=== PATIENT | male | born 1950 | race Caucasian/White ===

== ENCOUNTER 2020-01-20 09:58 | Outpatient (REF) | payer MEDICARE, OTHER, SELFPAY ==
[2020-01-20 10:50] LABS: Anion Gap 12 (12-20); Carbon Dioxide 29 mmol/L (22-29); Chloride 105 mmol/L (96-108); Potassium 4.3 mmol/l (3.3-5.1); Sodium 142 mmol/L (135-145)
== END 2020-01-20 09:59 | disposition home or self-care (01) ==
LOC: HO.LAB 09:58
PROVIDERS: PCP Internal Medicine; Visit Provider Internal Medicine
DX: I10 Essential (primary) hypertension (principal); I25.10 Atherosclerotic heart disease of native coronary artery without angina pectoris
CPT/HCPCS: 80051

== ENCOUNTER → 2020-01-28 08:00 | Outpatient (BNVA) | payer MEDICARE, OTHER, SELFPAY | PROVIDERS: PCP Internal Medicine; Visit Provider Internal Medicine | DX: I48.21 Permanent atrial fibrillation (principal); Z51.81 Encounter for therapeutic drug level monitoring; Z79.01 Long term (current) use of anticoagulants | CPT/HCPCS: 85610 ==

== ENCOUNTER 2020-02-01 11:23 | Outpatient (REF) | payer MEDICARE, OTHER, SELFPAY ==
[2020-02-01 13:20] LABS: Digoxin 0.3 ng/mL (0.8-2.0)
== END 2020-02-01 11:24 | disposition home or self-care (01) ==
LOC: HO.LAB 11:23
PROVIDERS: Visit Provider Internal Medicine
DX: I48.91 Unspecified atrial fibrillation (principal)
CPT/HCPCS: 80162

== ENCOUNTER → 2020-02-18 07:52 | Outpatient (BNVA) | payer MEDICARE, OTHER, SELFPAY | PROVIDERS: PCP Internal Medicine; Visit Provider Internal Medicine | DX: I48.21 Permanent atrial fibrillation (principal); Z51.81 Encounter for therapeutic drug level monitoring; Z79.01 Long term (current) use of anticoagulants | CPT/HCPCS: 85610; 99211 ==

== ENCOUNTER → 2020-03-03 08:07 | Outpatient (BNVA) | payer MEDICARE, SELFPAY | PROVIDERS: PCP Internal Medicine; Visit Provider Internal Medicine | DX: I48.21 Permanent atrial fibrillation (principal); Z51.81 Encounter for therapeutic drug level monitoring; Z79.01 Long term (current) use of anticoagulants | CPT/HCPCS: 85610; 99211 ==

== ENCOUNTER → 2020-03-17 08:04 | Outpatient (BNVA) | payer MEDICARE, MEDICAID, OTHER, SELFPAY | PROVIDERS: PCP Internal Medicine; Visit Provider Internal Medicine | DX: I48.21 Permanent atrial fibrillation (principal); Z51.81 Encounter for therapeutic drug level monitoring; Z79.01 Long term (current) use of anticoagulants | CPT/HCPCS: 85610; 99211 ==

== ENCOUNTER 2020-04-05 08:06 | Outpatient (REF) | payer MEDICARE, MEDICAID, OTHER, SELFPAY ==
--- NOTE | 2020-04-05 | US_ITS ---
EXAMINATION: US RETROPERITONEAL LIMITED (AORTA) CLINICAL INFORMATION: Smoking history. COMPARISON: None TECHNIQUE: Edmondson-scale, color Doppler and spectral Doppler evaluation of the abdominal aorta. FINDINGS: There is evidence of atherosclerotic disease with vessel wall calcification. There is a small aneurysm of the distal abdominal aorta. The measurements of the aorta in maximum AP and transverse dimensions respectively are as follows: Proximal: 2.9 x 2.5 cm. Mid: 2.8 x 2.7 cm. Distal: 3.7 x 3.2 cm. PSV: 54 cm/s. Aortic peak systolic velocity is normal measuring 54 cm/s.. There is mild ectasia of the common iliac arteries. The measurements of the common iliac arteries in maximum AP and TRV dimensions are as follows: Right Common Iliac Artery: 1.3 x 1.5 cm. Left Common Iliac Artery: 1.1 x 1.4 cm. 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 Mild ectasia of the bilateral common iliac arteries.
== END 2020-04-05 08:07 | disposition home or self-care (01) ==
LOC: HO.US 08:06
PROVIDERS: Visit Provider Internal Medicine
DX: Z87.891 Personal history of nicotine dependence (principal)
CPT/HCPCS: 76706; 76775

== ENCOUNTER → 2020-04-06 08:05 | Outpatient (BNVA) | payer MEDICARE, MEDICAID, OTHER, SELFPAY | PROVIDERS: PCP Internal Medicine; Visit Provider Internal Medicine | DX: I48.21 Permanent atrial fibrillation (principal); Z79.01 Long term (current) use of anticoagulants; Z51.81 Encounter for therapeutic drug level monitoring | CPT/HCPCS: 85610; 99211 ==

== ENCOUNTER → 2020-04-27 08:04 | Outpatient (BNVA) | payer MEDICARE, OTHER, SELFPAY | PROVIDERS: PCP Internal Medicine; Visit Provider Internal Medicine | DX: I48.21 Permanent atrial fibrillation (principal); Z79.01 Long term (current) use of anticoagulants; Z79.82 Long term (current) use of aspirin | CPT/HCPCS: 85610; 99211 ==

== ENCOUNTER → 2020-05-25 08:00 | Outpatient (BNVA) | payer MEDICARE, OTHER, SELFPAY | PROVIDERS: PCP Internal Medicine; Visit Provider Internal Medicine | DX: I48.21 Permanent atrial fibrillation (principal); Z51.81 Encounter for therapeutic drug level monitoring; Z79.01 Long term (current) use of anticoagulants | CPT/HCPCS: 85610; 99211 ==

== ENCOUNTER → 2020-06-22 08:00 | Outpatient (BNVA) | payer MEDICARE, SELFPAY | PROVIDERS: PCP Internal Medicine; Visit Provider Internal Medicine | DX: I48.21 Permanent atrial fibrillation (principal); Z51.81 Encounter for therapeutic drug level monitoring; Z79.01 Long term (current) use of anticoagulants | CPT/HCPCS: 85610; 99211 ==

== ENCOUNTER → 2020-07-19 07:58 | Outpatient (BNVA) | payer MEDICARE, SELFPAY | PROVIDERS: PCP Internal Medicine; Visit Provider Internal Medicine | DX: I48.21 Permanent atrial fibrillation (principal); Z51.81 Encounter for therapeutic drug level monitoring; Z79.01 Long term (current) use of anticoagulants | CPT/HCPCS: 85610; 99211 ==

== ENCOUNTER 2020-08-08 11:49 | Emergency (ER) | payer MEDICARE, SELFPAY ==
--- NOTE | 2020-08-08 | ECG_ITS ---
Test Reason : AFIB Blood Pressure : / mmHG Vent. Rate : 086 BPM Atrial Rate : 105 BPM P-R Int : 000 ms QRS Dur : 086 ms QT Int : 360 ms P-R-T Axes : 000 002 033 degrees QTc Int : 430 ms Atrial fibrillation Nonspecific ST abnormality Abnormal ECG No previous ECGs available Referred By: Generic ED Physician Electronically Signed By:FRAN CASSIDY MD
--- NOTE | ~2020-08-08 | CT_ITS ---
EXAMINATION: CHEST CTA CLINICAL INFORMATION: Therapeutic INR. Epigastric pain. Evaluate for pulmonary embolism. COMPARISON: Previous chest x-ray from earlier the same day TECHNIQUE: Axial images through the chest following 85 mL Omnipaque 350 intravenous contrast. Sagittal coronal and 3-D reconstructions on the technologist workstation were performed. Patient dose 4 3 3 mg/cm. This CT examination was performed using dose optimization techniques as appropriate, variously including the following: *Automated exposure control *Adjustment of mA and/or kV according to patient size (this includes techniques or standardized protocols for targeted exams where dose is matched to indication/reason for exam; i.e. extremities or head) *Use of iterative reconstruction technique FINDINGS: There is good opacification of the pulmonary arteries. There is no evidence of pulmonary embolism. There is evidence of atherosclerotic disease of the thoracic aorta. There is a mild ectasia of the aortic arch measuring 3.5 cm axial image 21 series 8. There is mild ectasia and thrombus seen in the descending thoracic aorta measuring 3.5 cm. The heart is upper normal in size. There are post-CABG changes. There is no pericardial effusion. There are no enlarged hilar or mediastinal lymph nodes. There is evidence of mild paraseptal emphysema. The lungs are clear. There is no pleural effusion or pleural thickening or pneumothorax. There are small bilateral axillary lymph nodes. No enlarged lymph nodes or chest wall mass is seen. There is an ununited median sternotomy. There are degenerative changes of the thoracic spine. CT/CT angio chest PE protocol IMPRESSION: No evidence of pulmonary embolism. Slightly ectatic aortic arch and descending thoracic aorta measuring 3.5 cm and some thrombus.. Mild emphysema. EXAMINATION: CT of the abdomen and pelvis with IV contrast CLINICAL INFORMATION: Epigastric pain COMPARISON: Aortic ultrasound March 2020 TECHNIQUE: Axial images through the chest, abdomen and pelvis following oral and 85 mL Omnipaque 350 intravenous contrast. Sagittal and coronal reconstructions on the technologist workstation were performed. Patient dose 6 6 3 mg/cm. This CT examination was performed using dose optimization techniques as appropriate, variously including the following: *Automated exposure control *Adjustment of mA and/or kV according to patient size (this includes techniques or standardized protocols for targeted exams where dose is matched to indication/reason for exam; i.e. extremities or head) *Use of iterative reconstruction technique FINDINGS: The liver is low in attenuation suggestive of mild fatty infiltration. The liver is slightly enlarged. No focal liver lesion or biliary duct dilatation is seen. The gallbladder has been removed. The spleen and pancreas are unremarkable. There is fullness of both adrenal glands questionable for hyperplasia or adenomatous change. The kidneys are normal. The bladder is not optimally distended but appears normal. The prostate gland does not appear enlarged. There is diverticulosis of the colon. There is a small duodenal diverticulum adjacent to the pancreas. Small and large bowel is otherwise unremarkable. The appendix is unremarkable. The dominant is unremarkable. There is evidence of atherosclerotic disease of the abdominal aorta there is mild dilatation of the infrarenal abdominal aorta measuring 3.4 x 3.2 cm in AP and transverse dimension. By ultrasound, the aorta measured 3.7 x 3.2 cm March 2020 and this is probably not appreciably changed. There is some intraluminal thrombus. There is mild nonspecific fat stranding and shotty adenopathy at the root of the small bowel mesentery. There are small retroperitoneal lymph nodes. No enlarged lymph nodes are seen. No ascites is seen. No hernia is seen. Review of bone windows demonstrates degenerative changes of the spine and hip joints. As a small 3 mm nonspecific sclerotic density in the right side of the L3 vertebral body.. IMPRESSION: Diverticulosis of the colon. Duodenal diverticuli adjacent to the pancreas. Mild nonspecific fatty infiltration and small lymph nodes at the root of the small bowel mesentery. Enlarged fatty liver. Atherosclerotic disease with mild dilatation of the infrarenal abdominal aorta probably unchanged from previous aortic ultrasound March 2020. Bilateral adrenal gland fullness suggestive of hyperplasia.
--- NOTE | ~2020-08-08 | XR_ITS ---
EXAMINATION: XR CHEST CLINICAL INFORMATION: Chest pain COMPARISON: None TECHNIQUE: Frontal view of the chest was obtained. FINDINGS: The cardiac silhouette does not appear enlarged. There are post-CABG changes, atrial appendage clip and median sternotomy wires. Hilar and mediastinal contours are unremarkable. The lungs are clear. There is no pleural effusion or pneumothorax. There are degenerative changes of the spine. XR/XR chest 1V IMPRESSION: No evidence for acute disease in the chest.
[2020-08-08 11:50] VITALS: BP 138/90; PULSE 88; RESP 16; TEMP 36.7; O2SAT 99; BMI 33.2
--- NOTE | 2020-08-08 12:16 | ED.GENADULT ---
HPI - General Adult General Chief complaint: Arrhythmia/Palpitations Stated complaint: chest pain Time Seen by Provider: 08/08/20 12:03 Source: patient Mode of arrival: ambulatory Limitations: no limitations History of Present Illness HPI narrative: Patient presents to the ED for epigastric pressure/upper abdominal pressure that he woke up with at 6 this morning. Patient denies any nausea, vomiting, shortness of breath, coughing up blood, fever, or chills. Patient denies any acid burning sensation abdomen. Patient states pain resolved on his own before he came to the ED. Patient presently denies abdominal pain, chest pain, shortness of breath, calf pain, or swelling of lower extremities. Patient denies any trauma to chest and abdomen area. Patient denies any nausea vomiting. Patient denies any rectal bleeding or dysuria. Related Data Home Medications Medication Instructions Recorded Confirmed amlodipine 5 mg tablet 5 mg PO DAILY 06/22/20 07/19/20 aspirin 81 mg tablet,delayed 81 mg PO DAILY 06/22/20 07/19/20 release atorvastatin 40 mg tablet 40 mg PO DAILY 06/22/20 07/19/20 diltiazem HCl 180 mg 180 mg PO DAILY 06/22/20 07/19/20 capsule,extended release 24 hr hydrochlorothiazide 12.5 mg tablet 12.5 mg PO DAILY 06/22/20 07/19/20 losartan 100 mg tablet 100 mg PO DAILY 06/22/20 07/19/20 Previous Rx's Medication Instructions Recorded warfarin 5 mg tablet 5 mg PO DAILY #90 tab 01/28/20 Allergies Allergy/AdvReac Type Severity Reaction Status Date / Time No Known Allergies Allergy Verified 05/25/20 08:07 Review of Systems Review of Systems: Yes all other systems are reviewed and are negative Constitutional: Constitutional: Reports as per HPI and Reports no additional constitutional complaints Eyes: Eyes: Reports as per HPI and Reports no additional eye complaints ENT: Reports system reviewed and no additional complaints, except as documented and Reports as per HPI Cardiovascular: Cardiovascular: Reports as per HPI, Reports no additional cardiovascular complaints, Denies chest pain, Denies dyspnea on exertion, Denies orthopnea and Denies paroxysmal nocturnal dyspnea Respiratory: Respiratory: Reports as per HPI, Reports no additional respiratory complaints, Denies cough, Denies pain on inspiration, Denies pain with cough and Denies dyspnea on exertion Gastrointestinal: Gastrointestinal: Reports as per HPI, Reports no additional gastrointestinal complaints and Reports abdominal pain (Epigastric pressure) Genitourinary: Genitourinary: Reports no additional male genitourinary complaints Musculoskeletal: Musculoskeletal: Reports no additional musculoskeletal complaints and Reports as per HPI Neurologic: Reports system reviewed and no additional complaints, except as documented and Reports as per HPI Psychiatric: Psychiatric: Reports no additional psychiatric complaints and Reports as per HPI [facility] Past Medical History Medical History (Updated 08/08/20 @ 17:43 by MARLON Hsu) HTN (hypertension) Surgical History (Updated 08/08/20 @ 11:54 by Kelly Hall) Status post double vessel coronary artery bypass Social History Social History Alcohol intake: never Smoking Status: Never smoker Use of substances other than those prescribed or required for medical reasons: No Advance Directives: No Advance Directives Information Provided: No Physical Exam Vital Signs: Vital Signs: Last Vital Signs Temp 97.9 F 08/08/20 15:56 Pulse 70 08/08/20 15:56 Resp 18 08/08/20 15:56 BP 109/82 08/08/20 15:56 Pulse Ox 98 08/08/20 15:56 Body Mass Index 33.2 Const: General: cooperative, healthy appearing, comfortable, no acute distress, well developed, alert, awake and Physically active Orientation/consciousness: patient oriented x3 HENMT: Head: Yes normal to inspection, Yes No palpable skull fracture present, Yes normocephalic and Yes atraumatic Eyes: General: appearance normal, both eyes and all related structures Neck: Neck: Yes normal visual inspection, Yes full ROM, Yes no lymphadenopathy, Yes no meningeal signs, Yes trachea midline, Yes supple and No tender Chest: Chest palpation & inspection: normal inspection of the chest and normal palpation of entire chest wall Resp: Effort & Inspection: normal respiratory effort and able to speak in complete sentences Auscultation: clear to auscultation bilaterally Cardio: Jugular venous distension: no JVD Heart sounds: S1 normal heart sound present and S2 normal heart sound present GI: Inspection: Yes normal to inspection and No abdominal wall ecchymosis Palpation (GI): Soft to palpation, not firm, nontender, no guarding and not rigid : General: No CVA tenderness and Yes no CVA tenderness Back/Spine/Pelvis: Back: no CVA tenderness, No CVA tenderness, No ecchymosis and No back tenderness Skin: General skin exam: no rashes or lesions noted and elasticity normal Neuro: General: patient oriented x3, no meningeal signs and CN's II-XI intact bilaterally Cranial nerves: Yes CN's II-XII intact bilaterally Extrem: General: Yes normal to inspection and Yes full ROM Psych: Appearance: grossly normal, well kempt and not disheveled Course Course Course Narrative: Due to past medical history patient will have a cardiac evaluation. Presently patient is asymptomatic. Will do EKG, labs including troponin, LFT, and lipase. Patient given fluid. Reevaluation(s) Reevaluation #1: Patient EKG showed rate controlled atrial fibrillation. Patient presently is asymptomatic. Patient's INR subtherapeutic. Patient states he did miss a couple doses last week. Patient's states where he had pressure this morning it was more in the epigastric abdominal area. I reviewed prior imaging which showed aortic aneurysm of 3.7 cm. The repeat imaging to see there is increased size of aneurysm although very unlikely due to patient being asymptomatic. Patient will have 2nd troponin ordered Time: 13:50 Reevaluation #2: Notes from [facility] Cardiology office came back and only had EKG strips were provided no notes from the cant hooker. No EKG changes from EKG that was done on 06/19/2019 at his cant hooker's office at [facility]. I reviewed [facility] by prior surgical note. Patient had by[ass was placed for distal left main stenosis artery. Reevaluation #3: Chest CT negative for any pulmonary embolus. But it does shows same dilated aorta, but now thrombus in the aorta. Patient presently is asymptomatic. Patient does not have any chest pain or abdominal pain. Will contact Dr. Sorenson of vascular surgery for consultation in regards to the thrombus. Patient ready on Coumadin. Abdominal CT scan does not show any intra abdominal medical/surgical etiology. Time: 17:27 Additional Reevaluation(s): Dr. Sorenson came and spoke to me and he was informed of patient's history, physical exam and he reviewed patient's CT of the abdomen and chest imaging. He states patient does not need any further management due to patient being already on Coumadin. Patient to be discharged home. Patient will be given copy of labs imaging ekg and told to follow-up with his cant hooker tomorrow. Once again patient never had any chest pain, chest pressure, abominal pain, epigastric pain, or any epigastric/abdominal pressure during ED visit. Patient passed p.o. challenge. Patient ate a whole plate of food consisted of rice and chicken. Medical Decision Making MDM Narrative Medical decision making narrative: Atypical chest pain/epigastric pain Lab Data Result diagrams: 08/08/20 12:28 08/08/20 12:28 Labs: Lab Results 08/08/20 08/08/20 08/08/20 Range/Units 12:28 12: 12:28 WBC 9.0 (4.8-10.8) X10*3/uL RBC 5.45 (4.60-5.80) X10*6/uL Hgb 16.4 (14.0-18.0) g/dl Hct 49.2 (42-52) % MCV 90.3 (80-98) fL MCH 30.1 (27.0-33.0) pg MCHC 33.3 (31.0-36.0) g/dl RDW 13.8 (11.0-16.0) % Plt Count 202 (160-400) X10*3/uL MPV 10.7 (9.4-12.4) fL Immature Gran % (Auto) 0.4 (0.0-0.4) % Neut % (Auto) 57.7 (45-73) % Lymph % (Auto) 27.5 (20-40) % [place] % (Auto) 11.9 H (2-11) % Eos % (Auto) 2.2 (0-4) % Baso % (Auto) 0.3 (0-2) % Lymph # (Auto) 2.5 (1.2-4.9) X10*3/uL [place] # (Auto) 1.1 (0.1-1.2) X10*3/uL Eos # (Auto) 0.2 (0.0-0.4) X10*3/uL Baso # (Auto) 0.0 (0.0-0.2) X10*3/uL Abs Immat Gran (auto) 0.04 H (0.00-0.03) X10*3/uL Absolute Neuts (auto) 5.2 (2.0-8.3) X10*3/uL Absolute Nucleated RBC 0.000 (0.0-0.012) X10*3/uL Nucleated RBC % (auto) 0.0 (0.0-0.2) /100WBC PT 20.1 H (10.8-13.0) SEC INR 1.7 H (0.9-1.1) APTT 41.9 H (24.1-38.0) SEC Sodium 141 (135-145) mmol/L Potassium 4.3 (3.3-5.1) mmol/L Chloride 103 (96-108) mmol/L Carbon Dioxide 28 (22-29) mmol/L Anion Gap 14 (12-20) BUN 13 (9-16) mg/dL Creatinine 0.99 (0.5-1.4) mg/dL Estim Creat Clear Calc 81.7 Estimated GFR > 60 Random Glucose 101 (60-115) mg/dL Calcium 9.4 (8.4-10.2) mg/dL Total Bilirubin 0.9 (0.0-1.0) mg/dL Direct Bilirubin (0.0-0.5) mg/dL AST 25 (5-37) U/L ALT 27 (0-40) U/L Alkaline Phosphatase 75 (39-117) U/L Troponin I High Sens (<3.5-35.0) ng/L B-Natriuretic Peptide (<100) pg/mL Total Protein 6.9 (6.5-8.0) g/dL Albumin 4.1 (3.5-5.0) g/dL Lipase (8-78) U/L COVID-19 (CHRISTINE) (Negative) COVID-19 Clin Com 08/08/20 08/08/20 08/08/20 Range/Units 12:28 12:28 12:28 WBC (4.8-10.8) X10*3/uL RBC (4.60-5.80) X10*6/uL Hgb (14.0-18.0) g/dl Hct (42-52) % MCV (80-98) fL MCH (27.0-33.0) pg MCHC (31.0-36.0) g/dl RDW (11.0-16.0) % Plt Count (160-400) X10*3/uL MPV (9.4-12.4) fL Immature Gran % (Auto) (0.0-0.4) % Neut % (Auto) (45-73) % Lymph % (Auto) (20-40) % [place] % (Auto) (2-11) % Eos % (Auto) (0-4) % Baso % (Auto) (0-2) % Lymph # (Auto) (1.2-4.9) X10*3/uL [place] # (Auto) (0.1-1.2) X10*3/uL Eos # (Auto) (0.0-0.4) X10*3/uL Baso # (Auto) (0.0-0.2) X10*3/uL Abs Immat Gran (auto) (0.00-0.03) X10*3/uL Absolute Neuts (auto) (2.0-8.3) X10*3/uL Absolute Nucleated RBC (0.0-0.012) X10*3/uL Nucleated RBC % (auto) (0.0-0.2) /100WBC PT (10.8-13.0) SEC INR (0.9-1.1) APTT (24.1-38.0) SEC Sodium (135-145) mmol/L Potassium (3.3-5.1) mmol/L Chloride (96-108) mmol/L Carbon Dioxide (22-29) mmol/L Anion Gap (12-20) BUN (9-16) mg/dL Creatinine (0.5-1.4) mg/dL Estim Creat Clear Calc Estimated GFR Random Glucose (60-115) mg/dL Calcium (8.4-10.2) mg/dL Total Bilirubin (0.0-1.0) mg/dL Direct Bilirubin (0.0-0.5) mg/dL AST (5-37) U/L ALT (0-40) U/L Alkaline Phosphatase (39-117) U/L Troponin I High Sens 8.2 (<3.5-35.0) ng/L B-Natriuretic Peptide 252 H (<100) pg/mL Total Protein (6.5-8.0) g/dL Albumin (3.5-5.0) g/dL Lipase (8-78) U/L COVID-19 (CHRISTINE) Negative (Negative) COVID-19 Clin Com See Note 08/08/20 08/08/20 Range/Units 12:28 15:42 WBC (4.8-10.8) X10*3/uL RBC (4.60-5.80) X10*6/uL Hgb (14.0-18.0) g/dl Hct (42-52) % MCV (80-98) fL MCH (27.0-33.0) pg MCHC (31.0-36.0) g/dl RDW (11.0-16.0) % Plt Count (160-400) X10*3/uL MPV (9.4-12.4) fL Immature Gran % (Auto) (0.0-0.4) % Neut % (Auto) (45-73) % Lymph % (Auto) (20-40) % [place] % (Auto) (2-11) % Eos % (Auto) (0-4) % Baso % (Auto) (0-2) % Lymph # (Auto) (1.2-4.9) X10*3/uL [place] # (Auto) (0.1-1.2) X10*3/uL Eos # (Auto) (0.0-0.4) X10*3/uL Baso # (Auto) (0.0-0.2) X10*3/uL Abs Immat Gran (auto) (0.00-0.03) X10*3/uL Absolute Neuts (auto) (2.0-8.3) X10*3/uL Absolute Nucleated RBC (0.0-0.012) X10*3/uL Nucleated RBC % (auto) (0.0-0.2) /100WBC PT (10.8-13.0) SEC INR (0.9-1.1) APTT (24.1-38.0) SEC Sodium (135-145) mmol/L Potassium (3.3-5.1) mmol/L Chloride (96-108) mmol/L Carbon Dioxide (22-29) mmol/L Anion Gap (12-20) BUN (9-16) mg/dL Creatinine (0.5-1.4) mg/dL Estim Creat Clear Calc Estimated GFR Random Glucose (60-115) mg/dL Calcium (8.4-10.2) mg/dL Total Bilirubin 0.9 (0.0-1.0) mg/dL Direct Bilirubin 0.3 (0.0-0.5) mg/dL AST 27 (5-37) U/L ALT 28 (0-40) U/L Alkaline Phosphatase 73 (39-117) U/L Troponin I High Sens 7.3 (<3.5-35.0) ng/L B-Natriuretic Peptide (<100) pg/mL Total Protein 7.0 (6.5-8.0) g/dL Albumin 4.1 (3.5-5.0) g/dL Lipase 11 (8-78) U/L COVID-19 (CHRISTINE) (Negative) COVID-19 Clin Com ECG Data Interpretation: Atrial fibrillation. Reticular 86. QRS 86. QTC 433. Negative STEMI Discharge Plan Discharge Clinical Impression: Chest pain, atypical, Acute epigastric pain Patient Disposition: Home, Self-Care Instructions: Chest Pain (ED), Epigastric Pain (ED) Additional Instructions: Return to the ED immediately for any worsening chest/abdominal pain, nausea, vomiting, fever, chills, swelling of lower extremities, calf pain, coughing up blood, diaphoresis, headache, dizziness, weakness, or any other concerning symptoms. Please follow-up with a cant hooker at [facility] tomorrow. Prescriptions: No Action warfarin 5 mg tablet 5 mg PO DAILY Qty: 90 RF: 0 diltiazem HCl 180 mg capsule,extended release 24hr 180 mg PO DAILY RF: 0 hydrochlorothiazide 12.5 mg tablet 12.5 mg PO DAILY RF: 0 amlodipine 5 mg tablet 5 mg PO DAILY RF: 0 losartan 100 mg tablet 100 mg PO DAILY RF: 0 atorvastatin 40 mg tablet 40 mg PO DAILY RF: 0 aspirin 81 mg tablet,delayed release (DR/EC) 81 mg PO DAILY RF: 0 Interventions: ED Discharge Assessment Last Done: 08/08/20 18:02 Discharge Date/Time: 08/08/20 18:03 Print Language: Bulgarian
[2020-08-08] MEDS: 0.9 % Sodium Chloride 1,000 ML 999 ML IV (12:30)
[2020-08-08 12:43] LABS: MANUAL DIFF FLAG NO
[2020-08-08 12:46] LABS: Basophils Percent Auto 0.3 % (0-2); Eosinophils Absolute Auto 0.2 X10*3/uL (0.0-0.4); Eosinophils Percent Auto 2.2 % (0-4); Hematocrit 49.2 % (42-52); Hemoglobin 16.4 g/dl (14.0-18.0); Imm Gran Abs Auto 0.04 X10*3/uL (0.00-0.03); Imm Gran Pct Auto 0.4 % (0.0-0.4); Lymphocytes Absolute Auto 2.5 X10*3/uL (1.2-4.9); Lymphocytes Percent Auto 27.5 % (20-40); Mean Corpuscular HGB Conc 33.3 g/dl (31.0-36.0); Mean Corpuscular Hemoglobin 30.1 pg (27.0-33.0); Mean Corpuscular Volume 90.3 fL (80-98); Mean Platelet Volume 10.7 fL (9.4-12.4); Monocytes Absolute Auto 1.1 X10*3/uL (0.1-1.2); Monocytes Percent Auto 11.9 % (2-11); Neutrophils Absolute Auto 5.2 X10*3/uL (2.0-8.3); Neutrophils Percent Auto 57.7 % (45-73); Platelet Count 202 X10*3/uL (160-400); Red Blood Count 5.45 X10*6/uL (4.60-5.80); Red Cell Distribution Width 13.8 % (11.0-16.0)
[2020-08-08 12:52] LABS: INTERNATIONAL NORM RATIO 1.7 (0.9-1.1); Prothrombin Time 20.1 SEC (10.8-13.0)
[2020-08-08 13:01] LABS: Partial Thromboplastin Time 41.9 SEC (24.1-38.0)
[2020-08-08 13:06] LABS: COVID-19 Test Negative (Negative)
[2020-08-08 13:14] LABS: Alanine Aminotransferase 27 U/L (0-40); Albumin Level 4.1 g/dL (3.5-5.0); Alkaline Phosphatase 75 U/L (39-117); Anion Gap 14 (12-20); Aspartate Amino Transferase 25 U/L (5-37); Bilirubin Total 0.9 mg/dL (0.0-1.0); Blood Urea Nitrogen 13 mg/dL (9-16); Calcium 9.4 mg/dL (8.4-10.2); Carbon Dioxide 28 mmol/L (22-29); Chloride 103 mmol/L (96-108); Creatinine Clr Calc Pharmacy 81.7; Estimated Glomerular Filt Rate > 60; Glucose Random 101 mg/dL (60-115); Potassium 4.3 mmol/L (3.3-5.1); Sodium 141 mmol/L (135-145); Total Protein 6.9 g/dL (6.5-8.0)
[2020-08-08 13:16] LABS: Alanine Aminotransferase 28 U/L (0-40); Albumin Level 4.1 g/dL (3.5-5.0); Alkaline Phosphatase 73 U/L (39-117); Aspartate Amino Transferase 27 U/L (5-37); Bilirubin Direct 0.3 mg/dL (0.0-0.5); Bilirubin Total 0.9 mg/dL (0.0-1.0); Lipase 11 U/L (8-78)
[2020-08-08 13:18] LABS: B Type Natriuretic Peptide 252 pg/mL (<100)
[2020-08-08 13:19] LABS: Troponin-I High Sensitivity 8.2 ng/L (<3.5-35.0)
[2020-08-08] MEDS: iohexoL 350 MG/ML 100 ML INFUS..BTL IV (15:17)
[2020-08-08 15:56] VITALS: BP 109/82; PULSE 70; RESP 18; TEMP 36.6; O2SAT 98
[2020-08-08 16:21] LABS: Troponin-I High Sensitivity 7.3 ng/L (<3.5-35.0)
[2020-08-08 16:56] VITALS: PULSE 75
== END 2020-08-08 18:03 | disposition home or self-care (01) ==
PROVIDERS: Physician Assistant; Emergency Provider Internal Medicine; PCP Internal Medicine
DX: R07.89 Other chest pain (principal); R10.13 Epigastric pain; Z20.822 Contact with and (suspected) exposure to COVID-19; I48.91 Unspecified atrial fibrillation; I10 Essential (primary) hypertension; Z79.01 Long term (current) use of anticoagulants
CPT/HCPCS: 36415; 71045; 71275; 74177; 80053; 80076; 82248; 83690; 83880; 84484; 85025; 85610; 85730; 87635; 93005; 96360; 99284; 99285; Q9967

== ENCOUNTER → 2020-08-11 08:03 | Outpatient (BNVA) | payer MEDICARE, SELFPAY | PROVIDERS: PCP Internal Medicine; Visit Provider Internal Medicine | DX: I48.21 Permanent atrial fibrillation (principal); Z51.81 Encounter for therapeutic drug level monitoring; Z79.01 Long term (current) use of anticoagulants | CPT/HCPCS: 85610; 99211 ==

== ENCOUNTER → 2020-08-21 08:00 | Outpatient (BNVA) | payer MEDICARE, SELFPAY | PROVIDERS: PCP Internal Medicine; Visit Provider Internal Medicine | DX: I48.21 Permanent atrial fibrillation (principal); Z51.81 Encounter for therapeutic drug level monitoring; Z79.01 Long term (current) use of anticoagulants | CPT/HCPCS: 85610; 99211 ==

== ENCOUNTER → 2020-08-24 08:03 | Outpatient (BNVA) | payer MEDICARE, SELFPAY | PROVIDERS: PCP Internal Medicine; Visit Provider Internal Medicine | DX: I48.21 Permanent atrial fibrillation (principal); Z51.81 Encounter for therapeutic drug level monitoring; Z79.01 Long term (current) use of anticoagulants | CPT/HCPCS: 85610; 99211 ==

== ENCOUNTER → 2020-08-31 08:08 | Outpatient (BNVA) | payer MEDICARE, SELFPAY | PROVIDERS: PCP Internal Medicine; Visit Provider Internal Medicine | DX: I48.19 Other persistent atrial fibrillation (principal); Z51.81 Encounter for therapeutic drug level monitoring; Z79.01 Long term (current) use of anticoagulants | CPT/HCPCS: 85610; 99211 ==

== ENCOUNTER → 2020-09-12 08:10 | Outpatient (BNVA) | payer MEDICARE, SELFPAY | PROVIDERS: PCP Internal Medicine; Visit Provider Internal Medicine | DX: I48.21 Permanent atrial fibrillation (principal); Z51.81 Encounter for therapeutic drug level monitoring; Z79.01 Long term (current) use of anticoagulants | CPT/HCPCS: 85610; 99211 ==

== ENCOUNTER → 2020-09-15 14:50 | Outpatient (BNVA) | payer MEDICARE, SELFPAY | PROVIDERS: PCP Internal Medicine; Visit Provider Internal Medicine | DX: I48.21 Permanent atrial fibrillation (principal); Z51.81 Encounter for therapeutic drug level monitoring; Z79.01 Long term (current) use of anticoagulants | CPT/HCPCS: 85610; 99211 ==

== ENCOUNTER → 2020-09-20 08:11 | Outpatient (BNVA) | payer MEDICARE, SELFPAY | PROVIDERS: PCP Internal Medicine; Visit Provider Internal Medicine | DX: I48.19 Other persistent atrial fibrillation (principal); Z51.81 Encounter for therapeutic drug level monitoring; Z79.01 Long term (current) use of anticoagulants | CPT/HCPCS: 85610; 99211 ==

== ENCOUNTER → 2020-09-28 08:04 | Outpatient (BNVA) | payer MEDICARE, SELFPAY | PROVIDERS: PCP Internal Medicine; Visit Provider Internal Medicine | DX: I48.21 Permanent atrial fibrillation (principal); Z51.81 Encounter for therapeutic drug level monitoring; Z79.01 Long term (current) use of anticoagulants | CPT/HCPCS: 85610; 99211 ==

== ENCOUNTER → 2020-10-26 07:59 | Outpatient (BNVA) | payer MEDICARE, SELFPAY | PROVIDERS: PCP Internal Medicine; Visit Provider Internal Medicine | DX: I48.19 Other persistent atrial fibrillation (principal); Z51.81 Encounter for therapeutic drug level monitoring; Z79.01 Long term (current) use of anticoagulants | CPT/HCPCS: 85610; 99211 ==

== ENCOUNTER 2020-11-21 09:35 | Outpatient (REF) | payer MEDICARE, SELFPAY ==
[2020-11-21 10:51] LABS: Hematocrit 46.2 % (42-52); Hemoglobin 15.2 g/dl (14.0-18.0); Mean Corpuscular HGB Conc 32.9 g/dl (31.0-36.0); Mean Corpuscular Hemoglobin 29.7 pg (27.0-33.0); Mean Corpuscular Volume 90.2 fL (80-98); Mean Platelet Volume 10.6 fL (9.4-12.4); Platelet Count 227 X10*3/uL (160-400); Red Blood Count 5.12 X10*6/uL (4.60-5.80); Red Cell Distribution Width 14.6 % (11.0-16.0); White Blood Count 11.4 X10*3/uL (4.8-10.8)
== END 2020-11-21 09:36 | disposition home or self-care (01) ==
LOC: HO.LAB 09:35
PROVIDERS: PCP Internal Medicine; Referring Provider Internal Medicine; Visit Provider Nurse Practitioner Family
DX: Z01.818 Encounter for other preprocedural examination (principal)
CPT/HCPCS: 36415; 85027; 99202

== ENCOUNTER → 2020-12-07 07:59 | Outpatient (BNVA) | payer MEDICARE, SELFPAY | PROVIDERS: PCP Internal Medicine; Visit Provider Internal Medicine | DX: I48.21 Permanent atrial fibrillation (principal); Z51.81 Encounter for therapeutic drug level monitoring; Z79.01 Long term (current) use of anticoagulants | CPT/HCPCS: 85610; 99211 ==

== ENCOUNTER → 2021-01-02 08:44 | Outpatient (BNVA) | payer MEDICARE, SELFPAY | PROVIDERS: PCP Internal Medicine; Referring Provider Internal Medicine; Visit Provider Internal Medicine | DX: Z01.810 Encounter for preprocedural cardiovascular examination (principal); I25.5 Ischemic cardiomyopathy; I25.10 Atherosclerotic heart disease of native coronary artery without angina pectoris; I48.0 Paroxysmal atrial fibrillation | CPT/HCPCS: 93005; 99202 ==

== ENCOUNTER → 2021-01-04 08:02 | Outpatient (BNVA) | payer MEDICARE, SELFPAY | PROVIDERS: PCP Internal Medicine; Visit Provider Internal Medicine | DX: I48.21 Permanent atrial fibrillation (principal); Z51.81 Encounter for therapeutic drug level monitoring; Z79.01 Long term (current) use of anticoagulants | CPT/HCPCS: 85610; 99211 ==

== ENCOUNTER → 2021-01-18 08:11 | Outpatient (BNVA) | payer MEDICARE, SELFPAY | PROVIDERS: PCP Internal Medicine; Visit Provider Internal Medicine | DX: I48.21 Permanent atrial fibrillation (principal); Z51.81 Encounter for therapeutic drug level monitoring; Z79.01 Long term (current) use of anticoagulants | CPT/HCPCS: 85610; 99211 ==

== ENCOUNTER → 2021-01-25 12:28 | Outpatient (REF) | payer MEDICARE, SELFPAY ==
--- NOTE | 2021-01-25 12:32 | CA_ITS ---
Transthoracic Echocardiogram Patient (Last, First, Middle): Carlos Moncada, Gender: Male Date of : 1950 Age: 70 Procedure Date: 01/25/2021 Procedure Type: Transthoracic Echocardiogram Location: OP Height: 175.26 cm Weight: 104.33 kg BSA: 2.19 m2 Heart Rate: bpm BP: 146 / 87 mmHg Auto Service Dispatcher: ROYER/ZAIDA Referring MD: Jono Kelly MD Grief Counselor: Ridge Griffin MD Symptoms: I25.10 - Atherosclerotic heart disease of [place] coronary... Study Quality: Fair ECG Rhythm: Sinus Conclusions: - 1. Normal LV systolic function with mild LVH with impaired relaxation filling pattern with underlying wall motion abnormality suggestive of CAD 2. Normal cardiac valvular Doppler 3. Normal RV systolic pressure 4. No pericardial effusion Findings Left Ventricle Normal left ventricular size and systolic function. There is mildly increased left ventricular wall thickness. The visually estimated ejection fraction is between 55-60%. Spectral Doppler is indicative of an impaired relaxation filling pattern. E/E prime ratio is between 8 and 15 consistent with indeterminate filling pressures. Wall Motion Rest Echo Findings The basal inferior and basal inferoseptal segments are akinetic. All other scored wall segments showed normal motion. Right Ventricle Normal right ventricular cavity size and systolic function. Atria The left atrium is mildly dilated. Interatrial shunt cannot be excluded. The right atrium is normal in size. Aortic Valve The aortic valve structure and function is likely normal. There is no aortic valve stenosis. There is no aortic valve regurgitation. Mitral Valve Likely normal mitral valve structure and function. There is trace mitral valve regurgitation. There is no mitral valve stenosis. Pulmonic Valve The pulmonic valve was not well visualized. Tricuspid Valve Likely normal tricuspid valve structure and function. There is trace tricuspid valve regurgitation. The right ventricular systolic pressure is normal. The right ventricular systolic pressure is 15 mmHg. Normal right atrial pressure. There is no evidence of pulmonary hypertension. Great Vessels All visible segments of the aorta are normal in size. The pulmonary artery was not well visualized. Venous The inferior vena cava is normal in size and collapses greater than 50% with inspiration. Pericardium/Pleural There is no evidence of pericardial effusion. Prior Study Comparison No prior study available for comparison. Measurements 2D Linear Measurements IVSd: 1.24 0.6-0.9/0.6-1.0 cm LVIDd: 5.26 3.9-5.3/4.2-5.9 cm LVIDd Index: 2.40 2.4-3.2/2.2-3.1 cm/m2 LVIDs: 3.10 2.0-3.6 cm LVPWd: 1.18 0.7-1.1 cm Ao Root: 3.70 2.1-3.5 cm LA Diam: 4.40 2.7-3.8/3.0-4.0 cm LAIDs Index: 2.01 1.5-2.3 cm/m2 LV Mass: 319.75 67-162/88-224 g LV Mass Index: 146.01 43-95/49-115 g/m2 LVOT Diam: 2.00 3.0+(-)1.3 cm 2D Systolic Function EF 4C: 60.40 >55% EF 2C: 58.30 >55% EF BiP: 59.60 >55% Mitral Valve MV Pk E: 0.59 MV PK A: 0.63 MV Decel Time: 338.00 E/A: 0.90 E'Lateral: 9.68 E'Medial: 7.29 E/E' Med: 8.10 E/E' Lat: 6.10 PHT: 99.00 MVA PHT: 2.22 Decel [place]: 1.75 Aortic Valve AoV Pk Samson: 1.27 AoV Mn Samson: 0.83 AoV VTI: 0.28 AoV Pk Grad: 6.00 Aov Mn Grad: 3.00 DENNISE Cont.VTI: 2.48 LVOT LVOT Pk Samson: 1.17 LVOT Mn Samson: 0.72 LVOT VTI: 0.22 LVOT Pk Grad: 5.00 LVOT Mn Grad: 2.00 LVOT Diam: 2.00 LVOT Area: 3.14 Diastolic Function MV Pk E: 0.59 MV Pk A: 0.63 E/A: 0.90 E'Medial: 7.29 E/E' Med: 8.10 E' Laterial: 9.68 E/E' Lat: 6.10 Right Ventricle TAPSE (mm): 1.66 TVS' Samson: 1.66 Tricuspid Valve TR Pk Samson: 1.76 TR Pk Grad: 12.00 RA Press: 3.00 RVSP: 15.00 Great Vessels Aorta Ao Root-2D: 3.70 2.0-3.7 cm Ao Asc: 3.40 2.1-3.4 cm Updated in Other Vendor System with Status of Final Ridge Griffin MD electronically signed on 01/27/2021 2:08:06 PM with status of Final
== END ==
LOC: HO.CARD 12:28
PROVIDERS: Visit Provider Internal Medicine
DX: I25.10 Atherosclerotic heart disease of native coronary artery without angina pectoris (principal); I25.5 Ischemic cardiomyopathy
CPT/HCPCS: 93306

== ENCOUNTER → 2021-02-01 08:08 | Outpatient (BNVA) | payer MEDICARE, SELFPAY | PROVIDERS: PCP Internal Medicine; Visit Provider Internal Medicine | DX: I48.21 Permanent atrial fibrillation (principal); Z51.81 Encounter for therapeutic drug level monitoring; Z79.01 Long term (current) use of anticoagulants | CPT/HCPCS: 85610; 99211 ==

== ENCOUNTER → 2021-02-14 11:58 | Outpatient (BNVA) | payer MEDICARE, SELFPAY | PROVIDERS: PCP Internal Medicine; Referring Provider Internal Medicine; Visit Provider Internal Medicine | DX: Z01.810 Encounter for preprocedural cardiovascular examination (principal); I25.10 Atherosclerotic heart disease of native coronary artery without angina pectoris; I48.0 Paroxysmal atrial fibrillation; I25.5 Ischemic cardiomyopathy | CPT/HCPCS: 85610; 99211; 99212 ==

== ENCOUNTER → 2021-02-28 08:44 | Outpatient (BNVA) | payer MEDICARE, SELFPAY | PROVIDERS: PCP Internal Medicine; Visit Provider Internal Medicine | DX: I48.21 Permanent atrial fibrillation (principal); Z51.81 Encounter for therapeutic drug level monitoring; Z79.01 Long term (current) use of anticoagulants | CPT/HCPCS: 85610; 99211 ==

== ENCOUNTER → 2021-03-21 08:08 | Outpatient (BNVA) | payer MEDICARE, SELFPAY | PROVIDERS: PCP Internal Medicine; Visit Provider Internal Medicine | DX: I48.21 Permanent atrial fibrillation (principal); Z51.81 Encounter for therapeutic drug level monitoring; Z79.01 Long term (current) use of anticoagulants | CPT/HCPCS: 85610; 99211 ==

== ENCOUNTER → 2021-04-03 08:14 | Outpatient (BNVA) | payer MEDICARE, SELFPAY | PROVIDERS: PCP Internal Medicine; Referring Provider Internal Medicine; Visit Provider Nurse Practitioner Family | DX: Z12.11 Encounter for screening for malignant neoplasm of colon (principal); R19.5 Other fecal abnormalities | CPT/HCPCS: 99212 ==

== ENCOUNTER → 2021-04-17 09:49 | Outpatient (BNVA) | payer MEDICARE, SELFPAY | PROVIDERS: PCP Internal Medicine; Visit Provider Internal Medicine | DX: I48.21 Permanent atrial fibrillation (principal); Z51.81 Encounter for therapeutic drug level monitoring; Z79.01 Long term (current) use of anticoagulants | CPT/HCPCS: 85610; 99211 ==

== ENCOUNTER → 2021-05-01 08:29 | Outpatient (BNVA) | payer MEDICARE, SELFPAY | PROVIDERS: PCP Internal Medicine; Visit Provider Internal Medicine | DX: I48.21 Permanent atrial fibrillation (principal); Z51.81 Encounter for therapeutic drug level monitoring; Z79.01 Long term (current) use of anticoagulants | CPT/HCPCS: 85610; 99211 ==

== ENCOUNTER → 2021-05-10 08:16 | Outpatient (BNVA) | payer MEDICARE, SELFPAY | PROVIDERS: PCP Internal Medicine; Visit Provider Internal Medicine | DX: I48.21 Permanent atrial fibrillation (principal); Z51.81 Encounter for therapeutic drug level monitoring; Z79.01 Long term (current) use of anticoagulants | CPT/HCPCS: 85610; 99211 ==

== ENCOUNTER → 2021-05-31 08:02 | Outpatient (BNVA) | payer MEDICARE, SELFPAY | PROVIDERS: PCP Internal Medicine; Visit Provider Internal Medicine | DX: I48.21 Permanent atrial fibrillation (principal); Z51.81 Encounter for therapeutic drug level monitoring; Z79.01 Long term (current) use of anticoagulants | CPT/HCPCS: 85610; 99211 ==

== ENCOUNTER → 2021-06-29 08:01 | Outpatient (BNVA) | payer MEDICARE, SELFPAY | PROVIDERS: PCP Internal Medicine; Visit Provider Internal Medicine | DX: I48.21 Permanent atrial fibrillation (principal); Z79.01 Long term (current) use of anticoagulants; Z51.81 Encounter for therapeutic drug level monitoring | CPT/HCPCS: 85610; 99211 ==

== ENCOUNTER → 2021-07-27 08:00 | Outpatient (BNVA) | payer MEDICARE, SELFPAY | PROVIDERS: PCP Internal Medicine; Visit Provider Internal Medicine | DX: I48.21 Permanent atrial fibrillation (principal); Z79.01 Long term (current) use of anticoagulants; Z51.81 Encounter for therapeutic drug level monitoring | CPT/HCPCS: 85610; 99211 ==

== ENCOUNTER → 2021-08-23 09:01 | Outpatient (BNVA) | payer MEDICARE, SELFPAY | PROVIDERS: PCP Internal Medicine; Referring Provider Internal Medicine; Visit Provider Internal Medicine | DX: Z01.810 Encounter for preprocedural cardiovascular examination (principal); I25.5 Ischemic cardiomyopathy; I25.10 Atherosclerotic heart disease of native coronary artery without angina pectoris; I48.0 Paroxysmal atrial fibrillation; I48.21 Permanent atrial fibrillation; Z79.01 Long term (current) use of anticoagulants; Z51.81 Encounter for therapeutic drug level monitoring | CPT/HCPCS: 85610; 99211; 99212 ==

== ENCOUNTER → 2021-09-20 08:30 | Outpatient (BNVA) | payer MEDICARE, SELFPAY | PROVIDERS: PCP Internal Medicine; Visit Provider Internal Medicine | DX: Z79.01 Long term (current) use of anticoagulants (principal); Z51.81 Encounter for therapeutic drug level monitoring; I48.19 Other persistent atrial fibrillation | CPT/HCPCS: 85610; 99211 ==

== ENCOUNTER → 2021-10-18 08:03 | Outpatient (BNVA) | payer MEDICARE, SELFPAY | PROVIDERS: PCP Internal Medicine; Visit Provider Internal Medicine | DX: I48.19 Other persistent atrial fibrillation (principal); Z79.01 Long term (current) use of anticoagulants; Z51.81 Encounter for therapeutic drug level monitoring | CPT/HCPCS: 85610; 99211 ==

== ENCOUNTER 2021-11-16 12:58 | Outpatient (REF) | payer MEDICARE, SELFPAY ==
--- NOTE | ~2021-11-16 | CT_ITS ---
EXAMINATION: CT CHEST SCREENING CLINICAL INFORMATION: Current smoker. 60 pack year history. COMPARISON: Previous chest CTA July 2020 TECHNIQUE: Multidetector volumetric CT imaging of the chest is performed without contrast using low dose technique. Additional 2D coronal and sagittal reformatted images and axial 3D maximum intensity projection (MIP) images are generated on the CT workstation. This CT examination was performed using dose optimization techniques as appropriate, variously including the following: *Automated exposure control *Adjustment of mA and/or kV according to patient size (this includes techniques or standardized protocols for targeted exams where dose is matched to indication/reason for exam; i.e. extremities or head) *Use of iterative reconstruction technique DLP: 339 mGy-cm FINDINGS: LUNGS: There is evidence of mild paraseptal emphysema. There is a small area of focal cystic or reticular change in the right middle lobe measuring 5 mm axial image 282 series 5. The lungs are otherwise clear. No pulmonary nodule is seen. No endobronchial or endotracheal lesion is seen. MEDIASTINUM: There is focal dilatation of the aortic arch measuring 3.6 cm axial image 22 series 3. This is stable from previous chest CTA July 2020. The descending thoracic aorta is slightly dilated measuring 3.5 cm. This is stable as well. The ascending thoracic aorta is normal in caliber. The heart does not appear enlarged. There are post-CABG changes. There is an atrial appendage clip. There is no pericardial effusion. No enlarged hilar or mediastinal lymph nodes are seen. PLEURA: There is no pleural effusion. No pleural mass or thickening. AXILLA: No lymphadenopathy. UPPER ABDOMEN: Unremarkable OSSEOUS STRUCTURES: There are degenerative changes of the spine. There is a median sternotomy. CT/CT lung screening IMPRESSION: Emphysema. No pulmonary nodule seen. Small area of cystic and reticular change in the right middle lobe measuring 5 mm. ASSESSMENT: Lung-RADS category 2: Benign RECOMMENDATION: Annual low-dose chest CT follow-up recommended.
== END 2021-11-16 12:59 | disposition home or self-care (01) ==
LOC: HO.CT 12:58
PROVIDERS: PCP Internal Medicine; Visit Provider Physician Assistant Medical
DX: J43.8 Other emphysema (principal); F17.210 Nicotine dependence, cigarettes, uncomplicated; Z95.1 Presence of aortocoronary bypass graft; Z98.890 Other specified postprocedural states; Z79.01 Long term (current) use of anticoagulants
CPT/HCPCS: 71271; 85610; 99211; G0296

== ENCOUNTER 2021-12-10 09:39 | Day surgery (SDC) | payer MEDICARE, OTHER, SELFPAY ==
[2021-12-05 14:46] VITALS: BMI 33.5
[2021-12-10 09:55] VITALS: BP 136/71; PULSE 72; RESP 17; TEMP 36.6; O2SAT 94
[2021-12-10] MEDS: Lactated Ringers 1,000 ML 50 ML IVCONT (10:09)
[2021-12-10 10:14] LABS: Prothrombin Time 11.4 SEC (10.0-13.1)
--- NOTE | 2021-12-10 10:31 | MHC.SHP ---
Pre-Procedural Eval Section A Date of Service: 12/10/21 Section B Chief Complaint: pos cologuard test Details of Present Illness: pos cologuard test Relevant Family History (Specify if Yes): No Relevant Social History: Other (specify) (smoker, drinks at weekends, occ THC use) Present Medications: see Short Stay Collaborative assessment (htn, ischemic cardiomyopathy, PAF) Medical History: Significant History (Status post double vessel coronary artery bypass) History of Previous Operations: Relevant previous surgery/procedure and date(s) (Status post double vessel coronary artery bypass) Allergies: Allergies Allergy/AdvReac Type Severity Reaction Status Date / Time No Known Allergies Allergy Verified 11/16/21 13:27 Review of Systems Sugical H&P ROS: Negative: Constitution, Cardiovascular, Respiratory, Neurological, Psychiatric, Hem-Onc, Allergic/Immunologic, Gastrointestinal, Genitourinary, Musculoskeletal, Integumentary, Endocrine and Eyes/Ears/Nose/Throat Exam Surgical H&P Exam: Normal: HEENT, Normal: Heart, Normal: Lungs, Normal: Extremities, Normal: Abdomen, Normal: Skin and Normal: Neurological Plan Diagnosis/Plan: Unchanged I have reviewed the history and physical and performed a pertinent physical examination on my patient. No changes have occurred unless specified.stopped coumadin for procedure
--- NOTE | 2021-12-10 11:14 | P.OP_ITS ---
Operative Note Operative Note Date of Service: 12/10/21 Narrative: Operative Information Procedure Description: Colonoscopy Indication: pos cologuard Anesthesia: MAC COLONOSCOPY Instrument: Olympus variable stiffness adult scope 190L Colonoscopy Monitoring: Vital signs and clinical assessment, continuous EKG monitoring, Pulse oximetry, Carbon Dioxide monitoring and blood pressure monitoring were done throughout the procedure. Colon withdrawal time was 13 minutes. Procedure: The patient was placed in the left lateral decubitis position and pre-procedure medications were administered. After a digital rectal examination of the ano-rectum, the video colonoscope was inserted into the rectum and advanced through the colon to the cecum/TI. The colonoscope was slowly withdrawn in a retrograde panoramic fashion and the colon mucosa was carefully examined including a retroflexed view of the rectum. Findings and interventions are described below. Procedure Difficulty: easy Findings: right sided retroflexion was normal Terminal Ileum-normal Cecum:normal Ascending Colon: normal, one diverticulum noted Transverse Colon -normal Descending Colon:normal Sigmoid Colon: severe diverticulosis with tics of varying sizes noted Rectum: Retroflexion with small internal hemorrhoids, grade I, patchy rectal erythema, cold forceps bx taken, x 2 sessile polyps 8-9 mm removed with cold snare Anorectum - normal Colon preparation: Chauncey Bowel Preparation Scale Right colon; 2 Transverse colon: 3 Left colon; 2 (0 = Unprepared colon segment with mucosa not seen due to solid stool that cannot be cleared. 1 = Portion of mucosa of the colon segment seen, but other areas of the colon segment not well seen due to staining, residual stool and/or opaque liquid. 2 = Minor amount of residual staining, small fragments of stool and/or opaque liquid, but mucosa of colon segment seen well. 3 = Entire mucosa of colon segment seen well with no residual staining, small fragments of stool or opaque liquid) Impression and Post Procedure Diagnosis: polyps internal hemorrhoids diverticular disease Plan: High fiber diet leaflet Avoid straining at stool, epsom salts and sitz bath, anusol supps or cream Repeat Colonoscopy in 5 years due to polyps or earlier if clinically indicated Above findings were reviewed with the patient and relevant handouts were provided if indicated.
--- NOTE | 2021-12-10 11:22 | HO.ANESPROP2 ---
[facility] Active Problems Active Problems: All Active Problems (Updated 11/16/21 @ 12:58 by Rae Pressley PA-C) Ischemic cardiomyopathy (Acute) Atherosclerotic cardiovascular disease (Acute) PAF (paroxysmal atrial fibrillation) (Acute) Personal history of nicotine dependence (Acute) Current use of anticoagulant therapy (Acute) Past Medical History Medical History (Updated 11/16/21 @ 12:58 by Rae Pressley PA-C) Atherosclerotic cardiovascular disease Diabetes mellitus type 2, controlled, without complications GERD (gastroesophageal reflux disease) History of non-ST elevation myocardial infarction (NSTEMI) (~06/2019) HTN (hypertension) Hyperlipidemia Ischemic cardiomyopathy PAF (paroxysmal atrial fibrillation) Personal history of nicotine dependence Family History Family History Father No problems noted. Mother Diabetes Family history of problems with anesthesia: No Surgical History Surgical History (Updated 11/15/21 @ 14:28 by Rae Pressley PA-C) History of cardiac catheterization (~06/2019) History of cholecystectomy History of coronary artery bypass graft x 2 (~07/2019) History of Problems with Anesthesia: No Social History Social History (Updated 11/16/21 @ 12:59 by Rae Pressley PA-C) Alcohol intake: never Patient Tobacco Use Status: Current everyday Tobacco user Tobacco use type: Cigarette Cigarettes Per Day: 5 Years Smoked: (onset 13yo, 1/2ppd x 58yrs, now 5-10 cig/day - 29pyh) Are you DNR?: No Advance Directives: No Advance Directives Information Provided: Yes Recently lost weight without trying: No Nutrition Risks: No Nutritional Risk Meds Allergies Allergy/AdvReac Type Severity Reaction Status Date / Time No Known Allergies Allergy Verified 11/16/21 13:27 Active Medications: Current Medications Lactated Ringer's (Lr) 1,000 mls @ 50 mls/hr IVCONT .Q20H BRIDGETTE Last Admin: 12/10/21 10:09 Dose: 50 mls/hr Home Medications Medication Instructions Recorded Confirmed Last Taken Type aspirin 81 mg tablet,delayed 81 mg PO DAILY 06/22/20 10/18/21 12/08/21 History release atorvastatin 40 mg tablet 40 mg PO DAILY 06/22/20 10/18/21 Unknown History diltiazem HCl 180 mg 180 mg PO DAILY 06/22/20 10/18/2122 History capsule,extended release 24 hr losartan 100 mg tablet 100 mg PO DAILY 06/22/20 10/18/21 12/10/21 History hydrochlorothiazide 25 mg tablet 25 mg PO QAM 08/24/20 10/18/21 Unknown History multivit with min-folic acid PO 12/07/20 10/18/21 Unknown History [Adult One Daily Multivitamin] omega-3 fatty acids 1,000 mg See Rx Instructions PO DAILY 01/18/21 10/18/21 Unknown History capsule (Fish Oil Concentrate) amlodipine 5 mg tablet 5 mg PO DAILY 06/29/21 10/18/21 12/09/21 History cholecalciferol (vitamin D3) PO 07/27/21 10/18/21 Unknown History vitamin E (dl, acetate) PO 07/27/21 10/18/21 Unknown History Exam Exam Date and Time: December 10, 2021 1122 Height,Weight and Vital Signs: Height 5 ft 9 in Weight 102.965 kg Last Vital Signs Temp 98 F 12/10/21 09:55 Pulse 72 12/10/21 09:55 Resp 17 12/10/21 09:55 BP 136/71 12/10/21 09:55 Pulse Ox 94 12/10/21 09:55 O2 Del Method 12/10/21 09:55 Pertinent Lab Results Pertinent Lab Results: Laboratory Tests 12/10/21 10:02 PT 11.4 INR 1.0 Airway Mallampati Class: III TM Dist: >3cm Neck ROM: Full Assessment and Plan Assessment Anesthesia Assessment: Anesthesia Plan Discussed and Chart Reviewed Final Anesthetic Review Family History of Problems with Anesthesia: No History of Problems with Anesthesia: No NPO: Yes ASA Class: III Final Preanesthetic Review: No Changes in Pt Med Stat, Meds/Allgs Chart Reviewed, Consent Obtained/Reviewed and Anes Risks/Benef Reviewed Patient Risk: Intermediate Procedure Risk: Low Anesthetic Plan Anesthetic Plan: MAC: Disposition: Standard PACU
[2021-12-10 12:03] VITALS: BP 112/58; PULSE 63; RESP 20; TEMP 36.7; O2SAT 96
[2021-12-10 12:18] VITALS: BP 119/69; PULSE 70; RESP 16; TEMP 37; O2SAT 97
== END 2021-12-10 12:54 | disposition home or self-care (01) ==
PROVIDERS: Anesthesiology; PCP Internal Medicine; Visit Provider Internal Medicine Gastroenterology
PROC: 0DJD8ZZ Inspection of Lower Intestinal Tract, Via Natural or Artificial Opening Endoscopic (ICD-10-PCS; CPT 45378; principal; 2021-12-10 11:40)
DX: R19.5 Other fecal abnormalities (principal); K62.1 Rectal polyp; K57.30 Diverticulosis of large intestine without perforation or abscess without bleeding; K64.0 First degree hemorrhoids; K21.9 Gastro-esophageal reflux disease without esophagitis; I10 Essential (primary) hypertension; E78.5 Hyperlipidemia, unspecified; I25.5 Ischemic cardiomyopathy; E11.9 Type 2 diabetes mellitus without complications; I48.0 Paroxysmal atrial fibrillation; I25.10 Atherosclerotic heart disease of native coronary artery without angina pectoris; Z95.1 Presence of aortocoronary bypass graft; Z79.01 Long term (current) use of anticoagulants; Z79.82 Long term (current) use of aspirin; Z79.899 Other long term (current) drug therapy; Z72.89 Other problems related to lifestyle; F12.90 Cannabis use, unspecified, uncomplicated; F17.210 Nicotine dependence, cigarettes, uncomplicated
CPT/HCPCS: 45385; 45380; 36415; 85610; 88305

== ENCOUNTER → 2021-12-14 08:06 | Outpatient (BNVA) | payer MEDICARE, OTHER, SELFPAY | PROVIDERS: PCP Internal Medicine; Visit Provider Internal Medicine | DX: I48.21 Permanent atrial fibrillation (principal); Z51.81 Encounter for therapeutic drug level monitoring; Z79.01 Long term (current) use of anticoagulants | CPT/HCPCS: 85610; 99211 ==

== ENCOUNTER → 2021-12-19 09:04 | Outpatient (BNVA) | payer MEDICARE, OTHER, SELFPAY | PROVIDERS: PCP Internal Medicine; Visit Provider Internal Medicine | DX: I48.21 Permanent atrial fibrillation (principal); Z79.01 Long term (current) use of anticoagulants; Z51.81 Encounter for therapeutic drug level monitoring | CPT/HCPCS: 85610; 99211 ==

== ENCOUNTER → 2021-12-24 09:28 | Outpatient (BNVA) | payer MEDICARE, OTHER, SELFPAY | PROVIDERS: PCP Internal Medicine; Visit Provider Nurse Practitioner Family | DX: K57.90 Diverticulosis of intestine, part unspecified, without perforation or abscess without bleeding (principal); Z98.890 Other specified postprocedural states | CPT/HCPCS: 99212 ==

== ENCOUNTER → 2022-01-01 09:36 | Outpatient (BNVA) | payer MEDICARE, MEDICAID, SELFPAY | PROVIDERS: PCP Internal Medicine; Visit Provider Internal Medicine | DX: I48.21 Permanent atrial fibrillation (principal); Z79.01 Long term (current) use of anticoagulants; Z51.81 Encounter for therapeutic drug level monitoring | CPT/HCPCS: 85610; 99211 ==

== ENCOUNTER → 2022-01-29 08:03 | Outpatient (BNVA) | payer MEDICARE, MEDICAID, SELFPAY | PROVIDERS: PCP Internal Medicine; Visit Provider Internal Medicine | DX: I48.21 Permanent atrial fibrillation (principal); Z79.01 Long term (current) use of anticoagulants; Z51.81 Encounter for therapeutic drug level monitoring | CPT/HCPCS: 85610; 99211 ==

== ENCOUNTER → 2022-02-12 08:14 | Outpatient (BNVA) | payer MEDICARE, MEDICAID, SELFPAY | PROVIDERS: PCP Internal Medicine; Visit Provider Internal Medicine | DX: I48.21 Permanent atrial fibrillation (principal); Z79.01 Long term (current) use of anticoagulants; Z51.81 Encounter for therapeutic drug level monitoring | CPT/HCPCS: 85610; 99211 ==

== ENCOUNTER → 2022-03-05 08:07 | Outpatient (BNVA) | payer MEDICARE, MEDICAID, SELFPAY | PROVIDERS: PCP Internal Medicine; Visit Provider Internal Medicine | DX: I48.21 Permanent atrial fibrillation (principal); Z79.01 Long term (current) use of anticoagulants; Z51.81 Encounter for therapeutic drug level monitoring | CPT/HCPCS: 85610; 99211 ==

== ENCOUNTER → 2022-03-19 08:12 | Outpatient (BNVA) | payer MEDICARE, MEDICAID, SELFPAY | PROVIDERS: PCP Internal Medicine; Visit Provider Internal Medicine | DX: I48.21 Permanent atrial fibrillation (principal); Z51.81 Encounter for therapeutic drug level monitoring; Z79.01 Long term (current) use of anticoagulants | CPT/HCPCS: 85610; 99211 ==

== ENCOUNTER → 2022-04-17 08:01 | Outpatient (BNVA) | payer MEDICARE, MEDICAID, SELFPAY | PROVIDERS: PCP Internal Medicine; Visit Provider Internal Medicine | DX: I48.21 Permanent atrial fibrillation (principal); Z51.81 Encounter for therapeutic drug level monitoring; Z79.01 Long term (current) use of anticoagulants | CPT/HCPCS: 85610; 99211 ==

== ENCOUNTER → 2022-05-01 08:01 | Outpatient (BNVA) | payer MEDICARE, MEDICAID, SELFPAY | PROVIDERS: PCP Internal Medicine; Visit Provider Internal Medicine | DX: I48.21 Permanent atrial fibrillation (principal); Z79.01 Long term (current) use of anticoagulants; Z51.81 Encounter for therapeutic drug level monitoring | CPT/HCPCS: 85610; 99211 ==

== ENCOUNTER → 2022-05-08 08:02 | Outpatient (BNVA) | payer MEDICARE, MEDICAID, SELFPAY | PROVIDERS: PCP Internal Medicine; Visit Provider Internal Medicine | DX: I48.21 Permanent atrial fibrillation (principal); Z79.01 Long term (current) use of anticoagulants; Z51.81 Encounter for therapeutic drug level monitoring | CPT/HCPCS: 85610; 99211 ==

== ENCOUNTER → 2022-05-29 08:17 | Outpatient (BNVA) | payer MEDICARE, MEDICAID, SELFPAY | PROVIDERS: PCP Internal Medicine; Visit Provider Internal Medicine | DX: I48.21 Permanent atrial fibrillation (principal); Z51.81 Encounter for therapeutic drug level monitoring; Z79.01 Long term (current) use of anticoagulants | CPT/HCPCS: 85610; 99211 ==

== ENCOUNTER → 2022-06-19 08:29 | Outpatient (BNVA) | payer MEDICARE, MEDICAID, SELFPAY | PROVIDERS: PCP Internal Medicine; Visit Provider Internal Medicine | DX: I48.21 Permanent atrial fibrillation (principal); Z79.01 Long term (current) use of anticoagulants; Z51.81 Encounter for therapeutic drug level monitoring | CPT/HCPCS: 85610; 99211 ==

== ENCOUNTER → 2022-07-17 08:33 | Outpatient (BNVA) | payer MEDICARE, MEDICAID, SELFPAY | PROVIDERS: PCP Internal Medicine; Visit Provider Internal Medicine | DX: I48.21 Permanent atrial fibrillation (principal); Z79.01 Long term (current) use of anticoagulants; Z51.81 Encounter for therapeutic drug level monitoring | CPT/HCPCS: 85610; 99211 ==

== ENCOUNTER → 2022-08-14 08:16 | Outpatient (BNVA) | payer MEDICARE, MEDICAID, SELFPAY | PROVIDERS: PCP Internal Medicine; Visit Provider Internal Medicine | DX: I48.21 Permanent atrial fibrillation (principal); Z79.01 Long term (current) use of anticoagulants; Z51.81 Encounter for therapeutic drug level monitoring | CPT/HCPCS: 85610; 99211 ==

== ENCOUNTER → 2022-08-21 08:43 | Outpatient (BNVA) | payer MEDICARE, MEDICAID, SELFPAY | PROVIDERS: PCP Internal Medicine; Visit Provider Internal Medicine | DX: I48.21 Permanent atrial fibrillation (principal); Z79.01 Long term (current) use of anticoagulants; Z51.81 Encounter for therapeutic drug level monitoring | CPT/HCPCS: 85610; 99211 ==

== ENCOUNTER → 2022-09-04 08:16 | Outpatient (BNVA) | payer MEDICARE, MEDICAID, SELFPAY | PROVIDERS: PCP Internal Medicine; Visit Provider Internal Medicine | DX: I48.21 Permanent atrial fibrillation (principal); Z79.01 Long term (current) use of anticoagulants; Z51.81 Encounter for therapeutic drug level monitoring | CPT/HCPCS: 85610; 99211 ==

== ENCOUNTER → 2022-10-04 08:01 | Outpatient (BNVA) | payer MEDICARE, MEDICAID, SELFPAY | PROVIDERS: PCP Internal Medicine; Visit Provider Internal Medicine | DX: I48.21 Permanent atrial fibrillation (principal); Z79.01 Long term (current) use of anticoagulants; Z51.81 Encounter for therapeutic drug level monitoring | CPT/HCPCS: 85610; 99211 ==

== ENCOUNTER 2022-12-04 08:12 | Outpatient (AMB) | payer MEDICARE, MEDICAID, SELFPAY ==
[2022-12-04 08:40] LABS: Prothrombin Time Whole Bld POC 35.8 sec (11.1-13.5)
--- NOTE | 2022-12-04 08:42 | MHC.OFFVISCO ---
Intake Intake Visit Reasons: Anticoagulation Allergies No Known Allergies Allergy (Verified 12/04/22 08:36) Medication List - Last Reconciled 12/04/22 by Nohelia Coley RN amlodipine 5 mg PO DAILY aspirin 81 mg PO DAILY atorvastatin 40 mg PO DAILY cholecalciferol (vitamin D3) PO diltiazem HCl 180 mg PO DAILY losartan 100 mg PO DAILY methylcellulose (laxative) (Citrucel) 500 mg PO DAILY multivit with min-folic acid (Adult One Daily Multivitamin) PO omega-3 fatty acids (Fish Oil Concentrate) 1200 PO daily; vitamin E (dl, acetate) PO warfarin 5 mg See Protocol PO DAILY Nursing Note NO CP,SOB,DIET/MED CHANGES,FALLS OR SX OF BLEEDING. CONTINUE PRESENT DOSE AND FOLLOW-UP IN 4 WEEKS. GOOD UNDERSTANDING OF DOSING INSTR. 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
== END 2022-12-04 08:45 | disposition home or self-care (01) ==
LOC: HO.ACS 08:12
PROVIDERS: PCP Internal Medicine; Visit Provider Internal Medicine
DX: Z79.01 Long term (current) use of anticoagulants (principal)

== ENCOUNTER → 2022-12-04 08:12 | Outpatient (BNVA) | payer MEDICARE, MEDICAID, SELFPAY | PROVIDERS: PCP Internal Medicine; Visit Provider Internal Medicine | DX: I48.21 Permanent atrial fibrillation (principal); Z79.01 Long term (current) use of anticoagulants; Z51.81 Encounter for therapeutic drug level monitoring | CPT/HCPCS: 85610; 99211 ==

== ENCOUNTER 2023-01-01 08:00 | Outpatient (AMB) | payer MEDICARE, MEDICAID, SELFPAY ==
[2023-01-01 08:05] LABS: Prothrombin Time Whole Bld POC 36.4 sec (11.1-13.5)
--- NOTE | 2023-01-01 08:09 | MHC.OFFVISCO ---
Intake Intake Visit Reasons: Anticoagulation Allergies No Known Allergies Allergy (Verified 01/01/23 08:01) Medication List - Last Reconciled 01/01/23 by Nohelia Coley RN amlodipine 5 mg PO DAILY aspirin 81 mg PO DAILY atorvastatin 40 mg PO DAILY cholecalciferol (vitamin D3) PO diltiazem HCl 180 mg PO DAILY losartan 100 mg PO DAILY methylcellulose (laxative) (Citrucel) 500 mg PO DAILY multivit with min-folic acid (Adult One Daily Multivitamin) PO omega-3 fatty acids (Fish Oil Concentrate) 1200 PO daily; vitamin E (dl, acetate) PO warfarin 5 mg See Protocol PO DAILY Nursing Note NO CP,DIET/MED CHANGES,FALLS OR SX OF BLEEDING. CONTINUE 7.5MGM DAILY AND FOLLOW-UP IN 4 WEEKS. GOOD UNDERSTANDING OF DOSING INSTR. 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
== END 2023-01-01 08:11 | disposition home or self-care (01) ==
LOC: HO.ACS 08:01
PROVIDERS: PCP Internal Medicine; Visit Provider Internal Medicine
DX: Z79.01 Long term (current) use of anticoagulants (principal)

== ENCOUNTER → 2023-01-01 08:00 | Outpatient (BNVA) | payer MEDICARE, MEDICAID, SELFPAY | PROVIDERS: PCP Internal Medicine; Visit Provider Internal Medicine | DX: I48.21 Permanent atrial fibrillation (principal); Z79.01 Long term (current) use of anticoagulants; Z51.81 Encounter for therapeutic drug level monitoring | CPT/HCPCS: 85610; 99211 ==

== ENCOUNTER 2023-01-29 07:58 | Outpatient (AMB) | payer MEDICAID, SELFPAY ==
--- NOTE | 2023-01-29 08:11 | MHC.OFFVISCO ---
Intake Intake Visit Reasons: Anticoagulation Allergies No Known Allergies Allergy (Verified 01/29/23 08:04) Medication List - Last Reconciled 01/29/23 by Nury Ward RN amlodipine 5 mg PO DAILY aspirin 81 mg PO DAILY atorvastatin 40 mg PO DAILY cholecalciferol (vitamin D3) PO diltiazem HCl 180 mg PO DAILY losartan 100 mg PO DAILY methylcellulose (laxative) (Citrucel) 500 mg PO DAILY multivit with min-folic acid (Adult One Daily Multivitamin) PO omega-3 fatty acids (Fish Oil Concentrate) 1200 PO daily; vitamin E (dl, acetate) PO warfarin 5 mg See Protocol PO DAILY Nursing Note INR: 2.8 in therapeutic range Medications and supplements reviewed No changes in health, diet, medications, or supplements, Denies any signs and symptoms of bleeding or bruising or clotting. Bleeding, bruising, clotting discussed Nutritional guidance given - KEEP EATING YOUR GREENS WEEKLY Dose: 7.5MG DAILY F/U INR: 4 WEEKS Patient verbalizes understanding of instructions given Anti-Coag Initial Assessment Social Hx Patient Tobacco Use Status: Current everyday Tobacco user Tobacco use type: Cigarette alcohol intake: never Coding Level of Care Code Est Patient Level 1 Diagnoses Current use of anticoagulant therapy Z79.01 Results AMB INR Fingerstick AMB INR Fingerstick 2.8 Last Edit by Nury Ward RN on 01/29/23 08:10 manual entry interface failure Assessment & Plan Assessment & Plan (1) Current use of anticoagulant therapy: Code(s): Z79.01 - jail (current) use of anticoagulants Category: Medical
[2023-01-29 09:16] LABS: Prothrombin Time Whole Bld POC 33.4 sec (11.1-13.5); ~PT, ~INR - Anti Coag Clinic 2.8 (0.9-1.1)
== END 2023-01-29 08:14 | disposition home or self-care (01) ==
PROVIDERS: PCP Internal Medicine; Visit Provider Internal Medicine
DX: Z79.01 Long term (current) use of anticoagulants (principal)

== ENCOUNTER → 2023-01-29 07:58 | Outpatient (BNVA) | payer MEDICARE, MEDICAID, SELFPAY | PROVIDERS: PCP Internal Medicine; Visit Provider Internal Medicine | DX: I48.21 Permanent atrial fibrillation (principal); Z79.01 Long term (current) use of anticoagulants; Z51.81 Encounter for therapeutic drug level monitoring | CPT/HCPCS: 85610; 99211 ==

== ENCOUNTER 2023-02-26 08:10 | Outpatient (AMB) | payer MEDICARE, MEDICAID, SELFPAY ==
[2023-02-26 08:16] LABS: Prothrombin Time Whole Bld POC 28.2 sec (11.1-13.5); ~PT, ~INR - Anti Coag Clinic 2.4 (0.9-1.1)
--- NOTE | 2023-02-26 08:22 | MHC.OFFVISCO ---
Intake Intake Visit Reasons: Anticoagulation Allergies No Known Allergies Allergy (Verified 02/26/23 08:10) Nursing Note NO CP,SOB,DIET/MED CHANGES,FALLS OR SX OF BLEEDING. CONTYINUE PRESENT DOSE AND FOLLOW-UP IN 4 WEEKS. GOOD UNDERSTANDFING OF DOSING INSTR. 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
== END 2023-02-26 08:23 | disposition home or self-care (01) ==
LOC: HO.ACS 08:10
PROVIDERS: PCP Internal Medicine; Visit Provider Internal Medicine
DX: Z79.01 Long term (current) use of anticoagulants (principal)

== ENCOUNTER → 2023-02-26 08:10 | Outpatient (BNVA) | payer MEDICARE, MEDICAID, SELFPAY | PROVIDERS: PCP Internal Medicine; Visit Provider Internal Medicine | DX: I48.21 Permanent atrial fibrillation (principal); Z51.81 Encounter for therapeutic drug level monitoring; Z79.01 Long term (current) use of anticoagulants | CPT/HCPCS: 85610; 99211 ==

== ENCOUNTER 2023-03-26 08:01 | Outpatient (AMB) | payer MEDICARE, MEDICAID, SELFPAY ==
[2023-03-26 08:18] LABS: Prothrombin Time Whole Bld POC 38.4 sec (11.1-13.5); ~PT, ~INR - Anti Coag Clinic 3.2 (0.9-1.1)
--- NOTE | 2023-03-26 08:22 | MHC.OFFVISCO ---
Intake Intake Visit Reasons: Anticoagulation Allergies No Known Allergies Allergy (Verified 03/26/23 08:08) Medication List - Last Reconciled 03/26/23 by Nohelia Coley RN amlodipine 5 mg PO DAILY aspirin 81 mg PO DAILY atorvastatin 40 mg PO DAILY cholecalciferol (vitamin D3) PO diltiazem HCl 180 mg PO DAILY losartan 100 mg PO DAILY methylcellulose (laxative) (Citrucel) 500 mg PO DAILY multivit with min-folic acid (Adult One Daily Multivitamin) PO omega-3 fatty acids (Fish Oil Concentrate) 1200 PO daily; vitamin E (dl, acetate) PO warfarin 5 mg See Protocol PO DAILY Nursing Note NO CP,SOB,DIET/MED CHANGESM,FALLS OR SX OF BLEEDING. CONTINUE PRESENT DOSE AND FOLLOW-UP IN 4 WEEKS. WILL BE SURE TO HAVE GREESN TODAY AND 2-3X WEEKLY. GOOD UNDERSTANDING OF DOSING INSTR.L Anti-Coag Initial Assessment Social Hx Patient Tobacco Use Status: Current everyday Tobacco user Tobacco use type: Cigarette alcohol intake: never Coding Level of Care Code Est Patient Level 1 Diagnoses Current use of anticoagulant therapy Z79.01 Assessment & Plan Assessment & Plan (1) Current use of anticoagulant therapy: Code(s): Z79.01 - residential (current) use of anticoagulants Category: Medical
== END 2023-03-26 08:24 | disposition home or self-care (01) ==
LOC: HO.ACS 08:01
PROVIDERS: PCP Internal Medicine; Visit Provider Internal Medicine
DX: Z79.01 Long term (current) use of anticoagulants (principal)

== ENCOUNTER → 2023-03-26 08:01 | Outpatient (BNVA) | payer MEDICARE, MEDICAID, SELFPAY | PROVIDERS: PCP Internal Medicine; Visit Provider Internal Medicine | DX: I48.21 Permanent atrial fibrillation (principal); Z79.01 Long term (current) use of anticoagulants; Z51.81 Encounter for therapeutic drug level monitoring | CPT/HCPCS: 85610; 99211 ==

== ENCOUNTER 2023-04-23 08:07 | Outpatient (AMB) | payer MEDICARE, MEDICAID, SELFPAY ==
[2023-04-23 08:11] LABS: Prothrombin Time Whole Bld POC 37.4 sec (11.1-13.5); ~PT, ~INR - Anti Coag Clinic 3.1 (0.9-1.1)
--- NOTE | 2023-04-23 08:15 | MHC.OFFVISCO ---
Intake Intake Visit Reasons: Anticoagulation Allergies No Known Allergies Allergy (Verified 04/23/23 08:07) Medication List - Last Reconciled 04/23/23 by Nohelia Coley RN amlodipine 5 mg PO DAILY aspirin 81 mg PO DAILY atorvastatin 40 mg PO DAILY cholecalciferol (vitamin D3) PO diltiazem HCl 180 mg PO DAILY losartan 100 mg PO DAILY methylcellulose (laxative) (Citrucel) 500 mg PO DAILY multivit with min-folic acid (Adult One Daily Multivitamin) PO omega-3 fatty acids (Fish Oil Concentrate) 1200 PO daily; vitamin E (dl, acetate) PO warfarin 5 mg See Protocol PO DAILY Nursing Note NO CP,SOB,DIET/MED CHANGES,FALLS OR SX OF BLEEDING. CONTINUE 7.5MGM DAILY AND FOLLOW-UP IN 4 WEEKS. GOOD UNDERSTANDING OF DOSING INSTR. 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
== END 2023-04-23 08:16 | disposition home or self-care (01) ==
LOC: HO.ACS 08:07
PROVIDERS: PCP Internal Medicine; Visit Provider Internal Medicine
DX: Z79.01 Long term (current) use of anticoagulants (principal)

== ENCOUNTER → 2023-04-23 08:07 | Outpatient (BNVA) | payer MEDICARE, MEDICAID, SELFPAY | PROVIDERS: PCP Internal Medicine; Visit Provider Internal Medicine | DX: I48.21 Permanent atrial fibrillation (principal); Z79.01 Long term (current) use of anticoagulants; Z51.81 Encounter for therapeutic drug level monitoring | CPT/HCPCS: 85610; 99211 ==

== ENCOUNTER 2023-05-21 08:02 | Outpatient (AMB) | payer MEDICARE, MEDICAID, SELFPAY ==
--- NOTE | 2023-05-21 08:13 | MHC.OFFVISCO ---
Intake Intake Visit Reasons: Anticoagulation Allergies No Known Allergies Allergy (Verified 05/21/23 08:08) Medication List - Last Reconciled 05/21/23 by Klaudia Pickens RN amlodipine 5 mg PO DAILY aspirin 81 mg PO DAILY atorvastatin 40 mg PO DAILY cholecalciferol (vitamin D3) PO diltiazem HCl 180 mg PO DAILY losartan 100 mg PO DAILY methylcellulose (laxative) (Citrucel) 500 mg PO DAILY multivit with min-folic acid (Adult One Daily Multivitamin) PO omega-3 fatty acids (Fish Oil Concentrate) 1200 PO daily; vitamin E (dl, acetate) PO warfarin 5 mg See Protocol PO DAILY Nursing Note INR 1.9-?? out of therapeutic range Medications and supplements reviewed Patient status: no c.o- states missed a dose last week Medications or supplements: no changes Diet: same Denies any signs and symptoms of bleeding or clotting or unusual bruising Bleeding, bruising, clotting discussed Nutritional guidance given: no greens for 2 days Dose: 10mg today only then 7.5mg x 7 F/U INR Date : 3 weeks?? Patient verbalizing understanding of instructions given. 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
[2023-05-21 08:14] LABS: Prothrombin Time Whole Bld POC 23.1 sec (11.1-13.5); ~PT, ~INR - Anti Coag Clinic 1.9 (0.9-1.1)
== END 2023-05-21 08:59 | disposition home or self-care (01) ==
LOC: HO.ACS 08:02
PROVIDERS: PCP Internal Medicine; Visit Provider Internal Medicine
DX: Z79.01 Long term (current) use of anticoagulants (principal)

== ENCOUNTER → 2023-05-21 08:02 | Outpatient (BNVA) | payer MEDICARE, MEDICAID, SELFPAY | PROVIDERS: PCP Internal Medicine; Visit Provider Internal Medicine | DX: I48.21 Permanent atrial fibrillation (principal); Z79.01 Long term (current) use of anticoagulants; Z51.81 Encounter for therapeutic drug level monitoring | CPT/HCPCS: 85610; 99211 ==

== ENCOUNTER 2023-06-11 08:01 | Outpatient (AMB) | payer MEDICARE, MEDICAID, SELFPAY ==
--- NOTE | 2023-06-11 08:09 | MHC.OFFVISCO ---
Intake Intake Visit Reasons: Anticoagulation Allergies No Known Allergies Allergy (Verified 06/11/23 08:04) Medication List - Last Reconciled 06/11/23 by Klaudia Pickens RN amlodipine 5 mg PO DAILY aspirin 81 mg PO DAILY atorvastatin 40 mg PO DAILY cholecalciferol (vitamin D3) PO diltiazem HCl 180 mg PO DAILY losartan 100 mg PO DAILY methylcellulose (laxative) (Citrucel) 500 mg PO DAILY multivit with min-folic acid (Adult One Daily Multivitamin) PO omega-3 fatty acids (Fish Oil Concentrate) 1200 PO daily; vitamin E (dl, acetate) PO warfarin 5 mg See Protocol PO DAILY Nursing Note INR: 2.0- in therapeutic range of 2-3 denies missed dose Medications and supplements reviewed No changes in health, diet, medications, or supplements, Denies any signs and symptoms of bleeding or bruising or clotting. 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
[2023-06-11 08:10] LABS: Prothrombin Time Whole Bld POC 24.2 sec (11.1-13.5)
== END 2023-06-11 08:13 | disposition home or self-care (01) ==
LOC: HO.ACS 08:01
PROVIDERS: PCP Internal Medicine; Visit Provider Internal Medicine
DX: Z79.01 Long term (current) use of anticoagulants (principal)

== ENCOUNTER → 2023-06-11 08:01 | Outpatient (BNVA) | payer MEDICARE, MEDICAID, SELFPAY | PROVIDERS: PCP Internal Medicine; Visit Provider Internal Medicine | DX: I48.21 Permanent atrial fibrillation (principal); Z79.01 Long term (current) use of anticoagulants; Z51.81 Encounter for therapeutic drug level monitoring | CPT/HCPCS: 85610; 99211 ==

== ENCOUNTER 2023-07-09 08:01 | Outpatient (AMB) | payer MEDICARE, MEDICAID, SELFPAY ==
[2023-07-09 08:10] LABS: Prothrombin Time Whole Bld POC 42.3 sec (11.1-13.5); ~PT, ~INR - Anti Coag Clinic 3.5 (0.9-1.1)
--- NOTE | 2023-07-09 08:11 | MHC.OFFVISCO ---
Intake Intake Visit Reasons: Anticoagulation Allergies No Known Allergies Allergy (Verified 07/09/23 08:04) Medication List - Last Reconciled 07/09/23 by Nury Ward RN amlodipine 5 mg PO DAILY aspirin 81 mg PO DAILY atorvastatin 40 mg PO DAILY cholecalciferol (vitamin D3) PO diltiazem HCl 180 mg PO DAILY losartan 100 mg PO DAILY methylcellulose (laxative) (Citrucel) 500 mg PO DAILY multivit with min-folic acid (Adult One Daily Multivitamin) PO omega-3 fatty acids (Fish Oil Concentrate) 1200 PO daily; vitamin E (dl, acetate) PO warfarin 5 mg See Protocol PO DAILY Nursing Note INR: 3.5 OUT OF therapeutic range- HAS NOT HAD USUAL GREENS ; Medications and supplements reviewed No changes in health, medications, or supplements, Denies any signs and symptoms of bleeding or bruising or clotting. Bleeding, bruising, clotting discussed Nutritional guidance given - REVIEW FOOD LIST WEEKLY - EAT GREENS TODAY AND TOMORROW- IF NO GREENS THEN 5MG TODAY Dose: KEEP SAME F/U INR: 4 WEEKS Patient verbalizes understanding of instructions given Anti-Coag Initial Assessment Social Hx Patient Tobacco Use Status: Current everyday Tobacco user Tobacco use type: Cigarette alcohol intake: never Coding Level of Care Code Est Patient Level 1 Diagnoses Current use of anticoagulant therapy Z79.01 Assessment & Plan Assessment & Plan (1) Current use of anticoagulant therapy: Code(s): Z79.01 - long-term (current) use of anticoagulants Category: Medical
== END 2023-07-09 08:15 | disposition home or self-care (01) ==
LOC: HO.ACS 08:01
PROVIDERS: PCP Internal Medicine; Visit Provider Internal Medicine
DX: Z79.01 Long term (current) use of anticoagulants (principal)

== ENCOUNTER → 2023-07-09 08:01 | Outpatient (BNVA) | payer MEDICARE, MEDICAID, SELFPAY | PROVIDERS: PCP Internal Medicine; Visit Provider Internal Medicine | DX: I48.21 Permanent atrial fibrillation (principal); Z79.01 Long term (current) use of anticoagulants; Z51.81 Encounter for therapeutic drug level monitoring | CPT/HCPCS: 85610; 99211 ==

== ENCOUNTER 2023-08-06 08:01 | Outpatient (AMB) | payer MEDICARE, MEDICAID, SELFPAY ==
--- NOTE | 2023-08-06 08:10 | MHC.OFFVISCO ---
Intake Intake Visit Reasons: Anticoagulation Allergies No Known Allergies Allergy (Verified 08/06/23 08:05) Medication List - Last Reconciled 08/06/23 by Klaudia Pickens RN amlodipine 5 mg PO DAILY aspirin 81 mg PO DAILY atorvastatin 40 mg PO DAILY cholecalciferol (vitamin D3) PO diltiazem HCl CD 180 mg PO DAILY losartan 100 mg PO DAILY methylcellulose (laxative) (Citrucel) 500 mg PO DAILY multivit with min-folic acid (Adult One Daily Multivitamin) PO omega-3 fatty acids (Fish Oil Concentrate) 1200 PO daily; vitamin E (dl, acetate) PO warfarin 5 mg See Protocol PO DAILY Nursing Note INR 3.5-? out of therapeutic range of 2-3 Medications and supplements reviewed Patient status: no c.o, pt unsure why inr is elev Medications or supplements: no c.o Diet: same, had dark chocolate Denies any signs and symptoms of bleeding or clotting or unusual bruising Bleeding, bruising, clotting discussed - small bruise on left arm from 2 weeks ago- unsure if trauma Nutritional guidance given: eat greens to lower, increase greens in weekly diet Dose: 5mg today then 7.5mg x 7 F/U INR Date : 2 weeks? Patient verbalizing understanding of instructions given. 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
[2023-08-06 08:11] LABS: Prothrombin Time Whole Bld POC 41.9 sec (11.1-13.5); ~PT, ~INR - Anti Coag Clinic 3.5 (0.9-1.1)
== END 2023-08-06 08:22 | disposition home or self-care (01) ==
LOC: HO.ACS 08:01
PROVIDERS: PCP Internal Medicine; Visit Provider Internal Medicine
DX: Z79.01 Long term (current) use of anticoagulants (principal)

== ENCOUNTER → 2023-08-06 08:01 | Outpatient (BNVA) | payer MEDICARE, MEDICAID, SELFPAY | PROVIDERS: PCP Internal Medicine; Visit Provider Internal Medicine | DX: I48.21 Permanent atrial fibrillation (principal); Z51.81 Encounter for therapeutic drug level monitoring; Z79.01 Long term (current) use of anticoagulants | CPT/HCPCS: 85610; 99211 ==

== ENCOUNTER 2023-08-20 08:02 | Outpatient (AMB) | payer MEDICARE, MEDICAID, SELFPAY ==
--- NOTE | 2023-08-20 08:24 | MHC.OFFVISCO ---
Intake Intake Visit Reasons: Anticoagulation Allergies No Known Allergies Allergy (Verified 08/20/23 08:20) Medication List - Last Reconciled 08/20/23 by Klaudia Pickens RN amlodipine 5 mg PO DAILY aspirin 81 mg PO DAILY atorvastatin 40 mg PO DAILY cholecalciferol (vitamin D3) PO diltiazem HCl CD 180 mg PO DAILY losartan 100 mg PO DAILY methylcellulose (laxative) (Citrucel) 500 mg PO DAILY multivit with min-folic acid (Adult One Daily Multivitamin) PO omega-3 fatty acids (Fish Oil Concentrate) 1200 PO daily; vitamin E (dl, acetate) PO warfarin 5 mg See Protocol PO DAILY Nursing Note INR: 3.0- in therapeutic range of 2-3 Medications and supplements reviewed No changes in health, diet, medications, or supplements, Denies any signs and symptoms of bleeding or bruising or clotting. Bleeding, bruising, clotting discussed Nutritional guidance given - eat a green today, increase greens in diet Dose: 7.5mg x 7 F/U INR: 3 weeks Patient verbalizes understanding of instructions given Anti-Coag Initial Assessment Social Hx Patient Tobacco Use Status: Current everyday Tobacco user Tobacco use type: Cigarette alcohol intake: never Coding Level of Care Code Est Patient Level 1 Diagnoses Current use of anticoagulant therapy Z79.01 Assessment & Plan Assessment & Plan (1) Current use of anticoagulant therapy: Code(s): Z79.01 - retirement (current) use of anticoagulants Category: Medical
[2023-08-20 08:25] LABS: Prothrombin Time Whole Bld POC 35.9 sec (11.1-13.5)
== END 2023-08-20 08:47 | disposition home or self-care (01) ==
LOC: HO.ACS 08:02
PROVIDERS: PCP Internal Medicine; Visit Provider Internal Medicine
DX: Z79.01 Long term (current) use of anticoagulants (principal)

== ENCOUNTER → 2023-08-20 08:02 | Outpatient (BNVA) | payer MEDICARE, MEDICAID, SELFPAY | PROVIDERS: PCP Internal Medicine; Visit Provider Internal Medicine | DX: I48.21 Permanent atrial fibrillation (principal); Z51.81 Encounter for therapeutic drug level monitoring; Z79.01 Long term (current) use of anticoagulants | CPT/HCPCS: 85610; 99211 ==

== ENCOUNTER 2023-09-10 07:57 | Outpatient (AMB) | payer MEDICARE, MEDICAID, SELFPAY ==
[2023-09-10 08:06] LABS: Prothrombin Time Whole Bld POC 45.1 sec (11.1-13.5); ~PT, ~INR - Anti Coag Clinic 3.8 (0.9-1.1)
--- NOTE | 2023-09-10 08:08 | MHC.OFFVISCO ---
Intake Intake Visit Reasons: Anticoagulation Allergies No Known Allergies Allergy (Verified 09/10/23 07:59) Medication List - Last Reconciled 09/10/23 by Nury Ward RN amlodipine 5 mg PO DAILY aspirin 81 mg PO DAILY atorvastatin 40 mg PO DAILY cholecalciferol (vitamin D3) PO diltiazem HCl CD 180 mg PO DAILY losartan 100 mg PO DAILY methylcellulose (laxative) (Citrucel) 500 mg PO DAILY multivit with min-folic acid (Adult One Daily Multivitamin) PO omega-3 fatty acids (Fish Oil Concentrate) 1200 PO daily; vitamin E (dl, acetate) PO warfarin 5 mg See Protocol PO DAILY Nursing Note INR:3.8 NOT IN therapeutic range, Cont to be above his range- does not eat a lot of fruits and vegetables Medications and supplements reviewed No changes in health, diet, medications, or supplements, Denies any signs and symptoms of bleeding or bruising or clotting. Bleeding, bruising, clotting discussed Nutritional guidance given - greens at least once / week for good health and INR stability Dose: decrease to 5mg x 1 day/ 7.5mg x 6 days F/U INR: 2 weeks' Patient verbalizes understanding of instructions given Anti-Coag Initial Assessment Social Hx Patient Tobacco Use Status: Current everyday Tobacco user Tobacco use type: Cigarette alcohol intake: never Coding Level of Care Code Est Patient Level 1 Diagnoses Current use of anticoagulant therapy Z79.01 Results AMB INR Fingerstick AMB INR Fingerstick 3.8 Last Edit by Nury Ward RN on 09/10/23 08:09 INTERFACING CONCERNS Assessment & Plan Assessment & Plan (1) Current use of anticoagulant therapy: Code(s): Z79.01 - alf (current) use of anticoagulants Category: Medical
== END 2023-09-10 08:16 | disposition home or self-care (01) ==
LOC: HO.ACS 07:57
PROVIDERS: PCP Internal Medicine; Visit Provider Internal Medicine
DX: Z79.01 Long term (current) use of anticoagulants (principal)

== ENCOUNTER → 2023-09-10 07:57 | Outpatient (BNVA) | payer MEDICARE, MEDICAID, SELFPAY | PROVIDERS: PCP Internal Medicine; Visit Provider Internal Medicine | DX: I48.21 Permanent atrial fibrillation (principal); Z79.01 Long term (current) use of anticoagulants; Z51.81 Encounter for therapeutic drug level monitoring | CPT/HCPCS: 85610; 99211 ==

== ENCOUNTER 2023-09-25 08:25 | Outpatient (AMB) | payer MEDICARE, MEDICAID, SELFPAY ==
[2023-09-25 08:31] LABS: Prothrombin Time Whole Bld POC 33.3 sec (11.1-13.5); ~PT, ~INR - Anti Coag Clinic 2.8 (0.9-1.1)
--- NOTE | 2023-09-25 08:34 | MHC.OFFVISCO ---
Intake Intake Visit Reasons: Anticoagulation Allergies No Known Allergies Allergy (Verified 09/25/23 08:26) Medication List - Last Reconciled 09/25/23 by No Tian RN amlodipine 5 mg PO DAILY aspirin 81 mg PO DAILY atorvastatin 40 mg PO DAILY cholecalciferol (vitamin D3) PO diltiazem HCl CD 180 mg PO DAILY losartan 100 mg PO DAILY methylcellulose (laxative) (Citrucel) 500 mg PO DAILY multivit with min-folic acid (Adult One Daily Multivitamin) PO omega-3 fatty acids (Fish Oil Concentrate) 1200 PO daily; vitamin E (dl, acetate) PO warfarin 5 mg See Protocol PO DAILY Nursing Note Amb to [facility] feeling well Medications and supplements reviewed, warfarin dosing decrease last visit No changes in health, diet, medications, or supplements, Denies any signs and symptoms of bleeding, bruising, or clotting. INR 2.8 now in therapeutic range DOSE: continue 5mg on Sundays and 7.5mg all other days Nutritional guidance given balance greens and reds in diet and beware of the summer reds thats raise, watermelon, strawberries and cherries F/U INR: 3 weeks Patient verbalizes understanding of instructions given Anti-Coag Initial Assessment Social Hx Patient Tobacco Use Status: Current everyday Tobacco user Tobacco use type: Cigarette alcohol intake: never Coding Level of Care Code Est Patient Level 1 Diagnoses Current use of anticoagulant therapy Z79.01 Time Spent (min) 15 Assessment & Plan Assessment & Plan (1) Current use of anticoagulant therapy: Code(s): Z79.01 - [facility] (current) use of anticoagulants Category: Medical
== END 2023-09-25 08:39 | disposition home or self-care (01) ==
LOC: HO.ACS 08:25
PROVIDERS: PCP Internal Medicine; Visit Provider Internal Medicine
DX: Z79.01 Long term (current) use of anticoagulants (principal)

== ENCOUNTER → 2023-09-25 08:25 | Outpatient (BNVA) | payer MEDICARE, MEDICAID, SELFPAY | PROVIDERS: PCP Internal Medicine; Visit Provider Internal Medicine | DX: I48.21 Permanent atrial fibrillation (principal); Z79.01 Long term (current) use of anticoagulants; Z51.81 Encounter for therapeutic drug level monitoring | CPT/HCPCS: 85610; 99211 ==

== ENCOUNTER 2023-10-15 08:12 | Outpatient (AMB) | payer MEDICARE, MEDICAID, SELFPAY ==
[2023-10-15 08:31] LABS: Prothrombin Time Whole Bld POC 30.3 sec (11.1-13.5); ~PT, ~INR - Anti Coag Clinic 2.5 (0.9-1.1)
--- NOTE | 2023-10-15 08:35 | MHC.OFFVISCO ---
Intake Intake Visit Reasons: Anticoagulation Allergies No Known Allergies Allergy (Verified 10/15/23 08:25) Medication List - Last Reconciled 10/15/23 by Nohelia Coley RN amlodipine 5 mg PO DAILY aspirin 81 mg PO DAILY atorvastatin 40 mg PO DAILY cholecalciferol (vitamin D3) PO diltiazem HCl CD 180 mg PO DAILY losartan 100 mg PO DAILY methylcellulose (laxative) (Citrucel) 500 mg PO DAILY multivit with min-folic acid (Adult One Daily Multivitamin) PO omega-3 fatty acids (Fish Oil Concentrate) 1200 PO daily; vitamin E (dl, acetate) PO warfarin 5 mg See Protocol PO DAILY Nursing Note NO CP,SOB,DIET/MED CHANGES,FALLS OR SX OF BLEEDING. CONTINUE PRESENT DOSE AND FOLLOW-UP IN 4 WEEKS. GOOD UNDERSTANDING OF DOSING INSTR. 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
== END 2023-10-15 08:36 | disposition home or self-care (01) ==
LOC: HO.ACS 08:12
PROVIDERS: PCP Internal Medicine; Visit Provider Internal Medicine
DX: Z79.01 Long term (current) use of anticoagulants (principal)

== ENCOUNTER → 2023-10-15 08:12 | Outpatient (BNVA) | payer MEDICARE, MEDICAID, SELFPAY | PROVIDERS: PCP Internal Medicine; Visit Provider Internal Medicine | DX: I48.21 Permanent atrial fibrillation (principal); Z51.81 Encounter for therapeutic drug level monitoring; Z79.01 Long term (current) use of anticoagulants | CPT/HCPCS: 85610; 99211 ==

== ENCOUNTER 2023-11-12 08:01 | Outpatient (AMB) | payer MEDICARE, MEDICAID, SELFPAY ==
--- NOTE | 2023-11-12 08:06 | MHC.OFFVISCO ---
Intake Intake Visit Reasons: Anticoagulation Allergies No Known Allergies Allergy (Verified 11/12/23 08:01) Medication List - Last Reconciled 11/12/23 by Klaudia Pickens RN amlodipine 5 mg PO DAILY aspirin 81 mg PO DAILY atorvastatin 40 mg PO DAILY cholecalciferol (vitamin D3) PO diltiazem HCl CD 180 mg PO DAILY losartan 100 mg PO DAILY methylcellulose (laxative) (Citrucel) 500 mg PO DAILY multivit with min-folic acid (Adult One Daily Multivitamin) PO omega-3 fatty acids (Fish Oil Concentrate) 1200 PO daily; vitamin E (dl, acetate) PO warfarin 5 mg See Protocol PO DAILY Nursing Note INR: 2.4- in therapeutic range of 2-3 Medications and supplements reviewed No changes in health, diet, medications, or supplements, Denies any signs and symptoms of bleeding or bruising or clotting. Bleeding, bruising, clotting discussed Nutritional guidance given Dose: 7.5mg x 6, 5mg x 1 F/U INR: 4 weeks Patient verbalizes understanding of instructions given Anti-Coag Initial Assessment Social Hx Patient Tobacco Use Status: Current everyday Tobacco user Tobacco use type: Cigarette alcohol intake: never Coding Level of Care Code Est Patient Level 1 Diagnoses Current use of anticoagulant therapy Z79.01 Results AMB INR Fingerstick AMB INR Fingerstick 2.4 Last Edit by Klaudia Pickens RN on 11/12/23 08:07 interface delay Assessment & Plan Assessment & Plan (1) Current use of anticoagulant therapy: Code(s): Z79.01 - alf (current) use of anticoagulants Category: Medical
[2023-11-12 08:07] LABS: Prothrombin Time Whole Bld POC 28.8 sec (11.1-13.5); ~PT, ~INR - Anti Coag Clinic 2.4 (0.9-1.1)
== END 2023-11-12 08:29 | disposition home or self-care (01) ==
LOC: HO.ACS 08:01
PROVIDERS: PCP Internal Medicine; Visit Provider Internal Medicine
DX: Z79.01 Long term (current) use of anticoagulants (principal)

== ENCOUNTER → 2023-11-12 08:01 | Outpatient (BNVA) | payer MEDICARE, MEDICAID, SELFPAY | PROVIDERS: PCP Internal Medicine; Visit Provider Internal Medicine | DX: I48.21 Permanent atrial fibrillation (principal); Z79.01 Long term (current) use of anticoagulants; Z51.81 Encounter for therapeutic drug level monitoring | CPT/HCPCS: 85610; 99211 ==

== ENCOUNTER 2023-12-03 08:04 | Outpatient (AMB) | payer MEDICARE, MEDICAID, SELFPAY ==
[2023-12-03 08:22] VITALS: BP 110/60; PULSE 64; BMI 33.1
--- NOTE | 2023-12-03 08:22 | A.OFFVIS_ITS ---
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 Accompanied by: Self / Same As Patient Allergies No Known Allergies Allergy (Verified 11/18/23 14:46) Medication List - Last Reconciled 12/03/23 by Jono Kelly MD amlodipine 5 mg PO DAILY aspirin 81 mg PO DAILY atorvastatin 40 mg PO DAILY cholecalciferol (vitamin D3) PO diltiazem HCl CD 180 mg PO DAILY losartan 100 mg PO DAILY methylcellulose (laxative) (Citrucel) 500 mg PO DAILY multivit with min-folic acid (Adult One Daily Multivitamin) PO omega-3 fatty acids (Fish Oil Concentrate) 1200 PO daily; vitamin E (dl, acetate) PO warfarin 5 mg See Protocol PO DAILY HPI Comments Details: Carlos returns for follow-up. He was last seen in 2021. History of coronary artery disease and underwent coronary artery bypass surgery at [facility] 2019. He states that over the last couple of years he has been fine. No cardiac complaints whatsoever. There is a history of hypertension, smoking as well as cocaine use. However, he states he has not done cocaine recently. [facility] Medical History History of non-ST elevation myocardial infarction (NSTEMI) (~06/2019) Personal history of nicotine dependence GERD (gastroesophageal reflux disease) Hyperlipidemia Diabetes mellitus type 2, controlled, without complications PAF (paroxysmal atrial fibrillation) Atherosclerotic cardiovascular disease Ischemic cardiomyopathy HTN (hypertension) Surgical History History of cholecystectomy History of coronary artery bypass graft x 2 (~07/2019) History of cardiac catheterization (~06/2019) Family History Father No problems noted. Mother Diabetes Social History Alcohol intake: never Patient Tobacco Use Status: Current everyday Tobacco user Tobacco use type: Cigarette Cigarettes Per Day: 5 Years Smoked: (onset 13yo, 1/2ppd x 58yrs, now 5-10 cig/day - 29pyh) Review of Systems Const Denies chills, Denies fatigue, Denies fever(s), Denies weight gain and Denies weight loss ENT Denies dizziness Card Denies chest pain, Denies leg edema, Denies lightheadedness, Denies palpitations, Denies dyspnea on exertion, Denies orthopnea and Denies other Resp Denies cough and Denies dyspnea on exertion GI Denies hematochezia and Denies change in stool character Musc Denies abnormal gait, Denies muscle weakness, Denies numbness, Denies radiating pain into limb and Denies tingling Neuro Denies abnormal gait, Denies dizziness, Denies numbness and Denies tingling Endo Denies fatigue and Denies palpitations Physical Exam Vital Signs: Last Vital Signs Pulse 64 12/03/23 08:22 BP 110/60 12/03/23 08:22 BMI result Body Mass Index 33.1 Const General: comfortable and no acute distress Orientation/consciousness: patient oriented x3 HEENT Other: Unremarkable Head: Yes normal to inspection Neck Neck: Yes normal visual inspection Chest Chest palpation & inspection: normal inspection of the chest Resp Auscultation: clear to auscultation bilaterally Cardio Palpation: normal PMI Heart sounds: S1 normal heart sound present, S2 normal heart sound present, no gallops, no murmurs and no rubs GI Palpation (GI): Soft to palpation Back/Spine/Pelvis Other: unremarkable Skin General skin exam: no rashes or lesions noted Neuro General: patient oriented x3 Extrem General: Yes normal to inspection Psych Mental Status: mental status grossly normal Office Procedures EKG Details: EKG with underlying sinus rhythm at 64/Min; no significant ST-T changes and otherwise unremark[place] [id number], Complete Assessment & Plan Assessment & Plan (1) Ischemic cardiomyopathy: Code(s): I25.5 - Ischemic cardiomyopathy Category: Medical Plan: Previously, echocardiogram had reported LVEF 20-25%. Repeat study with normal LVEF. However has wall motion abnormalities from underlying coronary disease. He does not have any heart failure symptoms or signs. (2) Atherosclerotic cardiovascular disease: Code(s): I25.10 - Atherosclerotic heart disease of [place] coronary artery without angina pectoris Category: Medical Plan: Status post coronary artery bypass surgery. On aspirin and statins. Lipids may be followed up through PCP as the visits here are very infrequent. Target LDL should be less than 60-70 mg/dL. (3) PAF (paroxysmal atrial fibrillation): Code(s): I48.0 - Paroxysmal atrial fibrillation Category: Medical Plan: On diltiazem. On warfarin. Remains in sinus rhythm. Orders: Orders CA echo transthoracic complete Today I25.5 - Ischemic cardiomyopathy Coding Level of Care Code Est Pt Level 4 (14335) Diagnoses Ischemic cardiomyopathy I25.5 Atherosclerotic cardiovascular disease I25.10 PAF (paroxysmal atrial fibrillation) I48.0 CPT Codes EKG - CPT: [id number], Complete ([id number])
== END 2023-12-03 08:38 | disposition home or self-care (01) ==
PROVIDERS: PCP Internal Medicine; Visit Provider Internal Medicine
DX: I25.5 Ischemic cardiomyopathy (principal); I25.10 Atherosclerotic heart disease of native coronary artery without angina pectoris; I48.0 Paroxysmal atrial fibrillation
CPT/HCPCS: 93010; 99214

== ENCOUNTER → 2023-12-03 08:04 | Outpatient (BNVA) | payer MEDICARE, MEDICAID, SELFPAY | PROVIDERS: PCP Internal Medicine; Visit Provider Internal Medicine | DX: I25.10 Atherosclerotic heart disease of native coronary artery without angina pectoris (principal); I10 Essential (primary) hypertension; I25.5 Ischemic cardiomyopathy; I48.0 Paroxysmal atrial fibrillation; F17.210 Nicotine dependence, cigarettes, uncomplicated | CPT/HCPCS: 93005; 99212 ==

== ENCOUNTER 2023-12-04 08:07 | Outpatient (REF) | payer MEDICARE, MEDICAID, SELFPAY ==
[2023-12-04 14:21] LABS: MANUAL DIFF FLAG NO
[2023-12-04 14:38] LABS: Basophils Percent Auto 0.3 % (0-2); Eosinophils Absolute Auto 0.3 X10*3/uL (0.0-0.4); Hematocrit 49.4 % (42.0-52.0); Hemoglobin 16.3 g/dl (14.0-18.0); Imm Gran Abs Auto 0.02 X10*3/uL (0.00-0.03); Imm Gran Pct Auto 0.2 % (0.0-0.4); Lymphocytes Absolute Auto 2.5 X10*3/uL (1.2-4.9); Lymphocytes Percent Auto 26.5 % (20-40); Mean Platelet Volume 11.1 fL (9.4-12.4); Monocytes Absolute Auto 0.7 X10*3/uL (0.1-1.2); Monocytes Percent Auto 7.7 % (2-11); Neutrophils Absolute Auto 5.9 x10*3/uL (2.0-8.3); Neutrophils Percent Auto 62.3 % (45-73); Platelet Count 240 X10*3/uL (160-400); Red Blood Count 5.43 X10*6/uL (4.60-5.80); White Blood Count 9.4 X10*3/uL (4.8-10.8)
[2023-12-04 14:52] LABS: Alanine Aminotransferase 24 U/L (0-40); Albumin Level 4.4 g/dL (3.5-5.0); Alkaline Phosphatase 90 U/L (39-117); Anion Gap 17 (12-20); Aspartate Amino Transferase 32 U/L (5-37); Bilirubin Total 0.8 mg/dL (0.0-1.0); Blood Urea Nitrogen 20 mg/dL (9-16); Calcium 9.8 mg/dL (8.4-10.2); Carbon Dioxide 24 mmol/L (22-29); Chloride 106 mmol/L (96-108); Cholesterol 130 mg/dL (<200); Estimated Glomerular Filt Rate > 60; Glucose Random 115 mg/dL (60-115); HDL Cholesterol 44 mg/dL (>40); LDL Cholesterol Calculated 56 mg/dL (<100); Sodium 142 mmol/L (135-145); Total Protein 7.5 g/dL (6.5-8.0); Triglycerides 154 mg/dL (<150)
[2023-12-04 14:59] LABS: PSA,Total (Free>4and<10) 0.45 ng/mL (0.00-4.00)
[2023-12-04 15:10] LABS: TSH reflex Free T4 1.84 uIU/mL (0.32-4.0)
== END 2023-12-04 08:08 | disposition home or self-care (01) ==
LOC: HO.CHCLDS 08:07
PROVIDERS: Visit Provider Internal Medicine
DX: I10 Essential (primary) hypertension (principal); Z12.5 Encounter for screening for malignant neoplasm of prostate
CPT/HCPCS: 36415; 80053; 80061; 84153; 84443; 85025

== ENCOUNTER → 2023-12-10 07:56 | Outpatient (BNVA) | payer MEDICARE, MEDICAID, SELFPAY | PROVIDERS: PCP Internal Medicine; Visit Provider Internal Medicine | DX: I48.21 Permanent atrial fibrillation (principal); Z79.01 Long term (current) use of anticoagulants; Z51.81 Encounter for therapeutic drug level monitoring | CPT/HCPCS: 85610; 99211 ==

== ENCOUNTER 2023-12-25 07:33 | Outpatient (REF) | payer MEDICARE, MEDICAID, SELFPAY ==
--- NOTE | ~2023-12-25 | CT_ITS ---
EXAMINATION: CT LOW-DOSE SCREENING CHEST WITHOUT CONTRAST CLINICAL INFORMATION: Nicotine dependence, cigarettes, uncomplicated. The patient is a current smoker with a 60 pack-year history of smoking. COMPARISON: CT chest 11/16/2021 and 08/08/2020. TECHNIQUE: Multidetector volumetric CT imaging of the chest is performed on a Siemens SOMATOM Definition scanner without contrast using low dose technique. Additional 2D coronal and sagittal reformatted images and axial 3D maximum intensity projection (MIP) images are generated on the CT workstation. This CT examination was performed using dose optimization techniques as appropriate, variously including the following: *Automated exposure control. *Adjustment of mA and/or kV according to patient size (this includes techniques or standardized protocols for targeted exams where dose is matched to indication/reason for exam; i.e. extremities or head). *Use of iterative reconstruction technique. TOTAL EXAM DLP: 80 mGy-cm. CTDIvol: 1.94 mGy. FINDINGS: PULMONARY NODULES: No suspicious pulmonary nodules. LUNGS: Lungs bilaterally symmetrically expanded. There is mild emphysema along with bronchial thickening. A saber-sheath trachea is present. Mass. No effusion or pneumothorax. Central airways patent. MEDIASTINUM: Status post median sternotomy and CABG. No mediastinal, hilar or axillary adenopathy or free fluid collection. CORONARY ARTERY CALCIFICATION: Moderate. THYROID GLAND: Unremarkable to the extent seen. CARDIOVASCULAR STRUCTURES: Aortic and heart size normal. No pericardial effusion. CHEST WALL/AXILLA: Unremarkable. UPPER ABDOMEN: There is hepatic steatosis. Status post cholecystectomy. Mild dilatation of the infrarenal aorta at 3.2 cm. OSSEOUS STRUCTURES: No suspicious focal findings. CT/CT lung screening IMPRESSION: No suspicious pulmonary nodules. ASSESSMENT: 1. Lung-RADS Category 1: Negative. There are no nodules or there are definitely benign nodules. N/A. 2. Lung-RADS Category S: Negative. There are no clinically significant or potentially clinically significant findings not related to the lungs requiring urgent additional evaluation. RECOMMENDATION: Continued routine annual low-dose CT lung screening in 1 year is recommended. An order for CT CHEST LOW DOSE CANCER SCREENING ([id number]) can be placed. Electronically signed by: Sarkis Falk MD 02/24/2024 10:29 PM [facility]
== END 2023-12-25 07:34 | disposition home or self-care (01) ==
LOC: HO.CT 07:33
PROVIDERS: PCP Internal Medicine; Visit Provider Physician Assistant Medical
DX: Z12.2 Encounter for screening for malignant neoplasm of respiratory organs (principal); F17.210 Nicotine dependence, cigarettes, uncomplicated; I48.19 Other persistent atrial fibrillation; Z51.81 Encounter for therapeutic drug level monitoring; Z79.01 Long term (current) use of anticoagulants
CPT/HCPCS: 71271; 85610; 99211

== ENCOUNTER 2023-12-25 08:17 | Outpatient (AMB) | payer MEDICARE, MEDICAID, SELFPAY ==
[2023-12-25 08:26] LABS: Prothrombin Time Whole Bld POC 36.3 sec (11.1-13.5)
--- NOTE | 2023-12-25 08:35 | MHC.OFFVISCO ---
Intake Intake Visit Reasons: Anticoagulation Allergies No Known Allergies Allergy (Verified 12/25/23 08:22) Medication List - Last Reconciled 12/25/23 by No Mena, RN amlodipine 10 mg PO DAILY aspirin 81 mg PO DAILY atorvastatin 40 mg PO DAILY cholecalciferol (vitamin D3) PO diltiazem HCl CD 180 mg PO DAILY losartan 100 mg PO DAILY methylcellulose (laxative) (Citrucel) 500 mg PO DAILY multivit with min-folic acid (Adult One Daily Multivitamin) PO omega-3 fatty acids (Fish Oil Concentrate) 1200 PO daily; vitamin E (dl, acetate) PO warfarin 5 mg See Protocol PO DAILY Nursing Note INR: 3.0 in therapeutic range of 2-3 Medications and supplements reviewed AMlodipine recently increased and can raise the INR. Will check again in 2 weeks and if greter than 3.0 will decrease dose No changes in health, diet, medications, or supplements, Denies any signs and symptoms of bleeding or bruising or clotting. Bleeding, bruising, clotting discussed Nutritional guidance given Dose: continue same dose of 7.5mg X 6 days and 5mg X 1 day F/U INR: 2 weeks Patient verbalizes understanding of instructions given Anti-Coag Initial Assessment Social Hx Patient Tobacco Use Status: Current everyday Tobacco user Tobacco use type: Cigarette alcohol intake: never Coding Level of Care Code Est Patient Level 1 Diagnoses Current use of anticoagulant therapy Z79.01 Assessment & Plan Assessment & Plan (1) Current use of anticoagulant therapy: Code(s): Z79.01 - intermediate (current) use of anticoagulants Category: Medical
== END 2023-12-25 08:37 | disposition home or self-care (01) ==
LOC: HO.ACS 08:17
PROVIDERS: PCP Internal Medicine; Visit Provider Internal Medicine
DX: Z79.01 Long term (current) use of anticoagulants (principal)

== ENCOUNTER 2024-01-06 09:29 | Outpatient (AMB) | payer MEDICARE, MEDICAID, SELFPAY ==
--- NOTE | 2024-01-06 09:38 | MHC.OFFVISCO ---
Intake Intake Visit Reasons: Anticoagulation Allergies No Known Allergies Allergy (Verified 01/06/24 09:34) Medication List - Last Reconciled 01/06/24 by Klaudia Pickens RN amlodipine 10 mg PO DAILY aspirin 81 mg PO DAILY atorvastatin 40 mg PO DAILY cholecalciferol (vitamin D3) PO diltiazem HCl CD 180 mg PO DAILY losartan 100 mg PO DAILY methylcellulose (laxative) (Citrucel) 500 mg PO DAILY multivit with min-folic acid (Adult One Daily Multivitamin) PO omega-3 fatty acids (Fish Oil Concentrate) 1200 PO daily; vitamin E (dl, acetate) PO warfarin 5 mg See Protocol PO DAILY Nursing Note INR: 2.1- in therapeutic range of 2-3 Medications and supplements reviewed- no changes, amlodipine increased on 12/10/23 No changes in health, diet, medications, or supplements, Denies any signs and symptoms of bleeding or bruising or clotting. Bleeding, bruising, clotting discussed Nutritional guidance given Dose: 7.5mg x 6, 5mg x 1 F/U INR: pt req 4 weeks Patient verbalizes understanding of instructions given pt having echo today Anti-Coag Initial Assessment Social Hx Patient Tobacco Use Status: Current everyday Tobacco user Tobacco use type: Cigarette alcohol intake: never Coding Level of Care Code Est Patient Level 1 Diagnoses Current use of anticoagulant therapy Z79.01 Results AMB INR Fingerstick AMB INR Fingerstick 2.1 Last Edit by Klaudia Pickens RN on 01/06/24 09:39 interface delay Assessment & Plan Assessment & Plan (1) Current use of anticoagulant therapy: 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
[2024-01-06 09:39] LABS: Prothrombin Time Whole Bld POC 25.4 sec (11.1-13.5); ~PT, ~INR - Anti Coag Clinic 2.1 (0.9-1.1)
== END 2024-01-06 09:49 | disposition home or self-care (01) ==
LOC: HO.ACS 09:29
PROVIDERS: PCP Internal Medicine; Visit Provider Internal Medicine
DX: Z79.01 Long term (current) use of anticoagulants (principal)

== ENCOUNTER → 2024-01-06 09:44 | Outpatient (REF) | payer MEDICARE, OTHER, SELFPAY ==
--- NOTE | 2024-01-06 09:48 | CA_ITS ---
Transthoracic Echocardiogram Amended Patient (Last, First, Middle): Carlos Gorman, Gender: Male Date of : 1950 Age: 73 Procedure Date: 01/06/2024 Procedure Type: Transthoracic Echocardiogram Location: OP Height: 175.26 cm Weight: 101.61 kg BSA: 2.17 m2 Heart Rate: 59 bpm BP: 112 / 70 mmHg Orthopaedic Nurse: SB Referring MD: Jono Kelly MD Symptoms: I25.5 - Ischemic cardiomyopathy Study Quality: Adequate w contrast ECG Rhythm: Bradycardia Conclusions: - The left ventricular systolic function is normal. The visually estimated ejection fraction is between 65-70%. - There is moderate septal asymmetric hypertrophy. - No obvious valvular pathology seen on this study. Findings Procedure Information Contrast agent, definity, is being given per protocol without apparent complications. Left Ventricle Normal left ventricular cavity size. The left ventricular systolic function is normal. The visually estimated ejection fraction is between 65-70%. Regional wall motion abnormalities can not be excluded due to suboptimal endocardial definition. Diastolic function is normal for age. There is moderate septal asymmetric hypertrophy. Right Ventricle Mildly increased right ventricular cavity size. There is normal right ventricular systolic function. Atria The left atrium is mildly dilated. The right atrium is normal in size. Aortic Valve There is a normal trileaflet aortic valve. There is no aortic valve stenosis. There is no aortic valve regurgitation. Mitral Valve The mitral valve appears normal. There is no mitral valve regurgitation. There is no mitral valve stenosis. Pulmonic Valve There is trace pulmonic valve regurgitation. Tricuspid Valve There is trace tricuspid valve regurgitation. There is no evidence of pulmonary hypertension. Great Vessels The asc aorta is normal in size. Venous The inferior vena cava is mildly dilated and collapses greater than 50% with inspiration. Pericardium/Pleural There is no evidence of pericardial effusion. Prior Study Comparison No significant change compared to prior study dated: 01/25/2021. Wall motion assessment difficult in spite of contrast use. Cannot assess basal inferior wall adequately. Recommendations, Care & Conclusions No obvious valvular pathology seen on this study. Measurements 2D Linear Measurements IVSd: 1.35 0.6-0.9/0.6-1.0 cm LVIDd: 5.34 3.9-5.3/4.2-5.9 cm LVIDd Index: 2.46 2.4-3.2/2.2-3.1 cm/m2 LVIDs: 3.43 2.0-3.6 cm LVPWd: 0.77 0.7-1.1 cm LA Diam: 4.40 2.7-3.8/3.0-4.0 cm LAIDs Index: 2.03 1.5-2.3 cm/m2 LV Mass: 272.88 67-162/88-224 g LV Mass Index: 125.75 43-95/49-115 g/m2 LVOT Diam: 2.10 3.0+(-)1.3 cm 2D Volumes LA Vol: 35.80 2D Systolic Function EF 4C: 64.30 >55% EF 2C: 75.30 >55% EF BiP: 71.10 >55% Mitral Valve MV Pk E: 0.60 MV PK A: 0.52 MV Decel Time: 238.00 E/A: 1.10 E'Lateral: 7.34 E'Medial: 4.46 E/E' Med: 13.40 E/E' Lat: 8.10 PHT: 70.00 MVA PHT: 3.14 Decel [place]: 2.51 Aortic Valve AoV Pk Samson: 1.31 AoV Pk Grad: 7.00 DENNISE: 2.63 LVOT LVOT Pk Samson: 1.03 LVOT Mn Samson: 0.68 LVOT VTI: 0.22 LVOT Pk Grad: 4.00 LVOT Mn Grad: 2.00 LVOT Diam: 2.10 LVOT Area: 3.46 Diastolic Function MV Pk E: 0.60 MV Pk A: 0.52 E/A: 1.10 E'Medial: 4.46 E/E' Med: 13.40 E' Laterial: 7.34 E/E' Lat: 8.10 Right Ventricle TVS' Samson: 11.60 Tricuspid Valve TR Pk Samson: 2.17 TR Pk Grad: 19.00 RA Press: 15.00 RVSP: 34.00 Great Vessels Aorta Sinus of Valsalva: 3.70 2.0-3.5 cm Ao Asc: 3.40 2.1-3.4 cm Pulmonary Veins Pulm Vein S/D 1.10 Pulmonary Valve PV Pk Samson: 1.05 Peak PV Grad: 4.00 Updated in Other Vendor System with Status of Final Jono Kelly MD electronically signed on 01/07/2024 12:36:30 PM with status of Final
== END ==
LOC: HO.CARD 09:44
PROVIDERS: PCP Internal Medicine; Visit Provider Internal Medicine
DX: I25.5 Ischemic cardiomyopathy (principal); I48.19 Other persistent atrial fibrillation; Z51.81 Encounter for therapeutic drug level monitoring; Z79.01 Long term (current) use of anticoagulants
CPT/HCPCS: 85610; 93306; 99211; Q9957

== ENCOUNTER → 2024-01-06 09:48 | Outpatient (BNV) | payer MEDICARE, MEDICAID, SELFPAY | PROVIDERS: PCP Internal Medicine; Visit Provider Internal Medicine | DX: I42.2 Other hypertrophic cardiomyopathy (principal) | CPT/HCPCS: 93306 ==

== ENCOUNTER 2024-02-03 07:59 | Outpatient (AMB) | payer MEDICARE, MEDICAID, SELFPAY ==
[2024-02-03 08:09] LABS: Prothrombin Time Whole Bld POC 20.3 sec (11.1-13.5); ~PT, ~INR - Anti Coag Clinic 1.7 (0.9-1.1)
--- NOTE | 2024-02-03 08:13 | MHC.OFFVISCO ---
Intake Intake Visit Reasons: Anticoagulation Allergies No Known Allergies Allergy (Verified 02/03/24 08:03) Medication List - Last Reconciled 02/03/24 by No Mena RN amlodipine 10 mg PO DAILY aspirin 81 mg PO DAILY atorvastatin 40 mg PO DAILY cholecalciferol (vitamin D3) PO diltiazem HCl CD 180 mg PO DAILY losartan 100 mg PO DAILY methylcellulose (laxative) (Citrucel) 500 mg PO DAILY multivit with min-folic acid (Adult One Daily Multivitamin) PO omega-3 fatty acids (Fish Oil Concentrate) 1200 PO daily; vitamin E (dl, acetate) PO warfarin 5 mg See Protocol PO DAILY Nursing Note INR 1.7?out of therapeutic range of 2-3 Pt states he missed a dose Medications and supplements reviewed Patient status: well Medications or supplements: no changes Diet: usual diet for pt Denies any signs and symptoms of bleeding or clotting or unusual bruising Bleeding, bruising, clotting discussed Nutritional guidance given: avoid greens today and have a serving of food that raises the INR. Food list discussed. Pt states he will have grapes and cranberry juice. Dose: increase today's dose to 10mg (7.5mg) then resume usual dose of 7.5mg X 6 days and 5mg X 1 day. F/U INR Date : 4 weeks?? Patient verbalizing understanding of instructions given. 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
== END 2024-02-03 08:16 | disposition home or self-care (01) ==
LOC: HO.ACS 07:59
PROVIDERS: PCP Internal Medicine; Visit Provider Internal Medicine
DX: Z79.01 Long term (current) use of anticoagulants (principal)

== ENCOUNTER → 2024-02-03 07:59 | Outpatient (BNVA) | payer MEDICARE, MEDICAID, SELFPAY | PROVIDERS: PCP Internal Medicine; Visit Provider Internal Medicine | DX: I48.21 Permanent atrial fibrillation (principal); Z79.01 Long term (current) use of anticoagulants; Z51.81 Encounter for therapeutic drug level monitoring | CPT/HCPCS: 85610; 99211 ==

== ENCOUNTER 2024-02-23 08:47 | Outpatient (AMB) | payer MEDICARE, MEDICAID, SELFPAY ==
[2024-02-23 08:56] LABS: Prothrombin Time Whole Bld POC 20.1 sec (11.1-13.5); ~PT, ~INR - Anti Coag Clinic 1.7 (0.9-1.1)
--- NOTE | 2024-02-23 09:01 | MHC.OFFVISCO ---
Intake Intake Visit Reasons: Anticoagulation Allergies No Known Allergies Allergy (Verified 02/23/24 08:50) Medication List - Last Reconciled 02/23/24 by No Tian, RN amlodipine 10 mg PO DAILY aspirin 81 mg PO DAILY atorvastatin 40 mg PO DAILY cholecalciferol (vitamin D3) PO diltiazem HCl CD 180 mg PO DAILY losartan 100 mg PO DAILY methylcellulose (laxative) (Citrucel) 500 mg PO DAILY multivit with min-folic acid (Adult One Daily Multivitamin) PO omega-3 fatty acids (Fish Oil Concentrate) 1200 PO daily; vitamin E (dl, acetate) PO warfarin 5 mg See Protocol PO DAILY Nursing Note Amb to ACS feeling well S/P dental extraction x 7 teeth on 02/16, 4 day hold and resumed warfarin 02/17 no lovenox. preparing for dentures Medications and supplements reviewed No other changes in health, diet, medications, or supplements, sts he is healing well and eating ok Denies any signs and symptoms of bleeding or bruising or clotting. Bleeding, bruising, clotting discussed INR: 1.7 below therapeutic range Dose: increase dose today to 10mg then resume usual dosing 7.5mg x 6 days and 5mg x 1 day no greens today and tomorrow then balance greens and reds in diet F/U INR: 1 week Patient verbalizes understanding of instructions given Anti-Coag Initial Assessment Social Hx Patient Tobacco Use Status: Current everyday Tobacco user Tobacco use type: Cigarette alcohol intake: never Coding Level of Care Code Est Patient Level 1 Diagnoses Current use of anticoagulant therapy Z79.01 Time Spent (min) 15 Assessment & Plan Assessment & Plan (1) Current use of anticoagulant therapy: Code(s): Z79.01 - [facility] (current) use of anticoagulants Category: Medical
== END 2024-02-23 10:04 | disposition home or self-care (01) ==
LOC: HO.ACS 08:47
PROVIDERS: PCP Internal Medicine; Visit Provider Internal Medicine
DX: Z79.01 Long term (current) use of anticoagulants (principal)

== ENCOUNTER → 2024-02-23 08:47 | Outpatient (BNVA) | payer MEDICARE, MEDICAID, SELFPAY | PROVIDERS: PCP Internal Medicine; Visit Provider Internal Medicine | DX: I48.21 Permanent atrial fibrillation (principal); Z79.01 Long term (current) use of anticoagulants; Z51.81 Encounter for therapeutic drug level monitoring | CPT/HCPCS: 85610; 99211 ==

== ENCOUNTER 2024-03-01 08:27 | Outpatient (AMB) | payer MEDICARE, MEDICAID, SELFPAY ==
--- NOTE | 2024-03-01 08:46 | MHC.OFFVISCO ---
Intake Intake Visit Reasons: Anticoagulation Allergies No Known Allergies Allergy (Verified 03/01/24 08:41) Medication List - Last Reconciled 03/01/24 by Klaudia Pikcens RN amlodipine 10 mg PO DAILY aspirin 81 mg PO DAILY atorvastatin 40 mg PO DAILY cholecalciferol (vitamin D3) PO diltiazem HCl CD 180 mg PO DAILY losartan 100 mg PO DAILY methylcellulose (laxative) (Citrucel) 500 mg PO DAILY multivit with min-folic acid (Adult One Daily Multivitamin) PO omega-3 fatty acids (Fish Oil Concentrate) 1200 PO daily; vitamin E (dl, acetate) PO warfarin 5 mg See Protocol PO DAILY Nursing Note INR 1.7-?? out of therapeutic range of 2-3 Medications and supplements reviewed Patient status: pt s/p dental extractions x 7 on 02/17/24, held warfarin 3 days prior and day of surg Medications or supplements: completed amoxicillin 500mg tid x 7 days one week ago Diet: appetite good Denies any signs and symptoms of bleeding or clotting or unusual bruising Bleeding, bruising, clotting discussed Nutritional guidance given: no greens for 3 days, eat reds to raise Dose: pt states took 7.5mg yesterday, take 10mg today then cont 7.5mg x 6, 5mg x 1 F/U INR Date : 1 week?? Patient verbalizing understanding of instructions given. Anti-Coag Initial Assessment Social Hx Patient Tobacco Use Status: Current everyday Tobacco user Tobacco use type: Cigarette alcohol intake: never Coding Level of Care Code Est Patient Level 1 Diagnoses Current use of anticoagulant therapy Z79.01 Assessment & Plan Assessment & Plan (1) Current use of anticoagulant therapy: Code(s): Z79.01 - [facility] (current) use of anticoagulants Category: Medical
[2024-03-01 08:47] LABS: ~PT, ~INR - Anti Coag Clinic 1.7 (0.9-1.1)
== END 2024-03-01 08:53 | disposition home or self-care (01) ==
LOC: HO.ACS 08:27
PROVIDERS: PCP Internal Medicine; Visit Provider Internal Medicine
DX: Z79.01 Long term (current) use of anticoagulants (principal)

== ENCOUNTER → 2024-03-01 08:27 | Outpatient (BNVA) | payer MEDICARE, MEDICAID, SELFPAY | PROVIDERS: PCP Internal Medicine; Visit Provider Internal Medicine | DX: I48.21 Permanent atrial fibrillation (principal); Z79.01 Long term (current) use of anticoagulants; Z51.81 Encounter for therapeutic drug level monitoring | CPT/HCPCS: 85610; 99211 ==

== ENCOUNTER 2024-03-08 08:01 | Outpatient (AMB) | payer MEDICARE, MEDICAID, SELFPAY ==
[2024-03-08 08:10] LABS: ~PT, ~INR - Anti Coag Clinic 2.3 (0.9-1.1)
--- NOTE | 2024-03-08 08:12 | MHC.OFFVISCO ---
Intake Intake Visit Reasons: Anticoagulation Allergies No Known Allergies Allergy (Verified 03/08/24 08:03) Medication List - Last Reconciled 03/08/24 by Nury Ward RN acetaminophen-codeine 300-30 mg tabs PO amlodipine 10 mg PO DAILY amoxicillin 500 mg PO TID aspirin 81 mg PO DAILY atorvastatin 40 mg PO DAILY cholecalciferol (vitamin D3) PO diltiazem HCl CD 180 mg PO DAILY losartan 100 mg PO DAILY methylcellulose (laxative) (Citrucel) 500 mg PO DAILY multivit with min-folic acid (Adult One Daily Multivitamin) PO omega-3 fatty acids (Fish Oil Concentrate) 1200 PO daily; vitamin E (dl, acetate) PO warfarin 5 mg See Protocol PO DAILY Nursing Note INR: 2.3 in therapeutic range Medications and supplements reviewed GUMS HEALED S/P 7 ETRACTIONS -BEGINNING OF THE MONTH NO COMPLICATIONS, COMPLETED ANTBX Denies any signs and symptoms of bleeding or bruising or clotting. Bleeding, bruising, clotting discussed Nutritional guidance given Dose: 5MG X 1 DAY/ 7.5MG X 6 DAYS F/U INR: 1 MONTH Patient verbalizes understanding of instructions given Anti-Coag Initial Assessment Social Hx Patient Tobacco Use Status: Current everyday Tobacco user Tobacco use type: Cigarette alcohol intake: never Questionnaires HAS-BLED Does the patient had uncontrolled Hypertension?: No Does the patient have renal disease?: No Does the patient have liver disease?: No Does the patient have a history of stroke?: No Has the patient had major bleeding or predisposition to bleeding?: No Does the patient have labile INRs?: No Is the patient over 65 years of age?: Yes Is the patient on medications that gives them a predisposition to bleeding?: Yes Does the patient use alcohol?: No HAS-BLED Score: 2 CHADSVASC Age: 66-74 Gender: Male Does the patient have a history of CHF?: No Does the patient have a history of Hypertension?: Yes Does the patient have a history of Stroke/TIA/Thromboembolism?: No Does the patient have a history of Vascular Disease (prior WA, PAD or aortic plaque)?: Yes (CAD,CABG) Does the patient have a history of Diabetes?: No CHADS VACS Score: 3 Reji Prediction Score Rsk VTE Active Cancer: No Previous VTE, excluding superficial vein thrombosis: No Reduced mobility: No Already known Thrombophilic Condition: No (AFIB, CHOLESTEROL) With-in last month Trauma and/or Surgery: Yes (7 DENTAL EXTRACTIONS ) Elderly 70 year or older: Yes Heart and/or Respiratory Failure: No Acute Myocardial infarction and/or Ischemic Stroke: No Acute Infection and/or Rheumatologic Disorder: No Obesity (BMI 30 or greater): Yes Ongoing Hormonal Treatment: No Score: 4 Reji Score less than 4; Low Risk of VTE Reji Score 4 or greater; High Risk of VTE Coding Level of Care Code Est Patient Level 1 Diagnoses Current use of anticoagulant therapy Z79.01 Assessment & Plan Assessment & Plan (1) Current use of anticoagulant therapy: Code(s): 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
== END 2024-03-08 08:18 | disposition home or self-care (01) ==
LOC: HO.ACS 08:01
PROVIDERS: PCP Internal Medicine; Visit Provider Internal Medicine
DX: Z79.01 Long term (current) use of anticoagulants (principal)

== ENCOUNTER → 2024-03-08 08:01 | Outpatient (BNVA) | payer MEDICARE, MEDICAID, SELFPAY | PROVIDERS: PCP Internal Medicine; Visit Provider Internal Medicine | DX: I48.21 Permanent atrial fibrillation (principal); Z79.01 Long term (current) use of anticoagulants; Z51.81 Encounter for therapeutic drug level monitoring | CPT/HCPCS: 85610; 99211 ==

== ENCOUNTER 2024-04-05 08:01 | Outpatient (AMB) | payer MEDICARE, MEDICAID, SELFPAY ==
--- NOTE | 2024-04-05 08:07 | MHC.OFFVISCO ---
Intake Intake Visit Reasons: Anticoagulation Allergies No Known Allergies Allergy (Verified 04/05/24 08:03) Medication List - Last Reconciled 04/05/24 by Klaudia Pickens RN amlodipine 10 mg PO DAILY aspirin 81 mg PO DAILY atorvastatin 40 mg PO DAILY cholecalciferol (vitamin D3) PO diltiazem HCl CD 180 mg PO DAILY losartan 100 mg PO DAILY methylcellulose (laxative) (Citrucel) 500 mg PO DAILY multivit with min-folic acid (Adult One Daily Multivitamin) PO omega-3 fatty acids (Fish Oil Concentrate) 1200 PO daily; vitamin E (dl, acetate) PO warfarin 5 mg See Protocol PO DAILY Nursing Note INR: 2.7- in therapeutic range of 2-3 Medications and supplements reviewed- no changes No changes in health, diet, medications, or supplements, Denies any signs and symptoms of bleeding or bruising or clotting. Bleeding, bruising, clotting discussed Nutritional guidance given Dose: 5mg x 1, 7.5mg x 6 F/U INR: 4 weeks Patient verbalizes understanding of instructions given Anti-Coag Initial Assessment Social Hx Patient Tobacco Use Status: Current everyday Tobacco user Tobacco use type: Cigarette alcohol intake: never Coding Level of Care Code Est Patient Level 1 Diagnoses Current use of anticoagulant therapy Z79.01 Results AMB INR Fingerstick AMB INR Fingerstick 2.7 Last Edit by Klaudia Pickens RN on 04/05/24 08:09 interface delay Assessment & Plan Assessment & Plan (1) Current use of anticoagulant therapy: Code(s): Z79.01 - [facility] (current) use of anticoagulants Category: Medical
[2024-04-05 08:23] LABS: Prothrombin Time Whole Bld POC 32.2 sec (11.1-13.5); ~PT, ~INR - Anti Coag Clinic 2.7 (0.9-1.1)
== END 2024-04-05 08:14 | disposition home or self-care (01) ==
LOC: HO.ACS 08:01
PROVIDERS: PCP Internal Medicine; Visit Provider Internal Medicine
DX: Z79.01 Long term (current) use of anticoagulants (principal)

== ENCOUNTER → 2024-04-05 08:01 | Outpatient (BNVA) | payer MEDICARE, MEDICAID, SELFPAY | PROVIDERS: PCP Internal Medicine; Visit Provider Internal Medicine | DX: I48.21 Permanent atrial fibrillation (principal); Z79.01 Long term (current) use of anticoagulants; Z51.81 Encounter for therapeutic drug level monitoring | CPT/HCPCS: 85610; 99211 ==

== ENCOUNTER 2024-05-03 08:15 | Outpatient (AMB) | payer MEDICARE, MEDICAID, SELFPAY ==
[2024-05-03 08:23] LABS: Prothrombin Time Whole Bld POC 30.2 sec (11.1-13.5); ~PT, ~INR - Anti Coag Clinic 2.5 (0.9-1.1)
--- NOTE | 2024-05-03 08:26 | MHC.OFFVISCO ---
Intake Intake Visit Reasons: Anticoagulation Allergies No Known Allergies Allergy (Verified 05/03/24 08:18) Medication List - Last Reconciled 05/03/24 by Nury Ward RN amlodipine 10 mg PO DAILY aspirin 81 mg PO DAILY atorvastatin 40 mg PO DAILY cholecalciferol (vitamin D3) PO diltiazem HCl CD 180 mg PO DAILY losartan 100 mg PO DAILY methylcellulose (laxative) (Citrucel) 500 mg PO DAILY multivit with min-folic acid (Adult One Daily Multivitamin) PO omega-3 fatty acids (Fish Oil Concentrate) 1200 PO daily; vitamin E (dl, acetate) PO warfarin 5 mg See Protocol PO DAILY Nursing Note INR: 2.5 in therapeutic range Medications and supplements reviewed No changes in health, diet, medications, or supplements, Denies any signs and symptoms of bleeding or bruising or clotting. Bleeding, bruising, clotting discussed Nutritional guidance given Dose: 5MG X 1 DAY/ 7.5MG X 6 DAYS F/U INR: 1 MONTH Patient verbalizes understanding of instructions given Anti-Coag Initial Assessment Social Hx Patient Tobacco Use Status: Current everyday Tobacco user Tobacco use type: Cigarette alcohol intake: never Coding Level of Care Code Est Patient Level 1 Diagnoses Current use of anticoagulant therapy Z79.01 Assessment & Plan Assessment & Plan (1) Current use of anticoagulant therapy: Code(s): Z79.01 - [facility] (current) use of anticoagulants Category: Medical
== END 2024-05-03 08:28 | disposition home or self-care (01) ==
LOC: HO.ACS 08:15
PROVIDERS: PCP Internal Medicine; Visit Provider Internal Medicine
DX: Z79.01 Long term (current) use of anticoagulants (principal)

== ENCOUNTER → 2024-05-03 08:15 | Outpatient (BNVA) | payer MEDICARE, MEDICAID, SELFPAY | PROVIDERS: PCP Internal Medicine; Visit Provider Internal Medicine | DX: I48.21 Permanent atrial fibrillation (principal); Z79.01 Long term (current) use of anticoagulants; Z51.81 Encounter for therapeutic drug level monitoring | CPT/HCPCS: 85610; 99211 ==

== ENCOUNTER 2024-06-01 10:31 | Outpatient (AMB) | payer MEDICARE, MEDICAID, SELFPAY ==
--- NOTE | 2024-06-01 11:01 | MHC.OFFVISCO ---
Intake Intake Visit Reasons: Anticoagulation Allergies No Known Allergies Allergy (Verified 06/01/24 10:46) Medication List - Last Reconciled 06/01/24 by No Mena RN amlodipine 10 mg PO DAILY amoxicillin-pot clavulanate 875-125 mg 1 tab PO Q12H aspirin 81 mg PO DAILY atorvastatin 40 mg PO DAILY cholecalciferol (vitamin D3) PO diltiazem HCl CD 180 mg PO DAILY ibuprofen 800 mg PO Q8H PRN losartan 100 mg PO DAILY methylcellulose (laxative) (Citrucel) 500 mg PO DAILY methylprednisolone 4 mg PO .taper multivit with min-folic acid (Adult One Daily Multivitamin) PO omega-3 fatty acids (Fish Oil Concentrate) 1200 PO daily; vitamin E (dl, acetate) PO warfarin 5 mg See Protocol PO DAILY Nursing Note INR 1.2?out of therapeutic range of 2-3 Pt had a 3 day hold for 3 dental implants last Friday05/19/24 Is on prednisone taper and amoxicillan-clav which can both raise the INR but can have a delayed effect to do so. Medications and supplements reviewed Patient status: well Medications or supplements: as above noted Diet: usual diet Denies any signs and symptoms of bleeding or clotting or unusual bruising Bleeding, bruising, clotting discussed Nutritional guidance given: to avoid greens until INR rechecked then will decide if he can have. Dose: increase today's dose to 10mg (7.5mg) then 7.5mg X 2 days until next INR check on F/U INR Date : 06/04/24?? Patient verbalizing understanding of instructions given. Critical result called to Dr Ramón Catalan' office and critical value reported to Prachi with reason, dosing plan and next retest date. Anti-Coag Initial Assessment Social Hx Patient Tobacco Use Status: Current everyday Tobacco user Tobacco use type: Cigarette alcohol intake: never Coding Level of Care Code Est Patient Level 1 Diagnoses Current use of anticoagulant therapy Z79.01 Results AMB INR Fingerstick AMB INR Fingerstick 1.2 Last Edit by No Mena RN on 06/01/24 10:53 interface delay Assessment & Plan Assessment & Plan (1) Current use of anticoagulant therapy: Code(s): Z79.01 - [facility] long term care (current) use of anticoagulants Category: Medical
--- OUTSIDE RECORDS SUMMARY | 2024-06-01 11:29 | XMS_ITS | Clinical Summary ---
Author Organization [facility] Address [address] [place] [address] Care Team Providers Care Semiconductor Bonder Name Role Phone Unavailable Primary Care Provider Unavailabl e Surgical History Surgery Date Site/Laterality Comments OTHER SURGICAL HISTORY 1984 PROCEDURE: TRACHEOSTOMY OR LARNGECTOMY; COMMENT: infected tooth neck inf and ludwigs angina icu 9 days CHOLECYSTECTOMY 2015 PROCEDURE: LAPAROSCOPIC CHOLECYSTECT Medical History Medical History Date Comments HTN (hypertension) DX:HTN (hyper tension) Sleep apnea DX:Sleep apnea Atrial fibrillation (CMS/HCC) DX :Atrial fibrillation (HCC) Hyperlipemia DX:Hyperlipemia Family History Medical History Relation Name Comments No Known Problems Brother Stroke Father 84 COPD Mother 84 Diabetes Mother 84 Tuberculosis Mother 84 No Known Problems Sister 1 No Known Problems Sister 2 No Known Problems Sister 3 No Known Problems Sister 4 No Known Problems Sister 5 Relation Name Status Comments Brother Alive Father 84 Mother 84 Sister 1 Alive Sister 2 Alive Sister 3 Alive Sister 4 Alive Sister 5 Alive Social History Tobacco Use Types Packs/Day Years Used Date Smoking Tobacco: Every Day Cigarettes 1 60.1 Started: [birth year]/14/1964 Smokeless Tobacco: Never Alcohol Use Standard Drinks/Week Comments Yes 0 (1 standard drink = 0.6 oz pur e alcohol) Sex and Gender Information Value Date Recorded Sex Assigned at Not on file Legal Sex Male 10:21 AM EST Gender Identity Not on file Sexual Orientation Not on file Obstetrics History Plan of Treatment Health Maintenance Due Date Last Done Comments DTaP,Tdap,and Td Vaccines (1 - Tdap) 1968 Pneumococcal Vaccine: 50+ Years (1 of 2 - PCV) 1968 Zoster Vaccines (1 of 2) 10/15/1999 RSV Immunization Patients 60+ Years Old (1 - Risk 60-74 years 1-dose series) 2009 Abdominal Aortic Aneurysm (AAA) Screen 03/12/2022 Cholesterol Screening (Lipid Panel) 03/12/2022 Colorectal Cancer Screening: Colonoscopy 03/12/2022 Depression Screening 03/12/2022 Falls Risk Assessment 03/12/2022 Hepatitis C Screening 03/12/2022 Social Influencers of Health Screening 03/12/2022 Hypertension/CHF/CAD Annual BMP Blood Test 03/28/2022 08/19/2019, 08/18/2019, 08/17/2019, Additional history exists COVID-19 Vaccine ( season) 2023 Influenza Vaccine (#1) 2023 HIB Vaccines Aged Out No longer eligi ble based on patient's age to complete this topic HPV Vaccines Aged Out No longer eligi ble based on patient's age to complete this topic Hepatitis A Vaccines Aged Out No long er eligible based on patient's age to complete this topic Hepatitis B Vaccines Aged Out No long er eligible based on patient's age to complete this topic IPV Vaccines Aged Out No longer eligi ble based on patient's age to complete this topic MMR Vaccines Aged Out No longer eligi ble based on patient's age to complete this topic Meningococcal ACWY Vaccine Aged Out N o longer eligible based on patient's age to complete this topic Meningococcal B Vacine Aged Out No lo nger eligible based on patient's age to complete this topic RSV Immunization Patients Under 20 months Aged Out No longer eligible based on patient's age to complete this topic Varicella Vaccines Aged Out No longer eligible based on patient's age to complete this topic Medical Devices Implanted Type Area Senior Python Developer Device Identifier Shelf Expiration Date Model / Serial / Lot Hemasorb 4 Gm - [id number] - [id number] Implanted:Qty: 1 on 08/11/2019 by Amarjit Alvarado MD Chest [employer] 02/10/2022 OS-401 / [id number] / [id number] Atricure Atriclip Flex-V Implanted:Qty: 1 on 08/11/2019 by Amarjit Alvarado MD Heart [employer] 09/12/2021 [id number] / / [id number] Description:Item # [id number] Advance Directives Documents on File Type Date Recorded Patient Student Life Advisor Expl anation Health Care Decision (hx) 06/25/2019 AD BAER DIRECTIVE Health Care Decision (hx) 06/25/2019 AD BAER DIRECTIVE Health Care Decision (hx) 06/25/2019 AD BAER DIRECTIVE Health Care Decision (hx) 06/25/2019 AD BAER DIRECTIVE
--- OUTSIDE RECORDS SUMMARY | 2024-06-01 11:29 | XMS_ITS | Clinical Summary ---
Author Organization [facility] Address [address] [place] [address] Care Team Providers Care Heavy Mobile Equipment Operator Name Role Phone Unavailable Primary Care Provider Unavailabl e Source Comments PLEASE NOTE, if this patient is a minor, it may be UNLAWFUL to discuss sensitive information that is contained in these records (such as FAMILY PLANNING, MENTAL HEALTH or SUBSTANCE ABUSE) with the minor patient's parent or other person without the patient's specific authorization.[facility] Social History Tobacco Use Types Packs/Day Years Used Date Smoking Tobacco: Never Assessed Social Connections Answer Date Recorded Connectedness 0 01/03/2024 Financial Resource Strain Answer Date R ecorded Financial Resource Strain 0 2022 Stress Answer Date Recorded Stress 0 03/14/2023 Physical Activity Answer Date Recorded Physical Activity 0 03/14/2023 Food Insecurity Answer Date Recorded Food 0 01/08/2024 Transportation Needs Answer Date Record ed Transportation 0 03/14/2023 Housing Stability Answer Date Recorded Housing 0 03/14/2023 Safety and Environment Answer Date Frank rded Safety 0 03/14/2023 Utilities Answer Date Recorded Utilities 0 03/14/2023 Employment Answer Date Recorded Stress 0 01/03/2024 Sex and Gender Information Value Date Recorded Sex Assigned at Not on file Legal Sex Male 7:02 AM PDT Gender Identity Not on file Sexual Orientation Not on file Plan of Treatment Health Maintenance Due Date Last Done Comments Hepatitis C Screening 1949 Lipid Screening 1949 Tobacco Screening 1949 Hypertension Screening (#1) 10/15/1967 Imm-DTaP/Tdap/Td (1 - Tdap) 1968 CT Colonography 1994 Colonoscopy 1994 Colorectal Cancer Screening 1994 FIT/gFOBT 1994 Fecal DNA 1994 Flexible Sigmoidoscopy 1994 Imm-Pneumococcal 65+ (1 of 1 - PCV) 10/15/1999 Imm-Zoster, Recombinant (1 of 2) 10/15/1999 Abdominal Aortic Aneurysm Screening 2014 Falls Prevention 2014 [id number]-01 (1 - 2023- season) 2023 Imm-Influenza (#1) 2023 Alcohol and Drug Screen 04/14/2024 Depression Annual Screen 04/14/2024 Insurance [employer] SAFETY NET
--- OUTSIDE RECORDS SUMMARY | 2024-06-01 11:29 | XMS_ITS | Encounter Summary ---
Demographics Address [address] [place] [address] Work Phone Mobile Phone Home Phone Preferred Language en Marital Status Unknown Worship Affiliation Unknown Race Other Race Ethnic Group or Author Organization [employer] Address [address] [place] [address] Care Team Providers Care Supervisor Sawmill Name Role Phone Loi Pandya MD Primary Care Prov ider Reason for Visit * Reason Comments Med Refill Encounter Details Date Type Department Care Team ([facility] Contact Info) Description 11/12/2023 Refill [facility] [address] [place] [address] Loi Pandya MD [address] [place] [address] Longstanding persistent atrial fibrillation (CMS/HCC) Social History Tobacco Use Types Packs/Day Years Used Date Smoking Tobacco: Every Day Cigarettes Passive Smoke Exposure: Current Smokeless Tobacco: Never Alcohol Use Standard Drinks/Week Comments Yes 0 (1 standard drink = 0.6 oz pur e alcohol) Depression Answer Date Recorded Patient Health Questionnaire-9 Score 0 11/13/2023 Patient Health Questionnaire-9 Score 0 11/13/2023 Last PHQ-9: Questionnaire Data Not on file 0 11/13/2023 Housing Stability Answer Date Recorded What is your housing situation today? I have jorje blakely 11/13/[address] you li ve. Do you have problems with any of the following? None of the above 11/13/2023 Food Insecurity Answer Date Recorded Within the past 12 months, y ou worried that your food would run out before you got money to buy more: Never True 11/13/2023 Within the past 12 months,th e food you bought just didn't last and you didn't have enough money to get more: Never True 04/2023 Transportation Answer Date Recorded In the past 12 months, has l ack of transportation kept you from medical appts, meetings, work or from getting things needed for daily living? No 11/13/2023 Utilities Answer Date Recorded In the past 12 months, has t he electric, gas, oil or water company threatened to shut off services in your home? No 11/13/2023 Depression Answer Date Recorded Patient Health Questionnaire-2 Score 0 11/13/2023 Sex and Gender Information Value Date Recorded Sex Assigned at Male 02/11/2022 10:37 AM EDT Legal Sex Male 10:37 AM EDT Gender Identity Male 02/11/2022 10:37 AM EDT Sexual Orientation Straight 02/11/2022 10 :37 AM EDT documented as of this encounter Plan of Treatment Upcoming Encounters Date Type Department Care Team (Late st Contact Info) Description 06/28/2024 10:30 AM EDT Office Visit [facility] P[facility]S [address] [place] [address] Loi Pandya MD [address] [place] [address] documented as of this encounter Visit Diagnoses Diagnosis Longstanding persistent atrial fibrillation (CMS/HCC) documented in this encounter Additional Health Concerns Assessment Noted Time PHQ-9 Depression Total Score: 0 07/20/19 23 10:39 AM EDT documented as of this encounter Care Teams Supervisor Sawmill Relationship Specialty Start Date End Date Loi Pandya MD [address] [place] [address] PCP - General Internal Medicine 09/13/19 documented as of this encounter
--- OUTSIDE RECORDS SUMMARY | 2024-06-01 11:29 | XMS_ITS | Encounter Summary ---
Demographics Address [address] [place] [address] Work Phone Mobile Phone Home Phone Preferred Language en Marital Status Unknown Taoist Affiliation Unknown Race Other Race Ethnic Group or Author Organization [employer] Address [address] [place] [address] Care Team Providers Care Child Care Coordinator Name Role Phone Loi Pandya MD Primary Care Prov ider Encounter Details Date Type Department Care Team (Late st Contact Info) Description 08/14/2022 Telephone [facility] [address], [place] [id number] Loi Pandya MD [address] [place] [address] Social History Tobacco Use Types Packs/Day Years Used Date Smoking Tobacco: Every Day Cigarettes Passive Smoke Exposure: Current Smokeless Tobacco: Never Alcohol Use Standard Drinks/Week Comments Yes 0 (1 standard drink = 0.6 oz pur e alcohol) Depression Answer Date Recorded Patient Health Questionnaire-9 Score 0 07/19/2022 Depression Answer Date Recorded Patient Health Questionnaire-2 Score 0 07/19/2022 Sex and Gender Information Value Date Recorded Sex Assigned at Male 02/11/2022 10:37 AM EDT Legal Sex Male 10:37 AM EDT Gender Identity Male 02/11/2022 10:37 AM EDT Sexual Orientation Straight 02/11/2022 10 :37 AM EDT documented as of this encounter Miscellaneous Notes * Telephone Encounter - Hari Mendez RN - 08/14/2022 8:42 AM EDT Please see message below. * Telephone Encounter - Reny Miller LPN - 08/14/2022 8:37 AM EDT Critical Result Line Call received now. INR 1.5 Believes he missed one dose. Warfarin normal dose 7.5mg daily. Warfarin today and tomorrow increased to 10mg and then resume 7.5mg daily. Due to recheck in one week. Please update PCP as indicated. documented in this encounter Plan of Treatment Upcoming Encounters Date Type Department Care Team (Late st Contact Info) Description 06/28/2024 10:30 AM EDT Office Visit [facility] & [facility]EDS [address] [place] [address] Loi Pandya MD [address] [place] [address] documented as of this encounter Visit Diagnoses Not on filedocumented in this encounter Additional Health Concerns Assessment Noted Time PHQ-9 Depression Total Score: 0 07/20/19 23 10:39 AM EDT documented as of this encounter Care Teams Child Care Coordinator Relationship Specialty Start Date End Date Loi Pandya MD [address] [place] [address] PCP - General Internal Medicine 09/13/19 documented as of this encounter
--- OUTSIDE RECORDS SUMMARY | 2024-06-01 11:29 | XMS_ITS | Encounter Summary ---
Demographics Address [address] [place] [address] Work Phone Mobile Phone Home Phone Preferred Language en Marital Status Unknown Adventist Affiliation Unknown Race Other Race Ethnic Group or Author Organization [employer] Address [address] 7t [place] [address] Care Team Providers Care Parts Driver Name Role Phone Loi Pandya MD Primary Care Prov ider Reason for Visit * Reason Onset Date Comments CRTICAL RESULT CALL 06/01/2024 Encounter Details Date Type Department Care Team ([facility] st Contact Info) Description 06/01/2024 Telephone [facility] MED & PEDS [address] [place] [address] Loi Panday MD [address] [place] [address] CRTICAL RESULT CALL Social History Tobacco Use Types Packs/Day Years [...] your housing situation today? I have jorje zora 11/13/[address] you li [...] Recorded Patient Health Questionnaire-2 Score 0 11/13/2023 Internet Access Answer Date Recorded Internet Access Q1 Yes 12/15/2023 Internet Access Q2 Not on file 12/15/2023 Sex and Gender Information Value Date Recorded Sex Assigned at Male 02/11/2022 10:37 AM EDT Legal Sex Male 10:37 AM EDT Gender Identity Male 02/11/2022 10:37 AM EDT Sexual Orientation Straight 02/11/2022 10 :37 AM EDT documented as of this encounter Miscellaneous Notes * Telephone Encounter - Prachi Stallworth RN - 06/01/2024 11:01 AM EST Incoming call to the Critical Result line 06/01/24 at 11:01 AM Name of Caller/Facility:[facility] anticoagulation Callback number: [phone] Reason for Call: Reporting INR of 1.2 drawn today 06/01/24. Orders given to take 10mg today (usually 7.5mg) pt will take 7.5mg Friday and , recheck on Friday06/04/24. Patient had to hold coumadin for 3 days for 3 dental implants. Pt did not inform [facility] coumadin clinic. Pt is currently onabx and steroids which can raise INR. Above information sent via [employer] chat Message, confirmation of receipt by Heydi Yanez RN, In basket message to be sent as HIGH PRIORITY to Ordering Provider and Team nurses for follow up documented in this encounter Plan of Treatment Upcoming Encounters Date Type Department Care Team (Late st Contact Info) Description 06/28/2024 10:30 AM EDT Office Visit [facility] MED & PEDS [address] [place] [address] Loi Pandya MD [address] [place] [address] documented as of this encounter Visit Diagnoses Not on filedocumented in this encounter Additional Health Concerns Assessment Noted Time PHQ-9 Depression Total Score: 0 11/13/19 24 10:51 AM EDT documented as of this encounter Care Teams Parts Driver Relationship Specialty Start Date End Date Loi Pandya MD [address] [place] [address] PCP - General Internal Medicine 09/13/19 documented as of this encounter
--- OUTSIDE RECORDS SUMMARY | 2024-06-01 11:29 | XMS_ITS | Encounter Summary ---
Demographics Address [address] [place] [address] Work Phone Mobile Phone Home Phone Preferred Language en Marital Status Unknown Episcopal Affiliation Unknown Race Other Race Ethnic Group or Author Organization [employer] Address [address] 7[address] [place] [address] Care Team Providers Care Retort Press Operator Name Role Phone Loi Pandya MD Primary Care Prov ider Encounter Details Date Type Department Care Team (Late st Contact Info) Description 07/31/2023 Orders Only [facility] MEDICINE [address] [place] [address] ProviderCalderon MD Social History Tobacco Use Types Packs/Day Years Used Date Smoking Tobacco: Every Day Cigarettes Passive Smoke Exposure: Current Smokeless Tobacco: Never Alcohol Use Standard Drinks/Week Comments Yes 0 (1 standard drink = 0.6 oz pur e alcohol) Depression Answer Date Recorded Patient Health Questionnaire-9 Score 0 07/19/2022 Housing Stability Answer Date Recorded What is your housing situation today? I have jorje blakely 01/29/[address] you li ve. Do you have problems with any of the following? None of the above 01/29/2023 Food Insecurity Answer Date Recorded Within the past 12 months, y ou worried that your food would run out before you got money to buy more: Never True 01/29/2023 Within the past 12 months,th e food you bought just didn't last and you didn't have enough money to get more: Never True Transportation Answer Date Recorded In the past 12 months, has l ack of transportation kept you from medical appts, meetings, work or from getting things needed for daily living? No 01/29/2023 Utilities Answer Date Recorded In the past 12 months, has t he electric, gas, oil or water company threatened to shut off services in your home? No 01/29/2023 Depression Answer Date Recorded Patient Health Questionnaire-2 [...] Description 06/28/2024 10:30 AM EDT Office Visit [facility] MED & PEDS [address] [place] [address] Loi Pandya MD [address] [place] [address] documented as of this encounter Procedures Procedure Name Priority Date/Time Associated Diagnosis Comments HM COLONOSCOPY Routine 12/10/2021 9:05 AM EDT documented in this encounter Results * Hm Colonoscopy (12/10/2021 9:05 AM EDT) Historical Provider HEALTH MAINTENANCE Final Result documented in this encounter Visit Diagnoses Not on filedocumented in this encounter Additional Health Concerns Assessment Noted Time PHQ-9 Depression Total Score: 0 07/20/19 23 10:39 AM EDT documented as of this encounter Care Teams Retort Press Operator Relationship Specialty Start Date End Date Loi Pandya MD [address] [place] [address] PCP - General Internal Medicine 09/13/19 documented as of this encounter
--- OUTSIDE RECORDS SUMMARY | 2024-06-01 11:29 | XMS_ITS | Encounter Summary ---
Author Organization [employer] Address [address] [facility] 7t [place] [address] Care Team Providers Care [employer] Compliance Internship Name Role Phone Loi Pandya MD Primary Care Prov ider Reason for Visit * Reason Comments Med Refill Encounter Details Date Type Department Care Team ([facility] Contact Info) Description 07/27/2022 Refill [facility] CH[facility] MED & PEDS [address] [place] [address] Loi Pandya MD [address] [place] [address] Longstanding persistent atrial fibrillation (CMS/HCC) Social History [...] Upcoming Encounters Date Type Department Care Team ([facility] Contact Info) Description 06/28/2024 10:30 AM EDT Office Visit [facility] CH[facility] MED & PEDS [address] [place], [place] [phone] Loi Pandya MD [address] [place] [address] documented as of this encounter Visit Diagnoses Diagnosis Longstanding persistent atrial fibrillation (CMS/HCC) documented in this encounter Additional Health Concerns Assessment Noted Time PHQ-9 Depression Total Score: 0 07/20/19 23 10:39 AM EDT documented as of this encounter Care Teams [employer] Compliance Internship Relationship Specialty Start Date End Date Loi Pandya MD [address] [place] [address] PCP - General Internal Medicine 09/13/19 documented as of this encounter
--- OUTSIDE RECORDS SUMMARY | 2024-06-01 11:29 | XMS_ITS | Clinical Summary ---
Author Organization [employer] Address [address] 7[address] [place] [address] Care Team Providers Care Hair Baler Name Role Phone Loi Pandya MD Primary Care Prov ider Allergies No known active allergies Medications aspirin 81 MG EC tablet take 1 tablet by oral route every day 0 Active Citrucel 500 MG tablet TAKE 1 TABLET BY MOUTH DAILY WITH FULL GLASS OF WATER 2 Active losartan (Cozaar) 100 MG tabletIndications:L ongstanding persistent atrial fibrillation (CMS/HCC) Take 1 tablet (100 mg) by mouth in the morning. 90 tablet 3 4 11/13/19 25 Active dilTIAZem CD (Cardizem CD) 180 MG 24 hr capsuleIndications: Longstanding persistent atrial fibrillation (CMS/HCC) Take 1 capsule (180 mg) by mouth in the morning. 90 capsule 3 4 11/13/19 25 Active amLODIPine (Norvasc) 10 MG tabletIndications:P rimary hypertension Take 1 tablet (10 mg) by mouth Once per day. 90 tablet 3 4 11/13/19 25 Active atorvastatin (Lipitor) 40 MG tabletIndications:M ixed hyperlipidemia TAKE 1 TABLET BY MOUTH EVERY DAY IN THE MORNING 90 tablet 3 4 Active warfarin (Coumadin) 5 MG tabletIndications:P ermanent atrial fibrillation (CMS/HCC) TAKE 1.5 TABLETS (7.5 MG) BY MOUTH IN THE EVENING. 135 tablet 3 5 Active Active Problems Problem Noted Date Diagnosed Date Screening for prostate cancer 11/13/2023 Screening for lung cancer 11/13/2023 Assessment & Plan (11/13/2023 1:57 PM EDT): > 40 pack year hx, will refer to pneumology for lung cancer screening Primary hypertension 07/19/2022 Assessment & Plan (12/16/2023 12:32 PM EDT): Controlled, will leave current therapy, continue low sodium diet, keep bp log, bp target <140/90, follow up in 4 months Assessment & Plan (11/13/2023 1:59 PM EDT): Not at target, will increase amlodipine from 5mg to 10mg, continue losartan 100mg, and cardizem 180mg, keep low sodium diet, follow up in 1 month New labs ordered Assessment & Plan (07/19/2022 11:14 AM EDT): Controlled, number have been below 140/90, reinforced low sodium diet and exercise as tolerated, will place new lab orders, continue same treatment Longstanding persistent atrial fibrillation 03/15 Assessment & Plan (11/13/2023 1:59 PM EDT): On warfarin, inr 2.4, no bleeding reported, told to follow up with cardiology Assessment & Plan (07/19/2022 11:15 AM EDT): On coumadin, followed at coumadin clinic, no episode of bleeding, no changes will be made Assessment & Plan (04/09/2022 10:48 AM EST): 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 by steam turbine assembler, on diltiazem and warfarin, no recent er visit due to exacerbation Anticoagulated on Coumadin 04/09/2022 Assessment & Plan (04/09/2022 10:51 AM EST): Patient on coumadin 7.5mg daily, no episode of bleeding, followed at coumadin clinic, no changes will be made Secondary hypercoagulable state 08/12/2019 CAD in [place] artery 08/11/2019 Encounters Date Type Department Care Team Description 06/01/2024 Telephone [facility] CHC MED & PEDS [address] [place] [address] Loi Pandya MD CRTICAL RESULT CALL 05/03/2024 Orders Only GENERIC EXTERNAL DATA DEPARTMENT Provider, Generic External Data 04/29/2024 Refill [facility] MEDICINE [address] [place] [address] Loi Pandya MD Permanent atrial fibrillation (CMS/HCC) 04/05/2024 Orders Only GENERIC EXTERNAL DATA DEPARTMENT Provider, Generic External Data 03/08/2024 Orders Only GENERIC EXTERNAL DATA DEPARTMENT Provider, Generic External Data 03/01/2024 Orders Only GENERIC EXTERNAL DATA DEPARTMENT Provider, Generic External Data from Last 3 Months Immunizations Name Administration Dates Next Due Moderna Covid-19 Vaccine 12+ 08/04/2020,07/08/19 21 Pneumococcal Conjugate PCV 13 07/31/2021 Tdap 07/31/2021 Zoster, Recombinant 07/31/2021 Social History Tobacco Use Types Packs/Day Years Used Date Smoking Tobacco: Every Day Cigarettes Passive Smoke Exposure: Current Smokeless Tobacco: Never Tobacco Cessation:Ready to Q uit: Not Asked; Counseling Given: Not Answered Alcohol Use Standard Drinks/Week Comments Yes 0 [...] Orientation Straight 02/11/2022 10 :37 AM EDT Last Filed Vital Signs Vital Sign Reading Time Taken Comments Blood Pressure 109/75 12/16/2023 10:22 AM EDT Pulse 75 12/16/2023 10:22 AM EDT Temperature - - Respiratory Rate - - Oxygen Saturation - - Inhaled Oxygen Concentration - - Weight 98.9 kg (218 lb) 10/08/2021 12:06 AM EDT Height 165.1 cm (5' 5 ) 10/08/2021 12:06 AM EDT Body Mass Index 36.28 10/08/2021 12:06 AM EDT Plan of Treatment Upcoming Encounters Date Type Department Care Team (Late st Contact Info) Description 06/28/2024 10:30 AM EDT Office Visit [facility] MED & PEDS [address] [place] [address] Loi Pandya MD [address] [place] [address] Health Maintenance Due Date Last Done Comments CT Colonography 1950 FIT DNA/Cologuard 1950 FIT 1950 FOBT 1950 Sigmoidoscopy 1950 Alcohol/Substance Use Screening 1961 RSV Patients and Patients Aged 60 years or older (1 - Risk 60-74 years 1-dose series) 2009 Pneumococcal Vaccine: 50+ Years (2 of 2 - PPSV23) 09/25/2021 07/31/2021 Zoster Vaccines (2 of 2) 09/25/2021 07/31/2021 COVID-19 Vaccine (4 - 2024-25 season) 2023 04/23/2023, 08/04/2020, 07/07/2020 Influenza Vaccine (#1) 2023 04/23/2023 Depression Screening 11/12/2024 11/13/2023, 11/13/19 24 SDOH Screening 11/12/2024 11/13/2023 Tobacco Screening 12/15/2024 12/16/2023 Colonoscopy 12/10/2026 12/10/2021 Colorectal Cancer Screening 12/10/2026 Lipid Panel 12/03/2028 12/04/2023, 07/14, 06/29/2021, Additional history exists DTaP/Tdap/Td Vaccines (2 - Td or Tdap) 08/01/2031 07/31/2021 Hepatitis C Screening Completed 06/29/2021 HIB Vaccines Aged Out No longer eligi [...] patient's age to complete this topic Meningococcal Vaccine Aged Out No rachael mariana eligible based on patient's age to complete this topic RSV under 20 months Aged Out No longe r eligible based on patient's age to complete this topic Rotavirus Vaccines Aged Out No longer eligible based on patient's age to complete this topic Procedures Procedure Name Priority Date/Time Associated Diagnosis Comments PROTHROMBIN TIME WHOLE BLD POC Routine 05/03/2024 8:21 AM EST ~PT, ~INR - ANTI COAG CLINIC Routine 05/03/2024 8:21 AM EST PROTHROMBIN TIME WHOLE BLD POC Routine 04/05/2024 8:06 AM EST ~PT, ~INR - ANTI COAG CLINIC Routine 04/05/2024 8:06 AM EST PROTHROMBIN TIME WHOLE BLD POC Routine 03/08/2024 8:08 AM EST ~PT, ~INR - ANTI COAG CLINIC Routine 03/08/2024 8:08 AM EST PROTHROMBIN TIME WHOLE BLD POC Routine 03/01/2024 8:45 AM EST ~PT, ~INR - ANTI COAG CLINIC Routine 03/01/2024 8:45 AM EST LIPID PANEL, STANDARD Routine 12/04/2023 8:10 AM EDT Primary hypertension HM COLONOSCOPY Routine 12/10/2021 9:05 AM EDT ZZZ HISTORICAL HEPATITIS C AB W/REFL TO HCV RNA, QN, PCR Routine 06/29/2021 8:58 AM EDT from Last 3 Months or Most Recently Relevant to Health Maintenance Results * (ABNORMAL) PROTHROMBIN TIME WHOLE BLD POC (05/03/2024 8:21 AM EST) Only the most recent of4 resultswithin the time period is included. Protime 30.2(H) 11.1 - 13.5 sec [facility] 05/03/2024 8:21 AM EST 05/03/2024 8:22 AM EST us Generic External Data Provider LAB BLOOD ORDERAB LES Final Result [facility] [address] [place] [phone] * (ABNORMAL) ~PT, ~INR - ANTI COAG CLINIC (05/03/2024 8:21 AM EST) Only the most recent of4 resultswithin the time period is included. Prothrombin Time INR 2.5(H) 0.9 - 1.1 [facility] Comment:METER #: [id number] TERNATIONAL NORMALIZED RATIO (INR) REFERENCE RANGES Reference RangeFor patients not on anticoagulant therapy: 0.9 - 1.1INR ranges for oral anticoagulanttherapy:For prevention and treatment of venous thrombosis and pulmonary embolism: 2.0 - 3.0For acute myocardial infarction with aspirin therapy: 2.0 - 3.0For acute myocardial infarction without aspirin therapy: 3.0 - 4.0For patients with mechanical prosthetic heart valves: 2.5 - 3.5 05/03/2024 8:21 AM EST 05/03/2024 8:22 AM EST us Generic External Data Provider LAB BLOOD ORDERAB LES Final Result Performing Organization Address City/[facility] Co de Phone Number [facility] [address] [place] [address] [phone] * (ABNORMAL) Lipid Panel, Standard (12/04/2023 8:10 AM EDT) Triglycerides 154(H) <150 mg/dL [facility] Comment:Desirable Triglyceri de: less than 150 mg/dLBorderline High Triglyceride 150-199 mg/dLHigh Triglyceride: 200-499 mg/dLVery High Triglyceride: greater than or equal to 5OO mg/dL Cholesterol 130 <200 mg/dL [facility] Comment:Desirable Cholestero l: less than 200 mg/dLBorderline High Cholesterol: 200-239 mg/dLHigh Cholesterol: greater than 239 mg/dL LDL Cholesterol Calculated 56 <100 mg/dL [facility] Comment:Desirable LDL: less than 100 mg/dLNear Optimal/Above Optimal LDL: 110- 129 mg/dLBorderline High LDL: 130-159 mg/dLHigh LDL: 160-189 mg/dLVery High LDL: greater than or equal to 190 mg/dL HDL Cholesterol 44 >40 mg/dL [facility] Comment:Desirable HDL: great er than 40 mg/dL Note: This HDL assay may give artificially low results in patients with liver disease. Blood Venous blood specimen / Unknown 12/04/2023 8:10 AM EDT 12/04/2023 2:14 PM EDT us Loi Catalan MD LAB BLOOD ORDERABL ES Final Result [facility] [address] [place] [phone] * Hm Colonoscopy (12/10/2021 9:05 AM EDT) Historical Provider HEALTH MAINTENANCE Final Result * HEPATITIS C AB W/REFL TO HCV RNA, QN, PCR (06/29/2021 8:58 AM EDT) HEPATITIS C ANTIBODY NON-REACT EZ NON-REACT EZ [facility] INDEX 0.12 <1.00 [facility] Comment: ?? HCV antibody was non-reactive. There is no laboratory ?? evidence of HCV infection. ?? In most cases, no further action is required. However, if recent HCV exposure is suspected, a test for HCV RNA (test code 50042) is suggested. ?? For additional information please refer to http://education.[employer]/faq/EWL64x3 (This link is being provided for informational/ educational purposes only.) ?? 06/29/2021 8:58 AM EDT Loi Catalan MD HISTORICAL/NON ORD ERABLE LABS Final Result [facility] [address] [place] [address], from Last 3 Months or Most Recently Relevant to Health Maintenance Insurance * Guarantor: Carlos Santiago Account Type Relation to Patient Date of Phone Billing Address Personal/Family Self [address] [place] [address] [facility] MEDICARE ADVANTAGE HMO [facility] STANDARD * Guarantor: Carlos Santiago Account Type Relation to Patient Date of Phone Billing Address Personal/Family Self [address] [place] [address] * Guarantor: Carlos Santiago Account Type Relation to Patient Date of Phone Billing Address Personal/Family Self [address] [place] [id number] * Guarantor: Carlos Santiago Account Type Relation to Patient Date of Phone Billing Address Personal/Family Self [address] [place] [address] Care Teams Hair Baler Relationship Specialty Start Date End Date Loi Pandya MD [address] [place] [phone] PCP - General Internal Medicine 09/13/19
--- OUTSIDE RECORDS SUMMARY | 2024-06-01 11:29 | XMS_ITS | Encounter Summary ---
Demographics Address [address] [place] [address] Work Phone Mobile Phone Home Phone Preferred Language en Marital Status Unknown Episcopalian Affiliation Unknown Race Other Race Ethnic Group or Author Organization [employer] Address [address] [place] [address] Care Team Providers Care Deportation Officer Name Role Phone Loi Pandya MD Primary Care Prov ider Encounter Details Date Type Department Care Team (Late st Contact Info) Description 05/03/2024 Orders Only GENERIC EXTERNAL DATA DEPARTMENT Provider, Generic External Data Social History Tobacco Use Types Packs/Day Years [...] is your housing situation today? I have jorjesirena blakely 11/13/[address] you [...] Upcoming Encounters Date Type Department Care Team ([facility] st Contact Info) Description 06/28/2024 10:30 AM EDT Office Visit [facility] MED & PEDS [address] [place], [place] [phone] Loi Pandya MD [address] [place] [address] documented as of this encounter Procedures Procedure Name Priority Date/Time Associated Diagnosis Comments PROTHROMBIN TIME WHOLE BLD POC Routine 05/03/2024 8:21 AM EST ~PT, ~INR - ANTI COAG CLINIC Routine 05/03/2024 8:21 AM EST documented in this encounter Results * (ABNORMAL) PROTHROMBIN TIME WHOLE BLD POC (05/03/2024 8:21 AM EST) Pathologist [facility] Protime 30.2(H) 11.1 - 13.5 sec [facility] 05/03/2024 8:21 AM EST 05/03/2024 8:22 AM EST us Generic External Data Provider LAB BLOOD ORDERAB LES Final Result [facility] [address] [place] [address] [phone] * (ABNORMAL) ~PT, ~INR - ANTI COAG CLINIC (05/03/2024 8:21 AM EST) [facility] Prothrombin Time INR 2.5(H) 0.9 - 1.1 [facility] Comment:METER #: [id number] TERNATIONAL NORMALIZED RATIO (INR) REFERENCE RANGES Reference [...] Provider LAB BLOOD ORDERAB LES Final Result [facility] [address] [place] [address] [phone] documented in this encounter Visit Diagnoses Not on filedocumented in this encounter Additional Health Concerns Assessment Noted Time PHQ-9 Depression Total Score: 0 11/13/19 24 10:51 AM EDT documented as of this encounter Care Teams Deportation Officer Relationship Specialty Start Date End Date Loi Pandya MD [address] [place] [phone] PCP - General Internal Medicine 09/13/19 documented as of this encounter
--- OUTSIDE RECORDS SUMMARY | 2024-06-01 11:29 | XMS_ITS | Encounter Summary ---
Author Organization [employer] Address [address] [facility] 7t [place] [address] Care Team Providers Care Sql Data Architect Name Role Phone Loi Pandya MD Primary Care Prov ider Encounter Details Date Type Department Care Team (Late Contact Info) Description 05/17/[address] [facility] MEDICINE [address] [place] [address] Loi Pandya MD [address] [place], [place] [phone] Permanent atrial fibrillation (CMS/HCC) Social History Tobacco Use Types Packs/Day Years Used Date Smoking Tobacco: Never Assessed Sex and Gender Information Value Date Recorded Sex Assigned at Male 02/11/2022 10:37 AM EDT Legal Sex Male 10:37 AM EDT Gender Identity Male 02/11/2022 10:37 AM EDT Sexual Orientation Straight 02/11/2022 10 :37 AM EDT documented as of this encounter Plan of Treatment Upcoming Encounters Date Type Department Care Team (Late Contact Info) Description 06/28/2024 10:30 AM EDT Office Visit [facility] CHC MED & PEDS [address] [place], [place] [phone] Loi Pandya MD [address] [place], [place] [phone] documented as of this encounter Visit Diagnoses Diagnosis Permanent atrial fibrillation (CMS/HCC) Atrial fibrillation documented in this encounter Care Teams Sql Data Architect Relationship Specialty Start Date End Date Loi Pandya MD [address] [place] [phone] PCP - General Internal Medicine 09/13/19 documented as of this encounter
--- OUTSIDE RECORDS SUMMARY | 2024-06-01 11:29 | XMS_ITS | Encounter Summary ---
Demographics Address [address] [place] [address] Work Phone Mobile Phone Home Phone Preferred Language en Marital Status Unknown Jewish Affiliation Unknown Race Other Race Ethnic Group or Author Organization [employer] Address [address] [place] [address] Care Team Providers Care It Training Specialist Name Role Phone Loi Pandya MD Primary Care Prov ider Reason for Visit * Reason Comments Med Refill Encounter Details Date Type Department Care Team ([facility] st Contact Info) Description 07/30/2023 Refill [facility] CH[facility] MED & PEDS [address] [place] [address] Loi Pandya MD [address] [place] [address] Longstanding persistent atrial fibrillation (CMS/HCC) Social History [...] Description 06/28/2024 10:30 AM EDT Office Visit [facility] MED & PEDS [address] [place] [address] Loi Pandya MD [address] [place] [address] documented as of this encounter Visit Diagnoses Diagnosis Longstanding persistent atrial fibrillation (CMS/HCC) documented in this encounter Additional Health Concerns Assessment Noted Time PHQ-9 Depression Total Score: 0 07/20/19 23 10:39 AM EDT documented as of this encounter Care Teams It Training Specialist Relationship Specialty Start Date End Date Loi Pandya MD [address] [place] [address] PCP - General Internal Medicine 09/13/19 documented as of this encounter
[2024-06-01 11:42] LABS: Prothrombin Time Whole Bld POC 14.3 sec (11.1-13.5); ~PT, ~INR - Anti Coag Clinic 1.2 (0.9-1.1)
== END 2024-06-01 11:14 | disposition home or self-care (01) ==
LOC: HO.ACS 10:31
PROVIDERS: PCP Internal Medicine; Visit Provider Internal Medicine
DX: Z79.01 Long term (current) use of anticoagulants (principal)

== ENCOUNTER → 2024-06-01 10:31 | Outpatient (BNVA) | payer MEDICARE, MEDICAID, SELFPAY | PROVIDERS: PCP Internal Medicine; Visit Provider Internal Medicine | DX: I48.21 Permanent atrial fibrillation (principal); Z79.01 Long term (current) use of anticoagulants; Z51.81 Encounter for therapeutic drug level monitoring | CPT/HCPCS: 85610; 99211 ==

== ENCOUNTER 2024-06-04 09:10 | Outpatient (AMB) | payer MEDICARE, MEDICAID, SELFPAY ==
[2024-06-04 09:16] LABS: Prothrombin Time Whole Bld POC 19.5 sec (11.1-13.5); ~PT, ~INR - Anti Coag Clinic 1.6 (0.9-1.1)
--- NOTE | 2024-06-04 09:24 | MHC.OFFVISCO ---
Intake Intake Visit Reasons: Anticoagulation Allergies No Known Allergies Allergy (Verified 06/04/24 09:10) Medication List - Last Reconciled 06/04/24 by Nury Ward RN amlodipine 10 mg PO DAILY amoxicillin-pot clavulanate 875-125 mg 1 tab PO Q12H aspirin 81 mg PO DAILY atorvastatin 40 mg PO DAILY cholecalciferol (vitamin D3) PO diltiazem HCl CD 180 mg PO DAILY ibuprofen 800 mg PO Q8H PRN losartan 100 mg PO DAILY methylcellulose (laxative) (Citrucel) 500 mg PO DAILY methylprednisolone 4 mg PO .taper multivit with min-folic acid (Adult One Daily Multivitamin) PO omega-3 fatty acids (Fish Oil Concentrate) 1200 PO daily; vitamin E (dl, acetate) PO warfarin 5 mg See Protocol PO DAILY Nursing Note INR 1.6? out of therapeutic range Medications and supplements reviewed Patient status: S/P dental impant was on methylprednisalone and still on amoxicillin 3 more days Medications or supplements: ]was takingtylnol Diet: soft foods mouth/ gums still sroe Denies any signs and symptoms of bleeding or clotting or unusual bruising Bleeding, bruising, clotting discussed Nutritional guidance given: soft foods or smoothies mangos and carrots to help rasie the INr and avoid greens x 3 more days the antbx may also raise the INR - possible th type of steroid lowers the INR Dose: had booster dose earlier this week resume usual dose 5mg sun/ 7.5mg x 6 days F/U INR Date : 1 week Patient verbalizing understanding of instructions given with read back Anti-Coag Initial Assessment Social Hx Patient Tobacco Use Status: Current everyday Tobacco user Tobacco use type: Cigarette alcohol intake: never Coding Level of Care Code Est Patient Level 1 Diagnoses Current use of anticoagulant therapy Z79.01 Assessment & Plan Assessment & Plan (1) Current use of anticoagulant therapy: Code(s): Z79.01 - skilled nursing (current) use of anticoagulants Category: Medical
--- OUTSIDE RECORDS SUMMARY | 2024-06-04 09:34 | XMS_ITS | Encounter Summary ---
Demographics Address [address] [place] [address] Work Phone Mobile Phone Home Phone Preferred Language en Marital Status Unknown Temple Affiliation Unknown Race Other Race Ethnic Group or Author Organization [employer] Address [address] [place] [address] Care Team Providers Care Wad Printing Machine Operator Name Role Phone Loi Pandya MD Primary Care Prov ider Encounter Details Date Type Department Care Team (Late st Contact Info) Description 06/04/2024 Orders Only GENERIC EXTERNAL DATA DEPARTMENT Provider, [...] Upcoming Encounters Date Type Department Care Team ([facility] st Contact Info) Description 06/28/2024 10:30 AM EDT Office Visit [facility] CHC MED & PEDS [address] [place], [place] [phone] Loi Pandya MD [address] [place] [address] documented as of this encounter Procedures Procedure Name Priority Date/Time Associated Diagnosis Comments PROTHROMBIN TIME WHOLE BLD POC Routine 06/04/2024 9:15 AM EST ~PT, ~INR - ANTI COAG CLINIC Routine 06/04/2024 9:15 AM EST documented in this encounter Results * (ABNORMAL) PROTHROMBIN TIME WHOLE BLD POC (06/04/2024 9:15 AM EST) Pathologist [facility] Protime 19.5(H) 11.1 - 13.5 sec [facility] 06/04/2024 9:15 AM EST 06/04/2024 9:16 AM EST us Generic External Data Provider LAB BLOOD ORDERAB LES Final Result [facility] [address] [place] [address] [phone] * (ABNORMAL) ~PT, ~INR - ANTI COAG CLINIC (06/04/2024 9:15 AM EST) [facility] Prothrombin Time INR 1.6(H) 0.9 - 1.1 [facility] Comment:METER #: [id number] TERNATIONAL NORMALIZED RATIO (INR) REFERENCE RANGES Reference RangeFor patients not on anticoagulant therapy: 0.9 - 1.1INR ranges for oral anticoagulanttherapy:For prevention and treatment of venous thrombosis and pulmonary embolism: 2.0 - 3.0For acute myocardial infarction with aspirin therapy: 2.0 - 3.0For acute myocardial infarction without aspirin therapy: 3.0 - 4.0For patients with mechanical prosthetic heart valves: 2.5 - 3.5 06/04/2024 9:15 AM EST 06/04/2024 9:16 AM EST us Generic External Data Provider LAB BLOOD ORDERAB LES Final Result [facility] [address] [place] [address] [phone] documented in this encounter Visit Diagnoses Not on filedocumented in this encounter Additional Health Concerns Assessment Noted Time PHQ-9 Depression Total Score: 0 11/13/19 24 10:51 AM EDT documented as of this encounter Care Teams Wad Printing Machine Operator Relationship Specialty Start Date End Date Loi Pandya MD [address] [place] [id number] PCP - General Internal Medicine 09/13/19 documented as of this encounter
--- OUTSIDE RECORDS SUMMARY | 2024-06-04 09:34 | XMS_ITS | Encounter Summary ---
Demographics Address [address] [place] [address] Work Phone Mobile Phone Home Phone Preferred Language en Marital Status Unknown Scientologist Affiliation Unknown Race Other Race Ethnic Group or Author Organization [employer] Address [address] [place] [address] Care Team Providers Care Fruit Worker Name Role Phone Loi Pandya MD Primary Care Prov ider Reason for Visit * Reason Onset Date Comments CRTICAL RESULT CALL 06/01/2024 Encounter Details Date Type Department Care Team ([facility] st Contact Info) Description 06/01/2024 Telephone [facility] CHC MED & PEDS [address] [place] [address] Loi Pandya MD [address] [place] [address] CRTICAL RESULT CALL Social History Tobacco Use [...] line 06/01/24 at 11:01 AM Name of Caller/Facility:[facility] anticoagulation Callback number: [phone] Reason for Call: Reporting INR of 1.2 drawn today 06/01/24. Orders given to take 10mg today (usually 7.5mg) pt will take 7.5mg Friday and , recheck on Friday06/04/24. Patient had to hold coumadin for 3 days for 3 dental implants. Pt did not inform [facility] coumadin clinic. Pt is currently onabx and steroids which can raise INR. Above information sent via High Priority Secure [employer] chat Message, confirmation of receipt by Heydi Yanez RN, In basket message to be sent as HIGH PRIORITY to Ordering Provider and Team nurses for follow up documented in this encounter Plan of Treatment Upcoming Encounters Date Type Department Care Team (Late st Contact Info) Description 06/28/2024 10:30 AM EDT Office Visit [facility] MED & PEDS [address] [place] [address] Loi Pandya MD [address] [place] [address] documented as of this encounter Visit Diagnoses Not on filedocumented in this encounter Additional Health Concerns Assessment Noted Time PHQ-9 Depression Total Score: 0 11/13/19 24 10:51 AM EDT documented as of this encounter Care Teams Fruit Worker Relationship Specialty Start Date End Date Loi Pandya MD [address] [place] [address] PCP - General Internal Medicine 09/13/19 documented as of this encounter
--- OUTSIDE RECORDS SUMMARY | 2024-06-04 09:34 | XMS_ITS | Encounter Summary ---
Demographics Address [address] [place] [address] Work Phone Mobile Phone Home Phone Preferred Language en Marital Status Unknown Rastafari Affiliation Unknown Race Other Race Ethnic Group or Author Organization [employer] Address [address] 7t [place] [address] Care Team Providers Care Parcel Post Clerk Name Role Phone Loi Pandya MD Primary Care Prov ider Encounter Details Date Type Department Care Team (Late st Contact Info) Description 07/31/2023 Orders Only [facility] MEDICINE [address] [place] [address] ProviderCalderon MD Social History Tobacco Use Types [...] Description 06/28/2024 10:30 AM EDT Office Visit [facility] MED & PEDS [address] [place] [address] Loi Pandya MD [address] [place] [address] documented as of this encounter Procedures Procedure [...] documented as of this encounter Care Teams Parcel Post Clerk Relationship Specialty Start Date End Date Loi Pandya MD [address] [place] [address] PCP - General Internal Medicine 09/13/19 documented as of this encounter
--- OUTSIDE RECORDS SUMMARY | 2024-06-04 09:34 | XMS_ITS | Encounter Summary ---
Demographics Address [address] [place] [address] Work Phone Mobile Phone Home Phone Preferred Language en Marital Status Unknown Hoahaoism Affiliation Unknown Race Other Race Ethnic Group or Author Organization [employer] Address [address] [place] [address] Care Team Providers Care Channel Lip Stiffener Insoles Name Role Phone Loi Pandya MD Primary Care Prov ider Encounter Details Date Type Department Care Team (Late st Contact Info) Description 08/14/2022 Telephone [facility] CHC MED & PEDS [address] [place], [place] [phone] Loi Pandya MD [address] [place] [address] Social History Tobacco Use Types Packs/Day Years [...] Description 06/28/2024 10:30 AM EDT Office Visit [facility] MED & PEDS [address] [place] [address] Loi Pandya MD [address] [place] [address] documented as of this encounter Visit Diagnoses Not on filedocumented in this encounter Additional Health Concerns Assessment Noted Time PHQ-9 Depression Total Score: 0 07/20/19 23 10:39 AM EDT documented as of this encounter Care Teams Channel Lip Stiffener Insoles Relationship Specialty Start Date End Date Loi Pandya MD [address] [place] [address] PCP - General Internal Medicine 09/13/19 documented as of this encounter
--- OUTSIDE RECORDS SUMMARY | 2024-06-04 09:34 | XMS_ITS | Encounter Summary ---
Demographics Address [address] [place] [address] Work Phone Mobile Phone Home Phone Preferred Language en Marital Status Unknown Mormonism Affiliation Unknown Race Other Race Ethnic Group or Author Organization [employer] Address [address] 7t [place] [address] Care Team Providers Care Software Quality Assurance Analyst Name Role Phone Loi Pandya MD Primary Care Prov ider Reason for Visit * Reason Comments Med Refill Encounter Details Date Type Department Care Team ([facility] Contact Info) Description 11/12/2023 Refill [facility] CHC MED & PEDS [address] [place] [address] Loi Pandya MD [address] [place] [address] Longstanding persistent atrial fibrillation (CMS/HCC) Social History [...] 06/28/2024 10:30 AM EDT [facility] MED [facility]EDS [address] [place] [address] Loi Pandya MD [address] [place] [address] documented as of this encounter Visit Diagnoses Diagnosis Longstanding persistent atrial fibrillation (CMS/HCC) documented in this encounter Additional Health Concerns Assessment Noted Time PHQ-9 Depression Total Score: 0 07/20/19 23 10:39 AM EDT documented as of this encounter Care Teams Software Quality Assurance Analyst Relationship Specialty Start Date End Date Loi Pandya MD [address] [place] [address] PCP - General Internal Medicine 09/13/19 documented as of this encounter
--- OUTSIDE RECORDS SUMMARY | 2024-06-04 09:34 | XMS_ITS | Clinical Summary ---
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 Encounters Date Type Department Care Team Description 06/04/2024 Orders Only GENERIC EXTERNAL DATA DEPARTMENT Provider, Generic External Data 06/01/2024 Orders Only GENERIC EXTERNAL DATA DEPARTMENT Provider, Generic External Data 06/01/2024 Telephone [facility] CHC MED & PEDS [address] [place] [address] Loi Pandya MD CRTICAL RESULT CALL 05/03/2024 Orders Only GENERIC EXTERNAL DATA DEPARTMENT Provider, Generic External Data 04/29/2024 Refill [facility] MEDICINE [address] [place] [address] Loi Pandya MD Permanent atrial fibrillation (CMS/HCC) [...] Description 06/28/2024 10:30 AM EDT Office Visit [facility] MED & PEDS [address] [place] [address] Loi Pandya MD [address] [place] [address] Health Maintenance Due Date Last Done Comments CT Colonography 1950 FIT DNA/Cologuard 1950 FIT 1950 FOBT 1950 Sigmoidoscopy 1950 Alcohol/Substance Use Screening 1961 RSV Patients and Patients Aged 60 years or older (1 - Risk 60-74 years 1-dose series) 2009 Pneumococcal Vaccine: 50+ Years (2 of 2 - PPSV23) 09/25/2021 07/31/2021 Zoster Vaccines (2 of 2) 09/25/2021 07/31/2021 COVID-19 Vaccine ( season) 2023 04/23/2023, 08/04/2020, 07/07/2020 Influenza Vaccine (#1) 2023 04/23/2023 Depression Screening 11/12/2024 11/13/2023, 11/13/19 SDOH Screening 11/12/2024 11/13/2023 Tobacco Screening 12/15/2024 [...] COAG CLINIC Routine 06/04/2024 9:15 AM EST PROTHROMBIN TIME WHOLE BLD POC Routine 06/01/2024 10:50 AM EST ~PT, ~INR - ANTI COAG CLINIC Routine 06/01/2024 10:50 AM EST PROTHROMBIN TIME WHOLE BLD POC Routine 05/03/2024 8:21 AM EST ~PT, ~INR - ANTI COAG CLINIC Routine 05/03/2024 8:21 AM EST PROTHROMBIN TIME WHOLE BLD POC Routine 04/05/2024 8:06 AM EST ~PT, ~INR - ANTI COAG CLINIC Routine 04/05/2024 8:06 AM EST PROTHROMBIN TIME WHOLE BLD POC Routine 03/08/2024 8:08 AM EST ~PT, ~INR - ANTI COAG CLINIC Routine 03/08/2024 8:08 AM EST LIPID PANEL, STANDARD Routine 12/04/2023 8:10 AM EDT Primary hypertension HM COLONOSCOPY Routine 12/10/2021 9:05 AM EDT ZZZ HISTORICAL HEPATITIS C AB W/REFL TO HCV RNA, QN, PCR Routine 06/29/2021 8:58 AM EDT from Last 3 Months or Most Recently Relevant to Health Maintenance Results * (ABNORMAL) PROTHROMBIN TIME WHOLE BLD POC (06/04/2024 9:15 AM EST) Only the most recent of5 resultswithin the time period is included. Protime 19.5(H) 11.1 - 13.5 sec [facility] 06/04/2024 9:15 AM EST 06/04/2024 9:16 AM EST us Generic External Data Provider LAB BLOOD ORDERAB LES Final Result [facility] [address] [place] [phone] * (ABNORMAL) ~PT, ~INR - ANTI COAG CLINIC (06/04/2024 9:15 AM EST) Only the most recent of5 resultswithin the time period is included. Prothrombin Time INR 1.6(H) 0.9 - 1.1 [facility] Comment:METER #: [id number] TERNATIONAL NORMALIZED RATIO (INR) REFERENCE RANGES Reference [...] Provider LAB BLOOD ORDERAB LES Final Result [facility] [address] [place] [phone] * (ABNORMAL) Lipid Panel, Standard (12/04/2023 8:10 AM EDT) Triglycerides 154(H) <150 mg/dL [facility] Comment:Desirable Triglyceri de: less than 150 mg/dLBorderline High Triglyceride 150-199 mg/dLHigh Triglyceride: 200-499 mg/dLVery High Triglyceride: greater than or equal to 5OO mg/dL Cholesterol 130 <200 mg/dL [facility] Comment:Desirable Cholestero l: less than 200 mg/dLBorderline High Cholesterol: 200-239 mg/dLHigh Cholesterol: greater than 239 mg/dL LDL Cholesterol Calculated 56 <100 mg/dL [facility] Comment:Desirable LDL: less than 100 mg/dLNear Optimal/Above Optimal LDL: 110- 129 mg/dLBorderline High LDL: 130-159 mg/dLHigh LDL: 160-189 mg/dLVery High LDL: greater than or equal to 190 mg/dL HDL Cholesterol 44 >40 mg/dL [facility] Comment:Desirable HDL: great er than 40 mg/dL Note: This HDL assay may give artificially low results in patients with liver disease. Blood Venous blood specimen / Unknown 12/04/2023 8:10 AM EDT 12/04/2023 2:14 PM EDT Loi Catalan MD LAB BLOOD ORDERABL ES Final Result [facility] [address] [place] [address] [phone] * Hm Colonoscopy (12/10/2021 9:05 AM EDT) Historical Provider HEALTH MAINTENANCE Final Result * HEPATITIS C AB W/REFL TO HCV RNA, QN, PCR (06/29/2021 8:58 AM EDT) HEPATITIS C ANTIBODY NON-REACT EZ NON-REACT EZ [facility] INDEX 0.12 <1.00 [facility] Comment: ?? HCV antibody was non-reactive. There is no laboratory ?? evidence of HCV infection. ?? In most cases, no further action is required. However, if recent HCV exposure is suspected, a test for HCV RNA (test code 78802) is suggested. ?? For additional information please refer to http://education.eOriginal/faq/OCZ05v7 (This link is being provided for informational/ educational purposes only.) ?? 06/29/2021 8:58 AM EDT Loi Catalan MD HISTORICAL/NON ORD ERABLE LABS Final Result [facility] [address] from Last 3 Months or Most Recently Relevant to Health Maintenance Insurance * Guarantor: Carlos Santiago Account Type Relation to Patient Date of Phone Billing Address Personal/Family Self [address] [place] [address] [facility] MEDICARE ADVANTAGE HMO [facility] Care Teams Drive Away Driver Relationship Specialty Start Date End Date Loi Pandya MD [address] [place] [address] PCP - General Internal Medicine 09/13/19
--- OUTSIDE RECORDS SUMMARY | 2024-06-04 09:34 | XMS_ITS | Clinical Summary ---
Author Organization [facility] Address [address] [place] [address] Care Team Providers Care Assembly Line Brazer Name Role Phone Unavailable Primary Care Provider [...] Aortic Aneurysm Screening 2014 Falls Prevention 2014 Ayz-IELFN-11 (1 - 2023- season) 2023 Imm-Influenza (#1) 2023 Alcohol and Drug Screen 04/14/2024 Depression Annual Screen 04/14/2024 Insurance [employer] SAFETY NET
--- OUTSIDE RECORDS SUMMARY | 2024-06-04 09:34 | XMS_ITS | Encounter Summary ---
Author Organization [employer] Address [address] 7t [place] [address] Care Team Providers Care Rabies Inspector Name Role Phone Loi Pandya MD Primary Care Prov ider Encounter Details Date Type Department Care Team (Late Contact Info) Description 05/17/2022 Orders Only [facility] MEDICINE [address] [place] [address] Loi Pandya MD [address] [place], [place] [phone] Permanent atrial fibrillation (CMS/HCC) Social History Tobacco [...] Description 06/28/2024 10:30 AM EDT Office Visit [facility] CHC MED & PEDS [address] [place], [place] [phone] Loi Pandya MD [address] [place], [place] [phone] documented as of this encounter Visit Diagnoses Diagnosis Permanent atrial fibrillation (CMS/HCC) Atrial fibrillation documented in this encounter Care Teams Rabies Inspector Relationship Specialty Start Date End Date Loi Pandya MD [address] [place] [phone] PCP - General Internal Medicine 09/13/19 documented as of this encounter
--- OUTSIDE RECORDS SUMMARY | 2024-06-04 09:34 | XMS_ITS | Encounter Summary ---
Demographics Address [address] [place] [address] Work Phone Mobile Phone Home Phone Preferred Language en Marital Status Unknown Faith Affiliation Unknown Race Other Race Ethnic Group or Author Organization [employer] Address [address]t [place] [address] Care Team Providers Care Labor Relations Officer Name Role Phone Loi Pandya MD Primary Care Prov ider Encounter Details Date Type Department Care Team (Late st Contact Info) Description 06/01/2024 Orders Only GENERIC EXTERNAL DATA DEPARTMENT [...] Upcoming Encounters Date Type Department Care Team ([facility] st Contact Info) Description 06/28/2024 10:30 AM EDT Office Visit [facility] CHC MED & PEDS [address] [place], [place] [phone] Loi Pandya MD [address] [place] [address] documented as of this encounter Procedures Procedure Name Priority Date/Time Associated Diagnosis Comments PROTHROMBIN TIME WHOLE BLD POC Routine 06/01/2024 10:50 AM EST ~PT, ~INR - ANTI COAG CLINIC Routine 06/01/2024 10:50 AM EST documented in this encounter Results * (ABNORMAL) PROTHROMBIN TIME WHOLE BLD POC (06/01/2024 10:50 AM EST) Pathologist [facility] Protime 14.3(H) 11.1 - 13.5 sec [facility] 06/01/2024 10:5 0 AM EST 06/01/2024 11:42 AM EST us Generic External Data Provider LAB BLOOD ORDERAB LES Final Result [facility] [address] [place] [address] [phone] * (ABNORMAL) ~PT, ~INR - ANTI COAG CLINIC (06/01/2024 10:50 AM EST) Prothrombin Time INR 1.2(H) 0.9 - 1.1 [facility] Comment:METER #: [id number] TERNATIONAL NORMALIZED RATIO (INR) REFERENCE RANGES Reference RangeFor patients not on anticoagulant therapy: 0.9 - 1.1INR ranges for oral anticoagulanttherapy:For prevention and treatment of venous thrombosis and pulmonary embolism: 2.0 - 3.0For acute myocardial infarction with aspirin therapy: 2.0 - 3.0For acute myocardial infarction without aspirin therapy: 3.0 - 4.0For patients with mechanical prosthetic heart valves: 2.5 - 3.5 06/01/2024 10:5 0 AM EST 06/01/2024 11:42 AM EST us Generic External Data Provider LAB BLOOD ORDERAB LES Final Result [facility] [address] [place] [address] [phone] documented in this encounter Visit Diagnoses Not on filedocumented in this encounter Additional Health Concerns Assessment Noted Time PHQ-9 Depression Total Score: 0 11/13/19 24 10:51 AM EDT documented as of this encounter Care Teams Labor Relations Officer Relationship Specialty Start Date End Date Loi Pandya MD [address] [place] [address] PCP - General Internal Medicine 09/13/19 documented as of this encounter
--- OUTSIDE RECORDS SUMMARY | 2024-06-04 09:34 | XMS_ITS | Encounter Summary ---
Demographics Address [address] [place] [address] Work Phone Mobile Phone Home Phone Preferred Language en Marital Status Unknown Scientology Affiliation Unknown Race Other Race Ethnic Group or Author Organization [employer] Address [address] [place] [address] Care Team Providers Care Social Worker Palliative Care Name Role Phone Loi Pandya MD Primary Care Prov ider Reason for Visit * Reason Comments Med Refill Encounter Details Date Type Department Care Team ([facility] st Contact Info) Description 07/30/2023 Refill [facility] CHC MED & PEDS [address] [place] [address] Loi Pandya MD [address] [place] [address] Longstanding persistent atrial fibrillation (CMS/HCC) Social History [...] Description 06/28/2024 10:30 AM EDT Office Visit [facility] CHC MED & PEDS [address] [place] [address] Loi Pandya MD [address] [place] [address] documented as of this encounter Visit Diagnoses Diagnosis Longstanding persistent atrial fibrillation (CMS/HCC) documented in this encounter Additional Health Concerns Assessment Noted Time PHQ-9 Depression Total Score: 0 07/20/19 23 10:39 AM EDT documented as of this encounter Care Teams Social Worker Palliative Care Relationship Specialty Start Date End Date Loi Pandya MD [address] [place] [address] PCP - General Internal Medicine 09/13/19 documented as of this encounter
--- OUTSIDE RECORDS SUMMARY | 2024-06-04 09:34 | XMS_ITS | Clinical Summary ---
Author Organization [facility] Address [address] [place] [address] Care Team Providers Care Medical Microbiologist Name Role Phone Unavailable Primary Care Provider [...] this topic Medical Devices Implanted Type Area Upholstery Bundler Device Identifier Shelf Expiration Date Model / Serial / Lot Hemasorb 4 Gm - [id number] - [id number] Implanted:Qty: 1 on 08/11/2019 by Amarjit Alvarado MD Chest [employer] 02/10/2022 OS-401 / [id number] / [id number] Atricure Atriclip Flex-V Implanted:Qty: 1 on 08/11/2019 by Amarjit Alvarado MD Heart [employer] 09/12/2021 [id number] / / [id number] Description:Item # [id number] Advance Directives Documents on File Type Date Recorded Patient Assembly Machine Offbearer Expl anation Health Care Decision (hx) 06/25/2019 AD BAER DIRECTIVE Health Care Decision (hx) 06/25/2019 AD BAER DIRECTIVE Health Care Decision (hx) 06/25/2019 AD BAER DIRECTIVE Health Care Decision (hx) 06/25/2019 AD BAER DIRECTIVE
--- OUTSIDE RECORDS SUMMARY | 2024-06-04 09:34 | XMS_ITS | Encounter Summary ---
Author Organization [employer] Address [address] [facility] 7t [place] [address] Care Team Providers Care Patrol Sergeant Name Role Phone Loi Pnadya MD Primary Care Prov ider Reason for Visit * Reason Comments Med Refill Encounter Details Date Type Department Care Team ([facility] Contact Info) Description 07/27/[address] [facility] MED & PEDS [address] [place] [address] Loi Pandya MD [address] [place] [address] Longstanding persistent atrial fibrillation (CMS/HCC) Social History [...] Upcoming Encounters Date Type Department Care Team ([facility] Contact Info) Description 06/28/2024 10:30 AM EDT Office Visit [facility] MED [facility] PEDS [address] [place], [place] [phone] Loi Pandya MD [address] [place] [address] documented as of this encounter Visit Diagnoses Diagnosis Longstanding persistent atrial fibrillation (CMS/HCC) documented in this encounter Additional Health Concerns Assessment Noted Time PHQ-9 Depression Total Score: 0 07/20/19 23 10:39 AM EDT documented as of this encounter Care Teams Patrol Sergeant Relationship Specialty Start Date End Date Loi Pandya MD [address] [place] [address] PCP - General Internal Medicine 09/13/19 documented as of this encounter
--- OUTSIDE RECORDS SUMMARY | 2024-06-04 09:34 | XMS_ITS | Clinical Summary ---
Demographics Address [address] [place] [address] Mobile Phone Home Phone Preferred Language Italian; Castilian Marital Status Legally Evangelical Affiliation Unknown Race Unknown Ethnic Group or Author Organization [facility] Address [address] [place] [address] Support Name Relationship Address Phone Luis Antonio Padgettles Emergency Contact [address] [place] [address] Care Team Providers Care Getterer Name Role Phone Unavailable Primary Care Provider Unavailabl e Allergies No known active allergies Medications Medication Sig Dispensed Refills Start Date End Date Status dilTIAZem (CARDIZEM CD) 120 MG 24 hr capsule Take 120 mg by mouth daily. 0 Active aspirin 81 MG chewable tablet Chew 81 mg by mouth daily. 0 Active losartan (COZAAR) tablet 25 mg Take 25 mg by mouth daily. 0 Active acetaminophen (TYLENOL) 325 MG tablet Take 2 tablets (650 mg total) by mouth every 6 (six) hours as needed. 120 tablet 0 08/16/2019 Active amiodarone (PACERONE) 200 MG tablet Take 1 tablet (200 mg total) by mouth 2 (two) times a day. 60 tablet 0 08/16/2019 Active pantoprazole (PROTONIX) 40 MG tablet Take 1 tablet (40 mg total) by mouth every morning on an empty stomach. 30 tablet 0 08/17/2019 Active atorvastatin (LIPITOR) tablet 40 mg Take 2 tablets (80 mg total) by mouth daily. 60 tablet 0 08/16/2019 Active metoprolol tartrate (LOPRESSOR) 25 MG tablet Take 1 tablet (25 mg total) by mouth 2 (two) times a day. 60 tablet 1 08/19/2019 Active traMADol (ULTRAM) 50 MG tablet Take 50 mg by mouth every 4 (four) hours as needed for severe pain (7-10). 30 tablet 0 08/19/2019 Active Active Problems Problem Noted Date Diagnosed Date Secondary hypercoagulable state 08/12/2019 CAD in [place] artery 08/11/2019 Social History Tobacco Use Types Packs/Day Years Used Date Smoking Tobacco: Every Day Cigarettes 0.3 50 Smokeless Tobacco: Never Tobacco Cessation:Ready to Q uit: Yes Alcohol Use Standard Drinks/Week Comments No 0 (1 standard drink = 0.6 oz pur e alcohol) Sex and Gender Information Value Date Recorded Sex Assigned at Not on file Gender Identity Not on file Sexual Orientation Not on file Last Filed Vital Signs Vital Sign Reading Time Taken Comments Blood Pressure 134/104 08/19/2019 8:36 AM EDT Pulse 103 08/19/2019 8:36 AM EDT Temperature 36.4 ??C (97.6 ??F) 08/19/2019 8:36 AM ED T Respiratory Rate 15 08/19/2019 8:36 AM EDT Oxygen Saturation 97% 08/19/2019 8:36 AM EDT Inhaled Oxygen Concentration - - Weight 96.2 kg (212 lb) 08/19/2019 4:42 AM EDT Height 175.3 cm (5' 9 ) 08/11/2019 5:45 AM EDT Body Mass Index 31.31 08/11/2019 5:45 AM EDT Plan of Treatment Health Maintenance Due Date Last Done Comments Hepatitis C Screening 1950 COVID-19 Vaccine (#1) 04/16/1951 Pneumococcal Vaccine (1 of 2 - PCV) 10/15/1955 Depression Screening 1961 BMI Counseling 10/15/1967 Preventative Health Evaluation 10/15/1967 Tobacco Cessation Counseling 10/15/1967 DTap / Tdap / Td (1 - Tdap) 1968 Colon Cancer Screening (Colonoscopy) 1994 Shingrix-Zoster Vaccine (1 of 2) 10/15/1999 Abdominal Aortic Aneurysm (A AA) Screening 2014 Fall Risk Assessment 2014 Influenza Vaccine (#1) 2023 RSV Adult > 60+ Yrs or Pregn ant (1 - 1-dose 75+ series) 2024 Hepatitis B Vaccines Aged Out No long er eligible based on patient's age to complete this topic RSV Ped < 20 months Aged Out No longe r eligible based on patient's age to complete this topic Medical Devices Implanted Type Area Sr Risk Management Consultant Device Identifier Shelf Expiration Date Model / Serial / Lot Hemasorb 4 Gm - [id number] - [id number] Implanted:Qty: 1 on 08/11/2019 by Amarjit Alvarado MD at [facility] and Med Chest [employer] 02/10/2022 OS-401 / [id number] / [id number] Atricure Atriclip Flex-V Implanted:Qty: 1 on 08/11/2019 by Amarjit Alvarado MD at [facility] and Med Heart [employer] 09/12/2021 [id number] / [id number] Description:Item # [id number] Carlos Moncada Personal/Family Self 1950 [address] [place] [address] Carlos Moncada Personal/Family Self 1950 [address] [place] [address] Advance Directives For more information, please contact: [phone] Latest Code Status on File Code Status Date Activated Date Inactivated Comments Full Code 08/11/2019 5:30 AM 08/19/2019 8:55 PM This c ode status was ascertained in the following way: per unit protocol.
== END 2024-06-04 09:29 | disposition home or self-care (01) ==
LOC: HO.ACS 09:10
PROVIDERS: PCP Internal Medicine; Visit Provider Internal Medicine
DX: Z79.01 Long term (current) use of anticoagulants (principal)

== ENCOUNTER → 2024-06-04 09:10 | Outpatient (BNVA) | payer MEDICARE, MEDICAID, SELFPAY | PROVIDERS: PCP Internal Medicine; Visit Provider Internal Medicine | DX: I48.21 Permanent atrial fibrillation (principal); Z79.01 Long term (current) use of anticoagulants; Z51.81 Encounter for therapeutic drug level monitoring | CPT/HCPCS: 85610; 99211 ==

== ENCOUNTER 2024-06-11 08:20 | Outpatient (AMB) | payer MEDICARE, MEDICAID, SELFPAY ==
--- OUTSIDE RECORDS SUMMARY | 2024-06-11 08:29 | XMS_ITS | Encounter Summary ---
Author Organization [employer] Address [address] [facility] 7t [place] [address] Care Team Providers Care Basket Bottom Machine Operator Name Role Phone Loi Pandya MD Primary Care Prov ider Encounter Details Date Type Department Care Team (Late Contact Info) Description 05/17/2022 Orders Only [facility] [address] [place] [address] Loi Pandya MD [address] [place], [place] [phone] Permanent atrial fibrillation (CMS/HCC) Social History Tobacco [...] Description 06/28/2024 10:30 AM EDT Office Visit [facility] MED & PEDS [address] [place], [place] [phone] Loi Pandya MD [address] [place], [place] [phone] documented as of this encounter Visit Diagnoses Diagnosis Permanent atrial fibrillation (CMS/HCC) Atrial fibrillation documented in this encounter Care Teams Basket Bottom Machine Operator Relationship Specialty Start Date End Date Loi Pandya MD [address] [place] [address] PCP - General Internal Medicine 09/13/19 documented as of this encounter
--- OUTSIDE RECORDS SUMMARY | 2024-06-11 08:29 | XMS_ITS | Encounter Summary ---
Demographics Address [address] [place] [address] Work Phone Mobile Phone Home Phone Preferred Language en Marital Status Unknown Cheondoism Affiliation Unknown Race Other Race Ethnic Group or Author Organization [employer] Address [address] 7[address] [place] [address] Care Team Providers Care Make Up Man Name Role Phone Loi Pandya MD Primary Care Prov ider Reason for Visit * Reason Comments Med Refill Encounter Details Date Type Department Care Team ([facility] st Contact Info) Description 07/30/2023 Refill [facility] CH[facility] MED & PEDS [address] [place] [address] Loi Pandya MD [address] [place] [address] Longstanding persistent atrial fibrillation (CMS/HCC) Social History [...] Description 06/28/2024 10:30 AM EDT Office Visit [facility] MED & PEDS [address] [place] [address] Loi Pandya MD [address] [place] [address] documented as of this encounter Visit Diagnoses Diagnosis Longstanding persistent atrial fibrillation (CMS/HCC) documented in this encounter Additional Health Concerns Assessment Noted Time PHQ-9 Depression Total Score: 0 07/20/19 23 10:39 AM EDT documented as of this encounter Care Teams Make Up Man Relationship Specialty Start Date End Date Loi Pandya MD [address] [place] [address] PCP - General Internal Medicine 09/13/19 documented as of this encounter
--- OUTSIDE RECORDS SUMMARY | 2024-06-11 08:29 | XMS_ITS | Clinical Summary ---
Author Organization [facility] Address [address] [place] [address] Care Team Providers Care Mainframe Systems Engineer Name Role Phone Unavailable Primary Care Provider [...] Aortic Aneurysm Screening 2014 Falls Prevention 2014 Ipm-DHJRR-12 (1 - 2023- season) 2023 Imm-Influenza (#1) 2023 Alcohol and Drug Screen 04/14/2024 Depression Annual Screen 04/14/2024 Insurance [employer] S[employer]
--- OUTSIDE RECORDS SUMMARY | 2024-06-11 08:29 | XMS_ITS | Encounter Summary ---
Author Organization [employer] Address [address] [facility] 7t [place] [address] Care Team Providers Care Media Production Operator Name Role Phone Loi Pandya MD Primary Care Prov ider Reason for Visit * Reason Comments Med Refill Encounter Details Date Type Department Care Team ([facility] Contact Info) Description 07/27/2022 Refill [facility] CH[facility] MED & PEDS [address] [place] [address] Loi Pandya MD [address] [place] [address] Longstanding persistent atrial fibrillation (CMS/HCC) Social History [...] Upcoming Encounters Date Type Department Care Team ([facility] Contact Info) Description 06/28/2024 10:30 AM EDT Office Visit [facility] MED & PEDS [address] [place], [place] [phone] Loi Pandya MD [address] [place] [address] documented as of this encounter Visit Diagnoses Diagnosis Longstanding persistent atrial fibrillation (CMS/HCC) documented in this encounter Additional Health Concerns Assessment Noted Time PHQ-9 Depression Total Score: 0 07/20/19 23 10:39 AM EDT documented as of this encounter Care Teams Media Production Operator Relationship Specialty Start Date End Date Loi Pandya MD [address] [place] [address] PCP - General Internal Medicine 09/13/19 documented as of this encounter
--- OUTSIDE RECORDS SUMMARY | 2024-06-11 08:29 | XMS_ITS | Encounter Summary ---
Demographics Address [address] [place] [address] Work Phone Mobile Phone Home Phone Preferred Language en Marital Status Unknown Zoroastrian Affiliation Unknown Race Other Race Ethnic Group or Author Organization [employer] Address [address] 7t [place] [address] Care Team Providers Care Animal Science Professor Name Role Phone Loi Pandya MD Primary [...] Upcoming Encounters Date Type Department Care Team ([facility] st Contact Info) Description 06/28/2024 10:30 AM EDT Office Visit [facility] CH[facility] MED & PEDS [address] [place], [place] [phone] Loi Pandya MD [address] [place] [address] documented as of this encounter Procedures Procedure Name Priority Date/Time Associated Diagnosis Comments PROTHROMBIN TIME WHOLE BLD POC Routine 06/01/2024 10:50 AM EST ~PT, ~INR - ANTI COAG CLINIC Routine 06/01/2024 10:50 AM EST documented in this encounter Results * (ABNORMAL) PROTHROMBIN TIME WHOLE BLD POC (06/01/2024 10:50 AM EST) Pathologist [facility] Protime 14.3(H) 11.1 - 13.5 sec [facility] 06/01/2024 10:5 0 AM EST 06/01/2024 11:42 AM EST us Generic External Data Provider LAB BLOOD ORDERAB LES Final Result [facility] [address] [place] [address] [phone] * (ABNORMAL) ~PT, ~INR - ANTI COAG CLINIC (06/01/2024 10:50 AM EST) Prothrombin Time INR 1.2(H) 0.9 - 1.1 [facility] Comment:METER #: [id number] TERNATIONAL NORMALIZED RATIO (INR) REFERENCE RANGES Reference [...] Provider LAB BLOOD ORDERAB LES Final Result [facility] [address] [place] [address] [phone] documented in this encounter Visit Diagnoses Not on filedocumented in this encounter Additional Health Concerns Assessment Noted Time PHQ-9 Depression Total Score: 0 11/13/19 24 10:51 AM EDT documented as of this encounter Care Teams Animal Science Professor Relationship Specialty Start Date End Date Loi Pandya MD [address] [place] [address] PCP - General Internal Medicine 09/13/19 documented as of this encounter
--- OUTSIDE RECORDS SUMMARY | 2024-06-11 08:29 | XMS_ITS | Encounter Summary ---
Demographics Address [address] [place] [address] Work Phone Mobile Phone Home Phone Preferred Language en Marital Status Unknown Worship Affiliation Unknown Race Other Race Ethnic Group or Author Organization [employer] Address [address] [facility] 7t [place] [address] Care Team Providers Care Sheriffs Name Role Phone Loi Pandya MD Primary Care Prov ider Reason for Visit * Reason Onset Date Comments CRTICAL RESULT CALL 06/01/2024 Encounter Details Date Type Department Care Team ([facility] st Contact Info) Description 06/01/2024 Telephone [facility] CHC MED & PEDS [address] [place] [address] Loi Pandya MD [address] [place] [address] CRTICAL RESULT CALL Social History Tobacco Use [...] line 06/01/24 at 11:01 AM Name of Caller/Facility:On license of [facility] anticoagulation Callback number: [phone] Reason for Call: Reporting INR of 1.2 drawn today 06/01/24. Orders given to take 10mg today (usually 7.5mg) pt will take 7.5mg Friday and , recheck on Friday06/04/24. Patient had to hold coumadin for 3 days for 3 dental implants. Pt did not inform [facility] coumadin clinic. Pt is currently onabx and steroids which can raise INR. Above information sent via High Priority Secure [employer] chat Message, confirmation of receipt by Heydi Yanez RN, In basket message to be sent as HIGH PRIORITY to Ordering Provider and Team nurses for follow up documented in this encounter Plan of Treatment Upcoming Encounters Date Type Department Care Team (Late st Contact Info) Description 06/28/2024 10:30 AM EDT Office Visit [facility] MED & PEDS [address] [place] [address] Loi Pandya MD [address] [place] [address] documented as of this encounter Visit Diagnoses Not on filedocumented in this encounter Additional Health Concerns Assessment Noted Time PHQ-9 Depression Total Score: 0 11/13/19 24 10:51 AM EDT documented as of this encounter Care Teams Sheriffs Relationship Specialty Start Date End Date Loi Pandya MD [address] [place] [address] PCP - General Internal Medicine 09/13/19 documented as of this encounter
--- OUTSIDE RECORDS SUMMARY | 2024-06-11 08:29 | XMS_ITS | Encounter Summary ---
Demographics Address [address] [place] [address] Work Phone Mobile Phone Home Phone Preferred Language en Marital Status Unknown Cheondoism Affiliation Unknown Race Other Race Ethnic Group or Author Organization [employer] Address [address] 7[address] [place] [address] Care Team Providers Care Steersman Name Role Phone Loi Pandya MD Primary [...] Description 06/28/2024 10:30 AM EDT Office Visit [facility] CH[facility] MED & PEDS [address] [place], [place] [phone] Loi Pandya MD [address] [place] [address] documented as of this encounter Procedures Procedure Name Priority Date/Time Associated Diagnosis Comments PROTHROMBIN TIME WHOLE BLD POC Routine 06/04/2024 9:15 AM EST ~PT, ~INR - ANTI COAG CLINIC Routine 06/04/2024 9:15 AM EST documented in this encounter Results * (ABNORMAL) PROTHROMBIN TIME WHOLE BLD POC (06/04/2024 9:15 AM EST) Pathologist [facility] Protime 19.5(H) 11.1 - 13.5 sec [facility] 06/04/2024 9:15 AM EST 06/04/2024 9:16 AM EST us Generic External Data Provider LAB BLOOD ORDERAB LES Final Result [facility] [address] [place] [address] [phone] * (ABNORMAL) ~PT, ~INR - ANTI COAG CLINIC (06/04/2024 9:15 AM EST) [facility] Prothrombin Time INR 1.6(H) 0.9 - 1.1 [facility] Comment:METER #: [id number] TERNATIONAL NORMALIZED RATIO (INR) REFERENCE RANGES Reference [...] Provider LAB BLOOD ORDERAB LES Final Result [facility] [address] [place] [address] [phone] documented in this encounter Visit Diagnoses Not on filedocumented in this encounter Additional Health Concerns Assessment Noted Time PHQ-9 Depression Total Score: 0 11/13/19 24 10:51 AM EDT documented as of this encounter Care Teams Steersman Relationship Specialty Start Date End Date Loi Pandya MD [address] [place] [phone] PCP - General Internal Medicine 09/13/19 documented as of this encounter
--- OUTSIDE RECORDS SUMMARY | 2024-06-11 08:29 | XMS_ITS | Encounter Summary ---
Demographics Address [address] [place] [address] Work Phone Mobile Phone Home Phone Preferred Language en Marital Status Unknown Orthodox Affiliation Unknown Race Other Race Ethnic Group or Author Organization [employer] Address [address] [place] [address] Care Team Providers Care Frame Opener Name Role Phone Loi Pandya MD Primary Care Prov ider Encounter Details Date Type Department Care Team (Late st Contact Info) Description 08/14/2022 Telephone [facility] MED & PEDS [address] [place], [place] [phone] Loi Pandya MD [address] [place] [address] Social History Tobacco Use Types Packs/Day Years [...] Description 06/28/2024 10:30 AM EDT Office Visit [facility] MED & PEDS [address] [place] [address] Loi Pandya MD [address] [place] [address] documented as of this encounter Visit Diagnoses Not on filedocumented in this encounter Additional Health Concerns Assessment Noted Time PHQ-9 Depression Total Score: 0 07/20/19 23 10:39 AM EDT documented as of this encounter Care Teams Frame Opener Relationship Specialty Start Date End Date Loi Pandya MD [address] [place] [address] PCP - General Internal Medicine 09/13/19 documented as of this encounter
--- OUTSIDE RECORDS SUMMARY | 2024-06-11 08:29 | XMS_ITS | Clinical Summary ---
Author Organization [email or web address] Address [address] [facility] [address] 7t [place] [address] Care Team Providers Care Tank Processor Name Role Phone Loi Pandya MD Primary [...] (04/09/2022 10:48 AM EST): 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 by elementary school librarian, on diltiazem and warfarin, no recent er visit due to exacerbation Anticoagulated on Coumadin 04/09/2022 Assessment & Plan (04/09/2022 10:51 AM EST): Patient on coumadin 7.5mg daily, no episode of bleeding, followed at coumadin clinic, no changes will be made Secondary hypercoagulable state 08/12/2019 CAD in [place] artery 08/11/2019 Encounters Date Type Department Care Team Description 06/04/2024 Orders Only GENERIC EXTERNAL DATA DEPARTMENT Provider, Generic External Data 06/01/2024 Orders Only GENERIC EXTERNAL DATA DEPARTMENT Provider, Generic External Data 06/01/2024 Telephone [facility] MED & PEDS [address] [place] [address] Loi Pandya MD CRTICAL RESULT CALL 05/03/2024 Orders Only GENERIC EXTERNAL DATA DEPARTMENT Provider, Generic External Data 04/29/2024 Refill [facility] [address] [place] [address] Loi Pandya MD Permanent atrial fibrillation (CMS/HCC) [...] Description 06/28/2024 10:30 AM EDT Office Visit [facility] MED [facility] PEDS [address] [place] [address] Loi Pandya MD [address] [place] [address] Health Maintenance Due Date Last Done Comments [...] COAG CLINIC Routine 04/05/2024 8:06 AM EST LIPID PANEL, STANDARD Routine 12/04/2023 8:10 AM EDT Primary hypertension HM COLONOSCOPY Routine 12/10/2021 9:05 AM EDT ZZZ HISTORICAL HEPATITIS C AB W/REFL TO HCV RNA, QN, PCR Routine 06/29/2021 8:58 AM EDT from Last 3 Months or Most Recently Relevant to Health Maintenance Results * (ABNORMAL) PROTHROMBIN TIME WHOLE BLD POC (06/04/2024 9:15 AM EST) Only the most recent of4 resultswithin the time period is included. Protime 19.5(H) 11.1 - 13.5 sec [facility] 06/04/2024 9:15 AM EST 06/04/2024 9:16 AM EST us Generic External Data Provider LAB BLOOD ORDERAB LES Final Result [facility] [address] [place] [phone] * (ABNORMAL) ~PT, ~INR - ANTI COAG CLINIC (06/04/2024 9:15 AM EST) Only the most recent of4 resultswithin the time period is included. Prothrombin Time INR 1.6(H) 0.9 - 1.1 [facility] Comment:METER #: [id number] TERNATIONAL NORMALIZED RATIO (INR) REFERENCE RANGES Reference [...] ORDERAB LES Final Result Performing Organization Address City/[facility] Co de Phone Number [facility] [address] [place] [address] [phone] * (ABNORMAL) Lipid Panel, Standard (12/04/2023 8:10 AM EDT) Triglycerides 154(H) <150 mg/dL [facility] Comment:Desirable Triglyceri de: less than 150 mg/dLBorderline High Triglyceride 150-199 mg/dLHigh Triglyceride: 200-499 mg/dLVery High Triglyceride: greater than or equal to 5OO mg/dL Cholesterol 130 <200 mg/dL [facility] Comment:Desirable Cholestero l: less than 200 mg/dLBorderline High Cholesterol: 200-239 mg/dLHigh Cholesterol: greater than 239 mg/dL LDL Cholesterol Calculated 56 <100 mg/dL [facility] Comment:Desirable LDL: less than 100 mg/dLNear Optimal/Above Optimal LDL: 110- 129 mg/dLBorderline High LDL: 130-159 mg/dLHigh LDL: 160-189 mg/dLVery High LDL: greater than or equal to 190 mg/dL HDL Cholesterol 44 >40 mg/dL [facility] Comment:Desirable HDL: great er than 40 mg/dL Note: This HDL assay may give artificially low results in patients with liver disease. Blood Venous blood specimen / Unknown 12/04/2023 8:10 AM EDT 12/04/2023 2:14 PM EDT us Loi Catalan MD LAB BLOOD ORDERABL ES Final Result [facility] [address] [place] [address] [phone] * Hm Colonoscopy (12/10/2021 9:05 AM [...] a test for HCV RNA (test code 63178) is suggested. ?? For additional information please refer to http://education.[employer]/faq/WUZ22v1 (This link is being provided for informational/ educational purposes only.) ?? 06/29/2021 8:58 AM EDT Loi Catalan MD HISTORICAL/NON ORD ERABLE LABS Final Result [facility] [address] [place] [address], from Last 3 Months or Most Recently Relevant to Health Maintenance Insurance * Guarantor: Carlos Santiago Account Type Relation to Patient Date of Phone Billing Address Personal/Family Self [address] [place] [address] [facility] MEDICARE ADVANTAGE HMO [facility] STANDARD * Guarantor: Carlos Santiago Account Type Relation to Patient Date of Phone Billing Address Personal/Family Self [address] [place] [address] * Guarantor: Carlos Santiago Account Type Relation to Patient Date of Phone Billing Address Personal/Family Self [address] [place] [address] * Guarantor: Carlos Santiago Account Type Relation to Patient Date of Phone Billing Address Personal/Family Self [address] [place] [address] Care Teams Tank Processor Relationship Specialty Start Date End Date Loi Pandya MD [address] [place] [phone] PCP - General Internal Medicine 09/13/19
--- OUTSIDE RECORDS SUMMARY | 2024-06-11 08:29 | XMS_ITS | Encounter Summary ---
Demographics Address [address] [place] [address] Work Phone Mobile Phone Home Phone Preferred Language en Marital Status Unknown Judaism Affiliation Unknown Race Other Race Ethnic Group or Author Organization [employer] Address [address] [address] [place] [address] Care Team Providers Care Computer Clerk Name Role Phone Loi Pandya MD Primary Care Prov ider Encounter Details Date Type Department Care Team (Late st Contact Info) Description 07/31/2023 Orders Only [facility] [address] [place] [address] ProviderCalderon MD Social History Tobacco Use Types [...] 06/28/2024 10:30 AM EDT Office Visit [facility] [address] [place] [address] Loi Pandya MD [address] [place] [address] documented as of this encounter Procedures Procedure [...] documented as of this encounter Care Teams Computer Clerk Relationship Specialty Start Date End Date Loi Pandya MD [address] [place] [address] PCP - General Internal Medicine 09/13/19 documented as of this encounter
--- OUTSIDE RECORDS SUMMARY | 2024-06-11 08:29 | XMS_ITS | Clinical Summary ---
Demographics Address [address] [place] [address] Mobile Phone Home Phone Preferred Language Citizen Of [place]; Castilian Marital Status Legally Church Affiliation Unknown Race Unknown Ethnic Group or Author Organization [facility] Address [address] [place] [address] Support Name Relationship Address Phone Luis Antonio Padgettles Emergency Contact [address] [place] [address] Care Team Providers Care Collector Of Port Name Role Phone Unavailable Primary Care Provider [...] Date Secondary hypercoagulable state 08/12/2019 CAD in [place] artery 08/11/2019 Social History Tobacco Use Types [...] this topic Medical Devices Implanted Type Area Director Strategic Planning Device Identifier Shelf Expiration Date Model / Serial / Lot Hemasorb 4 Gm - [id number] - [id number] Implanted:Qty: 1 on 08/11/2019 by Amarjit Alvarado MD at [facility] and Med Chest [employer] 02/10/2022 OS-401 / [id number] / [id number] Atricure Atriclip Flex-V Implanted:Qty: 1 on 08/11/2019 by Amarjit Alvarado MD at [facility] and Med Heart [employer] 09/12/2021 [facility] / [id number] Description:Item # [id number] Carlos Moncada Personal/Family Self 1950 [address] [place] [address] Carlos Moncada Personal/Family Self 1950 [address] [place] [address] Advance Directives For more information, please contact: [phone] Latest Code Status on File Code Status Date Activated Date Inactivated Comments Full Code 08/11/2019 5:30 AM 08/19/2019 8:55 PM This c ode status was ascertained in the following way: per unit protocol.
--- OUTSIDE RECORDS SUMMARY | 2024-06-11 08:29 | XMS_ITS | Encounter Summary ---
Demographics Address [address] [place] [address] Work Phone Mobile Phone Home Phone Preferred Language en Marital Status Unknown Sikh Affiliation Unknown Race Other Race Ethnic Group or Author Organization [employer] Address [address] [facility] 7t [place] [address] Care Team Providers Care Sofa Cover Inspector Name Role Phone Loi Pandya MD Primary Care Prov ider Reason for Visit * Reason Comments Med Refill Encounter Details Date Type Department Care Team ([facility] Contact Info) Description 11/12/2023 Refill [facility] & PEDS [address] [place] [address] Loi Pandya MD [address] [place] [address] Longstanding persistent atrial fibrillation (CMS/HCC) Social History [...] Description 06/28/2024 10:30 AM EDT Office Visit [facility] [address] [place] [address] Loi Pandya MD [address] [place] [address] documented as of this encounter Visit Diagnoses Diagnosis Longstanding persistent atrial fibrillation (CMS/HCC) documented in this encounter Additional Health Concerns Assessment Noted Time PHQ-9 Depression Total Score: 0 07/20/19 23 10:39 AM EDT documented as of this encounter Care Teams Sofa Cover Inspector Relationship Specialty Start Date End Date Loi Pandya MD [address] [place] [address] PCP - General Internal Medicine 09/13/19 documented as of this encounter
--- OUTSIDE RECORDS SUMMARY | 2024-06-11 08:29 | XMS_ITS | Clinical Summary ---
Author Organization [facility] Address [address] [place] [address] Care Team Providers Care Dehydrogenation Operator Name Role Phone Unavailable Primary Care [...] Date Smoking Tobacco: Every Day Cigarettes 1 60.2 Started: 04/14/1965 Smokeless Tobacco: Never Alcohol Use [...] this topic Medical Devices Implanted Type Area Facility Manager Histology Device Identifier Shelf Expiration Date Model / Serial / Lot Hemasorb 4 Gm - [id number] - [id number] Implanted:Qty: 1 on 08/11/2019 by Amarjit Alvarado MD Chest [employer] 02/10/2022 OS-401 / [id number] / [id number] Atricure Atriclip Flex-V Implanted:Qty: 1 on 08/11/2019 by Amarjit Alvarado MD Heart [employer] 09/12/2021 [id number] / / [id number] Description:Item # [id number] Advance Directives Documents on File Type Date Recorded Patient Powder Monkey Expl anation Health Care Decision (hx) 06/25/2019 AD BAER DIRECTIVE Health Care Decision (hx) 06/25/2019 AD BAER DIRECTIVE Health Care Decision (hx) 06/25/2019 AD BAER DIRECTIVE Health Care Decision (hx) 06/25/2019 AD BAER DIRECTIVE
[2024-06-11 08:52] LABS: Prothrombin Time Whole Bld POC 30.2 sec (11.1-13.5); ~PT, ~INR - Anti Coag Clinic 2.5 (0.9-1.1)
--- NOTE | 2024-06-11 08:56 | MHC.OFFVISCO ---
Intake Intake Visit Reasons: Anticoagulation Allergies No Known Allergies Allergy (Verified 06/11/24 08:47) Medication List - Last Reconciled 06/11/24 by Nury Ward RN amlodipine 10 mg PO DAILY aspirin 81 mg PO DAILY atorvastatin 40 mg PO DAILY cholecalciferol (vitamin D3) PO diltiazem HCl CD 180 mg PO DAILY losartan 100 mg PO DAILY methylcellulose (laxative) (Citrucel) 500 mg PO DAILY multivit with min-folic acid (Adult One Daily Multivitamin) PO omega-3 fatty acids (Fish Oil Concentrate) 1200 PO daily; vitamin E (dl, acetate) PO warfarin 5 mg See Protocol PO DAILY Nursing Note INR: 2.5 in therapeutic range pt recovered from dental implant - still eating soft foods but getting better Medications and supplements reviewed No changes in health, diet, medications, or supplements, Denies any signs and symptoms of bleeding or bruising or clotting. Bleeding, bruising, clotting discussed Nutritional guidance given Dose: 5mg x 1 day/ 7.5mg x 6 days F/U INR: []Patient verbalizes understanding of instructions given Anti-Coag Initial Assessment Social Hx Patient Tobacco Use Status: Current everyday Tobacco user Tobacco use type: Cigarette alcohol intake: never Coding Level of Care Code Est Patient Level 1 Diagnoses Current use of anticoagulant therapy Z79.01 Assessment & Plan Assessment & Plan (1) Current use of anticoagulant therapy: Code(s): Z79.01 - shelter (current) use of anticoagulants Category: Medical
== END 2024-06-11 08:58 | disposition home or self-care (01) ==
LOC: HO.ACS 08:20
PROVIDERS: PCP Internal Medicine; Visit Provider Internal Medicine
DX: Z79.01 Long term (current) use of anticoagulants (principal)

== ENCOUNTER → 2024-06-11 08:20 | Outpatient (BNVA) | payer OTHER, SELFPAY | PROVIDERS: PCP Internal Medicine; Visit Provider Internal Medicine | DX: I48.21 Permanent atrial fibrillation (principal); Z79.01 Long term (current) use of anticoagulants; Z51.81 Encounter for therapeutic drug level monitoring | CPT/HCPCS: 85610; 99211 ==

== ENCOUNTER 2024-06-21 12:36 | Outpatient (AMB) | payer MEDICARE, MEDICAID, SELFPAY ==
--- NOTE | 2024-06-21 13:00 | A.OFFVIS_ITS ---
Vital Signs 06/21/24 13:01 Height 5 ft 9 in Weight 220 lb 7.396 oz BMI 32.6 BP 120/62 Blood Pressure Location Lt brachial Position Sitting Pulse 78 Pulse Source Pulse Oximeter Intake Visit Reasons: 6 mth f/up Allergies No Known Allergies Allergy (Verified 06/11/24 08:47) Medication List - Last Reconciled 06/21/24 by Jono Kelly MD amlodipine 10 mg PO DAILY aspirin 81 mg PO DAILY atorvastatin 40 mg PO DAILY cholecalciferol (vitamin D3) PO diltiazem HCl CD 180 mg PO DAILY losartan 100 mg PO DAILY methylcellulose (laxative) (Citrucel) 500 mg PO DAILY multivit with min-folic acid (Adult One Daily Multivitamin) PO omega-3 fatty acids (Fish Oil Concentrate) 1200 PO daily; vitamin E (dl, acetate) PO warfarin 5 mg See Protocol PO DAILY HPI Comments Details: Carlos returns for follow-up. History of coronary artery disease and underwent coronary artery bypass surgery at [facility] 2019. Multiple risk factors including hypertension, smoking as well as cocaine use in the past. He states he generally feels well. With severe exertion, he can feel some shortness of breath but no anginal episodes. Otherwise, getting along fine. He states he takes all his medications regularly. [facility] Medical History (Updated 02/26/24 @ 09:24 by Rae Pressley PA-C) Aortic dilatation Ischemic cardiomyopathy Atherosclerotic cardiovascular disease History of non-ST elevation myocardial infarction (NSTEMI) (~06/2019) PAF (paroxysmal atrial fibrillation) HTN (hypertension) Hyperlipidemia Diabetes mellitus type 2, controlled, without complications GERD (gastroesophageal reflux disease) Nicotine dependence, cigarettes, uncomplicated Surgical History History of cholecystectomy History of coronary artery bypass graft x 2 (~07/2019) History of cardiac catheterization (~06/2019) Family History Father No problems noted. Mother Diabetes Social History Alcohol intake: never Patient Tobacco Use Status: Current everyday Tobacco user Tobacco use type: Cigarette Cigarettes Per Day: 5 Years Smoked: (onset 13yo, 1/2ppd x 58yrs, now 5-10 cig/day - 29pyh) Review of Systems Const Denies weakness ENT Denies dizziness Card Denies chest pain, Denies chest pain with activity, Denies syncope, Denies rapid heart rate, Denies pedal edema, Denies edema, Denies leg edema, Denies lightheadedness, Denies palpitations, Denies dyspnea, Denies dyspnea on exertion and Denies orthopnea Resp Denies cough, Denies dyspnea and Denies dyspnea on exertion GI Denies hematochezia and Denies change in stool character Musc Denies abnormal gait, Denies muscle cramps, Denies muscle weakness, Denies numbness, Denies radiating pain into limb and Denies tingling Neuro Denies abnormal gait, Denies dizziness, Denies syncope, Denies numbness, Denies tingling and Denies weakness Endo Denies palpitations Physical Exam Vital Signs: Last Vital Signs Pulse 78 06/21/24 13:01 BP 120/62 06/21/24 13:01 BMI result Body Mass Index 32.6 Const General: comfortable and no acute distress Orientation/consciousness: patient oriented x3 HEENT Other: Unremarkable Head: Yes normal to inspection Neck Neck: Yes normal visual inspection Chest Chest palpation & inspection: normal inspection of the chest Resp Auscultation: clear to auscultation bilaterally Cardio Palpation: normal PMI Heart sounds: S1 normal heart sound present, S2 normal heart sound present, no gallops, no murmurs and no rubs GI Palpation (GI): Soft to palpation Back/Spine/Pelvis Other: unremarkable Skin General skin exam: no rashes or lesions noted Neuro General: patient oriented x3 Extrem General: Yes normal to inspection Psych Mental Status: mental status grossly normal Assessment & Plan Assessment & Plan (1) Ischemic cardiomyopathy: Code(s): I25.5 - Ischemic cardiomyopathy Category: Medical Plan: Previously, echocardiogram had reported LVEF 20-25%. Repeat study with normal LVEF. However has wall motion abnormalities from underlying coronary disease. He does not have any heart failure symptoms or signs. (2) Atherosclerotic cardiovascular disease: Code(s): I25.10 - Atherosclerotic heart disease of [place] coronary artery without angina pectoris Category: Medical Plan: Status post coronary artery bypass surgery. On aspirin and statins. LDL 56 mg/dL and triglycerides 154 mg/dL. (3) PAF (paroxysmal atrial fibrillation): Code(s): I48.0 - Paroxysmal atrial fibrillation Category: Medical Plan: He is on diltiazem. As he also takes amlodipine, we will switch the diltiazem to metoprolol. On anticoagulation with warfarin. (4) Nicotine dependence, cigarettes, uncomplicated: Comment: (current smoker - onset 13yo, 1/2ppd x 60yrs, 30pyh) Code(s): F17.210 - Nicotine dependence, cigarettes, uncomplicated Category: Medical Plan: Strongly advised to stop. Discussed today. Medications: New metoprolol succinate ER (Toprol XL) 50 mg PO DAILY 90 tabs 1RF Coding Level of Care Code Est Pt Level 4 (54494) Complex EM visit Add On G2211 Diagnoses Ischemic cardiomyopathy I25.5 Atherosclerotic cardiovascular disease I25.10 PAF (paroxysmal atrial fibrillation) I48.0 Nicotine dependence, cigarettes, uncomplicated F17.210
[2024-06-21 13:01] VITALS: BP 120/62; PULSE 78; BMI 32.6
--- OUTSIDE RECORDS SUMMARY | 2024-06-21 14:06 | XMS_ITS | Encounter Summary ---
Demographics Address [address] [place] [address] Work Phone Mobile Phone Home Phone Preferred Language en Marital Status Unknown Catholic Affiliation Unknown Race Other Race Ethnic Group or Author Organization [employer] Address [address] [place] [address] Care Team Providers Care Ecommerce Marketing Manager Name Role Phone Loi Pandya MD Primary [...] Upcoming Encounters Date Type Department Care Team ([facility] st Contact Info) Description 06/28/2024 10:30 AM EDT Office Visit [facility]EDS [address] [place], [place] [phone] Loi Pandya MD [address] [place] [address] documented as of this encounter Procedures Procedure Name Priority Date/Time Associated Diagnosis Comments PROTHROMBIN TIME WHOLE BLD POC Routine 06/04/2024 9:15 AM EST ~PT, ~INR - ANTI COAG CLINIC Routine 06/04/2024 9:15 AM EST documented in this encounter Results * (ABNORMAL) PROTHROMBIN TIME WHOLE BLD POC (06/04/2024 9:15 AM EST) Pathologist [facility] Protime 19.5(H) 11.1 - 13.5 sec [facility] 06/04/2024 9:15 AM EST 06/04/2024 9:16 AM EST us Generic External Data Provider LAB BLOOD ORDERAB LES Final Result [facility] [address] [place] [phone] [phone] * (ABNORMAL) ~PT, ~INR - ANTI COAG CLINIC (06/04/2024 9:15 AM EST) [facility] Prothrombin Time INR 1.6(H) 0.9 - 1.1 [facility] Comment:METER #: [id number] TERNATIONAL NORMALIZED RATIO (INR) REFERENCE RANGES Reference [...] Provider LAB BLOOD ORDERAB LES Final Result [facility] [address] [place] [address] [phone] documented in this encounter Visit Diagnoses Not on filedocumented in this encounter Additional Health Concerns Assessment Noted Time PHQ-9 Depression Total Score: 0 11/13/19 24 10:51 AM EDT documented as of this encounter Care Teams Ecommerce Marketing Manager Relationship Specialty Start Date End Date Loi Pandya MD [address] [place] [phone] PCP - General Internal Medicine 09/13/19 documented as of this encounter
--- OUTSIDE RECORDS SUMMARY | 2024-06-21 14:06 | XMS_ITS | Encounter Summary ---
Demographics Address [address] [place] [address] Work Phone Mobile Phone Home Phone Preferred Language en Marital Status Unknown Mandaeism Affiliation Unknown Race Other Race Ethnic Group or Author Organization [employer] Address [address] [place] [address] Care Team Providers Care Lead Application Architect Name Role Phone Loi Pandya MD Primary Care Prov ider Reason for Visit * Reason Comments Med Refill Encounter Details Date Type Department Care Team ([facility] st Contact Info) Description 07/30/2023 Refill [facility] [address] [place] [address] Loi Pandya MD [address] [place] [address] Longstanding persistent atrial fibrillation (CMS/HCC) Social History [...] [facility] [address] [place] [address] Loi Pandya MD [address] [place] [address] documented as of this encounter Visit Diagnoses Diagnosis Longstanding persistent atrial fibrillation (CMS/HCC) documented in this encounter Additional Health Concerns Assessment Noted Time PHQ-9 Depression Total Score: 0 07/20/19 23 10:39 AM EDT documented as of this encounter Care Teams Lead Application Architect Relationship Specialty Start Date End Date Loi Pandya MD [address] [place] [address] PCP - General Internal Medicine 09/13/19 documented as of this encounter
--- OUTSIDE RECORDS SUMMARY | 2024-06-21 14:06 | XMS_ITS | Encounter Summary ---
Demographics Address [address] [place] [address] Work Phone Mobile Phone Home Phone Preferred Language en Marital Status Unknown Latter Day Affiliation Unknown Race Other Race Ethnic Group or Author Organization [employer] Address [address] [place] [address] Care Team Providers Care Probate Paralegal Name Role Phone Loi Pandya MD Primary [...] Upcoming Encounters Date Type Department Care Team ([facility] st Contact Info) Description 06/28/2024 10:30 AM EDT Office Visit [facility] [address] [place], [place] [phone] Loi Pandya MD [address] [place] [address] documented as of this encounter Procedures Procedure Name Priority Date/Time Associated Diagnosis Comments PROTHROMBIN TIME WHOLE BLD POC Routine 06/01/2024 10:50 AM EST ~PT, ~INR - ANTI COAG CLINIC Routine 06/01/2024 10:50 AM EST documented in this encounter Results * (ABNORMAL) PROTHROMBIN TIME WHOLE BLD POC (06/01/2024 10:50 AM EST) Pathologist [facility] Protime 14.3(H) 11.1 - 13.5 sec [facility] 06/01/2024 10:5 0 AM EST 06/01/2024 11:42 AM EST us Generic External Data Provider LAB BLOOD ORDERAB LES Final Result [facility] [address] [place] [address] [phone] * (ABNORMAL) ~PT, ~INR - ANTI COAG CLINIC (06/01/2024 10:50 AM EST) Prothrombin Time INR 1.2(H) 0.9 - 1.1 [facility] Comment:METER #: [id number] TERNATIONAL NORMALIZED RATIO (INR) REFERENCE RANGES Reference [...] Provider LAB BLOOD ORDERAB LES Final Result [facility] [address] [place] [phone] [phone] documented in this encounter Visit Diagnoses Not on filedocumented in this encounter Additional Health Concerns Assessment Noted Time PHQ-9 Depression Total Score: 0 11/13/19 24 10:51 AM EDT documented as of this encounter Care Teams Probate Paralegal Relationship Specialty Start Date End Date Loi Pandya MD [address] [place] [phone] PCP - General Internal Medicine 09/13/19 documented as of this encounter
--- OUTSIDE RECORDS SUMMARY | 2024-06-21 14:06 | XMS_ITS | Clinical Summary ---
Author Organization [employer] Address [address] [place] [address] Care Team Providers Care Floor Finisher Name Role Phone Loi Pandya MD Primary [...] (04/09/2022 10:48 AM EST): 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 by bridge operator slip, on diltiazem and warfarin, no recent er visit due to exacerbation Anticoagulated on Coumadin 04/09/2022 Assessment & Plan (04/09/2022 10:51 AM EST): Patient on coumadin 7.5mg daily, no episode of bleeding, followed at coumadin clinic, no changes will be made Secondary hypercoagulable state 08/12/2019 CAD in [place] artery 08/11/2019 Encounters Date Type Department Care Team Description 06/11/2024 Orders Only GENERIC EXTERNAL DATA DEPARTMENT Provider, Generic External Data 06/04/2024 Orders Only GENERIC EXTERNAL DATA DEPARTMENT Provider, Generic External Data 06/01/2024 Orders Only GENERIC EXTERNAL DATA DEPARTMENT Provider, Generic External Data 06/01/2024 Telephone [facility]S [address] [place] [address] Loi Pandya MD CRTICAL RESULT CALL 05/03/2024 Orders Only GENERIC EXTERNAL DATA DEPARTMENT Provider, Generic External Data 04/29/2024 Refill [facility] [address] [place] [address] Loi Pandya MD Permanent atrial fibrillation (CMS/HCC) 04/05/2024 Orders Only GENERIC EXTERNAL DATA DEPARTMENT Provider, Generic External Data from Last 3 Months Immunizations Name Administration Dates Next Due Influenza Quadrivalent Adjuvanted 04/23/2023 Moderna Covid-19 Vaccine 12+ 08/04/2020,07/08/19 21 Pneumococcal [...] Description 06/28/2024 10:30 AM EDT Office Visit [facility] [address] [place] [address] Loi Pandya MD [address] [place] [address] Health Maintenance Due Date Last Done Comments [...] Comments PROTHROMBIN TIME WHOLE BLD POC Routine 06/11/2024 8:51 AM EST ~PT, ~INR - ANTI COAG CLINIC Routine 06/11/2024 8:51 AM EST PROTHROMBIN TIME WHOLE BLD POC Routine 06/04/2024 [...] * (ABNORMAL) PROTHROMBIN TIME WHOLE BLD POC (06/11/2024 8:51 AM EST) Only the most recent of5 resultswithin the time period is included. Protime 30.2(H) 11.1 - 13.5 sec [facility] 06/11/2024 8:51 AM EST 06/11/2024 8:52 AM EST us Generic External Data Provider LAB BLOOD ORDERAB LES Final Result [facility] [address] [place] [phone] * (ABNORMAL) ~PT, ~INR - ANTI COAG CLINIC (06/11/2024 8:51 AM EST) Only the most recent of5 resultswithin the time period is included. Prothrombin Time INR 2.5(H) 0.9 - 1.1 [facility] Comment:METER #: [id number] TERNATIONAL NORMALIZED RATIO (INR) REFERENCE RANGES Reference RangeFor patients not on anticoagulant therapy: 0.9 - 1.1INR ranges for oral anticoagulanttherapy:For prevention and treatment of venous thrombosis and pulmonary embolism: 2.0 - 3.0For acute myocardial infarction with aspirin therapy: 2.0 - 3.0For acute myocardial infarction without aspirin therapy: 3.0 - 4.0For patients with mechanical prosthetic heart valves: 2.5 - 3.5 06/11/2024 8:51 AM EST 06/11/2024 8:52 AM EST us Generic External Data Provider LAB BLOOD ORDERAB LES Final Result Performing Organization Address City/State/[facility] Co de Phone Number [facility] [address] [place] [phone] * (ABNORMAL) Lipid Panel, Standard (12/04/2023 8:10 AM EDT) Triglycerides 154(H) <150 mg/dL [facility] Comment:Desirable Triglyceri de: less than 150 mg/dLBorderline High Triglyceride 150-199 mg/dLHigh Triglyceride: 200-499 mg/dLVery High Triglyceride: greater than or equal to 5OO mg/dL Cholesterol 130 <200 mg/dL [facility] Comment:Desirable Cholestero l: less than 200 mg/dLBorderline High Cholesterol: 200-239 mg/dLHigh Cholesterol: greater than 239 mg/dL LDL Cholesterol Calculated 56 <100 mg/dL [facility] Comment:Desirable LDL: less than 100 mg/dLNear Optimal/Above Optimal LDL: 110- 129 mg/dLBorderline High LDL: 130-159 mg/dLHigh LDL: 160-189 mg/dLVery High LDL: greater than or equal to 190 mg/dL HDL Cholesterol 44 >40 mg/dL [facility] Comment:Desirable HDL: great er than 40 mg/dL Note: This HDL assay may give artificially low results in patients with liver disease. Blood Venous blood specimen / Unknown 12/04/2023 8:10 AM EDT 12/04/2023 2:14 PM EDT Loi Catalan MD LAB BLOOD ORDERABL ES Final Result [facility] [address] [place] [phone] [phone] * Hm Colonoscopy (12/10/2021 9:05 AM EDT) Historical Provider HEALTH MAINTENANCE Final Result * HEPATITIS C AB W/REFL TO HCV RNA, QN, PCR (06/29/2021 8:58 AM EDT) HEPATITIS C ANTIBODY NON-REACT EZ NON-REACT EZ [facility] INDEX 0.12 <1.00 [facility] Comment: ?? HCV antibody was non-reactive. There is no laboratory ?? evidence of HCV infection. ?? In most cases, no further action is required. However, if recent HCV exposure is suspected, a test for HCV RNA (test code 36549) is suggested. ?? For additional information please refer to http://education.Xola/faq/NTG54s6 (This link is being provided for informational/ educational purposes only.) ?? 06/29/2021 8:58 AM EDT Loi Catalan MD HISTORICAL/NON ORD ERABLE LABS Final Result [facility] [address] from Last 3 Months or Most Recently Relevant to Health Maintenance Insurance * Guarantor: Carlos Santiago Account Type Relation to Patient Date of Phone Billing Address Personal/Family Self [address] [place] [address] [facility] MEDICARE ADVANTAGE HMO [facility] Care Teams Floor Finisher Relationship Specialty Start Date End Date Loi Pandya MD [address] [place] [phone] PCP - General Internal Medicine 09/13/19
--- OUTSIDE RECORDS SUMMARY | 2024-06-21 14:06 | XMS_ITS | Encounter Summary ---
Author Organization [employer] Address [address] [facility] 7t [place] [address] Care Team Providers Care Pesticide Chemist Name Role Phone Loi Pandya MD Primary Care Prov ider Reason for Visit * Reason Comments Med Refill Encounter Details Date Type Department Care Team ([facility] Contact Info) Description 07/27/2022 Refill [facility] CHC MED & PEDS [address] [place] [address] Loi Pandya MD [address] [place] [address] Longstanding persistent atrial fibrillation (CMS/HCC) Social History [...] Upcoming Encounters Date Type Department Care Team ([facility] Contact Info) Description 06/28/2024 10:30 AM EDT Office Visit [facility] CHC MED & PEDS [address] [place], [place] [phone] Loi Pandya MD [address] [place] [address] documented as of this encounter Visit Diagnoses Diagnosis Longstanding persistent atrial fibrillation (CMS/HCC) documented in this encounter Additional Health Concerns Assessment Noted Time PHQ-9 Depression Total Score: 0 07/20/19 23 10:39 AM EDT documented as of this encounter Care Teams Pesticide Chemist Relationship Specialty Start Date End Date Loi Pandya MD [address] [place] [address] PCP - General Internal Medicine 09/13/19 documented as of this encounter
--- OUTSIDE RECORDS SUMMARY | 2024-06-21 14:06 | XMS_ITS | Encounter Summary ---
Author Organization [employer] Address [address] [facility] 7t [place] [address] Care Team Providers Care Sandwich Machine Operator Name Role Phone Lio Pandya MD Primary Care Prov ider Encounter Details Date Type Department Care Team (Late Contact Info) Description 05/17/2022 Orders Only [facility] MEDICINE [address] [place] [address] Loi Pandya MD [address] [place], [place] [phone] Permanent atrial fibrillation (CMS/HCC) Social History Tobacco [...] Description 06/28/2024 10:30 AM EDT Office Visit [facility] CHC MED & PEDS [address] [place], [place] [phone] Loi Pandya MD [address] [place], [place] [phone] documented as of this encounter Visit Diagnoses Diagnosis Permanent atrial fibrillation (CMS/HCC) Atrial fibrillation documented in this encounter Care Teams Sandwich Machine Operator Relationship Specialty Start Date End Date Loi Pandya MD [address] [place] [address] PCP - General Internal Medicine 09/13/19 documented as of this encounter
--- OUTSIDE RECORDS SUMMARY | 2024-06-21 14:06 | XMS_ITS | Encounter Summary ---
Demographics Address [address] [facility] [facility] [address] [place] [address] Work Phone Mobile Phone Home Phone Preferred Language en Marital Status Unknown Tenriism Affiliation Unknown Race Other Race Ethnic Group or Author Organization [employer] Address [address] [facility] 7t [place] [address] Care Team Providers Care City Designer Name Role Phone Loi Pandya MD Primary Care Prov ider Reason for Visit * Reason Onset Date Comments CRTICAL RESULT CALL 06/01/2024 Encounter Details Date Type Department Care Team ([facility] st Contact Info) Description 06/01/2024 Telephone [facility] MED & PEDS [address] [place] [address] Loi Pandya MD [address] [place] [address] CRTICAL RESULT CALL Social History Tobacco Use [...] line 06/01/24 at 11:01 AM Name of Caller/Facility:[facility] anticoagulation Callback number: [phone] Reason for Call: Reporting INR of 1.2 drawn today 06/01/24. Orders given to take 10mg today (usually 7.5mg) pt will take 7.5mg Friday and , recheck on Friday06/04/24. Patient had to hold coumadin for 3 days for 3 dental implants. Pt did not inform [facility] coumadin clinic. Pt is currently onabx and steroids which can raise INR. Above information sent via [facility] chat Message, confirmation of receipt by Heydi Yanez RN, In basket message to be sent as HIGH PRIORITY to Ordering Provider and Team nurses for follow up documented in this encounter Plan of Treatment Upcoming Encounters Date Type Department Care Team (Late st Contact Info) Description 06/28/2024 10:30 AM EDT Office Visit [facility] MED & PEDS [address] [place] [address] Loi Pandya MD [address] [place] [address] documented as of this encounter Visit Diagnoses Not on filedocumented in this encounter Additional Health Concerns Assessment Noted Time PHQ-9 Depression Total Score: 0 11/13/19 24 10:51 AM EDT documented as of this encounter Care Teams City Designer Relationship Specialty Start Date End Date Loi Pandya MD [address] [place] [address] PCP - General Internal Medicine 09/13/19 documented as of this encounter
--- OUTSIDE RECORDS SUMMARY | 2024-06-21 14:06 | XMS_ITS | Clinical Summary ---
Author Organization [facility] Address [address] [place] [address] Care Team Providers Care Slot Ambassador Name Role Phone Unavailable Primary Care Provider [...] Aortic Aneurysm Screening 2014 Falls Prevention 2014 [id number] (1 - 2023- season) 2023 Imm-Influenza (#1) 2023 Alcohol and Drug Screen 04/14/2024 Depression Annual Screen 04/14/2024 Insurance [employer] SAFETY NET
--- OUTSIDE RECORDS SUMMARY | 2024-06-21 14:06 | XMS_ITS | Clinical Summary ---
Demographics Address [address] [place] [address] Mobile Phone Home Phone Preferred Language Swazi; Castilian Marital Status Legally Jainism Affiliation Unknown Race Unknown Ethnic Group or Author Organization [facility] Address [address] [place] [address] Support Name Relationship Address Phone Luis Antonio Padgettles Emergency Contact 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 [facility] / / [id number] Description:Item # [id number] Carlos Moncada Personal/Family Self 1950 [address] [place] [address] Carlos Moncada Personal/Family Self 1950 [address] [place] [address] Advance Directives For more information, please contact: [phone] Latest Code Status on File Code Status Date Activated Date Inactivated Comments Full Code 08/11/2019 5:30 AM 08/19/2019 8:55 PM This c ode status was ascertained in the following way: per unit protocol.
--- OUTSIDE RECORDS SUMMARY | 2024-06-21 14:06 | XMS_ITS | Encounter Summary ---
Demographics Address [address] [facility] [address] [place] [address] Work Phone Mobile Phone Home Phone Preferred Language en Marital Status Unknown Evangelical Affiliation Unknown Race Other Race Ethnic Group or Author Organization [employer] Address [address] 7t [place] [address] Care Team Providers Care Livestock Yard Supervisor Name Role Phone Loi Pandya MD Primary Care Prov ider Encounter Details Date Type Department Care Team (Late st Contact Info) Description 07/31/2023 Orders Only [facility] MEDICINE [address] [place] [address] ProviderCalderon MD Social History Tobacco Use Types [...] [facility] [address] [place] [address] Loi Pandya MD [address] [place] [address] documented as of this encounter Procedures Procedure [...] documented as of this encounter Care Teams Livestock Yard Supervisor Relationship Specialty Start Date End Date Loi Pandya MD [address] [place] [address] PCP - General Internal Medicine 09/13/19 documented as of this encounter
--- OUTSIDE RECORDS SUMMARY | 2024-06-21 14:06 | XMS_ITS | Encounter Summary ---
Demographics Address [address] [facility] [address] [place] [address] Work Phone Mobile Phone Home Phone Preferred Language en Marital Status Unknown Orthodox Affiliation Unknown Race Other Race Ethnic Group or Author Organization [employer] Address [address] [facility] [address] [address] [place] [address] Care Team Providers Care Applications Support Analyst Name Role Phone Loi Pandya MD Primary Care Prov ider Encounter Details Date Type Department Care Team (Late st Contact Info) Description 06/11/2024 Orders Only GENERIC EXTERNAL DATA [...] Upcoming Encounters Date Type Department Care Team ([facility] st Contact Info) Description 06/28/2024 10:30 AM EDT Office Visit [facility] CHC MED & PEDS [address] [place], [place] [phone] Loi Pandya MD [address] [place] [address] documented as of this encounter Procedures Procedure Name Priority Date/Time Associated Diagnosis Comments PROTHROMBIN TIME WHOLE BLD POC Routine 06/11/2024 8:51 AM EST ~PT, ~INR - ANTI COAG CLINIC Routine 06/11/2024 8:51 AM EST documented in this encounter Results * (ABNORMAL) PROTHROMBIN TIME WHOLE BLD POC (06/11/2024 8:51 AM EST) Pathologist [facility] Protime 30.2(H) 11.1 - 13.5 sec [facility] 06/11/2024 8:51 AM EST 06/11/2024 8:52 AM EST us Generic External Data Provider LAB BLOOD ORDERAB LES Final Result [facility] [address] [place] [address] [phone] * (ABNORMAL) ~PT, ~INR - ANTI COAG CLINIC (06/11/2024 8:51 AM EST) [facility] Prothrombin Time INR 2.5(H) 0.9 - 1.1 [facility] Comment:METER #: [id number] TERNATIONAL NORMALIZED RATIO (INR) REFERENCE RANGES Reference [...] Provider LAB BLOOD ORDERAB LES Final Result [facility] [address] [place] [address] [phone] documented in this encounter Visit Diagnoses Not on filedocumented in this encounter Additional Health Concerns Assessment Noted Time PHQ-9 Depression Total Score: 0 11/13/19 24 10:51 AM EDT documented as of this encounter Care Teams Applications Support Analyst Relationship Specialty Start Date End Date Loi Pandya MD [address] [place] [address] PCP - General Internal Medicine 09/13/19 documented as of this encounter
--- OUTSIDE RECORDS SUMMARY | 2024-06-21 14:06 | XMS_ITS | Clinical Summary ---
Author Organization [facility] Address [address] [place] [address] Care Team Providers Care Territory Manager Name Role Phone Unavailable Primary Care Provider [...] this topic Medical Devices Implanted Type Area Raw Material Handler Device Identifier Shelf Expiration Date Model / Serial / Lot Hemasorb 4 Gm - [id number] - [id number] Implanted:Qty: 1 on 08/11/2019 by Amarjit Alvarado MD Chest [employer] 02/10/2022 OS-401 / [id number] / [id number] Atricure Atriclip Flex-V Implanted:Qty: 1 on 08/11/2019 by Amarjit Alvarado MD Heart [employer] 09/12/2021 [id number] / / [id number] Description:Item # [id number] Advance Directives Documents on File Type Date Recorded Patient Mechanical Engineering Officer Expl anation Health Care Decision (hx) 06/25/2019 AD BAER DIRECTIVE Health Care Decision (hx) 06/25/2019 AD BAER DIRECTIVE Health Care Decision (hx) 06/25/2019 AD BAER DIRECTIVE Health Care Decision (hx) 06/25/2019 AD BAER DIRECTIVE
--- OUTSIDE RECORDS SUMMARY | 2024-06-21 14:06 | XMS_ITS | Encounter Summary ---
Demographics Address [address] [facility] [address] [place] [address] Work Phone Mobile Phone Home Phone Preferred Language en Marital Status Unknown Yazidism Affiliation Unknown Race Other Race Ethnic Group or Author Organization [employer] Address [address] [facility] 7t [place] [address] Care Team Providers Care Fashion Styling Intern Name Role Phone Loi Pandya MD Primary Care Prov ider Reason for Visit * Reason Comments Med Refill Encounter Details Date Type Department Care Team ([facility] Contact Info) Description 11/12/2023 Refill [facility] CHC MED & PEDS [address] [place] [address] Loi Pandya MD [address] [place] [address] Longstanding persistent atrial fibrillation (CMS/HCC) Social History [...] Description 06/28/2024 10:30 AM EDT Office Visit [facility] MED & PEDS [address] [place] [address] Loi Pandya MD [address] [place] [address] documented as of this encounter Visit Diagnoses Diagnosis Longstanding persistent atrial fibrillation (CMS/HCC) documented in this encounter Additional Health Concerns Assessment Noted Time PHQ-9 Depression Total Score: 0 07/20/19 23 10:39 AM EDT documented as of this encounter Care Teams Fashion Styling Intern Relationship Specialty Start Date End Date Loi Pandya MD [address] [place] [address] PCP - General Internal Medicine 09/13/19 documented as of this encounter
--- OUTSIDE RECORDS SUMMARY | 2024-06-21 14:06 | XMS_ITS | Encounter Summary ---
Demographics Address [address] [facility] [address] [place] [address] Work Phone Mobile Phone Home Phone Preferred Language en Marital Status Unknown Pentecostal Affiliation Unknown Race Other Race Ethnic Group or Author Organization [employer] Address [address] [facility] [address] 7[address] [place] [address] Care Team Providers Care Deckhand Crab Boat Name Role Phone Loi Pandya MD Primary Care Prov ider Encounter Details Date Type Department Care Team (Late st Contact Info) Description 08/14/2022 Telephone [facility] CHC MED & PEDS [address] [place], [place] [phone] Loi Pandya MD [address] [place] [address] Social History Tobacco Use Types Packs/Day Years [...] [facility] [address] [place] [address] Loi Pandya MD [address] [place] [address] documented as of this encounter Visit Diagnoses Not on filedocumented in this encounter Additional Health Concerns Assessment Noted Time PHQ-9 Depression Total Score: 0 07/20/19 23 10:39 AM EDT documented as of this encounter Care Teams Deckhand Crab Boat Relationship Specialty Start Date End Date Loi Pandya MD [address] [place] [address] PCP - General Internal Medicine 09/13/19 documented as of this encounter
== END 2024-06-21 13:16 | disposition home or self-care (01) ==
PROVIDERS: PCP Internal Medicine; Visit Provider Internal Medicine
DX: I25.5 Ischemic cardiomyopathy (principal); I25.10 Atherosclerotic heart disease of native coronary artery without angina pectoris; I48.0 Paroxysmal atrial fibrillation; F17.210 Nicotine dependence, cigarettes, uncomplicated
CPT/HCPCS: 99214; G2211

== ENCOUNTER → 2024-06-21 12:36 | Outpatient (BNVA) | payer OTHER, SELFPAY | PROVIDERS: PCP Internal Medicine; Visit Provider Internal Medicine | DX: I10 Essential (primary) hypertension (principal); I25.5 Ischemic cardiomyopathy; I48.0 Paroxysmal atrial fibrillation; F17.210 Nicotine dependence, cigarettes, uncomplicated | CPT/HCPCS: 99212 ==

== ENCOUNTER 2024-07-09 07:58 | Outpatient (AMB) | payer OTHER, SELFPAY ==
[2024-07-09 08:14] LABS: ~PT, ~INR - Anti Coag Clinic 4.1 (0.9-1.1)
--- NOTE | 2024-07-09 08:20 | MHC.OFFVISCO ---
Intake Intake Visit Reasons: Anticoagulation Allergies No Known Allergies Allergy (Verified 07/09/24 08:01) Medication List - Last Reconciled 07/09/24 by Nury Ward RN amlodipine 10 mg PO DAILY aspirin 81 mg PO DAILY atorvastatin 40 mg PO DAILY cholecalciferol (vitamin D3) PO losartan 100 mg PO DAILY methylcellulose (laxative) (Citrucel) 500 mg PO DAILY metoprolol succinate ER (Toprol XL) 50 mg PO DAILY multivit with min-folic acid (Adult One Daily Multivitamin) PO omega-3 fatty acids (Fish Oil Concentrate) 1200 PO daily; vitamin E (dl, acetate) PO warfarin 5 mg See Protocol PO DAILY Nursing Note INR 4.1 out of therapeutic range Medications and supplements reviewed - med changed d/c diltizem (should lower INR) and started metoprolol Patient status: had a ankle strain and took 800mg of iburpofen x 1 *risk of bleeding discussed and enc to take with food and increase greens when taking it Medications or supplements: d/x diltiazem and started metoprolol Diet: goodmay not have had enugh greens Denies any signs and symptoms of bleeding or clotting or unusual bruising Bleeding, bruising, clotting discussed Nutritional guidance given: weekly greens green diet givfn with review Dose: hold today then resume 5mg x 1 day/ 7.5 mg x 5 days F/U INR Date : 2 weeks ?? Patient verbalizing understanding of instructions given with read back Anti-Coag Initial Assessment Social Hx Patient Tobacco Use Status: Current everyday Tobacco user Tobacco use type: Cigarette alcohol intake: never Coding Level of Care Code Est Patient Level 1 Diagnoses Current use of anticoagulant therapy Z79.01 Results AMB INR Fingerstick AMB INR Fingerstick 4.1 Last Edit by Nury Ward RN on 07/09/24 08:13 manual entry Assessment & Plan Assessment & Plan (1) Current use of anticoagulant therapy: Code(s): Z79.01 - salvage determiner (current) use of anticoagulants Category: Medical
== END 2024-07-09 08:26 | disposition home or self-care (01) ==
LOC: HO.ACS 07:58
PROVIDERS: PCP Internal Medicine; Visit Provider Internal Medicine Medical Oncology
DX: Z79.01 Long term (current) use of anticoagulants (principal)

== ENCOUNTER → 2024-07-09 07:58 | Outpatient (BNVA) | payer OTHER, SELFPAY | PROVIDERS: PCP Internal Medicine; Visit Provider Internal Medicine Medical Oncology | DX: I48.21 Permanent atrial fibrillation (principal); Z79.01 Long term (current) use of anticoagulants; Z51.81 Encounter for therapeutic drug level monitoring | CPT/HCPCS: 85610; 99211 ==

== ENCOUNTER 2024-07-26 07:59 | Outpatient (AMB) | payer OTHER, SELFPAY ==
--- OUTSIDE RECORDS SUMMARY | 2024-07-26 08:04 | XMS_ITS | Encounter Summary ---
Demographics Address [address] [facility] [address] [place] [address] Mobile Phone Home Phone Preferred Language en Marital Status Unknown Anglican Affiliation Unknown Race Other Race Ethnic Group or Author Organization [employer] Address [address] [facility] 7t [place] [address] Care Team Providers Care Search Engineer Name Role Phone Loi Pandya MD Primary Care Prov ider Reason for Visit * Reason Comments Med Refill Encounter Details Date Type Department Care Team (Late st Contact Info) Description 07/27/2022 Refill [facility] CHC MED & PEDS [address] [place], [place] [phone] Loi Pandya MD [address] [place] [address] Longstanding persistent atrial fibrillation (CMS/HCC) Social History [...] as of this encounter Plan of Treatment Not on file documented as of this encounter Visit Diagnoses Diagnosis Longstanding persistent atrial fibrillation (CMS/HCC) documented in this encounter Additional Health Concerns Assessment Noted Time PHQ-9 Depression Total Score: 0 07/20/19 23 10:39 AM EDT documented as of this encounter Care Teams Search Engineer Relationship Specialty Start Date End Date MelgarLoi Sears MD [address] [place] [address] PCP - General Internal Medicine 09/13/19 documented as of this encounter
--- OUTSIDE RECORDS SUMMARY | 2024-07-26 08:04 | XMS_ITS | Encounter Summary ---
Demographics Address [address] [facility] [address] [place] [address] Mobile Phone Home Phone Preferred Language en Marital Status Unknown Hindu Affiliation Unknown Race Other Race Ethnic Group or Author Organization [employer] Address [address] [facility] [address] [address] 7[address] [place] [address] Care Team Providers Care Field Engineer Name Role Phone Loi Pandya MD Primary Care Prov ider Encounter Details Date Type Department Care Team (Late st Contact Info) Description 07/31/2023 Orders Only [facility] MEDICINE [address] [place], [place] [phone] ProviderCalderon MD Social History Tobacco Use Types [...] on file documented as of this encounter Procedures Procedure Name Priority Date/Time Associated Diagnosis Comments HM COLONOSCOPY Routine 12/10/2021 9:05 AM EDT documented in this encounter Results * Hm Colonoscopy (12/10/2021 9:05 AM EDT) us Historical Provider HEALTH MAINTENANCE Final Result documented in this encounter Visit Diagnoses Not on filedocumented in this encounter Additional Health Concerns Assessment Noted Time PHQ-9 Depression Total Score: 0 07/20/19 23 10:39 AM EDT documented as of this encounter Care Teams Field Engineer Relationship Specialty Start Date End Date MelgarLoi Sears MD [address] [place] [address] PCP - General Internal Medicine 09/13/19 documented as of this encounter
--- OUTSIDE RECORDS SUMMARY | 2024-07-26 08:04 | XMS_ITS | Clinical Summary ---
Author Organization [employer] Address [address] [facility] 7t [place] [address] Care Team Providers Care Microarray Operations Vice President Name Role Phone Loi Pandya MD Primary [...] THE EVENING. 135 tablet 3 5 Active metoprolol succinate XL (Toprol-XL) 50 MG 24 hr tablet Take 1 tablet by mouth Once per day. 5 Active Active Problems Problem Noted Date [...] (04/09/2022 10:48 AM EST): 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 by spacer type bar and segment, on diltiazem and warfarin, no recent er visit due to exacerbation Anticoagulated on Coumadin 04/09/2022 Assessment & Plan (04/09/2022 10:51 AM EST): Patient on coumadin 7.5mg daily, no episode of bleeding, followed at coumadin clinic, no changes will be made Secondary hypercoagulable state 08/12/2019 CAD in [place] artery 08/11/2019 Encounters Date Type Department Care Team Description 07/09/2024 Orders Only GENERIC EXTERNAL DATA DEPARTMENT Provider, Generic External Data 06/28/2024 10:30 AM EDT Office Visit [facility] [address] [place] [address] Loi Pandya MD Primary hypertension (Primary Dx) 06/28/2024 Telephone [facility] [address] [place] [address] Loi Pandya MD Insurance 06/28/2024 Travel 06/11/2024 Orders Only GENERIC EXTERNAL DATA DEPARTMENT Provider, Generic External Data 06/04/2024 Orders Only GENERIC EXTERNAL DATA DEPARTMENT Provider, Generic External Data 06/01/2024 Orders Only GENERIC EXTERNAL DATA DEPARTMENT Provider, Generic External Data 06/01/2024 Telephone [facility] [address] [place] [address] Loi Pandya MD CRTICAL RESULT CALL 05/03/2024 Orders Only GENERIC EXTERNAL DATA DEPARTMENT Provider, Generic External Data 04/29/2024 Refill [facility] [address] [place] [address] Loi Pandya MD Permanent atrial fibrillation (CMS/HCC) from Last 3 Months Immunizations Name Administration [...] Sign Reading Time Taken Comments Blood Pressure 138/72 06/28/2024 10:32 AM EDT Pulse 68 06/28/2024 10:32 AM EDT Temperature 36.6 ??C (97.8 ??F) 06/28/2024 10:32 AM E DT Respiratory Rate 16 06/28/2024 10:32 AM EDT Oxygen Saturation - - Inhaled Oxygen Concentration - - Weight 99.8 kg (220 lb) 06/28/2024 10:32 AM EDT Height 165.1 cm (5' 5 ) 06/28/2024 10:32 AM EDT Body Mass Index 36.61 06/28/2024 10:32 AM EDT Plan of Treatment Health Maintenance Due Date Last Done Comments CT Colonography 1950 FIT DNA/Cologuard 1950 FIT 1950 FOBT 1950 Sigmoidoscopy 1950 RSV Patients and Patients Aged 60 years or older (1 - Risk 60-74 years 1-dose series) 2009 Pneumococcal Vaccine: 50+ Years (2 of 2 - PPSV23) 09/25/2021 07/31/2021 Zoster Vaccines (2 of 2) 09/25/2021 07/31/2021 COVID-19 Vaccine ( season) 2023 04/23/2023, 08/04/2020, 07/07/2020 Influenza Vaccine (#1) 2023 04/23/2023 Depression Screening 11/12/2024 11/13/2023, 11/13/19 SDOH Screening 11/12/2024 11/13/2023 Alcohol/Substance Use Screening 06/28/2025 06/28/2024 Tobacco Screening 06/28/2025 06/28/2024 Colonoscopy 12/10/2026 12/10/2021 Colorectal Cancer Screening 12/10/2026 [...] Comments PROTHROMBIN TIME WHOLE BLD POC Routine 07/09/2024 8:07 AM EDT ~PT, ~INR - ANTI COAG CLINIC Routine 07/09/2024 8:07 AM EDT PROTHROMBIN TIME WHOLE BLD POC Routine 06/11/2024 [...] COAG CLINIC Routine 05/03/2024 8:21 AM EST LIPID PANEL, STANDARD Routine 12/04/2023 8:10 AM EDT Primary hypertension HM COLONOSCOPY Routine 12/10/2021 9:05 AM EDT ZZZ HISTORICAL HEPATITIS C AB W/REFL TO HCV RNA, QN, PCR Routine 06/29/2021 8:58 AM EDT from Last 3 Months or Most Recently Relevant to Health Maintenance Results * (ABNORMAL) PROTHROMBIN TIME WHOLE BLD POC (07/09/2024 8:07 AM EDT) Only the most recent of5 resultswithin the time period is included. Protime 49.0(H) 11.1 - 13.5 sec [facility] 07/09/2024 8:07 AM EDT 07/09/2024 8:14 AM EDT us Generic External Data Provider LAB BLOOD ORDERAB LES Final Result Performing Organization Address [facility]/ZIP Co de Phone Number [facility] [address] [place] [phone] * (ABNORMAL) ~PT, ~INR - ANTI COAG CLINIC (07/09/2024 8:07 AM EDT) Only the most recent of5 resultswithin the time period is included. Prothrombin Time INR 4.1(H) 0.9 - 1.1 [facility] Comment:METER #: [id number] TERNATIONAL NORMALIZED RATIO (INR) REFERENCE RANGES Reference RangeFor patients not on anticoagulant therapy: 0.9 - 1.1INR ranges for oral anticoagulanttherapy:For prevention and treatment of venous thrombosis and pulmonary embolism: 2.0 - 3.0For acute myocardial infarction with aspirin therapy: 2.0 - 3.0For acute myocardial infarction without aspirin therapy: 3.0 - 4.0For patients with mechanical prosthetic heart valves: 2.5 - 3.5 07/09/2024 8:07 AM EDT 07/09/2024 8:14 AM EDT Generic External Data Provider LAB BLOOD ORDERAB LES Final Result Performing Organization Address [facility] Co de Phone Number [facility] [address] [place] [phone] * (ABNORMAL) Lipid Panel, Standard (12/04/2023 8:10 AM EDT) Triglycerides 154(H) <150 mg/dL [facility] Comment:Desirable Triglyceri de: less than 150 mg/dLBorderline High Triglyceride 150-199 mg/dLHigh Triglyceride: 200-499 mg/dLVery High Triglyceride: greater than or equal to 5OO mg/dL Cholesterol 130 <200 mg/dL [facility] Comment:Desirable Cholestero l: less than 200 mg/dLBorderline High Cholesterol: 200-239 mg/dLHigh Cholesterol: greater than 239 mg/dL LDL Cholesterol Calculated 56 <100 mg/dL [facility] Comment:Desirable LDL: less than 100 mg/dLNear Optimal/Above Optimal LDL: 110- 129 mg/dLBorderline High LDL: 130-159 mg/dLHigh LDL: 160-189 mg/dLVery High LDL: greater than or equal to 190 mg/dL HDL Cholesterol 44 >40 mg/dL [facility] Comment:Desirable HDL: great er than 40 mg/dL Note: This HDL assay may give artificially low results in patients with liver disease. Blood Venous blood specimen / Unknown 12/04/2023 8:10 AM EDT 12/04/2023 2:14 PM EDT Loi Catalan MD LAB BLOOD ORDERABL ES Final Result Performing Organization Address [facility] Co de Phone Number [facility] [address] [place] [phone] * Hm Colonoscopy (12/10/2021 9:05 AM EDT) Calderon Provider HEALTH MAINTENANCE Final Result * HEPATITIS C AB W/REFL TO HCV RNA, QN, PCR (06/29/2021 8:58 AM EDT) HEPATITIS C ANTIBODY NON-REACT EZ NON-REACT EZ [facility] INDEX 0.12 <1.00 [facility] Comment: ?? HCV antibody was non-reactive. There is no laboratory ?? evidence of HCV infection. ?? In most cases, no further action is required. However, if recent HCV exposure is suspected, a test for HCV RNA (test code 39510) is suggested. ?? For additional information please refer to [email or web address]/faq/[email or web address] (This link is being provided for informational/ educational purposes only.) ?? 06/29/2021 8:58 AM EDT Loi Catalan MD HISTORICAL/NON ORD ERABLE LABS Final Result Performing Organization Address City/[facility]/ZIP Co de Phone Number [facility] [address] [place] [address], from Last 3 Months or Most Recently Relevant to Health Maintenance Insurance [facility] STANDARD [facility] DUAL COMPLETE Care Teams Microarray Operations Vice President Relationship Specialty Start Date End Date Loi Pandya MD [address] [place] [phone] PCP - General Internal Medicine 09/13/19
--- OUTSIDE RECORDS SUMMARY | 2024-07-26 08:04 | XMS_ITS | Clinical Summary ---
Author Organization [facility] Address [address] [place] [address] Care Team Providers Care Technical Producer Name Role Phone Unavailable Primary Care Provider [...] Aortic Aneurysm Screening 2014 Falls Prevention 2014 [id number] (1 - 2023- season) 2023 Imm-Influenza (#1) 2023 Alcohol and Drug Screen 04/14/2024 Depression Annual Screen 04/14/2024 Insurance [employer]
--- OUTSIDE RECORDS SUMMARY | 2024-07-26 08:04 | XMS_ITS | Encounter Summary ---
Demographics Address [address] [facility] [address] [place] [address] Mobile Phone Home Phone Preferred Language en Marital Status Unknown Latter Day Affiliation Unknown Race Other Race Ethnic Group or Author Organization [employer] Address [address] [facility] 7[address] [place] [address] Care Team Providers Care Marine Pipefitter Name Role Phone Loi Pandya MD Primary Care Prov ider Encounter Details Date Type Department Care Team (Late st Contact Info) Description 05/17/2022 Orders Only [facility] [address] [place], [place] [phone] Loi Pandya MD [address] [place] [address] Permanent atrial fibrillation (CMS/HCC) Social History Tobacco [...] fibrillation documented in this encounter Care Teams Marine Pipefitter Relationship Specialty Start Date End Date Loi Pandya MD [address] [place] [address] PCP - General Internal Medicine 09/13/19 documented as of this encounter
--- OUTSIDE RECORDS SUMMARY | 2024-07-26 08:04 | XMS_ITS | Encounter Summary ---
Demographics Address [address] [place] [address] Mobile Phone Home Phone Preferred Language en Marital Status Unknown Pentecostal Affiliation Unknown Race Other Race Ethnic Group or Author Organization [employer] Address [address] [facility] 7t [place] [address] Care Team Providers Care Administrative Law Judge Name Role Phone Loi Pandya MD Primary Care Prov ider Reason for Visit * Reason Comments Med Refill Encounter Details Date Type Department Care Team (Late st Contact Info) Description 11/12/2023 Refill [facility] [address] [place], [place] [phone] Loi Pandya MD [address] [place] [address] Longstanding persistent atrial fibrillation (CMS/HCC) Social History [...] documented as of this encounter Care Teams Administrative Law Judge Relationship Specialty Start Date End Date Loi Pandya MD [address] [place] [phone] PCP - General Internal Medicine 09/13/19 documented as of this encounter
--- OUTSIDE RECORDS SUMMARY | 2024-07-26 08:04 | XMS_ITS | Encounter Summary ---
Demographics Address [address] [place] [address] Mobile Phone Home Phone Preferred Language en Marital Status Unknown Mosque Affiliation Unknown Race Other Race Ethnic Group or Author Organization [employer] Address [address] [facility] 7t [place] [address] Care Team Providers Care Intranet Specialist Name Role Phone Loi Pandya MD Primary Care Prov ider Encounter Details Date Type Department Care Team (Late st Contact Info) Description 08/14/2022 Telephone [facility] [address] [place], [place] [phone] Loi Pandya MD [address] [place] [address] Social History Tobacco Use Types Packs/Day Years [...] documented in this encounter Plan of Treatment Not on file documented as of this encounter Visit Diagnoses Not on filedocumented in this encounter Additional Health Concerns Assessment Noted Time PHQ-9 Depression Total Score: 0 07/20/19 23 10:39 AM EDT documented as of this encounter Care Teams Intranet Specialist Relationship Specialty Start Date End Date Loi Pandya MD [address] [place] [phone] PCP - General Internal Medicine 09/13/19 documented as of this encounter
--- OUTSIDE RECORDS SUMMARY | 2024-07-26 08:04 | XMS_ITS | Encounter Summary ---
Demographics Address [address] [place] [address] Mobile Phone Home Phone Preferred Language en Marital Status Unknown Pentecostalism Affiliation Unknown Race Other Race Ethnic Group or Author Organization [email or web address] Address [address] [facility] 7t [place] [address] Care Team Providers Care Lithograph Press Operator Tinware Name Role Phone Loi Pandya MD Primary Care Prov ider Reason for Visit * Reason Comments Med Refill Encounter Details Date Type Department Care Team (Late st Contact Info) Description 07/30/[address] [facility] & PEDS [address] [place], [place] [phone] Loi Pandya MD [address] [place] [address] Longstanding persistent atrial fibrillation (CMS/HCC) Social History [...] documented as of this encounter Care Teams Lithograph Press Operator Tinware Relationship Specialty Start Date End Date Loi Pandya MD [address] [place] [phone] PCP - General Internal Medicine 09/13/19 documented as of this encounter
--- OUTSIDE RECORDS SUMMARY | 2024-07-26 08:04 | XMS_ITS | Clinical Summary ---
Author Organization [facility] Address [address] [place] [address] Care Team Providers Care Canvas Cutter Name Role Phone Unavailable Primary Care Provider Unavailabl e Surgical History Surgery Date Site/Laterality Comments OTHER SURGICAL HISTORY 1984 PROCEDURE: TRACHEOSTOMY OR LARNGECTOMY; COMMENT: infected tooth neck inf and ludwigs angina icu 9 days CHOLECYSTECTOMY 2015 PROCEDURE: LAPAROSCOPIC CHOLECYSTECT Medical History Medical History Date Comments HTN (hypertension) DX:HTN (hyper tension) Sleep apnea DX:Sleep apnea Atrial fibrillation (CMS/HCC V24, CMS/HCC V28) DX:Atrial fibrillation (HCC) Hyperlipemia DX:Hyperlipemia Family History Medical [...] Date Smoking Tobacco: Every Day Cigarettes 1 60.3 Started: 04/14/1964 Smokeless Tobacco: Never Alcohol Use [...] Vaccines (1 of 2) 10/15/1999 RSV Immunization Adult Patients (1 - Risk 60-74 years 1-dose series) 2009 Abdominal Aortic Aneurysm (AAA) Screen 03/12/2022 Cholesterol Screening (Lipid Panel) 03/12/2022 Colorectal Cancer Screening: Colonoscopy 03/12/2022 Depression Screening 03/12/2022 Falls Risk Assessment 03/12/2022 Hepatitis C Screening 03/12/2022 Social Influencers of Health Screening 03/12/2022 Hypertension/CHF/CAD Annual BMP Blood Test 03/28/2022 08/19/2019, 08/18/2019, 08/17/2019, Additional history exists COVID-19 Vaccine ( season) 2023 Influenza Vaccine (Season Ended) 2024 HIB Vaccines Aged Out No longer eligi [...] age to complete this topic Meningococcal B Vaccine Aged Out No l onger eligible based on patient's age to complete this topic RSV Immunization Patients Under 20 months Aged Out No longer eligible based on patient's age to complete this topic Varicella Vaccines Aged Out No longer eligible based on patient's age to complete this topic Medical Devices Implanted Type Area Health Program Specialist Device Identifier Shelf Expiration Date Model / Serial / Lot Hemasorb 4 Gm - [id number] - [id number] Implanted:Qty: 1 on 08/11/2019 by Amarjit Alvarado MD Chest [employer] 02/10/2022 OS-401 / [id number] / [id number] Atricure Atriclip Flex-V Implanted:Qty: 1 on 08/11/2019 by Amarjit Alvarado MD Heart [employer] 09/12/2021 [id number] / / [id number] Description:Item # [id number] Advance Directives Documents on File Type Date Recorded Patient Morphologist Expl anation Health Care Decision (hx) 06/25/2019 AD BAER DIRECTIVE Health Care Decision (hx) 06/25/2019 AD BAER DIRECTIVE Health Care Decision (hx) 06/25/2019 AD BAER DIRECTIVE Health Care Decision (hx) 06/25/2019 AD BAER DIRECTIVE
--- OUTSIDE RECORDS SUMMARY | 2024-07-26 08:04 | XMS_ITS | Clinical Summary ---
Demographics Address [address] [place] [address] Mobile Phone Home Phone Preferred Language Norwegian; Castilian Marital Status Legally Bahai Affiliation Unknown Race Unknown Ethnic Group or Author Organization [facility] Address [address] [place] [address] Support Name Relationship Address Phone Luis Antonio Padgettles Emergency Contact [address] [place] [address] Care Team Providers Care Barrel Stave Inspector Name Role Phone Unavailable Primary Care Provider [...] Date Secondary hypercoagulable state 08/12/2019 CAD in [place] artery 08/11/2019 Social History Tobacco Use Types [...] this topic Medical Devices Implanted Type Area Shoe Stainer Device Identifier Shelf Expiration Date Model / Serial / Lot Hemasorb 4 Gm - [id number] - [id number] Implanted:Qty: 1 on 08/11/2019 by Amarjit Alvarado MD at [facility] and Med Chest [employer] 02/10/2022 OS-401 / [id number] / [id number] Atricure Atriclip Flex-V Implanted:Qty: 1 on 08/11/2019 by Amarjit Alvarado MD at [facility] and Med [employer] 09/12/2021 [facility] / / [id number] Description:Item # [id number] Carlos Moncada Personal/Family Self 1950 [address] [place] [phone] Carlos Moncada Personal/Family Self 1950 [address] [place] [address] Advance Directives For more information, please contact: [phone] Latest Code Status on File Code Status Date Activated Date Inactivated Comments Full Code 08/11/2019 5:30 AM 08/19/2019 8:55 PM This c ode status was ascertained in the following way: per unit protocol.
[2024-07-26 08:09] LABS: Prothrombin Time Whole Bld POC 48.3 sec (11.1-13.5)
--- NOTE | 2024-07-26 08:17 | MHC.OFFVISCO ---
Intake Intake Visit Reasons: Anticoagulation Allergies No Known Allergies Allergy (Verified 07/26/24 08:04) Medication List - Last Reconciled 07/26/24 by No Mena RN amlodipine 10 mg PO DAILY aspirin 81 mg PO DAILY atorvastatin 40 mg PO DAILY cholecalciferol (vitamin D3) PO losartan 100 mg PO DAILY methylcellulose (laxative) (Citrucel) 500 mg PO DAILY metoprolol succinate ER (Toprol XL) 50 mg PO DAILY multivit with min-folic acid (Adult One Daily Multivitamin) PO omega-3 fatty acids (Fish Oil Concentrate) 1200 PO daily; vitamin E (dl, acetate) PO warfarin 5 mg See Protocol PO DAILY Nursing Note INR: 4.0?out of therapeutic range of 2-3 Unable to determine cause of high INR. It was also high on last visit on 07/09/24 of 4.1. Denies change in medication. Did have 2 alcoholic beverages over the weekend, 2 days ago. Possible that could be it. States he has a glass of cranberry juice daily which could be responsible for the high INR. Medications and supplements reviewed Patient status: well Medications or supplements: no changes Diet: appetite good per pt Denies any signs and symptoms of bleeding or clotting or unusual bruising Bleeding, bruising, clotting discussed Nutritional guidance given: to have a serving of greens today Dose: hold today's dose and then 7.5mg daily until recheck in 4 days F/U INR Date: 07/30/24?? Patient verbalizing understanding of instructions given. Anti-Coag Initial Assessment Social Hx Patient Tobacco Use Status: Current everyday Tobacco user Tobacco use type: Cigarette alcohol intake: never Coding Level of Care Code Est Patient Level 1 Diagnoses Current use of anticoagulant therapy Z79.01 Results AMB INR Fingerstick AMB INR Fingerstick 4.0 Last Edit by No Mena RN on 07/26/24 08:12 interface delay Assessment & Plan Assessment & Plan (1) Current use of anticoagulant therapy: Code(s): Z79.01 - nursing home (current) use of anticoagulants Category: Medical
== END 2024-07-26 08:22 | disposition home or self-care (01) ==
PROVIDERS: PCP Internal Medicine; Visit Provider Internal Medicine Medical Oncology
DX: Z79.01 Long term (current) use of anticoagulants (principal)

== ENCOUNTER → 2024-07-26 07:59 | Outpatient (BNVA) | payer OTHER, SELFPAY | PROVIDERS: PCP Internal Medicine; Visit Provider Internal Medicine Medical Oncology | DX: I48.21 Permanent atrial fibrillation (principal); Z79.01 Long term (current) use of anticoagulants; Z51.81 Encounter for therapeutic drug level monitoring | CPT/HCPCS: 85610; 99211 ==

== ENCOUNTER 2024-07-30 08:24 | Outpatient (AMB) | payer OTHER, SELFPAY ==
[2024-07-30 08:36] LABS: Prothrombin Time Whole Bld POC 30.4 sec (11.1-13.5); ~PT, ~INR - Anti Coag Clinic 2.5 (0.9-1.1)
--- NOTE | 2024-07-30 08:43 | MHC.OFFVISCO ---
Intake Intake Visit Reasons: Anticoagulation Allergies No Known Allergies Allergy (Verified 07/30/24 08:28) Medication List - Last Reconciled 07/30/24 by Nury Ward RN amlodipine 10 mg PO DAILY aspirin 81 mg PO DAILY atorvastatin 40 mg PO DAILY cholecalciferol (vitamin D3) PO losartan 100 mg PO DAILY methylcellulose (laxative) (Citrucel) 500 mg PO DAILY metoprolol succinate ER (Toprol XL) 50 mg PO DAILY multivit with min-folic acid (Adult One Daily Multivitamin) PO omega-3 fatty acids (Fish Oil Concentrate) 1200 PO daily; vitamin E (dl, acetate) PO warfarin 5 mg See Protocol PO DAILY Nursing Note INR: 2.5 in therapeutic range Medications and supplements reviewed- end of June diltiazem was d/c which can lower the INR and now that he is off it could be why INRs have been elevated No new changes in health, diet, medications, or supplements, Denies any signs and symptoms of bleeding or bruising or clotting. 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
--- OUTSIDE RECORDS SUMMARY | 2024-07-30 08:44 | XMS_ITS | Clinical Summary ---
Author Organization [facility] Address [address] [place] [address] Care Team Providers Care Field Service Technician Name Role Phone Unavailable Primary Care Provider [...] this topic Medical Devices Implanted Type Area School Year Nanny Device Identifier Shelf Expiration Date Model / Serial / Lot Hemasorb 4 Gm - [id number] - [id number] Implanted:Qty: 1 on 08/11/2019 by Amarjit Alvarado MD Chest [employer] 02/10/2022 OS-401 / [id number] / [id number] At[employer]ure Atriclip Flex-V Implanted:Qty: 1 on 08/11/2019 by Amarjit Alvarado MD Heart [employer] 09/12/2021 [id number] / / [id number] Description:Item # [id number] Advance Directives Documents on File Type Date Recorded Patient Principal Automation Engineer Expl anation Health Care Decision (hx) 06/25/2019 AD BAER DIRECTIVE Health Care Decision (hx) 06/25/2019 AD BAER DIRECTIVE Health Care Decision (hx) 06/25/2019 AD BAER DIRECTIVE Health Care Decision (hx) 06/25/2019 AD BAER DIRECTIVE
--- OUTSIDE RECORDS SUMMARY | 2024-07-30 08:44 | XMS_ITS | Clinical Summary ---
Author Organization [facility] Address [address] [place] [address] Care Team Providers Care Auto Wrecker Name Role Phone Unavailable Primary Care Provider [...] Aortic Aneurysm Screening 2014 Falls Prevention 2014 Pye-HBACK-14 (1 - 2023- season) 2023 Imm-Influenza (#1) 2023 Alcohol and Drug Screen 04/14/2024 Depression Annual Screen 04/14/2024 Insurance [employer] SAF[employer] NET
--- OUTSIDE RECORDS SUMMARY | 2024-07-30 08:44 | XMS_ITS | Clinical Summary ---
Demographics Address [address] [place] [address] Mobile Phone Home Phone Preferred Language Jamaican; Castilian Marital Status Legally Restorationist Affiliation Unknown Race Unknown Ethnic Group or Author Organization [facility] Address [address] [place] [address] Support Name Relationship Address Phone Luis Antonio Padgettles Emergency Contact 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/11/2019 Social History Tobacco Use Types [...] this topic Medical Devices Implanted Type [place] Treasurer Device Identifier Shelf Expiration Date Model / Serial / Lot Hemasorb 4 Gm - [id number] - [id number] Implanted:Qty: 1 on 08/11/2019 by Amarjit Alvarado MD at [facility] and Med Chest [employer] 02/10/2022 OS-401 / [id number] / [id number] At[employer]ure Atriclip Flex-V Implanted:Qty: 1 on 08/11/2019 by Amarjit Alvarado MD at [facility] Med Heart [employer] 09/12/2021 [facility] / / [id number] Description:Item # [id number] Carlos Moncada Personal/Family Self 1950 [address] [place] [address] Carlos Moncada Personal/Family Self 1950 [address] [place] [address] Advance Directives For more information, please contact: [phone] Latest Code Status on File Code Status Date Activated Date Inactivated Comments Full Code 08/11/2019 5:30 AM 08/19/2019 8:55 PM This c ode status was ascertained in the following way: per unit protocol.
== END 2024-07-30 08:47 | disposition home or self-care (01) ==
LOC: HO.ACS 08:24
PROVIDERS: PCP Internal Medicine; Visit Provider Internal Medicine Medical Oncology
DX: Z79.01 Long term (current) use of anticoagulants (principal)

== ENCOUNTER → 2024-07-30 08:24 | Outpatient (BNVA) | payer OTHER, SELFPAY | PROVIDERS: PCP Internal Medicine; Visit Provider Internal Medicine Medical Oncology | DX: I48.21 Permanent atrial fibrillation (principal); Z79.01 Long term (current) use of anticoagulants; Z51.81 Encounter for therapeutic drug level monitoring | CPT/HCPCS: 85610; 99211 ==

== ENCOUNTER 2024-08-13 08:36 | Outpatient (AMB) | payer OTHER, MEDICAID, SELFPAY ==
--- NOTE | 2024-08-13 08:50 | MHC.OFFVISCO ---
Intake Intake Visit Reasons: Anticoagulation Allergies No Known Allergies Allergy (Verified 08/13/24 08:37) Medication List - Last Reconciled 08/13/24 by Nury Ward RN amlodipine 10 mg PO DAILY aspirin 81 mg PO DAILY atorvastatin 40 mg PO DAILY cholecalciferol (vitamin D3) PO losartan 100 mg PO DAILY methylcellulose (laxative) (Citrucel) 500 mg PO DAILY metoprolol succinate ER (Toprol XL) 50 mg PO DAILY multivit with min-folic acid (Adult One Daily Multivitamin) PO omega-3 fatty acids (Fish Oil Concentrate) 1200 PO daily; vitamin E (dl, acetate) PO warfarin 5 mg See Protocol PO DAILY Nursing Note Pt- forgot to take lower dose because he lost his paper- he was enc to call [facility] or stop by for dosing instructions any time. INR: 3.7 in therapeutic range Medications and supplements reviewedcardizem was d/cd end of June and INRs have been elevated since then No changes in health, diet, medications, or supplements, Denies any signs and symptoms of bleeding or bruising or clotting. Bleeding, bruising, clotting discussed Nutritional guidance given - try to have some greens weekly for INR and overall health Dose: 5MG X 2 DAYS / 7.5MG X 5 DAYS F/U INR: 2 WEEKS Patient verbalizes understanding of instructions given Anti-Coag Initial Assessment Social Hx Patient Tobacco Use Status: Current everyday Tobacco user Tobacco use type: Cigarette alcohol intake: never Coding Level of Care Code Est Patient Level 1 Diagnoses Current use of anticoagulant therapy Z79.01 Results AMB INR Fingerstick AMB INR Fingerstick 3.7 Last Edit by Nury Ward RN on 08/13/24 08:44 MANUAL ENTRY Assessment & Plan Assessment & Plan (1) Current use of anticoagulant therapy: Code(s): 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
[2024-08-13 08:53] LABS: Prothrombin Time Whole Bld POC 44.5 sec (11.1-13.5); ~PT, ~INR - Anti Coag Clinic 3.7 (0.9-1.1)
--- OUTSIDE RECORDS SUMMARY | 2024-08-13 08:59 | XMS_ITS | Clinical Summary ---
Author Organization [facility] Address [address] [place] [address] Care Team Providers Care Cell Room Supervisor Name Role Phone Unavailable Primary Care Provider [...] Aortic Aneurysm Screening 2014 Falls Prevention 2014 [id number] (1 - 2023- season) 2023 Imm-Influenza (#1) 2023 Alcohol and Drug Screen 04/14/2024 Depression Annual Screen 04/14/2024 Insurance dotSyntax SAFETY NET
--- OUTSIDE RECORDS SUMMARY | 2024-08-13 08:59 | XMS_ITS | Encounter Summary ---
Demographics Address [address] [place] [address] Mobile Phone Home Phone Preferred Language en Marital Status Unknown Temple Affiliation Unknown Race Other Race Ethnic Group or Author Organization [employer] Address [address] [facility] 7t [place] [address] Care Team Providers Care Presiding Judge Name Role Phone Loi Pandya MD Primary Care Prov ider Reason for Visit * Reason Comments Med Refill Encounter Details Date Type Department Care Team (Late st Contact Info) Description 07/27/2022 Refill [facility] CHC MED & PEDS [address] [place], [place] [phone] Loi Pandya MD [address] [place] [address] Longstanding persistent atrial fibrillation (CMS/HCC) Social History [...] documented as of this encounter Care Teams Presiding Judge Relationship Specialty Start Date End Date MelgarLoi Sears MD [address] [place] [phone] PCP - General Internal Medicine 09/13/19 documented as of this encounter
--- OUTSIDE RECORDS SUMMARY | 2024-08-13 08:59 | XMS_ITS | Encounter Summary ---
Demographics Address [address] [place] [address] Mobile Phone Home Phone Preferred Language en Marital Status Unknown Gnosticism Affiliation Unknown Race Other Race Ethnic Group or Author Organization [employer] Address [address] 7[address] [place] [address] Care Team Providers Care Java Application Engineer Name Role Phone Loi Pandya MD Primary Care Prov ider Encounter Details Date Type Department Care Team (Late st Contact Info) Description 07/31/2023 Orders Only [facility] MEDICINE [address] [place], [place] [phone] ProviderCalderon MD Social History Tobacco Use Types [...] documented as of this encounter Care Teams Java Application Engineer Relationship Specialty Start Date End Date MelgarLoi Sears MD [address] [place] [phone] PCP - General Internal Medicine 09/13/19 documented as of this encounter
--- OUTSIDE RECORDS SUMMARY | 2024-08-13 08:59 | XMS_ITS | Encounter Summary ---
Demographics Address [address] [facility] [address] [facility] [address] [place] [address] Mobile Phone Home Phone Preferred Language en Marital Status Unknown Muslim Affiliation Unknown Race Other Race Ethnic Group or Author Organization [employer] Address [address] [facility] 7t [place] [address] Care Team Providers Care Orthotic/Prosthetic Clinician Name Role Phone Loi Pandya MD Primary Care Prov ider Encounter Details Date Type Department Care Team (Late st Contact Info) Description 05/17/2022 Orders Only [facility] MEDICINE [address] [place], [place] [phone] Loi Pandya MD [address] [place] [address] Permanent atrial fibrillation (CMS/HCC) Social History Tobacco [...] fibrillation documented in this encounter Care Teams Orthotic/Prosthetic Clinician Relationship Specialty Start Date End Date Loi Pandya MD 505 [place] [address] PCP - General Internal Medicine 09/13/19 documented as of this encounter
--- OUTSIDE RECORDS SUMMARY | 2024-08-13 08:59 | XMS_ITS | Encounter Summary ---
Demographics Address [address] [place] [address] Mobile Phone Home Phone Preferred Language en Marital Status Unknown Catholic Affiliation Unknown Race Other Race Ethnic Group or Author Organization [employer] Address [address] [facility] 7t [place] [address] Care Team Providers Care Ux Visual Designer Name Role Phone Loi Pandya MD Primary Care Prov ider Reason for Visit * Reason Comments Med Refill Encounter Details Date Type Department Care Team (Late st Contact Info) Description 11/12/2023 Refill [facility] CHC MED & PEDS [address] [place], [place] [phone] Loi Pandya MD [address] [place] [address] Longstanding persistent atrial fibrillation (CMS/HCC) Social History [...] documented as of this encounter Care Teams Ux Visual Designer Relationship Specialty Start Date End Date Loi Pandya MD [address] [place] [phone] PCP - General Internal Medicine 09/13/19 documented as of this encounter
--- OUTSIDE RECORDS SUMMARY | 2024-08-13 08:59 | XMS_ITS | Clinical Summary ---
Author Organization [facility] Address [address] [place] [address] Care Team Providers Care Pipe Testing Technician Name Role Phone Unavailable Primary Care [...] this topic Medical Devices Implanted Type Area Watch Crystal Molder Device Identifier Shelf Expiration Date Model / Serial / Lot Hemasorb 4 Gm - [id number] - [id number] Implanted:Qty: 1 on 08/11/2019 by Amarjit Alvarado MD Chest [employer] 02/10/2022 OS-401 / [id number] / [id number] Atricure Atriclip Flex-V Implanted:Qty: 1 on 08/11/2019 by Amarjit Alvarado MD Heart [employer] 09/12/2021 [id number] / / [id number] Description:Item # [id number] Advance Directives Documents on File Type Date Recorded Patient Eligibility And Occupancy Interviewer Expl anation Health Care Decision (hx) 06/25/2019 AD BAER DIRECTIVE Health Care Decision (hx) 06/25/2019 AD BAER DIRECTIVE Health Care Decision (hx) 06/25/2019 AD BAER DIRECTIVE Health Care Decision (hx) 06/25/2019 AD BAER DIRECTIVE
--- OUTSIDE RECORDS SUMMARY | 2024-08-13 08:59 | XMS_ITS | Encounter Summary ---
Demographics Address [address] [place] [address] Mobile Phone Home Phone Preferred Language en Marital Status Unknown Alevism Affiliation Unknown Race Other Race Ethnic Group or Author Organization [employer] Address [address] [facility] 7t [place] [address] Care Team Providers Care City Jailer Name Role Phone Loi Pandya MD Primary Care Prov ider Encounter Details Date Type Department Care Team (Late st Contact Info) Description 08/13/2024 Orders Only GENERIC EXTERNAL DATA DEPARTMENT Provider, [...] Comments PROTHROMBIN TIME WHOLE BLD POC Routine 08/13/2024 8:41 AM EDT ~PT, ~INR - ANTI COAG CLINIC Routine 08/13/2024 8:41 AM EDT documented in this encounter Results * (ABNORMAL) PROTHROMBIN TIME WHOLE BLD POC (08/13/2024 8:41 AM EDT) Protime 44.5(H) 11.1 - 13.5 sec [facility] 08/13/2024 8:41 AM EDT 08/13/2024 8:53 AM EDT us Generic External Data Provider LAB BLOOD ORDERAB LES Final Result [facility] [address] [place] [address] [phone] * (ABNORMAL) ~PT, ~INR - ANTI COAG CLINIC (08/13/2024 8:41 AM EDT) Prothrombin Time INR 3.7(H) 0.9 - 1.1 [facility] Comment:METER #: [id number] TERNATIONAL NORMALIZED RATIO (INR) REFERENCE RANGES Reference RangeFor patients not on anticoagulant therapy: 0.9 - 1.1INR ranges for oral anticoagulanttherapy:For prevention and treatment of venous thrombosis and pulmonary embolism: 2.0 - 3.0For acute myocardial infarction with aspirin therapy: 2.0 - 3.0For acute myocardial infarction without aspirin therapy: 3.0 - 4.0For patients with mechanical prosthetic heart valves: 2.5 - 3.5 08/13/2024 8:41 AM EDT 08/13/2024 8:53 AM EDT us Generic External Data Provider LAB BLOOD ORDERAB LES Final Result Performing Organization Address City/State/[facility] Co de Phone Number [facility] [address] [place] [address] [phone] documented in this encounter Visit Diagnoses Not on filedocumented in this encounter Additional Health Concerns Assessment Noted Time PHQ-9 Depression Total Score: 0 11/13/19 24 10:51 AM EDT documented as of this encounter Care Teams City Jailer Relationship Specialty Start Date End Date Loi Pandya MD [address] [place] [phone] PCP - General Internal Medicine 09/13/19 documented as of this encounter
--- OUTSIDE RECORDS SUMMARY | 2024-08-13 08:59 | XMS_ITS | Encounter Summary ---
Demographics Address [address] [place] [address] Mobile Phone Home Phone Preferred Language en Marital Status Unknown Church Affiliation Unknown Race Other Race Ethnic Group or Author Organization [employer] Address [address] [facility] 7t [place] [address] Care Team Providers Care Escalator Attendant Name Role Phone Loi Pandya MD Primary Care Prov ider Encounter Details Date Type Department Care Team (Late st Contact Info) Description 08/14/2022 Telephone C [facility] MED & PEDS [address] [place], [place] [phone] Loi Pandya MD [address] [place] [address] Social History Tobacco Use Types Packs/Day Years [...] documented as of this encounter Care Teams Escalator Attendant Relationship Specialty Start Date End Date Loi Pandya MD [address] [place] [phone] PCP - General Internal Medicine 09/13/19 documented as of this encounter
--- OUTSIDE RECORDS SUMMARY | 2024-08-13 08:59 | XMS_ITS | Encounter Summary ---
Demographics Address [address] [place] [address] Mobile Phone Home Phone Preferred Language en Marital Status Unknown Adventist Affiliation Unknown Race Other Race Ethnic Group or Author Organization [employer] Address [address] [facility] 7t [place] [address] Care Team Providers Care Community Living Coach Name Role Phone Loi Pandya MD Primary Care Prov ider Reason for Visit * Reason Comments Med Refill Encounter Details Date Type Department Care Team (Late st Contact Info) Description 07/30/2023 Refill [facility] CHC MED & PEDS [address] [place], [place] [phone] Loi Pandya MD [address] [place] [address] Longstanding persistent atrial fibrillation (CMS/HCC) Social History [...] documented as of this encounter Care Teams Community Living Coach Relationship Specialty Start Date End Date Loi Pandya MD [address] [place] [phone] PCP - General Internal Medicine 09/13/19 documented as of this encounter
--- OUTSIDE RECORDS SUMMARY | 2024-08-13 08:59 | XMS_ITS | Clinical Summary ---
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 Encounters Date Type Department Care Team Description 08/13/2024 Orders Only GENERIC EXTERNAL DATA DEPARTMENT Provider, Generic External Data 07/30/2024 Orders Only GENERIC EXTERNAL DATA DEPARTMENT Provider, Generic External Data 07/26/2024 Orders Only GENERIC EXTERNAL DATA DEPARTMENT Provider, Generic External Data 07/09/2024 Orders Only GENERIC EXTERNAL DATA DEPARTMENT Provider, Generic External Data 06/28/2024 10:30 AM EDT Office Visit [facility] MED & PEDS [address] [place] [address] Loi Pandya MD Primary hypertension (Primary Dx) 06/28/2024 Telephone [facility] PED[facility] [address] [place] [address] Loi Pandya MD Insurance 06/28/2024 Travel 06/11/2024 Orders Only GENERIC EXTERNAL DATA DEPARTMENT Provider, Generic External Data 06/04/2024 Orders Only GENERIC EXTERNAL DATA DEPARTMENT Provider, Generic External Data 06/01/2024 Orders Only GENERIC EXTERNAL DATA DEPARTMENT Provider, Generic External Data 06/01/2024 Telephone [facility] PED[facility] [address] [place] [address] Loi Pandya MD CRTICAL RESULT CALL from Last 3 Months Immunizations Name Administration [...] 2) 09/25/2021 07/31/2021 COVID-19 Vaccine (4 - season) 2023 04/23/2023, 08/04/2020, 07/07/2020 Influenza Vaccine [...] COAG CLINIC Routine 08/13/2024 8:41 AM EDT PROTHROMBIN TIME WHOLE BLD POC Routine 07/30/2024 8:34 AM EDT ~PT, ~INR - ANTI COAG CLINIC Routine 07/30/2024 8:34 AM EDT PROTHROMBIN TIME WHOLE BLD POC Routine 07/26/2024 8:07 AM EDT ~PT, ~INR - ANTI COAG CLINIC Routine 07/26/2024 8:07 AM EDT PROTHROMBIN TIME WHOLE BLD POC Routine 07/09/2024 [...] COAG CLINIC Routine 06/01/2024 10:50 AM EST LIPID PANEL, STANDARD Routine 12/04/2023 8:10 AM EDT Primary hypertension HM COLONOSCOPY Routine 12/10/2021 9:05 AM EDT ZZZ HISTORICAL HEPATITIS C AB W/REFL TO HCV RNA, QN, PCR Routine 06/29/2021 8:58 AM EDT from Last 3 Months or Most Recently Relevant to Health Maintenance Results * (ABNORMAL) PROTHROMBIN TIME WHOLE BLD POC (08/13/2024 8:41 AM EDT) Only the most recent of7 resultswithin the time period is included. Protime 44.5(H) 11.1 - 13.5 sec [facility] 08/13/2024 8:41 AM EDT 08/13/2024 8:53 AM EDT Generic External Data Provider LAB BLOOD ORDERAB LES Final Result Performing Organization Address City/[facility] Co de Phone Number [facility] [address] [place] [address] [phone] * (ABNORMAL) ~PT, ~INR - ANTI COAG CLINIC (08/13/2024 8:41 AM EDT) Only the most recent of7 resultswithin the time period is included. Prothrombin Time INR 3.7(H) 0.9 - 1.1 [facility] Comment:METER #: [id number] TERNATIONAL NORMALIZED RATIO (INR) REFERENCE RANGES Reference [...] 8:41 AM EDT 08/13/2024 8:53 AM EDT Generic External Data Provider LAB BLOOD ORDERAB LES Final Result Performing Organization Address [facility] Co de Phone Number [facility] [address] [place] [address] [phone] * (ABNORMAL) Lipid Panel, Standard (12/04/2023 8:10 AM EDT) Triglycerides 154(H) <150 mg/dL [facility] Comment:Desirable Triglyceri de: less than 150 mg/dLBorderline High Triglyceride 150-199 mg/dLHigh Triglyceride: 200-499 mg/dLVery High Triglyceride: greater than or equal to 5OO mg/dL Cholesterol 130 <200 mg/dL [facility] Comment:Desirable Cholestero l: less than 200 mg/dLBorderline High Cholesterol: 200-239 mg/dLHigh Cholesterol: greater than 239 mg/dL LDL Cholesterol Calculated 56 <100 mg/dL [facility] Comment:Desirable LDL: less than 100 mg/dLNear Optimal/Above Optimal LDL: 110- 129 mg/dLBorderline High LDL: 130-159 mg/dLHigh LDL: 160-189 mg/dLVery High LDL: greater than or equal to 190 mg/dL HDL Cholesterol 44 >40 mg/dL [facility] Comment:Desirable HDL: great er than 40 mg/dL Note: This HDL assay may give artificially low results in patients with liver disease. Blood Venous blood specimen / Unknown 12/04/2023 8:10 AM EDT 12/04/2023 2:14 PM EDT Loi Catalan MD LAB BLOOD ORDERABL ES Final Result [facility] [address] [place] [phone] * Hm Colonoscopy (12/10/2021 9:05 AM EDT) Historical Provider HEALTH MAINTENANCE Final Result * HEPATITIS C AB W/REFL TO HCV RNA, QN, PCR (06/29/2021 8:58 AM EDT) HEPATITIS C ANTIBODY NON-REACT EZ NON-REACT EZ [facility] INDEX 0.12 <1.00 [facility] Comment: ?? HCV antibody was non-reactive. There is no laboratory ?? evidence of HCV infection. ?? In most cases, no further action is required. However, if recent HCV exposure is suspected, a test for HCV RNA (test code 51815) is suggested. ?? For additional information please refer to http://education.Acunote.Fileblaze/faq/ABS35b8 (This link is being provided for informational/ educational purposes only.) ?? 06/29/2021 8:58 AM EDT Loi Catalan MD HISTORICAL/NON ORD ERABLE LABS Final Result Performing Organization Address City/State/[facility] Co de Phone Number [facility] [address] from Last 3 Months or Most Recently Relevant to Health Maintenance Insurance [facility] STANDARD [facility] [place] [address] [place] [address] Care Teams Case Operator Relationship Specialty Start Date End Date Loi Pandya MD [address] [place] [phone] PCP - General Internal Medicine 09/13/19
--- OUTSIDE RECORDS SUMMARY | 2024-08-13 08:59 | XMS_ITS | Clinical Summary ---
Demographics Address [address] [place] [address] Mobile Phone Home Phone Preferred Language Romanian; Castilian Marital Status Legally Anglican Affiliation Unknown Race Unknown Ethnic Group or Author Organization [facility] Address [address] [place] [address] Support Name Relationship Address Phone Luis Antonio Padgettles Emergency Contact 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 Social History Tobacco Use Types [...] this topic Medical Devices Implanted Type Area Job Placement Officer Device Identifier Shelf Expiration Date Model / Serial / Lot Hemasorb 4 Gm - [id number] - [id number] Implanted:Qty: 1 on 08/11/2019 by Amarjit Alvarado [place] [facility] Chest [employer] 02/10/2022 OS-401 / [id number] / [id number] Atricure Atriclip Flex-V Implanted:Qty: 1 on 08/11/2019 by Amarjit Alvarado MD [place] [facility] [employer] 09/12/2021 [facility] / / [id number] Description:Item # [id number] Carlos Moncada Personal/Family Self 1950 [address] [place] [address] Carlos Moncada Personal/Family Self 1950 [address] [place] [phone] Advance Directives For more information, please contact: [phone] Latest Code Status on File Code Status Date Activated Date Inactivated Comments Full Code 08/11/2019 5:30 AM 08/19/2019 8:55 PM This c ode status was ascertained in the following way: per unit protocol.
== END 2024-08-13 08:55 | disposition home or self-care (01) ==
LOC: HO.ACS 08:36
PROVIDERS: PCP Internal Medicine; Visit Provider Internal Medicine Medical Oncology
DX: Z79.01 Long term (current) use of anticoagulants (principal)

== ENCOUNTER → 2024-08-13 08:36 | Outpatient (BNVA) | payer OTHER, SELFPAY | PROVIDERS: PCP Internal Medicine; Visit Provider Internal Medicine Medical Oncology | DX: I48.21 Permanent atrial fibrillation (principal); Z79.01 Long term (current) use of anticoagulants; Z51.81 Encounter for therapeutic drug level monitoring | CPT/HCPCS: 85610; 99211 ==

== ENCOUNTER 2024-08-27 08:16 | Outpatient (AMB) | payer OTHER, MEDICAID, SELFPAY ==
[2024-08-27 08:34] LABS: Prothrombin Time Whole Bld POC 36.1 sec (11.1-13.5)
--- NOTE | 2024-08-27 08:42 | MHC.OFFVISCO ---
Intake Intake Visit Reasons: Anticoagulation Allergies No Known Allergies Allergy (Verified 08/27/24 08:30) Medication List - Last Reconciled 08/27/24 by No Mena RN amlodipine 10 mg PO DAILY aspirin 81 mg PO DAILY atorvastatin 40 mg PO DAILY cholecalciferol (vitamin D3) PO losartan 100 mg PO DAILY methylcellulose (laxative) (Citrucel) 500 mg PO DAILY metoprolol succinate ER (Toprol XL) 50 mg PO DAILY multivit with min-folic acid (Adult One Daily Multivitamin) PO omega-3 fatty acids (Fish Oil Concentrate) 1200 PO daily; vitamin E (dl, acetate) PO warfarin 5 mg See Protocol PO DAILY Nursing Note INR: 3.0 in therapeutic range of 2-3 Medications and supplements reviewed No changes in health, diet, medications, or supplements, Denies any signs and symptoms of bleeding or bruising or clotting. Bleeding, bruising, clotting discussed Nutritional guidance given to have a serving of greens once a week Pt doesn't usually eat greens but does like broccoli and asparagus and lettuce. 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
== END 2024-08-27 08:44 | disposition home or self-care (01) ==
LOC: HO.ACS 08:16
PROVIDERS: PCP Internal Medicine; Visit Provider Internal Medicine Medical Oncology
DX: Z79.01 Long term (current) use of anticoagulants (principal)

== ENCOUNTER → 2024-08-27 08:16 | Outpatient (BNVA) | payer OTHER, SELFPAY | PROVIDERS: PCP Internal Medicine; Visit Provider Internal Medicine Medical Oncology | DX: I48.21 Permanent atrial fibrillation (principal); Z79.01 Long term (current) use of anticoagulants; Z51.81 Encounter for therapeutic drug level monitoring | CPT/HCPCS: 85610; 99211 ==

== ENCOUNTER 2024-09-24 07:58 | Outpatient (AMB) | payer OTHER, SELFPAY ==
--- OUTSIDE RECORDS SUMMARY | 2024-09-24 08:00 | XMS_ITS | Encounter Summary ---
Demographics Address [address] [place] [address] Mobile Phone Home Phone Preferred Language en Marital Status Unknown Adventist Affiliation Unknown Race Other Race Ethnic Group Unknown Author Organization [employer] Address [address] 7t [place] [address] Care Team Providers Care Infection Control Coordinator Name Role Phone Loi Pandya MD Primary Care Prov ider Encounter Details Date Type Department Care Team (Late st Contact Info) Description 07/31/2023 Orders Only [facility] MEDICINE [address] [place], [place] [phone] ProviderCalderon MD Social History Tobacco Use Types [...] documented as of this encounter Care Teams Infection Control Coordinator Relationship Specialty Start Date End Date MelgarLoi Sears MD [address] [place] [phone] PCP - General Internal Medicine 09/13/19 documented as of this encounter
--- NOTE | 2024-09-24 08:12 | MHC.OFFVISCO ---
Intake Intake Visit Reasons: Anticoagulation Allergies No Known Allergies Allergy (Verified 09/24/24 08:03) Medication List - Last Reconciled 09/24/24 by Nury Ward RN amlodipine 10 mg PO DAILY aspirin 81 mg PO DAILY atorvastatin 40 mg PO DAILY cholecalciferol (vitamin D3) PO losartan 100 mg PO DAILY methylcellulose (laxative) (Citrucel) 500 mg PO DAILY metoprolol succinate ER (Toprol XL) 50 mg PO DAILY multivit with min-folic acid (Adult One Daily Multivitamin) PO omega-3 fatty acids (Fish Oil Concentrate) 1200 PO daily; vitamin E (dl, acetate) PO warfarin 5 mg See Protocol PO DAILY Nursing Note INR: 3.1 almost therapeutic range Medications and supplements reviewed No changes in health, diet, medications, or supplements, Denies any signs and symptoms of bleeding or bruising or clotting. Bleeding, bruising, clotting discussed Nutritional guidance given - increase greens Dose: 5mg x 2 days/ 7.5mg x 5 days F/U INR: 1 month Patient verbalizes understanding of instructions given Anti-Coag Initial Assessment Social Hx Patient Tobacco Use Status: Current everyday Tobacco user Tobacco use type: Cigarette alcohol intake: never Coding Level of Care Code Est Patient Level 1 Diagnoses Current use of anticoagulant therapy Z79.01 Results AMB INR Fingerstick AMB INR Fingerstick 3.1 Last Edit by Nury Ward RN on 09/24/24 08:11 manual entry failed interfacing on going Assessment & Plan Assessment & Plan (1) Current use of anticoagulant therapy: Code(s): Z79.01 - USP (current) use of anticoagulants Category: Medical
[2024-09-24 08:19] LABS: Prothrombin Time Whole Bld POC 37.6 sec (11.1-13.5); ~PT, ~INR - Anti Coag Clinic 3.1 (0.9-1.1)
== END 2024-09-24 08:17 | disposition home or self-care (01) ==
LOC: HO.ACS 07:58
PROVIDERS: PCP Internal Medicine; Visit Provider Internal Medicine Medical Oncology
DX: Z79.01 Long term (current) use of anticoagulants (principal)

== ENCOUNTER → 2024-09-24 07:58 | Outpatient (BNVA) | payer OTHER, SELFPAY | PROVIDERS: PCP Internal Medicine; Visit Provider Internal Medicine Medical Oncology | DX: I48.21 Permanent atrial fibrillation (principal); Z79.01 Long term (current) use of anticoagulants; Z51.81 Encounter for therapeutic drug level monitoring | CPT/HCPCS: 85610; 99211 ==

== ENCOUNTER 2024-10-22 08:17 | Outpatient (AMB) | payer OTHER, SELFPAY ==
--- OUTSIDE RECORDS SUMMARY | 2024-10-22 08:20 | XMS_ITS | Clinical Summary ---
Demographics Address [address] [place] [address] Mobile Phone Home Phone Preferred Language Sami; Castilian Marital Status Legally Hinduism Affiliation Unknown Race Unknown Ethnic Group or Author Organization [facility] Address [address] [place] [address] Support Name Relationship Address Phone Luis Antonio Padgettles Emergency Contact 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/11/2019 Social History Tobacco Use Types [...] 103 08/19/2019 8:36 AM EDT Temperature 36.4 C (97.6 F) 08/19/2019 8:36 AM EDT Respiratory Rate 15 08/19/2019 8:36 AM EDT [...] AA) Screening 2014 Fall Risk Assessment 2014 RSV Adult > 60+ Yrs or Pregn ant (1 - 1-dose 75+ series) 2024 Influenza Vaccine (#1) 2024 Hepatitis B Vaccines Aged Out No long er eligible based on patient's age to complete this topic RSV Ped < 20 months Aged Out No longe r eligible based on patient's age to complete this topic Medical Devices Implanted Type Area Liner Roll Changer Device Identifier Shelf Expiration Date Model / Serial / Lot Hemasorb 4 Gm - [id number] - [id number] Implanted:Qty: 1 on 08/11/2019 by Amarjit Alvarado MD at [facility] [place] and Med Chest [employer] 02/10/2022 OS-401 / [id number] / [id number] Atricure Atriclip Flex-V Implanted:Qty: 1 on 08/11/2019 by Amarjit Alvarado MD at [facility] [place] and Med Heart [employer] 09/12/2021 [id number] / / [id number] Description:Item # [id number] Advance Directives For more information, please contact: [phone] Latest Code Status on File Code Status Date Activated Date Inactivated Comments Full Code 08/11/2019 5:30 AM 08/19/2019 8:55 PM This c ode status was ascertained in the following way: per unit protocol.
--- OUTSIDE RECORDS SUMMARY | 2024-10-22 08:20 | XMS_ITS | Clinical Summary ---
[facility] Organization [facility] Address [address] [place] [address] Care Team Providers Care Information Systems Administrator Name Role Phone Unavailable Primary Care Provider [...] Date Smoking Tobacco: Every Day Cigarettes 1 60.5 Started: 04/14/1964 Smokeless Tobacco: Never Alcohol Use [...] 1968 Zoster Vaccines (1 of 2) 10/15/1999 Abdominal Aortic Aneurysm (AAA) Screen 03/12/2022 Cholesterol Screening (Lipid Panel) 03/12/2022 Colorectal Cancer Screening: Colonoscopy 03/12/2022 Depression Screening 03/12/2022 Falls Risk Assessment 03/12/2022 Hepatitis C Screening 03/12/2022 Social Influencers of Health Screening 03/12/2022 Hypertension/CHF/CAD Annual BMP Blood Test 03/28/2022 08/19/2019, 08/18/2019, 08/17/2019, Additional history exists COVID-19 Vaccine ( - 2023-25 season) 2023 RSV Immunization Adult Patients (1 - 1-dose 75+ series) 2024 Influenza Vaccine (#1) 2024 HIB Vaccines Aged Out No longer [...] this topic Medical Devices Implanted Type Area Staff Pharmacist Hospital Device Identifier Shelf Expiration Date Model / Serial / Lot Hemasorb 4 Gm - [id number] - [id number] Implanted:Qty: 1 on 08/11/2019 by Amarjit Alvarado MD Chest [employer] 02/10/2022 OS-401 / [id number] / [id number] Atricure Atriclip Flex-V Implanted:Qty: 1 on 08/11/2019 by Amarjit Alvarado MD Heart [employer] 09/12/2021 [id number] / / [id number] Description:Item # [id number] Advance Directives Documents on File Type Date Recorded Patient Wireless Manager Expl anation Health Care Decision (hx) 06/25/2019 AD BAER DIRECTIVE Health Care Decision (hx) 06/25/2019 AD BAER DIRECTIVE Health Care Decision (hx) 06/25/2019 AD BAER DIRECTIVE Health Care Decision (hx) 06/25/2019 AD BAER DIRECTIVE
--- OUTSIDE RECORDS SUMMARY | 2024-10-22 08:20 | XMS_ITS | Encounter Summary ---
Demographics Address [address] [place] [address] Mobile Phone Home Phone Preferred Language en Marital Status Unknown Islam Affiliation Unknown Race Other Race Ethnic Group Unknown Author Organization [employer] Address [address] [place] [address] Care Team Providers Care Ink Maker Name Role Phone Loi Pandya MD Primary Care Prov ider Encounter Details Date Type Department Care Team (Late st Contact Info) Description 07/31/2023 Orders Only [facility] MED[facility]INE [address] [place], [place] [phone] ProviderCalderon MD Social History Tobacco Use Types [...] documented as of this encounter Care Teams Ink Maker Relationship Specialty Start Date End Date MelgarLoi Sears MD [address] [place] [address] PCP - General Internal Medicine 09/13/19 documented as of this encounter
--- OUTSIDE RECORDS SUMMARY | 2024-10-22 08:20 | XMS_ITS | Clinical Summary ---
Author Organization [facility] Address [address] [place] [address] Care Team Providers Care Respiratory Physician Name Role Phone Unavailable Primary Care Provider [...] Fecal DNA 1994 Flexible Sigmoidoscopy 1994 Imm-Pneumococcal 50+ (1 of 1 - PCV) 10/15/1999 Imm-Zoster, Recombinant (1 of 2) 10/15/1999 Falls Prevention 2014 [id number] (1 - 2023- season) 2023 Alcohol and Drug Screen 04/14/2024 Depression Annual Screen 04/14/2024 Imm-RSV (adult) (1 - 1-dose 75+ series) 2024 Imm-Influenza (#1) 2024 Insurance Platform[employer] NET
[2024-10-22 08:24] LABS: Prothrombin Time Whole Bld POC 33.6 sec (11.1-13.5); ~PT, ~INR - Anti Coag Clinic 2.8 (0.9-1.1)
--- NOTE | 2024-10-22 08:25 | MHC.OFFVISCO ---
Intake Intake Visit Reasons: Anticoagulation Allergies No Known Allergies Allergy (Verified 10/22/24 08:19) Medication List - Last Reconciled 10/22/24 by No Mena, RN amlodipine 10 mg PO DAILY aspirin 81 mg PO DAILY atorvastatin 40 mg PO DAILY cholecalciferol (vitamin D3) PO losartan 100 mg PO DAILY methylcellulose (laxative) (Citrucel) 500 mg PO DAILY metoprolol succinate ER (Toprol XL) 50 mg PO DAILY multivit with min-folic acid (Adult One Daily Multivitamin) PO omega-3 fatty acids (Fish Oil Concentrate) 1200 PO daily; vitamin E (dl, acetate) PO warfarin 5 mg See Protocol PO DAILY Nursing Note INR: 2.8 in therapeutic range of 2-3 Medications and supplements reviewed No changes in health, diet, medications, or supplements, Denies any signs and symptoms of bleeding or bruising or clotting. Bleeding, bruising, clotting discussed Nutritional guidance given Dose: 7.5mg X 5 days and 5mg X 2 days F/U INR: 4 weeks Patient verbalizes understanding of instructions given Anti-Coag Initial Assessment Social Hx Patient Tobacco Use Status: Current everyday Tobacco user Tobacco use type: Cigarette alcohol intake: never Coding Level of Care Code Est Patient Level 1 Diagnoses Current use of anticoagulant therapy Z79.01 Assessment & Plan Assessment & Plan (1) Current use of anticoagulant therapy: Code(s): Z79.01 - half-way (current) use of anticoagulants Category: Medical
== END 2024-10-22 08:29 | disposition home or self-care (01) ==
LOC: HO.ACS 08:17
PROVIDERS: PCP Internal Medicine; Visit Provider Internal Medicine Medical Oncology
DX: Z79.01 Long term (current) use of anticoagulants (principal)

== ENCOUNTER → 2024-10-22 08:17 | Outpatient (BNVA) | payer OTHER, SELFPAY | PROVIDERS: PCP Internal Medicine; Visit Provider Internal Medicine Medical Oncology | DX: I48.21 Permanent atrial fibrillation (principal); Z79.01 Long term (current) use of anticoagulants; Z51.81 Encounter for therapeutic drug level monitoring | CPT/HCPCS: 85610; 99211 ==

== ENCOUNTER 2024-11-19 07:57 | Outpatient (AMB) | payer OTHER, SELFPAY ==
--- OUTSIDE RECORDS SUMMARY | 2024-11-19 08:00 | XMS_ITS | Clinical Summary ---
Author Organization [facility] Address [address] [place] [address] Care Team Providers Care Inspector Assembly Name Role Phone Unavailable Primary Care Provider [...] Date Smoking Tobacco: Every Day Cigarettes 1 60.6 Started: 04/14/1964 Smokeless Tobacco: Never Alcohol Use [...] (1 - Tdap) 1968 Pneumococcal Vaccine: 50+ Ye ars (1 of 1 - PCV) 10/15/1999 Zoster Vaccines (1 of 2) 10/15/1999 COVID-19 Vaccine ( - 2023-2 5 season) 2023 Depression Screening 04/14/2024 RSV Immunization Adult Patie nts (1 - 1-dose 75+ series) 2024 Influenza [...] to complete this topic RSV Immunization Patients Un jasiel 20 months Aged Out No longer eligible b ased on patient's age to complete this topic Varicella Vaccines Aged Out No longer eligible based on patient's age to complete this topic Medical Devices Implanted Type Area Business Computers Teacher Device Identifier Shelf Expiration Date Model / Serial / Lot Hemasorb 4 Gm - [id number] - [id number] Implanted:Qty: 1 on 08/11/2019 by Amarjit Alvarado MD Chest [employer] 02/10/2022 OS-401 / [id number] / [id number] Atricure Atriclip Flex-V Implanted:Qty: 1 on 08/11/2019 by Amarjit Alvarado MD Heart [employer] 09/12/2021 [id number] / / [id number] Description:Item # [id number] Advance Directives Documents on File Type Date Recorded Patient Veneer Sorter Expl anation Health Care Decision (hx) 06/25/2019 AD BAER DIRECTIVE Health Care Decision (hx) 06/25/2019 AD BAER DIRECTIVE Health Care Decision (hx) 06/25/2019 AD BAER DIRECTIVE Health Care Decision (hx) 06/25/2019 AD BAER DIRECTIVE
--- OUTSIDE RECORDS SUMMARY | 2024-11-19 08:00 | XMS_ITS | Encounter Summary ---
Demographics Address [address] [place] [address] Mobile Phone Home Phone Preferred Language en Marital Status Unknown Mandaeism Affiliation Unknown Race Other Race Ethnic Group Unknown Author Organization [employer] Address [address] [place] [address] Care Team Providers Care Hose Finisher Name Role Phone Loi Pandya MD Primary Care Prov ider Encounter Details Date Type Department Care Team (Late st Contact Info) Description 07/31/2023 Orders Only [facility] MEDICINE [address] [place], [place] [phone] ProviderCalderon MD Social History Tobacco Use Types [...] documented as of this encounter Care Teams Hose Finisher Relationship Specialty Start Date End Date MelgarLoi Sears MD [address] [place] [address] PCP - General Internal Medicine 09/13/19 documented as of this encounter
--- OUTSIDE RECORDS SUMMARY | 2024-11-19 08:00 | XMS_ITS | Clinical Summary ---
Demographics Address [address] [place] [address] Mobile Phone Home Phone Preferred Language Libyan; Castilian Marital Status Legally Anabaptist Affiliation Unknown Race Unknown Ethnic Group or Author Organization [facility] Address [address] [place] [address] Support Name Relationship Address Phone Luis Antonio Padgettles Emergency Contact [address] [place] [address] Care Team Providers Care Jewelry Store Manager Name Role Phone Unavailable Primary Care [...] Date Secondary hypercoagulable state 08/12/2019 CAD in [place] artery 08/11/2019 Social History Tobacco Use Types [...] this topic Medical Devices Implanted Type Area Cloth Dye Range Operator Device Identifier Shelf Expiration Date Model / Serial / Lot Hemasorb 4 Gm - [id number] - [id number] Implanted:Qty: 1 on 08/11/2019 by Amarjit Alvarado MD at [facility] [place] and Med Chest [employer] 02/10/2022 OS-401 / [id number] / [id number] Atricure Atriclip Flex-V Implanted:Qty: 1 on 08/11/2019 by Amarjit Alvarado MD at [facility] [place] and Med Heart [employer] 09/12/2021 [id number] / / [id number] Description:Item # [id number] Advance Directives For more information, please contact: [phone] Latest Code Status on File Code Status Date Activated Date Inactivated Comments Full Code 08/11/2019 5:30 AM 08/19/2019 8:55 PM This c ode status was ascertained in the following way: per unit protocol.
--- OUTSIDE RECORDS SUMMARY | 2024-11-19 08:00 | XMS_ITS | Clinical Summary ---
Author Organization [facility] Address [address] [place] [address] Care Team Providers Care Development Specialist Name Role Phone Unavailable Primary Care Provider [...] (1 of 2) 10/15/1999 Falls Prevention 2014 [id number] (1 - 2023- season) 2023 Alcohol and Drug Screen 04/14/2024 Depression Annual Screen 04/14/2024 Imm-RSV (adult) (1 - 1-dose 75+ series) 2024 Imm-Influenza (#1) 2024 Insurance [employer] NET
[2024-11-19 08:02] LABS: Prothrombin Time Whole Bld POC 51.9 sec (11.1-13.5); ~PT, ~INR - Anti Coag Clinic 4.3 (0.9-1.1)
--- NOTE | 2024-11-19 08:10 | MHC.OFFVISCO ---
Intake Intake Visit Reasons: Anticoagulation Allergies No Known Allergies Allergy (Verified 11/19/24 07:58) Medication List - Last Reconciled 11/19/24 by No Mena RN amlodipine 10 mg PO DAILY aspirin 81 mg PO DAILY atorvastatin 40 mg PO DAILY cholecalciferol (vitamin D3) PO losartan 100 mg PO DAILY methylcellulose (laxative) (Citrucel) 500 mg PO DAILY metoprolol succinate ER (Toprol XL) 50 mg PO DAILY multivit with min-folic acid (Adult One Daily Multivitamin) PO omega-3 fatty acids (Fish Oil Concentrate) 1200 PO daily; vitamin E (dl, acetate) PO warfarin 5 mg See Protocol PO DAILY Nursing Note INR: 4.3 out of therapeutic range of 2-3 Medications and supplements reviewed Patient status: well Medications or supplements: no changes Diet: usual diet but pt states he splurged and had a ingrid yesterday Denies any signs and symptoms of bleeding or clotting or unusual bruising Bleeding, bruising, clotting discussed Nutritional guidance given: to avoid ingrid next few days Dose: 7.5mg X 5 days and 5mg X 2 days (Sun & Thurs) F/U INR Date: 5 days?? Patient verbalizing understanding of instructions given. 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
== END 2024-11-19 08:14 | disposition home or self-care (01) ==
LOC: HO.ACS 07:57
PROVIDERS: PCP Internal Medicine; Visit Provider Internal Medicine Medical Oncology
DX: Z79.01 Long term (current) use of anticoagulants (principal)

== ENCOUNTER → 2024-11-19 07:57 | Outpatient (BNVA) | payer OTHER, SELFPAY | PROVIDERS: PCP Internal Medicine; Visit Provider Internal Medicine Medical Oncology | DX: Z51.81 Encounter for therapeutic drug level monitoring (principal); Z79.01 Long term (current) use of anticoagulants | CPT/HCPCS: 85610; 99211 ==

== ENCOUNTER 2024-11-24 08:39 | Outpatient (AMB) | payer OTHER, SELFPAY ==
--- OUTSIDE RECORDS SUMMARY | 2024-11-24 08:54 | XMS_ITS | Clinical Summary ---
Author Organization [facility] Address [address] [place] [address] Care Team Providers Care Php Engineer Name Role Phone Unavailable Primary Care [...] (1 of 2) 10/15/1999 Falls Prevention 2014 [id number] (1 - 2023- season) 2023 Alcohol and Drug Screen 04/14/2024 Depression Annual Screen 04/14/2024 Imm-RSV (adult) (1 - 1-dose 75+ series) 2024 Imm-Influenza (#1) 2024 Insurance [employer]it NET
--- OUTSIDE RECORDS SUMMARY | 2024-11-24 08:54 | XMS_ITS | Encounter Summary ---
Demographics Address [address] [place] [address] Mobile Phone Home Phone Preferred Language en Marital Status Unknown Uatsdin Affiliation Unknown Race Other Race Ethnic Group Unknown Author Organization [employer] Address [address] [place] [address] Care Team Providers Care Mud Analysis Operator Name Role Phone Loi Pandya MD Primary Care Prov ider Encounter Details Date Type Department Care Team (Late st Contact Info) Description 07/31/2023 Orders Only [facility] MED[facility]INE [address] [place], [place] [phone] ProviderCalderon MD Social History Tobacco Use Types [...] documented as of this encounter Care Teams Mud Analysis Operator Relationship Specialty Start Date End Date MelgarLoi Sears MD [address] [place] [address] PCP - General Internal Medicine 09/13/19 documented as of this encounter
--- OUTSIDE RECORDS SUMMARY | 2024-11-24 08:54 | XMS_ITS | Clinical Summary ---
Author Organization [facility] Address [address] [place] [address] Care Team Providers Care Novelty Balloon Assembler And Packer Name Role Phone Unavailable Primary Care Provider [...] this topic Medical Devices Implanted Type Area Architectural Manager Device Identifier Shelf Expiration Date Model / Serial / Lot Hemasorb 4 Gm - [id number] - [id number] Implanted:Qty: 1 on 08/11/2019 by Amarjit Alvarado MD Chest [employer] 02/10/2022 OS-401 / [id number] / [id number] Atricure Atriclip Flex-V Implanted:Qty: 1 on 08/11/2019 by Amarjit Alvarado MD Heart [employer] 09/12/2021 [id number] / / [id number] Description:Item # [id number] Advance Directives Documents on File Type Date Recorded Patient Shampoo Assistant Expl anation Health Care Decision (hx) 06/25/2019 AD BAER DIRECTIVE Health Care Decision (hx) 06/25/2019 AD BAER DIRECTIVE Health Care Decision (hx) 06/25/2019 AD BAER DIRECTIVE Health Care Decision (hx) 06/25/2019 AD BAER DIRECTIVE
--- OUTSIDE RECORDS SUMMARY | 2024-11-24 08:54 | XMS_ITS | Clinical Summary ---
Demographics Address [address] [place] [address] Mobile Phone Home Phone Preferred Language Omani; Castilian Marital Status Legally Adventist Affiliation Unknown Race Unknown Ethnic Group or Author Organization [facility] Address [address] [place] [address] Support Name Relationship Address Phone Luis Antonio Padgettles Emergency Contact [address] [place] [address] Care Team Providers Care Supervisor Grower Name Role Phone Unavailable Primary Care Provider [...] Date Secondary hypercoagulable state 08/12/2019 CAD in burns [place] artery 08/11/2019 Social History Tobacco Use Types [...] this topic Medical Devices Implanted Type Area Rn Plasma Center Device Identifier Shelf Expiration Date Model / Serial / Lot Hemasorb 4 Gm - [id number] - [id number] Implanted:Qty: 1 on 08/11/2019 by Amarjit Alvarado MD at [facility] and Med Chest [employer] 02/10/2022 OS-401 / [id number] / [id number] Atricure Atriclip Flex-V Implanted:Qty: 1 on 08/11/2019 by Amarjit Alvarado MD at [facility] and Med Heart [employer] 09/12/2021 [id number] / / [id number] Description:Item # [id number] Advance Directives For more information, please contact: [phone] Latest Code Status on File Code Status Date Activated Date Inactivated Comments Full Code 08/11/2019 5:30 AM 08/19/2019 8:55 PM This c ode status was ascertained in the following way: per unit protocol.
[2024-11-24 09:06] LABS: Prothrombin Time Whole Bld POC 31.0 sec (11.1-13.5); ~PT, ~INR - Anti Coag Clinic 2.6 (0.9-1.1)
--- NOTE | 2024-11-24 09:09 | MHC.OFFVISCO ---
Intake Intake Visit Reasons: Anticoagulation Allergies No Known Allergies Allergy (Verified 11/24/24 09:01) Medication List - Last Reconciled 11/24/24 by Nohelia Coley RN amlodipine 10 mg PO DAILY aspirin 81 mg PO DAILY atorvastatin 40 mg PO DAILY cholecalciferol (vitamin D3) PO losartan 100 mg PO DAILY methylcellulose (laxative) (Citrucel) 500 mg PO DAILY metoprolol succinate ER (Toprol XL) 50 mg PO DAILY multivit with min-folic acid (Adult One Daily Multivitamin) PO omega-3 fatty acids (Fish Oil Concentrate) 1200 PO daily; vitamin E (dl, acetate) PO warfarin 5 mg See Protocol PO DAILY Nursing Note NJO CP,SOB,DIET/MED CHANGES,FALLS OR SX OF BLEEDING. CONTINUE PRESERNT DOSE AND FOLLOW-UP IN 4 WEEKS GOOD UNDERSTANDING OF DOSING INSTR. 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
== END 2024-11-24 09:14 | disposition home or self-care (01) ==
LOC: HO.ACS 08:39
PROVIDERS: PCP Internal Medicine; Visit Provider Internal Medicine Medical Oncology
DX: Z79.01 Long term (current) use of anticoagulants (principal)

== ENCOUNTER → 2024-11-24 08:39 | Outpatient (BNVA) | payer OTHER, SELFPAY | PROVIDERS: PCP Internal Medicine; Visit Provider Internal Medicine Medical Oncology | DX: Z51.81 Encounter for therapeutic drug level monitoring (principal); Z79.01 Long term (current) use of anticoagulants | CPT/HCPCS: 85610; 99211 ==

== ENCOUNTER 2024-12-20 08:46 | Outpatient (AMB) | payer OTHER, MEDICAID, SELFPAY ==
--- NOTE | 2024-12-20 08:49 | MHC.OFFVIS ---
Vital Signs 12/20/24 08:50 Height 5 ft 9 in Weight 228 lb 13.437 oz BMI 33.8 BP 122/60 Blood Pressure Location Rt brachial Pulse 65 Pulse Source Monitor Intake Visit Reasons: 6 mth f/up Medical File Clerk Required: No Accompanied by: Self / Same As Patient Allergies No Known Allergies Allergy (Verified 12/20/24 08:54) Medication List - Last Reconciled 12/20/24 by Jono Kelly MD amlodipine 10 mg PO DAILY aspirin 81 mg PO DAILY atorvastatin 40 mg PO DAILY cholecalciferol (vitamin D3) PO losartan 100 mg PO DAILY methylcellulose (laxative) (Citrucel) 500 mg PO DAILY metoprolol succinate ER 50 mg PO DAILY multivit with min-folic acid (Adult One Daily Multivitamin) PO omega-3 fatty acids (Fish Oil Concentrate) 1200 PO daily; vitamin E (dl, acetate) PO warfarin 5 mg See Protocol PO DAILY HPI Comments Details: Carlos returns for follow-up. History of coronary artery disease and [place] artery [place] [facility] [place] Multiple risk factors including hypertension, smoking as well as cocaine use in the past. Overall, he is doing good. No clear-cut concerns. No pertinent cardiac symptoms. Unfortunately, he is still smoking. [facility] Medical History (Updated 02/26/24 @ 09:24 by Rae Pressley PA-C) Aortic dilatation Ischemic cardiomyopathy Atherosclerotic cardiovascular disease History of non-ST elevation myocardial infarction (NSTEMI) (~06/2019) PAF (paroxysmal atrial fibrillation) HTN (hypertension) Hyperlipidemia Diabetes mellitus type 2, controlled, without complications GERD (gastroesophageal reflux disease) Nicotine dependence, cigarettes, uncomplicated Surgical History History of cholecystectomy History of coronary artery bypass graft x 2 (~07/2019) History of cardiac catheterization (~06/2019) Family History Father No problems noted. Mother Diabetes Social History Alcohol intake: never Patient Tobacco Use Status: Current everyday Tobacco user Tobacco use type: Cigarette Cigarettes Per Day: 5 Years Smoked: (onset 13yo, 1/2ppd x 58yrs, now 5-10 cig/day - 29pyh) Review of Systems Const Denies daytime sleepiness, Denies difficulty sleeping, Denies snoring, Denies stops breathing during sleep and Denies weakness Card Denies chest pain, Denies rapid heart rate, Denies irregular heart rhythm, Denies claudication, Denies leg edema, Denies lightheadedness, Denies palpitations, Denies dyspnea, Denies dyspnea on exertion, Denies orthopnea, Denies paroxysmal nocturnal dyspnea and Denies slow heart rate Resp Denies cough, Denies dyspnea, Denies dyspnea on exertion and Denies snoring GI Reports no additional complaints, Denies hematochezia, Denies change in stool character and Denies dyspepsia Musc Denies abnormal gait, Denies muscle weakness and Denies numbness Neuro Denies abnormal gait, Denies numbness and Denies weakness Endo Denies palpitations Physical Exam Vital Signs: Last Vital Signs Pulse 65 12/20/24 08:50 BP 122/60 12/20/24 08:50 BMI result Body Mass Index 33.8 Const General: comfortable and no acute distress Orientation/consciousness: patient oriented x3 HEENT Other: Unremarkable Head: Yes normal to inspection Neck Neck: Yes normal visual inspection Chest Chest palpation & inspection: normal inspection of the chest Resp Auscultation: clear to auscultation bilaterally Cardio Palpation: normal PMI Heart sounds: S1 normal heart sound present, S2 normal heart sound present, no gallops, no murmurs and no rubs GI Palpation (GI): Soft to palpation Back/Spine/Pelvis Other: unremarkable Skin General skin exam: no rashes or lesions noted Neuro General: patient oriented x3 Extrem General: Yes normal to inspection Psych Mental Status: mental status grossly normal Office Procedures EKG Details: EKG with underlying sinus rhythm at 65/Min; no ischemic changes; [place] [id number]-[id number], Complete Assessment & Plan Assessment & Plan (1) Ischemic cardiomyopathy: Code(s): I25.5 - Ischemic cardiomyopathy Category: Medical Plan: Previously, echocardiogram had reported LVEF 20-25%. Repeat study with normal LVEF. However has wall motion abnormalities from underlying coronary disease. He does not have any heart failure symptoms or signs. (2) Atherosclerotic cardiovascular disease: Code(s): I25.10 - Atherosclerotic heart disease of [place] coronary artery without angina pectoris Category: Medical Plan: Status post coronary artery bypass surgery. On aspirin and statins. LDL 56 mg/dL and triglycerides 154 mg/dL. (3) PAF (paroxysmal atrial fibrillation): Code(s): I48.0 - Paroxysmal atrial fibrillation Category: Medical Plan: On diltiazem/warfarin. Stable. (4) Nicotine dependence, cigarettes, uncomplicated: Comment: (current smoker - onset 13yo, 1/2ppd x 60yrs, 30pyh) Code(s): F17.210 - Nicotine dependence, cigarettes, uncomplicated Category: Medical Plan: Unfortunately, still smokes. Again counseled to stop. Plan Discussion Notes During the visit, we discussed the patient's current management of coronary disease and atrial fibrillation, noting the absence of symptoms such as chest pain or palpitations. We agreed on a follow-up schedule of six months to ensure continued stability and address any potential changes in the patient's condition. Patient was informed and verbally consented to the use of an ambient scribe for clinic note documentation during this visit. Patient Instructions: - Continue current medications as prescribed. - Monitor for any symptoms such as chest pain or palpitations and report them immediately. - Return for follow-up in six months. Coding Level of Care Code Est Pt Level 4 (40418) Complex EM visit Add On G2211 Diagnoses Ischemic cardiomyopathy I25.5 Atherosclerotic cardiovascular disease I25.10 PAF (paroxysmal atrial fibrillation) I48.0 Nicotine dependence, cigarettes, uncomplicated F17.210 CPT Codes EKG - CPT: 03164-[id number], Complete ([id number])
[2024-12-20 08:50] VITALS: BP 122/60; PULSE 65; BMI 33.8
--- OUTSIDE RECORDS SUMMARY | 2024-12-20 09:48 | XMS_ITS | Clinical Summary ---
Author Organization [employer] Address [address] [place] [address] Care Team Providers Care Business Analytics Director Name Role Phone Loi Pandya MD Primary Care Prov ider Allergies No known active allergies Medications aspirin 81 MG EC tablet take 1 tablet by oral route every day 09/27/19 20 Active Citrucel 500 MG tablet TAKE 1 TABLET BY MOUTH DAILY WITH FULL GLASS OF WATER 12/27/19 22 Active atorvastatin (Lipitor) 40 MG tabletIndications: Mixed hyperlipidemia TAKE 1 TABLET BY MOUTH EVERY DAY IN THE MORNING 90 tablet 3 02/23/20 24 Active warfarin (Coumadin) 5 MG tabletIndications: Permanent atrial fibrillation (CMS/HCC) TAKE 1.5 TABLETS (7.5 MG) BY MOUTH IN THE EVENING. 135 tablet 3 04/30/19 25 Active metoprolol succinate XL (Toprol-XL) 50 MG 24 hr tablet Take 1 tablet by mouth Once per day. 06/22/19 25 Active losartan (Cozaar) 100 MG tabletIndications: Longstanding persistent atrial fibrillation (CMS/HCC) TAKE 1 TABLET BY MOUTH EVERY MORNING 90 tablet 3 10/05/19 25 Active amLODIPine (Norvasc) 10 MG tabletIndications: Primary hypertension TAKE 1 TABLET (10 MG) BY MOUTH ONCE PER DAY. 90 tablet 3 10/05/19 25 Active dilTIAZem CD (Cardizem CD) 180 MG 24 hr capsuleIndications :Longstanding persistent atrial fibrillation (CMS/HCC) TAKE 1 CAPSULE BY MOUTH EVERY DAY IN THE MORNING 90 capsule 3 12/08/19 25 Active dilTIAZem CD (Cardizem CD) 180 MG 24 hr capsuleIndications :Longstanding persistent atrial fibrillation (CMS/HCC) Take 1 capsule (180 mg) by mouth in the morning. 90 capsule 3 11/13/19 24 025 Discontinued dilTIAZem CD (Cardizem CD) 180 MG 24 hr capsuleIndications :Longstanding persistent atrial fibrillation (CMS/HCC) TAKE 1 CAPSULE BY MOUTH EVERY MORNING 90 capsule 3 11/30/19 25 025 Discontinued Active Problems Problem Noted Date Diagnosed Date [...] (04/09/2022 10:48 AM EST): 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 by measurement advisor, on diltiazem and warfarin, no recent er visit due to exacerbation Anticoagulated on Coumadin 04/09/2022 Assessment & Plan (04/09/2022 10:51 AM EST): Patient on coumadin 7.5mg daily, no episode of bleeding, followed at coumadin clinic, no changes will be made Secondary hypercoagulable state 08/12/2019 CAD in telida artery 08/11/2019 Encounters Date Type Department Care Team Description 12/04/2024 Refill [facility] [address] [place] [address] Loi Pandya MD Longstanding persistent atrial fibrillation ([facility]/HCC) 11/26/2024 Refill [facility] [address] [place] [address] Loi Pandya MD Longstanding persistent atrial fibrillation ([facility]/HCC) 11/24/2024 Orders Only GENERIC EXTERNAL DATA DEPARTMENT Provider, Generic External Data 11/19/2024 Orders Only GENERIC EXTERNAL DATA DEPARTMENT Provider, Generic External Data 10/22/2024 Orders Only GENERIC EXTERNAL DATA DEPARTMENT Provider, Generic External Data 10/03/2024 Refill [facility] [address] [place] [address] Loi Pandya MD Longstanding persistent atrial fibrillation ([facility]/HCC); Primary hypertension 09/24/2024 Orders Only GENERIC EXTERNAL DATA DEPARTMENT Provider, Generic External Data from Last 3 Months Immunizations Immunization Administration Dates Next Due Influenza Quadrivalent Adjuvanted [...] 68 06/28/2024 10:32 AM EDT Temperature 36.6 C (97.8 F) 06/28/2024 10:32 AM EDT Respiratory Rate 16 06/28/2024 10:32 AM EDT [...] 1949 FIT 1949 FOBT 1949 Sigmoidoscopy 1950 Pneumococcal Vaccine: 50+ Years (2 of 2 - PPSV23) 09/25/2021 07/31/2021 Zoster Vaccines (2 of 2) 09/25/2021 07/31/2021 RSV Patients and Patients Aged 60 years or older (1 - 1-dose 75+ series) 2024 Depression Screening 11/12/2024 11/13/2023, 11/13/19 SDOH Screening 11/12/2024 11/13/2023 COVID-19 Vaccine ( - season) 2024 04/23/2023, 08/04/2020, 07/07/2020 Influenza Vaccine (#1) 2024 04/23/2023 Alcohol/Substance Use Screening 06/28/2025 06/28/2024 Tobacco Screening [...] Comments PROTHROMBIN TIME WHOLE BLD POC Routine 11/24/2024 9:03 AM EDT ~PT, ~INR - ANTI COAG CLINIC Routine 11/24/2024 9:03 AM EDT PROTHROMBIN TIME WHOLE BLD POC Routine 11/19/2024 8:00 AM EDT ~PT, ~INR - ANTI COAG CLINIC Routine 11/19/2024 8:00 AM EDT PROTHROMBIN TIME WHOLE BLD POC Routine 10/22/2024 8:22 AM EDT ~PT, ~INR - ANTI COAG CLINIC Routine 10/22/2024 8:22 AM EDT PROTHROMBIN TIME WHOLE BLD POC Routine 09/24/2024 8:07 AM EDT ~PT, ~INR - ANTI COAG CLINIC Routine 09/24/2024 8:07 AM EDT LIPID PANEL, STANDARD Routine 12/04/2023 8:10 AM EDT Primary hypertension HM COLONOSCOPY Routine 12/10/2021 9:05 AM EDT ZZZ HISTORICAL HEPATITIS C AB W/REFL TO HCV RNA, QN, PCR Routine 06/29/2021 8:58 AM EDT from Last 3 Months or Most Recently Relevant to Health Maintenance Results * (ABNORMAL) PROTHROMBIN TIME WHOLE BLD POC (11/24/2024 9:03 AM EDT) Only the most recent of4 resultswithin the time period is included. Protime 31.0(H) 11.1 - 13.5 sec [facility] 11/24/2024 9:03 AM EDT 11/24/2024 9:05 AM EDT us Generic External Data Provider LAB BLOOD ORDERAB LES Final Result [facility] [address] [place] [phone] [phone] * (ABNORMAL) ~PT, ~INR - ANTI COAG CLINIC (11/24/2024 9:03 AM EDT) Only the most recent of4 resultswithin the time period is included. Prothrombin Time INR 2.6(H) 0.9 - 1.1 [facility] Comment:METER #: [id number] TERNATIONAL NORMALIZED RATIO (INR) REFERENCE RANGES Reference RangeFor patients not on anticoagulant therapy: 0.9 - 1.1INR ranges for oral anticoagulanttherapy:For prevention and treatment of venous thrombosis and pulmonary embolism: 2.0 - 3.0For acute myocardial infarction with aspirin therapy: 2.0 - 3.0For acute myocardial infarction without aspirin therapy: 3.0 - 4.0For patients with mechanical prosthetic heart valves: 2.5 - 3.5 11/24/2024 9:03 AM EDT 11/24/2024 9:05 AM EDT us Generic External Data Provider LAB BLOOD ORDERAB LES Final Result [facility] [address] [place] [phone] * (ABNORMAL) Lipid Panel, Standard (12/04/2023 8:10 AM EDT) Triglycerides 154(H) <150 mg/dL [facility] Comment:Desirable Triglyceri de: less than 150 mg/dLBorderline High Triglyceride 150-199 mg/dLHigh Triglyceride: 200-499 mg/dLVery High Triglyceride: greater than or equal to 5OO mg/dL Cholesterol 130 <200 mg/dL [facility] Comment:Desirable Cholestero l: less than 200 mg/dLBorderline High Cholesterol: 200-239 mg/dLHigh Cholesterol: greater than 239 mg/dL LDL Cholesterol Calculated 56 <100 mg/dL [facility] Comment:Desirable LDL: less than 100 mg/dLNear Optimal/Above Optimal LDL: 110- 129 mg/dLBorderline High LDL: 130-159 mg/dLHigh LDL: 160-189 mg/dLVery High LDL: greater than or equal to 190 mg/dL HDL Cholesterol 44 >40 mg/dL [facility] Comment:Desirable HDL: great er than 40 mg/dL Note: This HDL assay may give artificially low results in patients with liver disease. Blood Venous blood specimen / Unknown 12/04/2023 8:10 AM EDT 12/04/2023 2:14 PM EDT Loi Catalan MD LAB BLOOD ORDERABL ES Final Result [facility] [address] [place] [address] [phone] * Hm Colonoscopy (12/10/2021 9:05 AM EDT) Historical Provider HEALTH MAINTENANCE Final Result * HEPATITIS C AB W/REFL TO HCV RNA, QN, PCR (06/29/2021 8:58 AM EDT) HEPATITIS C ANTIBODY NON-REACT EZ NON-REACT EZ [facility] INDEX 0.12 <1.00 [facility] Comment: HCV antibody was non-reactive. There is no laboratory evidence of HCV infection. In most cases, no further action is required. However, if recent HCV exposure is suspected, a test for HCV RNA (test code 67964) is suggested. For additional information please refer to http://[email or web address]/faq/PKA78q1 (This link is being provided for informational/ educational purposes only.) 06/29/2021 8:58 AM EDT Loi Catalan MD HISTORICAL/NON ORD ERABLE LABS Final Result [facility] [address] [place] [address], from Last 3 Months or Most Recently Relevant to Health Maintenance Insurance [facility] * Guarantor: Carlos Gorman Account Type Relation to Patient Date of Phone Billing Address Personal/Family Self [address] Care Teams Business Analytics Director Relationship Specialty Start Date End Date Loi Pandya MD [address] [place] [phone] PCP - General Internal Medicine 09/13/19
--- OUTSIDE RECORDS SUMMARY | 2024-12-20 09:48 | XMS_ITS | Encounter Summary ---
Demographics Address [address] [place] [address] Mobile Phone Home Phone Preferred Language en Marital Status Unknown Yazdanism Affiliation Unknown Race Other Race Ethnic Group Unknown Author Organization [employer] Address [address] [place] [address] Care Team Providers Care Mortgage Closing Clerk Name Role Phone Loi Pandya MD Primary Care Prov ider Encounter Details Date Type Department Care Team (Late st Contact Info) Description 05/17/2022 Orders Only [facility] [address] [place], [place] [phone] Loi Pandya MD [address] [place], [place] [phone] Permanent atrial fibrillation (CMS/HCC) Social History Tobacco [...] fibrillation documented in this encounter Care Teams Mortgage Closing Clerk Relationship Specialty Start Date End Date Loi Pandya MD [address] [place] [address] PCP - General Internal Medicine 09/13/19 documented as of this encounter
--- OUTSIDE RECORDS SUMMARY | 2024-12-20 09:48 | XMS_ITS | Clinical Summary ---
Author Organization [facility] Address [address] [place] [address] Care Team Providers Care Nail Making Machine Tender Name Role Phone Unavailable Primary Care Provider [...] (1 of 2) 10/15/1999 Falls Prevention 2014 Alcohol and Drug Screen 04/14/2024 Depression Annual Screen 04/14/2024 Imm-RSV (adult) (1 - 1-dose 75+ series) 2024 [id number] ( - 2023- season) 2024 Imm-Influenza (#1) 2024 Insurance [employer] NET
--- OUTSIDE RECORDS SUMMARY | 2024-12-20 09:48 | XMS_ITS | Encounter Summary ---
Demographics Address [address] [place] [address] Mobile Phone Home Phone Preferred Language en Marital Status Unknown Advent Affiliation Unknown Race Other Race Ethnic Group Unknown Author Organization [employer] Address [address] [place] [address] Care Team Providers Care Director Of Pupil Personnel Program Name Role Phone Loi Pandya MD Primary Care Prov ider Reason for Visit * Reason Comments Med Refill Encounter Details Date Type Department Care Team (Late st Contact Info) Description 07/27/[address] [facility] [address] [place], [place] [phone] Loi Pandya MD [address] [place] [address] Longstanding persistent atrial fibrillation (CMS/HCC) Social History [...] documented as of this encounter Care Teams Director Of Pupil Personnel Program Relationship Specialty Start Date End Date Loi Pandya MD [address] [place] [phone] PCP - General Internal Medicine 09/13/19 documented as of this encounter
--- OUTSIDE RECORDS SUMMARY | 2024-12-20 09:48 | XMS_ITS | Encounter Summary ---
Demographics Address [address] [place] [address] Mobile Phone Home Phone Preferred Language en Marital Status Unknown Buddhist Affiliation Unknown Race Other Race Ethnic Group Unknown Author Organization [employer] Address [address] [place] [address] Care Team Providers Care Supervisory Historian Name Role Phone Loi Pandya MD Primary Care Prov ider Encounter Details Date Type Department Care Team (Late st Contact Info) Description 07/31/2023 Orders Only [facility] [address] [place], [place] [phone] ProviderCalderon MD Social History Tobacco Use Types [...] documented as of this encounter Care Teams Supervisory Historian Relationship Specialty Start Date End Date MelgarLoi Sears MD [address] [place] [phone] PCP - General Internal Medicine 09/13/19 documented as of this encounter
--- OUTSIDE RECORDS SUMMARY | 2024-12-20 09:48 | XMS_ITS | Encounter Summary ---
Demographics Address [address] [place] [address] Mobile Phone Home Phone Preferred Language en Marital Status Unknown Congregational Affiliation Unknown Race Other Race Ethnic Group Unknown Author Organization [employer] Address [address] [facility] [address] [place] [address] Care Team Providers Care Technician Preventative Medicine Name Role Phone Loi Pandya MD Primary Care Prov ider Reason for Visit * Reason Comments Med Refill Encounter Details Date Type Department Care Team (Late st Contact Info) Description 07/30/[address] [facility] [address] [place], [place] [phone] Loi Pandya MD [address] [place] [address] Longstanding persistent atrial fibrillation (CMS/HCC) Social History [...] documented as of this encounter Care Teams Technician Preventative Medicine Relationship Specialty Start Date End Date Loi Pandya MD [address] [place] [phone] PCP - General Internal Medicine 09/13/19 documented as of this encounter
--- OUTSIDE RECORDS SUMMARY | 2024-12-20 09:48 | XMS_ITS | Clinical Summary ---
Author Organization [facility] Address [address] [place] [address] Care Team Providers Care Administrative Hearing Officer Name Role Phone Unavailable Primary Care Provider [...] Date Smoking Tobacco: Every Day Cigarettes 1 60.7 Started: 04/14/1965 Smokeless Tobacco: Never Alcohol Use [...] 10/15/1999 Zoster Vaccines (1 of 2) 10/15/1999 Depression Screening 04/14/2024 RSV Immunization Adult Patie nts (1 - 1-dose 75+ series) 2024 COVID-19 Vaccine ( - 2023-2 5 season) 2024 Influenza Vaccine (#1) 2024 HIB Vaccines [...] this topic Medical Devices Implanted Type Area Flag Signaler Device Identifier Shelf Expiration Date Model / Serial / Lot Hemasorb 4 Gm - 202623 - [id number] Implanted:Qty: 1 on 08/11/2019 by Amarjit Alvarado MD Chest [employer] 02/10/2022 OS-401 / [id number] / [id number] Atricure Atriclip Flex-V Implanted:Qty: 1 on 08/11/2019 by Amarjit Alvarado MD Heart [employer] 09/12/2021 [id number] / / [id number] Description:Item # [id number] Advance Directives Documents on File Type Date Recorded Patient Opener Expl anation Health Care Decision (hx) 06/25/2019 AD BAER DIRECTIVE Health Care Decision (hx) 06/25/2019 AD BAER DIRECTIVE Health Care Decision (hx) 06/25/2019 AD BAER DIRECTIVE Health Care Decision (hx) 06/25/2019 AD BAER DIRECTIVE
--- OUTSIDE RECORDS SUMMARY | 2024-12-20 09:48 | XMS_ITS | Clinical Summary ---
Demographics Address [address] [place] [address] Mobile Phone Home Phone Preferred Language Croatian; Castilian Marital Status Legally Shinto Affiliation Unknown Race Unknown Ethnic Group or Author Organization [facility] Address [address] [place] [address] Support Name Relationship Address Phone Luis Antonio Padgettles Emergency Contact [address] [place] [address] Care Team Providers Care Char Conveyor Tender Cellar Name Role Phone Unavailable Primary Care Provider [...] Date Secondary hypercoagulable state 08/12/2019 CAD in [place] artery 08/11/2019 Social History Tobacco Use Types [...] this topic Medical Devices Implanted Type Area Wool Shearer Device Identifier Shelf Expiration Date Model / Serial / Lot Hemasorb 4 Gm - [id number] - [id number] Implanted:Qty: 1 on 08/11/2019 by Amarjit Alvarado MD at [facility] Chest [employer] 02/10/2022 OS-401 / [id number] / [id number] At[employer]ure Atriclip Flex-V Implanted:Qty: 1 on 08/11/2019 by Amarjit Alvarado MD at [facility] Heart [employer] 09/12/2021 [id number] / / [id number] Description:Item # [id number] Advance Directives For more information, please contact: [phone] Latest Code Status on File Code Status Date Activated Date Inactivated Comments Full Code 08/11/2019 5:30 AM 08/19/2019 8:55 PM This c ode status was ascertained in the following way: per unit protocol.
--- OUTSIDE RECORDS SUMMARY | 2024-12-20 09:48 | XMS_ITS | Encounter Summary ---
Demographics Address [address] [place] [address] Mobile Phone Home Phone Preferred Language en Marital Status Unknown Zoroastrian Affiliation Unknown Race Other Race Ethnic Group Unknown Author Organization [employer] Address [address] [facility] 7t [place] [address] Care Team Providers Care Bacteriology Technician Name Role Phone Loi Pandya MD Primary Care Prov ider Reason for Visit * Reason Comments Med Refill Encounter Details Date Type Department Care Team (Late st Contact Info) Description 11/12/2023 Refill [facility] MED & PEDS [address] [place], [place] [phone] Loi Pandya MD [address] [place] [address] Longstanding persistent atrial fibrillation (CMS/HCC) Social History [...] AM EDT documented as of this encounter Functional Status * Over the past 2 weeks, how often have you been bothered by any of the following problems? Question Answer Date of Assessment Author Little interest or pleasure in doing things Not at all 11/13/2023 10:57 AM PENGT Loi Pandya MD Feeling down, depressed, or hopeless Not at all 11/13/2023 10:57 AM EDT Loi Woodard MD Patient Health Questionnaire-2 Score 0 11/13/2023 10:57 AM EDT Loi Lynn res, MD * Over the past 2 weeks, how often have you been bothered by any of the following problems? Question Answer Date of Assessment Author Trouble falling or staying asleep, or sleeping too much Not at all 11/13/2023 10:51 AM Malinda Prasad MA Feeling tired or having alida le energy Not at all 11/13/2023 10:51 AM Malinda Prasad MA Poor appetite or overeating Not at all 11/13/2023 10 :51 AM Malinda Prasad MA Feeling bad about yourself - or that you are a failure or have let yourself or your family down Not at all 11/13/2023 10:51 AM Malinda Francois MA Trouble concentrating on thi ngs, such as reading the newspaper or watching television Not at all 11/13/2023 10:51 AM Malinda Prasad MA Moving or speaking so slowly that other people could have noticed? Or the opposite - being so fidgety or restless that you have been moving around a lot more than usual. Not at all 11/13/2023 10:51 AM Malinda Prasad MA Thoughts that you would be b joseph off or hurting yourself in some way Not at all 11/13/2023 10:51 AM Malinda Prasad MA Patient Health Questionnaire -9 Score 0 11/13/2023 10:51 AM Malinda Prasad MA documented as of this encounter Plan of Treatment Not on file documented as of this encounter Visit Diagnoses Diagnosis Longstanding persistent atrial fibrillation (CMS/HCC) documented in this encounter Additional Health Concerns Assessment Noted Time PHQ-9 Depression Total Score: 0 07/20/19 23 10:39 AM EDT documented as of this encounter Care Teams Bacteriology Technician Relationship Specialty Start Date End Date Loi Pandya MD [address] [place] [phone] PCP - General Internal Medicine 09/13/19 documented as of this encounter
== END 2024-12-20 09:13 | disposition home or self-care (01) ==
LOC: HO.HCS 08:47
PROVIDERS: PCP Internal Medicine; Visit Provider Internal Medicine
DX: I25.5 Ischemic cardiomyopathy (principal); I25.10 Atherosclerotic heart disease of native coronary artery without angina pectoris; I48.0 Paroxysmal atrial fibrillation; F17.210 Nicotine dependence, cigarettes, uncomplicated
CPT/HCPCS: 93010; 99214; G2211

== ENCOUNTER → 2024-12-20 08:46 | Outpatient (BNVA) | payer OTHER, SELFPAY | PROVIDERS: PCP Internal Medicine; Visit Provider Internal Medicine | DX: I25.10 Atherosclerotic heart disease of native coronary artery without angina pectoris (principal); I48.0 Paroxysmal atrial fibrillation; I25.5 Ischemic cardiomyopathy; F17.210 Nicotine dependence, cigarettes, uncomplicated; I10 Essential (primary) hypertension | CPT/HCPCS: 93005; 99212 ==

== ENCOUNTER 2024-12-22 08:03 | Outpatient (AMB) | payer OTHER, SELFPAY ==
[2024-12-22 08:11] LABS: Prothrombin Time Whole Bld POC 18.7 sec (11.1-13.5); ~PT, ~INR - Anti Coag Clinic 1.6 (0.9-1.1)
--- NOTE | 2024-12-22 08:16 | MHC.OFFVISCO ---
Intake Intake Visit Reasons: Anticoagulation Allergies No Known Allergies Allergy (Verified 12/22/24 08:05) Medication List - Last Reconciled 12/22/24 by Nohelia Coley RN amlodipine 10 mg PO DAILY aspirin 81 mg PO DAILY atorvastatin 40 mg PO DAILY cholecalciferol (vitamin D3) PO losartan 100 mg PO DAILY methylcellulose (laxative) (Citrucel) 500 mg PO DAILY metoprolol succinate ER 50 mg PO DAILY multivit with min-folic acid (Adult One Daily Multivitamin) PO omega-3 fatty acids (Fish Oil Concentrate) 1200 PO daily; vitamin E (dl, acetate) PO warfarin 5 mg See Protocol PO DAILY Nursing Note PT.BELIEVES THAT HE MAY HAVE MISSED A RECENT DOSE OF WARFARIN. NO CO,SOB,DIET/MED CHANGES,FALLS OR SX OF BLEEDING. BOOST TO 10MGM TOIDAY AND RECHECK IN 2 WEEKS NO GRENS 2 DAYS GOOD UNDERSTANDING OF DOSING INSTR. Anti-Coag Initial Assessment Social Hx Patient Tobacco Use Status: Current everyday Tobacco user Tobacco use type: Cigarette alcohol intake: never Coding Level of Care Code Est Patient Level 1 Diagnoses Current use of anticoagulant therapy Z79.01 Assessment & Plan Assessment & Plan (1) Current use of anticoagulant therapy: Code(s): Z79.01 - half-way (current) use of anticoagulants Category: Medical
== END 2024-12-22 08:18 | disposition home or self-care (01) ==
LOC: HO.ACS 08:03
PROVIDERS: PCP Internal Medicine; Visit Provider Internal Medicine Medical Oncology
DX: Z79.01 Long term (current) use of anticoagulants (principal)

== ENCOUNTER → 2024-12-22 08:03 | Outpatient (BNVA) | payer OTHER, SELFPAY | PROVIDERS: PCP Internal Medicine; Visit Provider Internal Medicine Medical Oncology | DX: Z51.81 Encounter for therapeutic drug level monitoring (principal); Z79.01 Long term (current) use of anticoagulants | CPT/HCPCS: 85610; 99211 ==

== ENCOUNTER 2025-01-05 08:05 | Outpatient (AMB) | payer OTHER, SELFPAY ==
--- NOTE | 2025-01-05 08:23 | MHC.OFFVISCO ---
Intake Intake Visit Reasons: Anticoagulation Allergies No Known Allergies Allergy (Verified 01/05/25 08:19) Medication List - Last Reconciled 01/05/25 by Klaudia Pickens RN amlodipine 10 mg PO DAILY aspirin 81 mg PO DAILY atorvastatin 40 mg PO DAILY cholecalciferol (vitamin D3) PO losartan 100 mg PO DAILY methylcellulose (laxative) (Citrucel) 500 mg PO DAILY metoprolol succinate ER 50 mg PO DAILY multivit with min-folic acid (Adult One Daily Multivitamin) PO omega-3 fatty acids (Fish Oil Concentrate) 1200 PO daily; vitamin E (dl, acetate) PO warfarin 5 mg See Protocol PO DAILY Nursing Note INR: 3.0-in therapeutic range 2-3 Medications and supplements reviewed- no changes No changes in health, diet, medications, or supplements, Denies any signs and symptoms of bleeding or bruising or clotting. Bleeding, bruising, clotting discussed Nutritional guidance given Dose: 5mg x 2, 7.5mg x 5 F/U INR: pt req 4 weeks Patient verbalizes understanding of instructions given Anti-Coag Initial Assessment Social Hx Patient Tobacco Use Status: Current everyday Tobacco user Tobacco use type: Cigarette alcohol intake: never Coding Level of Care Code Est Patient Level 1 Diagnoses Current use of anticoagulant therapy Z79.01 Assessment & Plan Assessment & Plan (1) Current use of anticoagulant therapy: Code(s): Z79.01 - watermaster (current) use of anticoagulants Category: Medical
[2025-01-05 08:24] LABS: Prothrombin Time Whole Bld POC 36.1 sec (11.1-13.5); ~PT, ~INR - Anti Coag Clinic 3.0 (0.9-1.1)
--- OUTSIDE RECORDS SUMMARY | 2025-01-05 08:26 | XMS_ITS | Encounter Summary ---
Demographics Address [address] [place] [address] Mobile Phone Home Phone Preferred Language en Marital Status Unknown Faith Affiliation Unknown Race Other Race Ethnic Group Unknown Author Organization [employer] Address [address] 7t [place] [address] Care Team Providers Care Surgery Assistant Name Role Phone Loi Pandya MD Primary Care Prov ider Encounter Details Date Type Department Care Team (Late st Contact Info) Description 07/31/2023 Orders Only [facility] MEDICINE [address] [place], [place] [phone] ProviderCalderon MD Social History Tobacco Use Types [...] documented as of this encounter Care Teams Surgery Assistant Relationship Specialty Start Date End Date MelgarLoi Sears MD [address] [place] [phone] PCP - General Internal Medicine 09/13/19 documented as of this encounter
--- OUTSIDE RECORDS SUMMARY | 2025-01-05 08:26 | XMS_ITS | Encounter Summary ---
Demographics Address [address] [place] [address] Mobile Phone Home Phone Preferred Language en Marital Status Unknown Catholic Affiliation Unknown Race Other Race Ethnic Group Unknown Author Organization [employer] Address [address] [facility] 7t [place] [address] Care Team Providers Care Custom Clothier Name Role Phone Loi Pandya MD Primary Care Prov ider Reason for Visit * Reason Comments Med Refill Encounter Details Date Type Department Care Team (Late st Contact Info) Description 07/30/2023 Refill [facility] CH[facility] MED & PEDS [address] [place], [place] [phone] Loi Pandya MD [address] [place] [address] Longstanding persistent atrial fibrillation (CMS/HCC) Social History [...] documented as of this encounter Care Teams Custom Clothier Relationship Specialty Start Date End Date Loi Pandya MD [address] [place] [phone] PCP - General Internal Medicine 09/13/19 documented as of this encounter
--- OUTSIDE RECORDS SUMMARY | 2025-01-05 08:26 | XMS_ITS | Encounter Summary ---
Demographics Address [address] [place] [address] Mobile Phone Home Phone Preferred Language en Marital Status Unknown Druze Affiliation Unknown Race Other Race Ethnic Group Unknown Author Organization [employer] Address [address] [facility] 7t [place] [address] Care Team Providers Care Medical Lead Name Role Phone Loi Pandya MD Primary Care Prov ider Reason for Visit * Reason Comments Med Refill Encounter Details Date Type Department Care Team (Late st Contact Info) Description 01/01/[address] [facility] CH[facility] MED & PEDS [address] [place], [place] [phone] Loi Pandya MD [address] [place] [address] Mixed hyperlipidemia Social History Tobacco Use Types Packs/Day Years [...] as of this encounter Visit Diagnoses Diagnosis Mixed hyperlipidemia documented in this encounter Additional Health Concerns Assessment Noted Time PHQ-9 Depression Total Score: 0 11/13/19 24 10:51 AM EDT documented as of this encounter Care Teams Medical Lead Relationship Specialty Start Date End Date Loi Pandya MD [address] [place] [phone] PCP - General Internal Medicine 09/13/19 documented as of this encounter
--- OUTSIDE RECORDS SUMMARY | 2025-01-05 08:26 | XMS_ITS | Clinical Summary ---
Author Organization [facility] Address [address] [place] [address] Care Team Providers Care Army Officer Name Role Phone Unavailable Primary Care [...] this topic Medical Devices Implanted Type Area Tie Inspector Device Identifier Shelf Expiration Date Model / Serial / Lot Hemasorb 4 Gm - [id number] - [id number] Implanted:Qty: 1 on 08/11/2019 by Amarjit Alvarado MD Chest [employer] 02/10/2022 OS-401 / [id number] / [id number] Atricure Atriclip Flex-V Implanted:Qty: 1 on 08/11/2019 by Amarjit Alvarado MD Heart [employer] 09/12/2021 [id number] / / [id number] Description:Item # [id number] Advance Directives Documents on File Type Date Recorded Patient Automotive Buyer Expl anation Health Care Decision (hx) 06/25/2019 AD BAER DIRECTIVE Health Care Decision (hx) 06/25/2019 AD BAER DIRECTIVE Health Care Decision (hx) 06/25/2019 AD BAER DIRECTIVE Health Care Decision (hx) 06/25/2019 AD BAER DIRECTIVE
--- OUTSIDE RECORDS SUMMARY | 2025-01-05 08:26 | XMS_ITS | Clinical Summary ---
Author Organization [employer] Address [address] [place] [address] Care Team Providers Care Field Clerk Name Role Phone Loi Pandya MD Primary Care Prov ider Allergies No known active allergies Medications aspirin 81 MG EC tablet take 1 tablet by oral route every day 09/27/19 20 Active Citrucel 500 MG tablet TAKE 1 TABLET BY MOUTH DAILY WITH FULL GLASS OF WATER 12/27/19 22 Active warfarin (Coumadin) 5 MG tabletIndications: Permanent [...] MORNING 90 capsule 3 12/08/19 25 Active atorvastatin (Lipitor) 40 MG tabletIndications: Mixed hyperlipidemia TAKE 1 TABLET BY MOUTH EVERY DAY IN THE MORNING 90 tablet 3 01/05/20 25 Active atorvastatin (Lipitor) 40 MG tabletIndications: Mixed hyperlipidemia TAKE 1 TABLET BY MOUTH EVERY DAY IN THE MORNING 90 tablet 3 02/23/20 24 025 Discontinued dilTIAZem CD (Cardizem CD) [...] (04/09/2022 10:48 AM EST): 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 by stapler coil unit, on diltiazem and warfarin, no recent er visit due to exacerbation Anticoagulated on Coumadin 04/09/2022 Assessment & Plan (04/09/2022 10:51 AM EST): Patient on coumadin 7.5mg daily, no episode of bleeding, followed at coumadin clinic, no changes will be made Secondary hypercoagulable state 08/12/2019 CAD in elem artery 08/11/2019 Encounters Date Type Department Care Team Description 01/05/2025 Orders Only GENERIC EXTERNAL DATA DEPARTMENT Provider, Generic External Data 01/01/2025 Refill [facility] MED & PEDS [address] [place] [address] Loi Pandya MD Mixed hyperlipidemia 12/22/2024 Orders Only GENERIC EXTERNAL DATA DEPARTMENT Provider, Generic External Data 12/04/2024 Refill [facility] MED & PEDS [address] [place] [address] Loi Pandya MD Longstanding persistent atrial fibrillation ([facility]/HCC) 11/26/2024 Refill [facility] MED & PEDS [address] [place] [address] Loi Pandya MD Longstanding persistent atrial fibrillation ([facility]/HCC) 11/24/2024 Orders Only GENERIC EXTERNAL DATA [...] SDOH Screening 11/12/2024 11/13/2023 COVID-19 Vaccine ( season) 2024 04/23/2023, 08/04/2020, 07/07/2020 Influenza Vaccine [...] Comments PROTHROMBIN TIME WHOLE BLD POC Routine 01/05/2025 8:22 AM EDT ~PT, ~INR - ANTI COAG CLINIC Routine 01/05/2025 8:22 AM EDT PROTHROMBIN TIME WHOLE BLD POC Routine 12/22/2024 8:09 AM EDT ~PT, ~INR - ANTI COAG CLINIC Routine 12/22/2024 8:09 AM EDT PROTHROMBIN TIME WHOLE BLD POC Routine 11/24/2024 9:03 AM EDT ~PT, ~INR - ANTI COAG CLINIC Routine 11/24/2024 9:03 AM EDT PROTHROMBIN TIME WHOLE BLD POC Routine 11/19/2024 8:00 AM EDT ~PT, ~INR - ANTI COAG CLINIC Routine 11/19/2024 8:00 AM EDT PROTHROMBIN TIME WHOLE BLD POC Routine 10/22/2024 8:22 AM EDT ~PT, ~INR - ANTI COAG CLINIC Routine 10/22/2024 8:22 AM EDT LIPID PANEL, STANDARD Routine 12/04/2023 8:10 AM EDT Primary hypertension HM COLONOSCOPY Routine 12/10/2021 9:05 AM EDT ZZZ HISTORICAL HEPATITIS C AB W/REFL TO HCV RNA, QN, PCR Routine 06/29/2021 8:58 AM EDT from Last 3 Months or Most Recently Relevant to Health Maintenance Results * (ABNORMAL) PROTHROMBIN TIME WHOLE BLD POC (01/05/2025 8:22 AM EDT) Only the most recent of5 resultswithin the time period is included. Protime 36.1(H) 11.1 - 13.5 sec [facility] 01/05/2025 8:22 AM EDT 01/05/2025 8:24 AM EDT us Generic External Data Provider LAB BLOOD ORDERAB LES Final Result Performing Organization Address [facility]/ZIP Co de Phone Number [facility] [address] [place] [phone] * (ABNORMAL) ~PT, ~INR - ANTI COAG CLINIC (01/05/2025 8:22 AM EDT) Only the most recent of5 resultswithin the time period is included. Prothrombin Time INR 3.0(H) 0.9 - 1.1 [facility] Comment:METER #: [id number] TERNATIONAL NORMALIZED RATIO (INR) REFERENCE RANGES Reference RangeFor patients not on anticoagulant therapy: 0.9 - 1.1INR ranges for oral anticoagulanttherapy:For prevention and treatment of venous thrombosis and pulmonary embolism: 2.0 - 3.0For acute myocardial infarction with aspirin therapy: 2.0 - 3.0For acute myocardial infarction without aspirin therapy: 3.0 - 4.0For patients with mechanical prosthetic heart valves: 2.5 - 3.5 01/05/2025 8:22 AM EDT 01/05/2025 8:24 AM EDT us Generic External Data Provider LAB BLOOD ORDERAB LES Final Result Performing Organization Address [facility]/ZIP Co de Phone Number [facility] [address] [place] [phone] * (ABNORMAL) Lipid Panel, Standard (12/04/2023 8:10 AM EDT) Triglycerides 154(H) <150 mg/dL [facility] Comment:Desirable Triglyceri de: less than 150 mg/dLBorderline High Triglyceride 150-199 mg/dLHigh Triglyceride: 200-499 mg/dLVery High Triglyceride: greater than or equal to 5OO mg/dL Cholesterol 130 <200 mg/dL [facility] Comment:Desirable Cholestero l: less than 200 mg/dLBorderline High Cholesterol: 200-239 mg/dLHigh Cholesterol: greater than 239 mg/dL LDL Cholesterol Calculated 56 <100 mg/dL [facility] Comment:Desirable LDL: less than 100 mg/dLNear Optimal/Above Optimal LDL: 110- 129 mg/dLBorderline High LDL: 130-159 mg/dLHigh LDL: 160-189 mg/dLVery High LDL: greater than or equal to 190 mg/dL HDL Cholesterol 44 >40 mg/dL [facility] Comment:Desirable HDL: great er than 40 mg/dL Note: This HDL assay may give artificially low results in patients with liver disease. Blood Venous blood specimen / Unknown 12/04/2023 8:10 AM EDT 12/04/2023 2:14 PM EDT Loi Catalan MD LAB BLOOD ORDERABL ES Final Result Performing Organization Address [facility]/ZIP Co de Phone Number [facility] [address] [place] [phone] * Hm Colonoscopy (12/10/2021 9:05 AM EDT) Calderon Provider HEALTH MAINTENANCE Final Result * HEPATITIS C AB W/REFL TO HCV RNA, QN, PCR (06/29/2021 8:58 AM EDT) HEPATITIS C ANTIBODY NON-REACT EZ NON-REACT EZ [facility] INDEX 0.12 <1.00 [facility] Comment: HCV antibody was non-reactive. There is no laboratory evidence of HCV infection. In most cases, no further action is required. However, if recent HCV exposure is suspected, a test for HCV RNA (test code 03932) is suggested. For additional information please refer to http://education.Rad.[employer]/faq/BOA69q7 (This link is being provided for informational/ educational purposes only.) 06/29/2021 8:58 AM EDT Loi Catalan MD HISTORICAL/NON ORD ERABLE LABS Final Result [facility] [address] [place] [address], from Last 3 Months or Most Recently Relevant to Health Maintenance Insurance [facility] STANDARD UHC DUAL COMPLETE Care Teams Field Clerk Relationship Specialty Start Date End Date Loi Pandya MD [address] [place] [phone] PCP - General Internal Medicine 09/13/19
--- OUTSIDE RECORDS SUMMARY | 2025-01-05 08:26 | XMS_ITS | Encounter Summary ---
Demographics Address [address] [place] [address] Mobile Phone Home Phone Preferred Language en Marital Status Unknown Yarsani Affiliation Unknown Race Other Race Ethnic Group Unknown Author Organization [employer] Address [address] [facility] 7t [place] [address] Care Team Providers Care Car Examiner Name Role Phone Loi Pandya MD Primary Care Prov ider Encounter Details Date Type Department Care Team (Late st Contact Info) Description 05/17/2022 Orders Only [facility] MEDICINE [address] [place], [place] [phone] Loi Pandya MD [address] [place], [place] [phone] Permanent atrial fibrillation (CMS/HCC) Social History Tobacco [...] fibrillation documented in this encounter Care Teams Car Examiner Relationship Specialty Start Date End Date Loi Pandya MD [address] [place] [address] PCP - General Internal Medicine 09/13/19 documented as of this encounter
--- OUTSIDE RECORDS SUMMARY | 2025-01-05 08:26 | XMS_ITS | Encounter Summary ---
Demographics Address [address] [place] [address] Mobile Phone Home Phone Preferred Language en Marital Status Unknown Taoism Affiliation Unknown Race Other Race Ethnic Group Unknown Author Organization [facility] [employer] Address [address] [facility] 7t [place] [address] Care Team Providers Care Professional Security Officer Name Role Phone Loi Pandya MD Primary Care Prov ider Reason for Visit * Reason Comments Med Refill Encounter Details Date Type Department Care Team (Late st Contact Info) Description 07/27/2022 Refill [facility] CHC MED & PEDS [address] [place], [place] [phone] Loi Pandya MD [address] [place] [address] Longstanding persistent atrial fibrillation (CMS/HCC) Social History [...] documented as of this encounter Care Teams Professional Security Officer Relationship Specialty Start Date End Date Loi Pandya MD [address] [place] [phone] PCP - General Internal Medicine 09/13/19 documented as of this encounter
--- OUTSIDE RECORDS SUMMARY | 2025-01-05 08:26 | XMS_ITS | Clinical Summary ---
Demographics Address [address] [place] [address] Mobile Phone Home Phone Preferred Language Qatari; Castilian Marital Status Legally Islam Affiliation Unknown Race Unknown Ethnic Group or Author Organization [facility] Address [address] [place] [address] Support Name Relationship Address Phone Luis Antonio Moncada Emergency Contact [address] [place] [address] Care Team Providers Care Chemistry Quality Control Analyst Name Role Phone Unavailable Primary Care Provider [...] Date Secondary hypercoagulable state 08/12/2019 CAD in koi artery 08/11/2019 Social History Tobacco Use Types [...] topic Medical Devices Implanted Type Area School Photograph Editor Device Identifier Shelf Expiration Date Model / Serial / Lot Hemasorb 4 Gm - [id number] - [id number] Implanted:Qty: 1 on 08/11/2019 by Amarjit Alvarado MD at [facility] Chest [employer] 02/10/2022 OS-401 / [id number] / [id number] Atricure Atriclip Flex-V Implanted:Qty: 1 on 08/11/2019 by Amarjit Alvarado MD at [facility] Heart [employer] 09/12/2021 [id number] / / [id number] Description:Item # [id number] Advance Directives For more information, please contact: [phone] Latest Code Status on File Code Status Date Activated Date Inactivated Comments Full Code 08/11/2019 5:30 AM 08/19/2019 8:55 PM This c ode status was ascertained in the following way: per unit protocol.
--- OUTSIDE RECORDS SUMMARY | 2025-01-05 08:26 | XMS_ITS | Clinical Summary ---
Author Organization [facility] Address [address] [place] [address] Care Team Providers Care Drafter Mechanical Name Role Phone Unavailable Primary Care Provider [...] (adult) (1 - 1-dose 75+ series) 2024 [id number] ( - 2023- season) 2024 Imm-Influenza (#1) 2024 Insurance [employer]
--- OUTSIDE RECORDS SUMMARY | 2025-01-05 08:26 | XMS_ITS | Encounter Summary ---
Demographics Address [address] [place] [address] Mobile Phone Home Phone Preferred Language en Marital Status Unknown Mu-Ism Affiliation Unknown Race Other Race Ethnic Group Unknown Author Organization [employer] Address [address] [facility] 7t [place] [address] Care Team Providers Care Machinist Set Up Name Role Phone Loi Pandya MD Primary Care Prov ider Reason for Visit * Reason Comments Med Refill Encounter Details Date Type Department Care Team (Late st Contact Info) Description 11/12/2023 Refill [facility] CHC MED & PEDS [address] [place], [place] [phone] Loi Pandya MD [address] [place] [address] Longstanding persistent atrial fibrillation (CMS/HCC) Social History [...] documented as of this encounter Care Teams Machinist Set Up Relationship Specialty Start Date End Date Loi Pandya MD [address] [place] [phone] PCP - General Internal Medicine 09/13/19 documented as of this encounter
== END 2025-01-05 08:28 | disposition home or self-care (01) ==
LOC: HO.ACS 08:05
PROVIDERS: PCP Internal Medicine; Visit Provider Internal Medicine Medical Oncology
DX: Z79.01 Long term (current) use of anticoagulants (principal)

== ENCOUNTER → 2025-01-05 08:05 | Outpatient (BNVA) | payer OTHER, SELFPAY | PROVIDERS: PCP Internal Medicine; Visit Provider Internal Medicine Medical Oncology | DX: Z51.81 Encounter for therapeutic drug level monitoring (principal); Z79.01 Long term (current) use of anticoagulants | CPT/HCPCS: 85610; 99211 ==

== ENCOUNTER 2025-02-01 12:15 | Outpatient (REF) | payer OTHER, SELFPAY ==
--- NOTE | ~2025-02-01 | CT_ITS ---
EXAMINATION: CT LUNG SCREENING HISTORY: F17.210 - Nicotine dependence, cigarettes, uncomplicated TECHNIQUE: Low dose axial images were obtained from the sternal notch to upper abdomen without IV contrast per standard departmental protocol. Sagittal and coronal reformatted images were also obtained and reviewed. One or more of the following techniques was used for dose reduction: Automated exposure control, adjustment of the mA and/or kV according to patient size, use of iterative reconstruction technique. DLP: 68 mGy-cm COMPARISON: Comparison is made with the prior examination dated 12/25/2023. FINDINGS: Lung nodules: There are punctate nodules in the right upper lobe (series 4, images 42 and 54). No suspicious pulmonary nodules are identified. Emphysema: mild Coronary Calcification: severe, status post CABG Aortic Arch Calcification: mild Potentially Significant Incidentals : none Additional Chest Findings: There is no pleural or pericardial effusion. No mediastinal or axillary lymphadenopathy is identified. Again seen is focal dilatation of the aortic arch measuring up to 3.5 cm in diameter. A left atrial appendage clipped is again noted. Visualized upper abdomen: The visualized portions of the liver, spleen, and adrenals have an unremarkable unenhanced appearance. CT/CT lung screening IMPRESSION: No suspicious pulmonary nodules are identified. LUNG-RADS ASSESSMENT: Lung-RADS 2: Benign MANAGEMENT: Continue annual screening with LDCT in 12 months Category S: N/A Electronically signed by: Isaias Connelly MD 02/01/2025 12:53 PM EDT
--- OUTSIDE RECORDS SUMMARY | 2025-02-01 15:47 | XMS_ITS | Encounter Summary ---
Demographics Address [address] [place] [address] Mobile Phone Home Phone Preferred Language en Marital Status Unknown Alevism Affiliation Unknown Race Other Race Ethnic Group Unknown Author Organization [employer] Address [address] [facility] 7t [place] [address] Care Team Providers Care Hoop Rolls Operator Name Role Phone Loi Pandya MD Primary Care Prov ider Reason for Visit * Reason Comments Med Refill Encounter Details Date Type Department Care Team (Late st Contact Info) Description 11/12/2023 Refill [facility] CHC MED & PEDS [address] [place], [place] [phone] Loi Pandya MD [address] [place] [address] Longstanding persistent atrial fibrillation (CMS/HCC) Social History [...] Diagnoses Diagnosis Longstanding persistent atrial fibrillation (CMS/HCC) (HCC) documented in this encounter Additional Health Concerns Assessment Noted Time PHQ-9 Depression Total Score: 0 07/20/19 23 10:39 AM EDT documented as of this encounter Care Teams Hoop Rolls Operator Relationship Specialty Start Date End Date Loi Pandya MD [address] [place] [phone] PCP - General Internal Medicine 09/13/19 documented as of this encounter
--- OUTSIDE RECORDS SUMMARY | 2025-02-01 15:47 | XMS_ITS | Clinical Summary ---
Author Organization [employer] Address [address] [facility] 7t [place] [address] Care Team Providers Care School Transportation Director Name Role Phone Loi Pandya MD Primary Care Prov ider Allergies No known active allergies Medications aspirin 81 MG EC tablet take 1 tablet by oral route every day 09/27/19 20 Active Citrucel 500 MG tablet TAKE 1 TABLET BY MOUTH DAILY WITH FULL GLASS OF WATER 12/27/19 22 Active warfarin (Coumadin) 5 MG tabletIndications: Permanent atrial fibrillation (CMS/HCC) (HCC) TAKE 1.5 TABLETS (7.5 MG) BY MOUTH IN THE EVENING. 135 tablet 3 04/30/19 25 Active metoprolol succinate XL (Toprol-XL) 50 MG 24 hr tablet Take 1 tablet by mouth Once per day. 06/22/19 25 Active losartan (Cozaar) 100 MG tabletIndications: Longstanding persistent atrial fibrillation (CMS/HCC) (HCC) TAKE 1 TABLET BY MOUTH EVERY MORNING 90 tablet 3 10/05/19 25 Active amLODIPine (Norvasc) 10 MG tabletIndications: Primary hypertension TAKE 1 TABLET (10 MG) BY MOUTH ONCE PER DAY. 90 tablet 3 10/05/19 25 Active dilTIAZem CD (Cardizem CD) 180 MG 24 hr capsuleIndications :Longstanding persistent atrial fibrillation (CMS/HCC) (HCC) TAKE 1 CAPSULE BY MOUTH EVERY DAY IN THE MORNING 90 capsule 3 12/08/19 25 Active atorvastatin (Lipitor) 40 MG tabletIndications: Mixed hyperlipidemia TAKE 1 TABLET BY MOUTH EVERY DAY IN THE MORNING 90 tablet 3 01/05/20 25 Active atorvastatin (Lipitor) 40 MG tabletIndications: Mixed hyperlipidemia TAKE 1 TABLET BY MOUTH EVERY DAY IN THE MORNING 90 tablet 3 02/23/20 24 025 Discontinued Active Problems Problem Noted Date [...] continue same treatment Longstanding persistent atrial fibrillation (CMS /HCC) 04/09/2022 Assessment & Plan (11/13/2023 1:59 PM EDT): On warfarin, inr 2.4, no bleeding reported, told to follow up with cardiology Assessment & Plan (07/19/2022 11:15 AM EDT): On coumadin, followed at coumadin clinic, no episode of bleeding, no changes will be made Assessment & Plan (04/09/2022 10:48 AM EST): 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 by adobe ball mixer, on diltiazem and warfarin, no recent er visit due to exacerbation Anticoagulated on Coumadin 04/09/2022 Assessment & Plan (04/09/2022 10:51 AM EST): Patient on coumadin 7.5mg daily, no episode of bleeding, followed at coumadin clinic, no changes will be made Secondary hypercoagulable state 08/12/2019 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/11/2019 Encounters Date Type Department Care Team Description 02/01/2025 Orders Only GENERIC EXTERNAL DATA DEPARTMENT Provider, Generic External Data 01/05/2025 Orders Only GENERIC EXTERNAL DATA DEPARTMENT Provider, Generic External Data 01/01/2025 Refill [facility] CHC MED & PEDS [address] [place] [address] Loi Pandya MD Mixed hyperlipidemia 12/22/2024 Orders Only GENERIC EXTERNAL DATA DEPARTMENT Provider, Generic External Data 12/04/2024 Refill [facility] CHC MED & PEDS [address] [place] [address] Loi Pandya MD Longstanding persistent atrial fibrillation ([facility]/HCC) 11/26/2024 Refill [facility] CHC MED & PEDS [address] [place] [address] Loi Pandya MD Longstanding persistent atrial fibrillation ([facility]/HCC) 11/24/2024 Orders Only GENERIC EXTERNAL DATA DEPARTMENT [...] series) 2024 Depression Screening 11/12/2024 11/13/2023, 11/13/19 24 SDOH Screening 11/12/2024 11/13/2023 COVID-19 Vaccine ( [...] Comments PROTHROMBIN TIME WHOLE BLD POC Routine 02/01/2025 1:23 PM EDT ~PT, ~INR - ANTI COAG CLINIC Routine 02/01/2025 1:23 PM EDT LDCT LUNG SCREENING Routine 02/01/2025 1 2:34 PM EDT PROTHROMBIN TIME WHOLE BLD POC Routine 01/05/2025 [...] COAG CLINIC Routine 11/19/2024 8:00 AM EDT LIPID PANEL, STANDARD Routine 12/04/2023 8:10 AM EDT Primary hypertension HM COLONOSCOPY Routine 12/10/2021 9:05 AM EDT ZZZ HISTORICAL HEPATITIS C AB W/REFL TO HCV RNA, QN, PCR Routine 06/29/2021 8:58 AM EDT from Last 3 Months or Most Recently Relevant to Health Maintenance Results * (ABNORMAL) PROTHROMBIN TIME WHOLE BLD POC (02/01/2025 1:23 PM EDT) Only the most recent of5 resultswithin the time period is included. Protime 26.1(H) 11.1 - 13.5 sec [facility] 02/01/2025 1:23 PM EDT 02/01/2025 1:26 PM EDT us Generic External Data Provider LAB BLOOD ORDERAB LES Final Result Performing Organization Address [facility] Co de Phone Number [facility] [address] [place] [phone] * (ABNORMAL) ~PT, ~INR - ANTI COAG CLINIC (02/01/2025 1:23 PM EDT) Only the most recent of5 resultswithin the time period is included. Prothrombin Time INR 2.2(H) 0.9 - 1.1 [facility] Comment:METER #: [id number] TERNATIONAL NORMALIZED RATIO (INR) REFERENCE RANGES Reference RangeFor patients not on anticoagulant therapy: 0.9 - 1.1INR ranges for oral anticoagulanttherapy:For prevention and treatment of venous thrombosis and pulmonary embolism: 2.0 - 3.0For acute myocardial infarction with aspirin therapy: 2.0 - 3.0For acute myocardial infarction without aspirin therapy: 3.0 - 4.0For patients with mechanical prosthetic heart valves: 2.5 - 3.5 02/01/2025 1:23 PM EDT 02/01/2025 1:26 PM EDT Generic External Data Provider LAB BLOOD ORDERAB LES Final Result Performing Organization Address [facility] Co de Phone Number [facility] [address] [place] [phone] * CT Lung Screening Low dose (02/01/2025 12:34 PM EDT) Anatomical Region Laterality Modality Lung Computed Tomogra phy 02/01/2025 12:3 4 PM EDT Narrative 02/01/2025 12:56 PM EDT [address] [address] [address] Scan Report Signed Patient: Carlos Gorman MR #: [id number] : 1950 Acct:[id number] Age/Sex: 74 / M ADM Date: 02/01/25 Loc: HO.CT Attending Dr: Rae Pressley PA-C Ordering Physician: Rae Pressley PA-C Date of Service: 02/01/25 Procedure(s): CT lung screening Accession Number(s): [id number] cc: Loi Pandya MD; Rae Pressley PA-C Report Number: [id number]: Total DLP = 68.00 mGy-cm Reason for Exam: F17.210 - Nicotine dependence, cigarettes, uncomplicated EXAMINATION: CT LUNG SCREENING HISTORY: F17.210 - Nicotine dependence, cigarettes, uncomplicated TECHNIQUE: Low dose axial images were obtained from the sternal notch to upper abdomen without IV contrast per standard departmental protocol. Sagittal and coronal reformatted images were also obtained and reviewed. One or more of the following techniques was used for dose reduction: Automated exposure control, adjustment of the mA and/or kV according to patient size, use of iterative reconstruction technique. DLP: 68 mGy-cm COMPARISON: Comparison is made with the prior examination dated 12/25/2023. FINDINGS: Lung nodules: There are punctate nodules in the right upper lobe (series 4, images 42 and 54). No suspicious pulmonary nodules are identified. Emphysema: mild Coronary Calcification: severe, status post CABG Aortic Arch Calcification: mild Potentially Significant Incidentals : none Additional Chest Findings: There is no pleural or pericardial effusion. No mediastinal or axillary lymphadenopathy is identified. Again seen is focal dilatation of the aortic arch measuring up to 3.5 cm in diameter. A left atrial appendage clipped is again noted. Visualized upper abdomen: The visualized portions of the liver, spleen, and adrenals have an unremarkable unenhanced appearance. CT/CT lung screening IMPRESSION: No suspicious pulmonary nodules are identified. LUNG-RADS ASSESSMENT: Lung-RADS 2: Benign MANAGEMENT: Continue annual screening with LDCT in 12 months Category S: N/A Electronically signed by: Isaias Connelly MD 02/01/2025 12:53 PM EDT Dictated By: Isaias Connelly MD Signed By: <Electronically signed by Isaias Connelly MD in OV> 02/01/25 1253 DD/ 1234 TD/TT: 02/01/25 1244 Juvenile Justice Specialist: Procedure Note Donotuseinterpreter, Image - 02/01/[address] [address] [address] Scan Report Signed Patient: Tyler Gorman #: [id number] : 1950Acct:[id number] Age/Sex: 74 / MADM Date: 02/01/25 Loc: HO.CT Attending Dr: Rae Pressley PA-C Ordering Physician: Rae Pressley PA-C Date of Service: 02/01/25 Procedure(s): CT lung screening Accession Number(s): [id number] cc: Loi Pandya MD; Rae Pressley PA-C Report Number: [id number]: Total DLP = 68.00 mGy-cm Reason for Exam: F17.210 - Nicotine dependence, cigarettes, uncomplicated EXAMINATION: CT LUNG SCREENING HISTORY: F17.210 - Nicotine dependence, cigarettes, uncomplicated TECHNIQUE: Low dose axial images were obtained from the sternal notch to upper abdomen without IV contrast per standard departmental protocol. Sagittal and coronal reformatted images were also obtained and reviewed. One or more of the following techniques was used for dose reduction: Automated exposure control, adjustment of the mA and/or kV according to patient size, use of iterative reconstruction technique. DLP: 68 mGy-cm COMPARISON: Comparison is made with the prior examination dated 12/25/2023. FINDINGS: Lung nodules: There are punctate nodules in the right upper lobe (series 4, images 42 and 54). No suspicious pulmonary nodules are identified. Emphysema: mild Coronary Calcification: severe, status post CABG Aortic Arch Calcification: mild Potentially Significant Incidentals : none Additional Chest Findings: There is no pleural or pericardial effusion. No mediastinal or axillary lymphadenopathy is identified. Again seen is focal dilatation of the aortic arch measuring up to 3.5 cm in diameter. A left atrial appendage clipped is again noted. Visualized upper abdomen: The visualized portions of the liver, spleen, and adrenals have an unremarkable unenhanced appearance. CT/CT lung screening IMPRESSION: No suspicious pulmonary nodules are identified. LUNG-RADS ASSESSMENT: Lung-RADS 2: Benign MANAGEMENT: Continue annual screening with LDCT in 12 months Category S: N/A Electronically signed by: Isaias Connelly MD 02/01/2025 12:53 PM EDT RP Dictated By: Isaias Connelly MD Signed By: <Electronically signed by Isaias Connelly MD in OV> 02/01/25 1253 DD/ 1234 TD/TT: 02/01/25 1244 Juvenile Justice Specialist: [facility] External Provider IMG CT PROCEDURES Edited Result - Final * (ABNORMAL) Lipid Panel, Standard (12/04/2023 8:10 AM EDT) Triglycerides 154(H) <150 mg/dL [facility] Comment:Desirable Triglyceri de: less than 150 mg/dLBorderline High Triglyceride 150-199 mg/dLHigh Triglyceride: 200-499 mg/dLVery High Triglyceride: greater than or equal to 5OO mg/dL Cholesterol 130 <200 mg/dL [facility] Comment:Desirable Cholestero l: less than 200 mg/dLBorderline High Cholesterol: 200-239 mg/dLHigh Cholesterol: greater than 239 mg/dL LDL Cholesterol Calculated 56 <100 mg/dL [facility] Comment:Desirable LDL: less than 100 mg/dLNear Optimal/Above Optimal LDL: 110- 129 mg/dLBorderline High LDL: 130-159 mg/dLHigh LDL: 160-189 mg/dLVery High LDL: greater than or equal to 190 mg/dL HDL Cholesterol 44 >40 mg/dL [facility] Comment:Desirable HDL: great er than 40 mg/dL Note: This HDL assay may give artificially low results in patients with liver disease. Blood Venous blood specimen / Unknown 12/04/2023 8:10 AM EDT 12/04/2023 2:14 PM EDT Loi Catalan MD LAB BLOOD ORDERABL ES Final Result [facility] [address] [place] [phone] [phone] * Hm Colonoscopy (12/10/2021 9:05 AM EDT) Historical Provider HEALTH MAINTENANCE Final Result * HEPATITIS C AB W/REFL TO HCV RNA, QN, PCR (06/29/2021 8:58 AM EDT) HEPATITIS C ANTIBODY NON-REACT EZ NON-REACT [facility] INDEX 0.12 <1.00 [facility] Comment: HCV antibody was non-reactive. There is no laboratory evidence of HCV infection. In most cases, no further action is required. However, if recent HCV exposure is suspected, a test for HCV RNA (test code 61807) is suggested. For additional information please refer to http://education.Perfectore/faq/QLJ22f1 (This link is being provided for informational/ educational purposes only.) 06/29/2021 8:58 AM EDT Loi Catalan MD HISTORICAL/NON ORD ERABLE LABS Final Result Performing Organization Address City/State/[facility] Co de Phone Number [facility] [address] [phone], from Last 3 Months or Most Recently Relevant to Health Maintenance Insurance * Guarantor: Carlos Gorman Account Type Relation to Patient Date of Phone Billing Address Personal/Family Self 1950 [address] [place] [address] [facility] STANDARD [facility] DUAL COMPLETE * Guarantor: Carlos Gorman Account Type Relation to Patient Date of Phone Billing Address Personal/Family Self [address] [place] [phone] * Guarantor: Carlos Gorman Account Type Relation to Patient Date of Phone Billing Address Personal/Family Self [address] [place] [address] * Guarantor: Carlos Gorman Account Type Relation to Patient Date of Phone Billing Address Personal/Family Self [address] [place] [address] Care Teams School Transportation Director Relationship Specialty Start Date End Date Loi Pandya MD [address] [place] [address] [place] [phone] PCP - General Internal Medicine 09/13/19
--- OUTSIDE RECORDS SUMMARY | 2025-02-01 15:47 | XMS_ITS | Encounter Summary ---
Demographics Address [address] [place] [address] Mobile Phone Home Phone Preferred Language en Marital Status Unknown Mormon Affiliation Unknown Race Other Race Ethnic Group Unknown Author Organization [employer] Address [address] 7t [place] [address] Care Team Providers Care Electric Power Line Repairer Name Role Phone Loi Pandya MD Primary Care Prov ider Encounter Details Date Type Department Care Team (Late st Contact Info) Description 02/01/2025 Orders Only GENERIC EXTERNAL DATA [...] COAG CLINIC Routine 02/01/2025 1:23 PM EDT documented in this encounter Results * (ABNORMAL) PROTHROMBIN TIME WHOLE BLD POC (02/01/2025 1:23 PM EDT) Protime 26.1(H) 11.1 - 13.5 sec [facility] 02/01/2025 1:23 PM EDT 02/01/2025 1:26 PM EDT us Generic External Data Provider LAB BLOOD ORDERAB LES Final Result Performing Organization Address City/State/[facility] Co de Phone Number [facility] [address] [place] [phone] * (ABNORMAL) ~PT, ~INR - ANTI COAG CLINIC (02/01/2025 1:23 PM EDT) Prothrombin Time INR 2.2(H) 0.9 - 1.1 [facility] Comment:METER #: [id number] TERNATIONAL NORMALIZED RATIO (INR) REFERENCE RANGES Reference [...] ORDERAB LES Final Result Performing Organization Address City/State/[facility] Co de Phone Number [facility] [address] [place] [phone] documented in this encounter Visit Diagnoses Not on filedocumented in this encounter Additional Health Concerns Assessment Noted Time PHQ-9 Depression Total Score: 0 11/13/19 24 10:51 AM EDT documented as of this encounter Care Teams Electric Power Line Repairer Relationship Specialty Start Date End Date Loi Pandya MD [address] [place] [phone] PCP - General Internal Medicine 09/13/19 documented as of this encounter
--- OUTSIDE RECORDS SUMMARY | 2025-02-01 15:47 | XMS_ITS | Encounter Summary ---
Demographics Address [address] [facility] [place] [address] Mobile Phone Home Phone Preferred Language en Marital Status Unknown Moravian Affiliation Unknown Race Other Race Ethnic Group Unknown Author Organization [employer] Address [address]t [place] [address] Care Team Providers Care Corncob Pipe Supervisor Name Role Phone Loi Pandya MD Primary Care Prov ider Encounter Details Date Type Department Care Team (Late st Contact Info) Description 07/31/2023 Orders Only [facility] [address] [place], [place] [phone] ProviderCalderon MD Social History Tobacco Use Types [...] documented as of this encounter Care Teams Corncob Pipe Supervisor Relationship Specialty Start Date End Date MelgarLoi Sears MD [address] [place] [phone] PCP - General Internal Medicine 09/13/19 documented as of this encounter
--- OUTSIDE RECORDS SUMMARY | 2025-02-01 15:47 | XMS_ITS | Encounter Summary ---
Demographics Address [address] [address] [place] [address] Mobile Phone Home Phone Preferred Language en Marital Status Unknown Nondenominational Affiliation Unknown Race Other Race Ethnic Group Unknown Author Organization [employer] Address [address] [facility] 7t [place] [address] Care Team Providers Care Plant Wrapper Name Role Phone Loi Pandya MD Primary Care Prov ider Encounter Details Date Type Department Care Team (Late st Contact Info) Description 05/17/2022 Orders Only [facility] MEDICINE [address] [place] [address] Loi Pandya MD [address] [place] [address] Permanent atrial fibrillation (CMS/HCC) Social History Tobacco [...] Visit Diagnoses Diagnosis Permanent atrial fibrillation (CMS/HCC) (HCC) Atrial fibrillation documented in this encounter Care Teams Plant Wrapper Relationship Specialty Start Date End Date Loi Pandya MD [address] [place] [address] PCP - General Internal Medicine 09/13/19 documented as of this encounter
--- OUTSIDE RECORDS SUMMARY | 2025-02-01 15:47 | XMS_ITS | Encounter Summary ---
Demographics Address [address] [place] [address] Mobile Phone Home Phone Preferred Language en Marital Status Unknown Gnosticist Affiliation Unknown Race Other Race Ethnic Group Unknown Author Organization [employer] Address [address] [facility] 7t [place] [address] Care Team Providers Care Chemical Production Engineer Name Role Phone Loi Pandya MD Primary Care Prov ider Reason for Visit * Reason Comments Med Refill Encounter Details Date Type Department Care Team (Late st Contact Info) Description 07/30/2023 Refill [facility] CHC MED & PEDS [address] [place], [place] [phone] oLi Pandya MD [address] [place] [address] Longstanding persistent atrial fibrillation (CMS/HCC) Social History [...] documented as of this encounter Care Teams Chemical Production Engineer Relationship Specialty Start Date End Date Loi Pandya MD [address] [place] [phone] PCP - General Internal Medicine 09/13/19 documented as of this encounter
--- OUTSIDE RECORDS SUMMARY | 2025-02-01 15:48 | XMS_ITS | Clinical Summary ---
Demographics Address [address] [place] [address] Mobile Phone Home Phone Preferred Language Greenlandic; Castilian Marital Status Legally Christianity Affiliation Unknown Race Unknown Ethnic Group or Author Organization [facility] Address [address] [place] [address] Support Name Relationship Address Phone Luis Antonio Padgettles Emergency Contact 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 Social History Tobacco Use Types [...] this topic Medical Devices Implanted Type Area Zinc Furnace Charger Device Identifier Shelf Expiration Date Model / Serial / Lot Hemasorb 4 Gm - [id number] - [id number] Implanted:Qty: 1 on 08/11/2019 by Amarjit Alvarado MD at [facility] and [facility] [employer] 02/10/2022 OS-[id number] / [id number] / [id number] Atricure Atriclip Flex-V Implanted:Qty: 1 on 08/11/2019 by Amarjit Alvarado MD at [facility] and [facility] Heart [employer] 09/12/2021 [id number] / / [id number] Description:Item # [id number] Advance Directives For more information, please contact: [phone] Latest Code Status on File Code Status Date Activated Date Inactivated Comments Full Code 08/11/2019 5:30 AM 08/19/2019 8:55 PM This c ode status was ascertained in the following way: per unit protocol.
--- OUTSIDE RECORDS SUMMARY | 2025-02-01 15:48 | XMS_ITS | Clinical Summary ---
Author Organization [facility] Address [address] [place] [address] Care Team Providers Care Claims Attorney Name Role Phone Unavailable Primary Care Provider [...] (adult) (1 - 1-dose 75+ series) 2024 Apl-[id number] ( - 2024- season) 2024 Imm-Influenza (#1) 2024 Insurance [employer]
--- OUTSIDE RECORDS SUMMARY | 2025-02-01 15:48 | XMS_ITS | Encounter Summary ---
Demographics Address [address] [facility] [place] [address] Mobile Phone Home Phone Preferred Language en Marital Status Unknown Druze Affiliation Unknown Race Other Race Ethnic Group Unknown Author Organization [employer] Address [address] [facility] 7t [place] [address] Care Team Providers Care Warper Tender Name Role Phone Loi Pandya MD Primary Care Prov ider Reason for Visit * Reason Comments Med Refill Encounter Details Date Type Department Care Team (Late st Contact Info) Description 07/27/2022 Refill [facility] CHC MED & PEDS [address] [place], [place] [phone] Loi Pandya MD [address] [place] [address] Longstanding persistent atrial fibrillation (CMS/HCC) Social History [...] documented as of this encounter Care Teams Warper Tender Relationship Specialty Start Date End Date MelgarLoi Sears MD [address] [place] [phone] PCP - General Internal Medicine 09/13/19 documented as of this encounter
== END 2025-02-01 12:16 | disposition home or self-care (01) ==
LOC: HO.CT 12:15
PROVIDERS: PCP Internal Medicine; Visit Provider Physician Assistant Medical
DX: Z12.2 Encounter for screening for malignant neoplasm of respiratory organs (principal); F17.210 Nicotine dependence, cigarettes, uncomplicated; I48.21 Permanent atrial fibrillation; Z51.81 Encounter for therapeutic drug level monitoring; Z79.01 Long term (current) use of anticoagulants
CPT/HCPCS: 71271; 85610; 99211

== ENCOUNTER → 2025-02-01 12:16 | Outpatient (BNV) | payer OTHER, SELFPAY | PROVIDERS: PCP Internal Medicine; Visit Provider Radiology Diagnostic Radiology | DX: F17.210 Nicotine dependence, cigarettes, uncomplicated (principal) | CPT/HCPCS: 71271 ==

== ENCOUNTER 2025-02-01 13:04 | Outpatient (AMB) | payer OTHER, SELFPAY ==
[2025-02-01 13:26] LABS: Prothrombin Time Whole Bld POC 26.1 sec (11.1-13.5); ~PT, ~INR - Anti Coag Clinic 2.2 (0.9-1.1)
--- NOTE | 2025-02-01 13:27 | MHC.OFFVISCO ---
Intake Intake Visit Reasons: Anticoagulation Allergies No Known Allergies Allergy (Verified 02/01/25 13:21) Medication List - Last Reconciled 02/01/25 by No Mena, RN amlodipine 10 mg PO DAILY aspirin 81 mg PO DAILY atorvastatin 40 mg PO DAILY cholecalciferol (vitamin D3) PO losartan 100 mg PO DAILY methylcellulose (laxative) (Citrucel) 500 mg PO DAILY metoprolol succinate ER 50 mg PO DAILY multivit with min-folic acid (Adult One Daily Multivitamin) PO omega-3 fatty acids (Fish Oil Concentrate) 1200 PO daily; vitamin E (dl, acetate) PO warfarin 5 mg See Protocol PO DAILY Nursing Note INR: 2.2 in therapeutic range of 2-3 Medications and supplements reviewed No changes in health, diet, medications, or supplements, Denies any signs and symptoms of bleeding or bruising or clotting. Bleeding, bruising, clotting discussed Nutritional guidance given Dose: 7.5mg X 5 days and 5mg X 2 days (Sun & Thurs) F/U INR: 4 weeks Patient verbalizes understanding of instructions given Anti-Coag Initial Assessment Social Hx Patient Tobacco Use Status: Current everyday Tobacco user Tobacco use type: Cigarette alcohol intake: never Coding Level of Care Code Est Patient Level 1 Diagnoses Current use of anticoagulant therapy Z79.01 Assessment & Plan Assessment & Plan (1) Current use of anticoagulant therapy: Code(s): Z79.01 - rn long term care (current) use of anticoagulants Category: Medical
--- OUTSIDE RECORDS SUMMARY | 2025-02-01 16:52 | XMS_ITS | Clinical Summary ---
Author Organization [facility] Address [address] [place] [address] Care Team Providers Care Agronomy Technician Name Role Phone Unavailable Primary Care [...] Date Smoking Tobacco: Every Day Cigarettes 1 60.8 Started: 04/14/1965 Smokeless Tobacco: Never Alcohol Use [...] this topic Medical Devices Implanted Type Area Six Pack Packer Device Identifier Shelf Expiration Date Model / Serial / Lot Hemasorb 4 Gm - [id number] - [id number] Implanted:Qty: 1 on 08/11/2019 by Amarjit Alvarado MD Chest [employer] 02/10/2022 OS-401 / [id number] / [id number] Atricure Atriclip Flex-V Implanted:Qty: 1 on 08/11/2019 by Amarjit Alvarado MD Heart [employer] 09/12/2021 [id number] / / [id number] Description:Item # [id number] Advance Directives Documents on File Type Date Recorded Patient Engagement Liaison Expl anation Health Care Decision (hx) 06/25/2019 AD BAER DIRECTIVE Health Care Decision (hx) 06/25/2019 AD BAER DIRECTIVE Health Care Decision (hx) 06/25/2019 AD BAER DIRECTIVE Health Care Decision (hx) 06/25/2019 AD BAER DIRECTIVE
== END 2025-02-01 13:37 | disposition home or self-care (01) ==
LOC: HO.ACS 13:04
PROVIDERS: PCP Internal Medicine; Visit Provider Internal Medicine Medical Oncology
DX: Z79.01 Long term (current) use of anticoagulants (principal)

== ENCOUNTER 2025-03-01 07:59 | Outpatient (AMB) | payer OTHER, SELFPAY ==
[2025-03-01 08:08] LABS: Prothrombin Time Whole Bld POC 28.7 sec (11.1-13.5); ~PT, ~INR - Anti Coag Clinic 2.4 (0.9-1.1)
--- NOTE | 2025-03-01 08:08 | MHC.OFFVISCO ---
Intake Intake Visit Reasons: Anticoagulation Allergies No Known Allergies Allergy (Verified 03/01/25 08:02) Medication List - Last Reconciled 03/01/25 by No Mena RN amlodipine 10 mg PO DAILY aspirin 81 mg PO DAILY atorvastatin 40 mg PO DAILY cholecalciferol (vitamin D3) PO losartan 100 mg PO DAILY methylcellulose (laxative) (Citrucel) 500 mg PO DAILY metoprolol succinate ER 50 mg PO DAILY multivit with min-folic acid (Adult One Daily Multivitamin) PO omega-3 fatty acids (Fish Oil Concentrate) 1200 PO daily; vitamin E (dl, acetate) PO warfarin 5 mg See Protocol PO DAILY Nursing Note INR: 2.4 in therapeutic range of 2-3 Medications and supplements reviewed No changes in diet, medications, or supplements, Pt states he is getting over a cold and is wearing a mask Denies any signs and symptoms of bleeding or bruising or clotting. Bleeding, bruising, clotting discussed Nutritional guidance given Dose: 7.5mg X 5 days and 5mg X 2 days (Sun/Th) F/U INR: 4 weeks Patient verbalizes understanding of instructions with read back given Anti-Coag Initial Assessment Social Hx Patient Tobacco Use Status: Current everyday Tobacco user Tobacco use type: Cigarette alcohol intake: never Questionnaires HAS-BLED Does the patient had uncontrolled Hypertension?: No Does the patient have renal disease?: No Does the patient have liver disease?: No Does the patient have a history of stroke?: No Has the patient had major bleeding or predisposition to bleeding?: No Does the patient have labile INRs?: No Is the patient over 65 years of age?: Yes Is the patient on medications that gives them a predisposition to bleeding?: Yes Does the patient use alcohol?: Yes HAS-BLED Score: 3 CHADSVASC Age: 75 or over Gender: Male Does the patient have a history of CHF?: Yes Does the patient have a history of Hypertension?: Yes Does the patient have a history of Stroke/TIA/Thromboembolism?: No Does the patient have a history of Vascular Disease (prior PA, PAD or aortic plaque)?: Yes (CABG 2 vessels) Does the patient have a history of Diabetes?: No CHADS VACS Score: 5 Reji Prediction Score Rsk VTE Active Cancer: No Previous VTE, excluding superficial vein thrombosis: No Reduced mobility: No Already known Thrombophilic Condition: No With-in last month Trauma and/or Surgery: No Elderly 70 year or older: Yes Heart and/or Respiratory Failure: No Acute Myocardial infarction and/or Ischemic Stroke: Yes Acute Infection and/or Rheumatologic Disorder: No Obesity (BMI 30 or greater): Yes Ongoing Hormonal Treatment: No Score: 3 Reji Score less than 4; Low Risk of VTE Reji Score 4 or greater; High Risk of VTE Coding Level of Care Code Est Patient Level 1 Diagnoses Current use of anticoagulant therapy Z79.01 Assessment & Plan Assessment & Plan (1) Current use of anticoagulant therapy: Code(s): Z79.01 - intermediate (current) use of anticoagulants Category: Medical
== END 2025-03-01 08:24 | disposition home or self-care (01) ==
LOC: HO.ACS 07:59
PROVIDERS: PCP Internal Medicine; Visit Provider Internal Medicine Medical Oncology
DX: Z79.01 Long term (current) use of anticoagulants (principal)

== ENCOUNTER → 2025-03-01 07:59 | Outpatient (BNVA) | payer OTHER, SELFPAY | PROVIDERS: PCP Internal Medicine; Visit Provider Internal Medicine Medical Oncology | DX: I48.21 Permanent atrial fibrillation (principal); Z51.81 Encounter for therapeutic drug level monitoring; Z79.01 Long term (current) use of anticoagulants | CPT/HCPCS: 85610; 99211 ==

== ENCOUNTER 2025-03-29 09:02 | Outpatient (AMB) | payer OTHER, SELFPAY ==
[2025-03-29 09:21] LABS: Prothrombin Time Whole Bld POC 45.1 sec (11.1-13.5); ~PT, ~INR - Anti Coag Clinic 3.8 (0.9-1.1)
--- NOTE | 2025-03-29 10:02 | MHC.OFFVISCO ---
Intake Intake Visit Reasons: Anticoagulation Allergies No Known Allergies Allergy (Verified 03/29/25 09:11) Medication List - Last Reconciled 03/29/25 by Nury Ward RN amlodipine 10 mg PO DAILY aspirin 81 mg PO DAILY atorvastatin 40 mg PO DAILY cholecalciferol (vitamin D3) PO losartan 100 mg PO DAILY methylcellulose (laxative) (Citrucel) 500 mg PO DAILY metoprolol succinate ER 50 mg PO DAILY multivit with min-folic acid (Adult One Daily Multivitamin) PO omega-3 fatty acids (Fish Oil Concentrate) 1200 PO daily; vitamin E (dl, acetate) PO warfarin 5 mg See Protocol PO DAILY Nursing Note INR 3.8 out of therapeutic range Medications and supplements reviewed Patient status: Pt reports he had marina yesterday, he has been drinking nora tea every other night, has not had greens, plus had a cold and was in bed fro a few days - all can contribute to elevated INR Medications or supplements: no changes Diet: same Denies any signs and symptoms of bleeding or clotting or unusual bruising Bleeding, bruising, clotting discussed Nutritional guidance given: resume greens in his diet weekly avocado and lettuce Dose: hold today then resume usual dose F/U INR Date: 12 days Patient verbalizing understanding of instructions given. 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
--- OUTSIDE RECORDS SUMMARY | 2025-03-29 10:14 | XMS_ITS | Clinical Summary ---
Author Organization [employer] Address [address] [facility] [address] [place] [address] Care Team Providers Care Handle Lathe Operator Name Role Phone Loi Pandya MD Primary Care Prov ider Allergies No known active allergies Medications aspirin 81 MG EC tablet take 1 tablet by oral route every day 0 Active Citrucel 500 MG tablet TAKE 1 TABLET BY MOUTH DAILY WITH FULL GLASS OF WATER 2 Active warfarin (Coumadin) 5 MG tabletIndications:P ermanent atrial fibrillation (CMS/HCC) (HCC) TAKE 1.5 TABLETS (7.5 MG) BY MOUTH IN THE EVENING. 135 tablet 3 5 Active metoprolol succinate XL (Toprol-XL) 50 MG 24 hr tablet Take 1 tablet by mouth Once per day. 5 Active losartan (Cozaar) 100 MG tabletIndications:L ongstanding persistent atrial fibrillation (CMS/HCC) (HCC) TAKE 1 TABLET BY MOUTH EVERY MORNING 90 tablet 3 5 Active amLODIPine (Norvasc) 10 MG tabletIndications:P rimary hypertension TAKE 1 TABLET (10 MG) BY MOUTH ONCE PER DAY. 90 tablet 3 5 Active dilTIAZem CD (Cardizem CD) 180 MG 24 hr capsuleIndications: Longstanding persistent atrial fibrillation (CMS/HCC) (HCC) TAKE 1 CAPSULE BY MOUTH EVERY DAY IN THE MORNING 90 capsule 3 5 Active atorvastatin (Lipitor) 40 MG tabletIndications:M ixed hyperlipidemia TAKE 1 TABLET BY MOUTH EVERY DAY IN THE MORNING 90 tablet 3 5 Active Active Problems Problem [...] (04/09/2022 10:48 AM EST): 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 by regulatory technician, on diltiazem and warfarin, no recent er visit due to exacerbation Anticoagulated on Coumadin 04/09/2022 Assessment & Plan (04/09/2022 10:51 AM EST): Patient on coumadin 7.5mg daily, no episode of bleeding, followed at coumadin clinic, no changes will be made Secondary hypercoagulable state 08/12/2019 CAD in [place] artery 08/11/2019 Encounters Date Type Department Care Team Description 03/29/2025 Orders Only GENERIC EXTERNAL DATA DEPARTMENT Provider, Generic External Data 03/01/2025 Orders Only GENERIC EXTERNAL DATA DEPARTMENT Provider, Generic External Data 02/01/2025 Orders Only GENERIC EXTERNAL DATA DEPARTMENT Provider, Generic External Data 01/05/2025 Orders Only GENERIC EXTERNAL DATA DEPARTMENT Provider, Generic External Data 01/01/2025 Refill [facility] [address] [place] [address] Loi Pandya MD Mixed hyperlipidemia from Last 3 Months Immunizations Immunization Administration [...] Vaccine: 50+ Years (2 of 2 - PPSV23, PCV20, or PCV21) 09/25/2021 07/31/2021 Zoster Vaccines (2 of 2) [...] Comments PROTHROMBIN TIME WHOLE BLD POC Routine 03/29/2025 9:19 AM EST ~PT, ~INR - ANTI COAG CLINIC Routine 03/29/2025 9:19 AM EST PROTHROMBIN TIME WHOLE BLD POC Routine 03/01/2025 8:05 AM EST ~PT, ~INR - ANTI COAG CLINIC Routine 03/01/2025 8:05 AM EST PROTHROMBIN TIME WHOLE BLD POC Routine 02/01/2025 1:23 PM EDT ~PT, ~INR - ANTI COAG CLINIC Routine 02/01/2025 1:23 PM EDT LDCT LUNG SCREENING Routine 02/01/2025 1 2:34 PM EDT PROTHROMBIN TIME WHOLE BLD POC Routine 01/05/2025 8:22 AM EDT ~PT, ~INR - ANTI COAG CLINIC Routine 01/05/2025 8:22 AM EDT LIPID PANEL, STANDARD Routine 12/04/2023 8:10 AM EDT Primary hypertension HM COLONOSCOPY Routine 12/10/2021 9:05 AM EDT ZZZ HISTORICAL HEPATITIS C AB W/REFL TO HCV RNA, QN, PCR Routine 06/29/2021 8:58 AM EDT from Last 3 Months or Most Recently Relevant to Health Maintenance Results * (ABNORMAL) PROTHROMBIN TIME WHOLE BLD POC (03/29/2025 9:19 AM EST) Only the most recent of4 resultswithin the time period is included. Protime 45.1(H) 11.1 - 13.5 sec [facility] 03/29/2025 9:19 AM EST 03/29/2025 9:21 AM EST us Generic External Data Provider LAB BLOOD ORDERAB LES Final Result [facility] [address] [place] [phone] * (ABNORMAL) ~PT, ~INR - ANTI COAG CLINIC (03/29/2025 9:19 AM EST) Only the most recent of4 resultswithin the time period is included. Prothrombin Time INR 3.8(H) 0.9 - 1.1 [facility] Comment:METER #: [id number] TERNATIONAL NORMALIZED RATIO (INR) REFERENCE RANGES Reference RangeFor patients not on anticoagulant therapy: 0.9 - 1.1INR ranges for oral anticoagulanttherapy:For prevention and treatment of venous thrombosis and pulmonary embolism: 2.0 - 3.0For acute myocardial infarction with aspirin therapy: 2.0 - 3.0For acute myocardial infarction without aspirin therapy: 3.0 - 4.0For patients with mechanical prosthetic heart valves: 2.5 - 3.5 03/29/2025 9:19 AM EST 03/29/2025 9:21 AM EST us Generic External Data Provider LAB BLOOD ORDERAB LES Final Result Performing Organization Address City/State/[facility] Co de Phone Number [facility] [address] [place] [phone] * CT Lung Screening Low dose (02/01/2025 12:34 PM EDT) Anatomical Region Laterality Modality Lung Computed Tomogra phy 02/01/2025 12:3 4 PM EDT Narrative 02/01/2025 12:56 PM EDT [address] [address] [address] Scan Report Signed Patient: Carlos Gorman MR #: [id number] : 1950 Acct:[id number] Age/Sex: 74 / M ADM Date: 02/01/25 Loc: HO.CT Attending Dr: Rae Pressley PA-C Ordering Physician: Rae Pressley PA-C Date of Service: 02/01/25 Procedure(s): CT lung screening Accession Number(s): [id number] cc: Loi Pandya MD; Rae Pressley PA-C Report Number: [id number]: Total DLP = 68.00 mGy-cm Reason for [...] 02/01/25 1253 DD/ 1234 TD/TT: 02/01/25 1244 Front Desk Receptionist: Procedure Note Donotuseinterpreter, Image - 02/01/[address] [place] [address] [address] Scan Report Signed Patient: Tyler Gorman #: [id number] : 1950Acct:[id number] Age/Sex: 74 / MADM Date: 02/01/25 Loc: HO.CT Attending Dr: Rae Pressley PA-C Ordering Physician: Rae Pressley PA-C Date of Service: 02/01/25 Procedure(s): CT lung screening Accession Number(s): [id number] cc: Loi Pandya MD; Rae Pressley PA-C Report Number: [id number]: Total DLP = 68.00 mGy-cm Reason for [...] 02/01/25 1253 DD/ 1234 TD/TT: 02/01/25 1244 Front Desk Receptionist: us [facility] External Provider IMG CT PROCEDURES Edited Result - Final * (ABNORMAL) Lipid Panel, Standard (12/04/2023 8:10 AM EDT) Triglycerides 154(H) <150 mg/dL [facility] Comment:Desirable Triglyceri de: less than 150 mg/dLBorderline High Triglyceride 150-199 mg/dLHigh Triglyceride: 200-499 mg/dLVery High Triglyceride: greater than or equal to 5OO mg/dL Cholesterol 130 <200 mg/dL [facility] Comment:Desirable Cholestero l: less than 200 mg/dLBorderline High Cholesterol: 200-239 mg/dLHigh Cholesterol: greater than 239 mg/dL LDL Cholesterol Calculated 56 <100 mg/dL [facility] Comment:Desirable LDL: less than 100 mg/dLNear Optimal/Above Optimal LDL: 110- 129 mg/dLBorderline High LDL: 130-159 mg/dLHigh LDL: 160-189 mg/dLVery High LDL: greater than or equal to 190 mg/dL HDL Cholesterol 44 >40 mg/dL [facility] Comment:Desirable HDL: great er than 40 mg/dL Note: This HDL assay may give artificially low results in patients with liver disease. Blood Venous blood specimen / Unknown 12/04/2023 8:10 AM EDT 12/04/2023 2:14 PM EDT Loi Catalan MD LAB BLOOD ORDERABL ES Final Result [facility] [address] [place] [phone] * Hm Colonoscopy (12/10/2021 9:05 AM EDT) Historical Provider HEALTH MAINTENANCE Final Result * HEPATITIS C AB W/REFL TO HCV RNA, QN, PCR (06/29/2021 8:58 AM EDT) HEPATITIS C ANTIBODY NON-REACT EZ NON-REACT [facility] INDEX 0.12 <1.00 [facility] Comment: HCV antibody was non-reactive. There is no laboratory evidence of HCV infection. In most cases, no further action is required. However, if recent HCV exposure is suspected, a test for HCV RNA (test code 33096) is suggested. For additional information please refer to http://education.[employer]/faq/NAN90y7 (This link is being provided for informational/ educational purposes only.) 06/29/2021 8:58 AM EDT Loi Catalan MD HISTORICAL/NON ORD ERABLE LABS Final Result [facility] [address] from Last 3 Months or Most Recently Relevant to Health Maintenance Insurance [facility] STANDARD [facility] DUAL COMPLETE * Guarantor: Carlos Gorman Account Type Relation to Patient Date of Phone Billing Address Personal/Family Self [address] [facility] [address] [place] [address] Care Teams Handle Lathe Operator Relationship Specialty Start Date End Date Loi Pandya MD [address] [place] [address] [place] [address] PCP - General Internal Medicine 09/13/19
--- OUTSIDE RECORDS SUMMARY | 2025-03-29 10:14 | XMS_ITS | Encounter Summary ---
Demographics Address [address] [place] [address] Mobile Phone Home Phone Preferred Language en Marital Status Unknown Advent Affiliation Unknown Race Other Race Ethnic Group Unknown Author Organization [employer] Address [address] [facility] 7t [place] [address] Care Team Providers Care Window Shade Ring Coverer Name Role Phone Loi Pandya MD Primary Care Prov ider Reason for Visit * Reason Comments Med Refill Encounter Details Date Type Department Care Team (Late st Contact Info) Description 07/30/2023 Refill [facility] [address] [place], [place] [phone] Loi Pandya MD [address] [place] [address] Longstanding persistent atrial fibrillation (CMS/HCC) Social History [...] documented as of this encounter Care Teams Window Shade Ring Coverer Relationship Specialty Start Date End Date Loi Pandya MD [address] [place] [phone] PCP - General Internal Medicine 09/13/19 documented as of this encounter
--- OUTSIDE RECORDS SUMMARY | 2025-03-29 10:14 | XMS_ITS | Encounter Summary ---
Demographics Address [address] [place] [address] Mobile Phone Home Phone Preferred Language en Marital Status Unknown Druze Affiliation Unknown Race Other Race Ethnic Group Unknown Author Organization [employer] Address [address] [facility] [address]t [place] [address] Care Team Providers Care Assistant Front Desk Manager Name Role Phone Loi Pandya MD Primary Care Prov ider Reason for Visit * Reason Comments Med Refill Encounter Details Date Type Department Care Team (Late st Contact Info) Description 11/12/2023 Refill [facility] [address] [place], [place] [phone] Loi Pandya MD [address] [place] [address] Longstanding persistent atrial fibrillation (CMS/HCC) Social History [...] documented as of this encounter Care Teams Assistant Front Desk Manager Relationship Specialty Start Date End Date Loi Pandya MD [address] [place] [phone] PCP - General Internal Medicine 09/13/19 documented as of this encounter
--- OUTSIDE RECORDS SUMMARY | 2025-03-29 10:14 | XMS_ITS | Clinical Summary ---
Author Organization [facility] Address [address] [place] [address] Care Team Providers Care Drill Setup Operator Name Role Phone Unavailable Primary Care [...] Date Smoking Tobacco: Every Day Cigarettes 1 61 Started: 04/14/1965 Smokeless Tobacco: Never Alcohol Use [...] 75+ series) 2024 COVID-19 Vaccine ( - 2024-2 6 season) 2024 Influenza Vaccine (#1) 2024 HIB [...] this topic Medical Devices Implanted Type Area Wire Stitcher Operator Device Identifier Shelf Expiration Date Model / Serial / Lot Hemasorb 4 Gm - [id number] - [id number] Implanted:Qty: 1 on 08/11/2019 by Amarjit Alvarado MD Chest [employer] 02/10/2022 OS-401 / [id number] / [id number] Atricure Atriclip Flex-V Implanted:Qty: 1 on 08/11/2019 by Amarjit Alvarado MD Heart [employer] 09/12/2021 [id number] / / [id number] Description:Item # [id number] Advance Directives Documents on File Type Date Recorded Patient Bulk Clerk Expl anation Health Care Decision (hx) 06/25/2019 AD BAER DIRECTIVE Health Care Decision (hx) 06/25/2019 AD BAER DIRECTIVE Health Care Decision (hx) 06/25/2019 AD BAER DIRECTIVE Health Care Decision (hx) 06/25/2019 AD BAER DIRECTIVE
--- OUTSIDE RECORDS SUMMARY | 2025-03-29 10:14 | XMS_ITS | Encounter Summary ---
Demographics Address [address] [place] [address] Mobile Phone Home Phone Preferred Language en Marital Status Unknown Restorationist Affiliation Unknown Race Other Race Ethnic Group Unknown Author Organization [employer] Address [address] [address] [facility] [address] [place] [address] Care Team Providers Care Recruiter Account Manager Name Role Phone Loi Pandya MD Primary Care Prov ider Encounter Details Date Type Department Care Team (Late st Contact Info) Description 03/29/2025 Orders Only GENERIC EXTERNAL DATA [...] COAG CLINIC Routine 03/29/2025 9:19 AM EST documented in this encounter Results * (ABNORMAL) PROTHROMBIN TIME WHOLE BLD POC (03/29/2025 9:19 AM EST) Protime 45.1(H) 11.1 - 13.5 sec [facility] 03/29/2025 9:19 AM EST 03/29/2025 9:21 AM EST us Generic External Data Provider LAB BLOOD ORDERAB LES Final Result Performing Organization Address City/State/[facility] Co de Phone Number [facility] [address] [place] [phone] * (ABNORMAL) ~PT, ~INR - ANTI COAG CLINIC (03/29/2025 9:19 AM EST) Prothrombin Time INR 3.8(H) 0.9 - 1.1 [facility] Comment:METER #: [id number] TERNATIONAL NORMALIZED RATIO (INR) REFERENCE RANGES Reference [...] Provider LAB BLOOD ORDERAB LES Final Result [facility] [address] [place] [phone] documented in this encounter Visit Diagnoses Not on filedocumented in this encounter Additional Health Concerns Assessment Noted Time PHQ-9 Depression Total Score: 0 11/13/19 24 10:51 AM EDT documented as of this encounter Care Teams Recruiter Account Manager Relationship Specialty Start Date End Date Loi Pandya MD [address] [place] [phone] PCP - General Internal Medicine 09/13/19 documented as of this encounter
--- OUTSIDE RECORDS SUMMARY | 2025-03-29 10:14 | XMS_ITS | Clinical Summary ---
Demographics Address [address] [place] [address] Mobile Phone Home Phone Preferred Language Lithuanian; Castilian Marital Status Legally Anglican Affiliation Unknown Race Unknown Ethnic Group or Author Organization [facility] Prior to 09/11/[address] [place] [address] Support Name Relationship Address Phone Luis Antonio Padgettles Emergency Contact [address] [place] [address] Care Team Providers Care Acid Bleacher Name Role Phone Unavailable Primary Care Provider [...] Date Secondary hypercoagulable state 08/12/2019 CAD in [place] artery 08/11/2019 Social History Tobacco Use Types [...] this topic Medical Devices Implanted Type Area Calender Inspector Device Identifier Shelf Expiration Date Model / Serial / Lot Hemasorb 4 Gm - [id number] - [id number] Implanted:Qty: 1 on 08/11/2019 by Amarjit Alvarado MD [place] [facility] Chest [employer] 02/10/2022 OS-401 / [id number] / [id number] Atricure Atriclip Flex-V Implanted:Qty: 1 on 08/11/2019 by Amarjit Alvarado MD [place] [facility] Heart [employer] 09/12/2021 [id number] / / [id number] Description:Item # [id number] Guarantor Name Account Type Relation to Patient Date of Phone Billing Address Carlos Moncada Personal/Family Self 1950 [address] [place] [address] Carlos Moncada Personal/Family Self 1950 [address] [place] [address] Carlos Moncada Personal/Family Self 1950 [address] [place] [address] Advance Directives For more information, please contact: [phone] Latest Code Status on File Code Status Date Activated Date Inactivated Comments Full Code 08/11/2019 5:30 AM 08/19/2019 8:55 PM This c ode status was ascertained in the following way: per unit protocol.
--- OUTSIDE RECORDS SUMMARY | 2025-03-29 10:14 | XMS_ITS | Encounter Summary ---
Demographics Address [address] [facility] [address] [place] [address] Mobile Phone Home Phone Preferred Language en Marital Status Unknown Samaritan Affiliation Unknown Race Other Race Ethnic Group Unknown Author Organization [email or web address] Address [address] [facility] [facility] [address] 7t [place] [address] Care Team Providers Care Shredder Operator Name Role Phone Loi Pandya MD Primary Care Prov ider Encounter Details Date Type Department Care Team (Late st Contact Info) Description 07/31/2023 Orders Only [facility] MEDICINE [address] [place], [place] [phone] ProviderCalderon MD Social History Tobacco Use Types [...] documented as of this encounter Care Teams Shredder Operator Relationship Specialty Start Date End Date MelgarLoi Sears MD [address] [place] [phone] PCP - General Internal Medicine 09/13/19 documented as of this encounter
--- OUTSIDE RECORDS SUMMARY | 2025-03-29 10:14 | XMS_ITS | Encounter Summary ---
Demographics Address [address] [facility] [address] [facility] [address] [place] [address] Mobile Phone Home Phone Preferred Language en Marital Status Unknown Synagogue Affiliation Unknown Race Other Race Ethnic Group Unknown Author Organization [employer] Address [address] [facility] 7t [place] [address] Care Team Providers Care Powder Press Operator Name Role Phone Loi Pandya MD Primary Care Prov ider Encounter Details Date Type Department Care Team (Late st Contact Info) Description 05/17/2022 Orders Only [facility] MEDICINE [address] [place] [address] Loi Pandya MD [address] [place] [address] Permanent atrial fibrillation (CMS/HCC) Social History Tobacco [...] fibrillation documented in this encounter Care Teams Powder Press Operator Relationship Specialty Start Date End Date Loi Pandya MD [address] [place] [address] PCP - General Internal Medicine 09/13/19 documented as of this encounter
--- OUTSIDE RECORDS SUMMARY | 2025-03-29 10:14 | XMS_ITS | Encounter Summary ---
Demographics Address [address] [facility] [facility] [address] [place] [address] Mobile Phone Home Phone Preferred Language en Marital Status Unknown Congregational Affiliation Unknown Race Other Race Ethnic Group Unknown Author Organization [employer] Address [address] [facility] 7t [place] [address] Care Team Providers Care Metal Container Maker Name Role Phone Loi Pandya MD Primary Care Prov ider Reason for Visit * Reason Comments Med Refill Encounter Details Date Type Department Care Team (Late st Contact Info) Description 07/27/2022 Refill [facility] CH[facility] MED & PEDS [address] [place], [place] [phone] Loi Pandya MD [address] [place] [address] Longstanding persistent atrial fibrillation (CMS/HCC) Social History [...] documented as of this encounter Care Teams Metal Container Maker Relationship Specialty Start Date End Date MelgarLoi Sears MD [address] [place] [phone] PCP - General Internal Medicine 09/13/19 documented as of this encounter
--- NOTE | 2025-03-29 10:15 | MHC.OFFVISCO ---
Intake Intake Visit Reasons: Anticoagulation Allergies No Known Allergies Allergy (Verified 03/29/25 09:11) Medication List - Last Reconciled 03/29/25 by Nury Ward RN amlodipine 10 mg PO DAILY aspirin 81 mg PO DAILY atorvastatin 40 mg PO DAILY cholecalciferol (vitamin D3) PO losartan 100 mg PO DAILY methylcellulose (laxative) (Citrucel) 500 mg PO DAILY metoprolol succinate ER 50 mg PO DAILY multivit with min-folic acid (Adult One Daily Multivitamin) PO omega-3 fatty acids (Fish Oil Concentrate) 1200 PO daily; vitamin E (dl, acetate) PO warfarin 5 mg See Protocol PO DAILY Nursing Note INR 3.8 out of therapeutic range Medications and supplements reviewed Patient status: Pt reports he had marina yesterday, he has been drinking nora tea every other night, has not had greens, plus had a cold and was in bed fro a few days - all can contribute to elevated INR Medications or supplements: no changes Diet: same Denies any signs and symptoms of bleeding or clotting or unusual bruising Bleeding, bruising, clotting discussed Nutritional guidance given: resume greens in his diet weekly avocado and lettuce Dose: hold today then resume usual dose F/U INR Date: 12 days Patient verbalizing understanding of instructions given. Anti-Coag Initial Assessment Social Hx Patient Tobacco Use Status: Current everyday Tobacco user Tobacco use type: Cigarette alcohol intake: never Coding Level of Care Code Est Patient Level 1 Diagnoses Current use of anticoagulant therapy Z79.01 Assessment & Plan Assessment & Plan (1) Current use of anticoagulant therapy: Code(s): Z79.01 - retirement (current) use of anticoagulants Category: Medical
== END 2025-03-29 10:16 | disposition home or self-care (01) ==
LOC: HO.ACS 09:02
PROVIDERS: PCP Internal Medicine; Visit Provider Internal Medicine Medical Oncology
DX: Z79.01 Long term (current) use of anticoagulants (principal)

== ENCOUNTER → 2025-03-29 09:02 | Outpatient (BNVA) | payer OTHER, SELFPAY | PROVIDERS: PCP Internal Medicine; Visit Provider Internal Medicine Medical Oncology | DX: Z79.01 Long term (current) use of anticoagulants (principal) | CPT/HCPCS: 85610; 99211 ==

== ENCOUNTER 2025-04-11 08:05 | Outpatient (AMB) | payer OTHER, SELFPAY ==
--- OUTSIDE RECORDS SUMMARY | 2025-04-11 08:07 | XMS_ITS | Encounter Summary ---
Demographics Address [address] [facility] [facility] [address] [place] [address] Mobile Phone Home Phone Preferred Language en Marital Status Unknown Latter-Day Affiliation Unknown Race Other Race Ethnic Group Unknown Author Organization [employer] Address [address] [facility] 7t [place] [address] Care Team Providers Care Pruner Name Role Phone Loi Pandya MD Primary Care Prov ider Reason for Visit * Reason Comments Med Refill Encounter Details Date Type Department Care Team (Late st Contact Info) Description 07/27/2022 Refill [facility] CH[facility] MED & PEDS [address] [place], [place] [phone] Loi Pandya MD [address] [place] [address] Longstanding persistent atrial fibrillation (CMS/HCC) Social History [...] documented as of this encounter Care Teams Pruner Relationship Specialty Start Date End Date MelgarLoi Sears MD [address] [place] [address] PCP - General Internal Medicine 09/13/19 documented as of this encounter
--- OUTSIDE RECORDS SUMMARY | 2025-04-11 08:07 | XMS_ITS | Clinical Summary ---
Author Organization [employer] Address [address] [facility] 7t [place] [address] Care Team Providers Care Mill Worker Name Role Phone Loi Pandya MD [...] (04/09/2022 10:48 AM EST): 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 by bunch maker hand, on diltiazem and warfarin, no recent er visit due to exacerbation Anticoagulated on Coumadin 04/09/2022 Assessment & Plan (04/09/2022 10:51 AM EST): Patient on coumadin 7.5mg daily, no episode of bleeding, followed at coumadin clinic, no changes will be made Secondary hypercoagulable state 08/12/2019 CAD in [place] artery 08/11/2019 Encounters Date Type Department Care [...] SCREENING Routine 02/01/2025 1 2:34 PM EDT LIPID PANEL, STANDARD Routine 12/04/2023 8:10 AM EDT Primary hypertension HM COLONOSCOPY Routine 12/10/2021 9:05 AM EDT ZZZ HISTORICAL HEPATITIS C AB W/REFL TO HCV RNA, QN, PCR Routine 06/29/2021 8:58 AM EDT from Last 3 Months or Most Recently Relevant to Health Maintenance Results * (ABNORMAL) PROTHROMBIN TIME WHOLE BLD POC (03/29/2025 9:19 AM EST) Only the most recent of3 resultswithin the time period is included. Protime 45.1(H) 11.1 - 13.5 sec [facility] 03/29/2025 9:19 AM EST 03/29/2025 9:21 AM EST us Generic External Data Provider LAB BLOOD ORDERAB LES Final Result Performing Organization Address [facility] Co de Phone Number [facility] [address] [place] [phone] * (ABNORMAL) ~PT, ~INR - ANTI COAG CLINIC (03/29/2025 9:19 AM EST) Only the most recent of3 resultswithin the time period is included. Prothrombin Time INR 3.8(H) 0.9 - 1.1 [facility] Comment:METER #: [id number] TERNATIONAL NORMALIZED RATIO (INR) REFERENCE RANGES Reference [...] ORDERAB LES Final Result Performing Organization Address [facility] Co de Phone Number [facility] [address] [place] [phone] * CT Lung Screening Low dose (02/01/2025 12:34 PM EDT) Anatomical Region Laterality Modality Lung Computed Tomogra phy 02/01/2025 12:3 4 PM EDT Narrative 02/01/2025 12:56 PM EDT [address] [address] [address] Scan Report Signed Patient: Carlos Gorman MR #: [id number] : 1950 Acct:[id number] Age/Sex: 74 / M ADM Date: 02/01/25 Loc: HO.CT Attending Dr: Rae Pressley PA-C Ordering Physician: Rae Pressley PA-C Date of Service: 02/01/25 Procedure(s): CT lung screening Accession Number(s): [id number] cc: Loi Pandya MD; Rae Pressley PA-C Report Number: [id number]: Total DLP = 68.00 mGy-cm Reason for [...] 02/01/25 1253 DD/ 1234 TD/TT: 02/01/25 1244 Radiosonde Operator: Procedure Note Donotuseinterpreter, Image - 02/01/[address] [place] [address] [address] Scan Report Signed Patient: Tyler Gorman #: [id number] : 1950Acct:[id number] Age/Sex: 74 / MADM Date: 02/01/25 Loc: HO.CT Attending Dr: Rae Pressley PA-C Ordering Physician: Rae Pressley PA-C Date of Service: 02/01/25 Procedure(s): CT lung screening Accession Number(s): [id number] cc: Loi Pandya MD; Rae Pressley PA-C Report Number: [id number]: Total DLP = 68.00 mGy-cm Reason for [...] 02/01/25 1253 DD/ 1234 TD/TT: 02/01/25 1244 Radiosonde Operator: [facility] External Provider IMG CT PROCEDURES Edited Result - Final * (ABNORMAL) Lipid Panel, Standard (12/04/2023 8:10 AM EDT) Triglycerides 154(H) <150 mg/dL [facility] Comment:Desirable Triglyceri de: less [...] 190 mg/dL HDL Cholesterol 44 >40 mg/dL [facility] Comment:Desirable HDL: great er than 40 mg/dL Note: This HDL assay may give artificially low results in patients with liver disease. Blood Venous blood specimen / Unknown 12/04/2023 8:10 AM EDT 12/04/2023 2:14 PM EDT Loi Catalan MD LAB BLOOD ORDERABL ES Final Result Performing Organization Address City/[facility]/ZIP Co de Phone Number [facility] [address] [place] [phone] * Hm Colonoscopy (12/10/2021 9:05 AM EDT) Historical Provider HEALTH MAINTENANCE Final Result * HEPATITIS C AB W/REFL TO HCV RNA, QN, PCR (06/29/2021 8:58 AM EDT) HEPATITIS C ANTIBODY NON-REACT EZ NON-REACT EZ [facility] INDEX 0.12 <1.00 [facility] Comment: HCV antibody was non-reactive. There is no laboratory evidence of HCV infection. In most cases, no further action is required. However, if recent HCV exposure is suspected, a test for HCV RNA (test code 34505) is suggested. For additional information please refer to http://education.ReliSen.FTRANS/faq/RUN34j4 (This link is being provided for informational/ educational purposes only.) 06/29/2021 8:58 AM EDT Loi Catalan MD HISTORICAL/NON ORD ERABLE LABS Final Result [facility] [address] [place] [address], from Last 3 Months or Most Recently Relevant to Health Maintenance Insurance [facility] DUAL COMPLETE Care Teams Mill Worker Relationship Specialty Start Date End Date Loi Pandya MD [address] [place] [phone] PCP - General Internal Medicine 09/13/19
--- OUTSIDE RECORDS SUMMARY | 2025-04-11 08:07 | XMS_ITS | Encounter Summary ---
Demographics Address [address] [facility] [address] [place] [address] Mobile Phone Home Phone Preferred Language en Marital Status Unknown Sikh Affiliation Unknown Race Other Race Ethnic Group Unknown Author Organization [employer] Address [address] [facility] 7t [place] [address] Care Team Providers Care Diamond Saw Operator Name Role Phone Loi Pandya MD Primary Care Prov ider Encounter Details Date Type Department Care Team (Late st Contact Info) Description 05/17/2022 Orders Only [facility] MEDICINE [address] [place] [address] Loi Pandya MD [address] [place] [address] Permanent atrial fibrillation (CMS/HCC) Social History Tobacco [...] fibrillation documented in this encounter Care Teams Diamond Saw Operator Relationship Specialty Start Date End Date Loi Pandya MD [address] [place] [address] PCP - General Internal Medicine 09/13/19 documented as of this encounter
--- OUTSIDE RECORDS SUMMARY | 2025-04-11 08:07 | XMS_ITS | Clinical Summary ---
Demographics Address [address] [place] [address] Mobile Phone Home Phone Preferred Language Bhutanese; Castilian Marital Status Legally Mormonism Affiliation Unknown Race Unknown Ethnic Group or Author Organization [employer] [facility] Prior to 09/11/[address] [place] [address] Support Name Relationship Address Phone Luis Antonio Padgettles Emergency Contact 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/11/2019 Social History Tobacco Use Types [...] this topic Medical Devices Implanted Type Area Propeller Driven Airplane Mechanic Device Identifier Shelf Expiration Date Model / Serial / Lot Hemasorb 4 Gm - [id number] - [id number] Implanted:Qty: 1 on 08/11/2019 by Amarjit Alvarado MD at [facility] and Med Chest [employer] 02/10/2022 OS-401 / [id number] / [id number] Atricure Atriclip Flex-V Implanted:Qty: 1 on 08/11/2019 by Amarjit Alvarado MD at [facility] and Med Heart [employer] 09/12/2021 [id number] / / [id number] Description:Item # [id number] Guarantor Name Account Type Relation to Patient Date of Phone Billing Address Carlos Moncada Personal/Family Self 1950 [address] [place] [address] Carlos Moncada Personal/Family Self 1950 [address] [place] [address] Carlos Moncada Personal/Family Self 1950 [address] [place] [address] Advance Directives For more information, please contact: [phone] Latest Code Status on File Code Status Date Activated Date Inactivated Comments Full Code 08/11/2019 5:30 AM 08/19/2019 8:55 PM This c ode status was ascertained in the following way: per unit protocol.
--- OUTSIDE RECORDS SUMMARY | 2025-04-11 08:07 | XMS_ITS | Encounter Summary ---
Demographics Address [address] [place] [address] Mobile Phone Home Phone Preferred Language en Marital Status Unknown Confucianism Affiliation Unknown Race Other Race Ethnic Group Unknown Author Organization [employer] Address [address] [facility] 7t [place] [address] Care Team Providers Care Call Center Team Leader Name Role Phone Loi Pandya MD Primary Care Prov ider Reason for Visit * Reason Comments Med Refill Encounter Details Date Type Department Care Team (Late st Contact Info) Description 11/12/2023 Refill [facility] CHC MED & PEDS [address] [place], [place] [phone] Loi Pandya MD [address] [place] [address] Longstanding persistent atrial fibrillation (CMS/HCC) Social History [...] documented as of this encounter Care Teams Call Center Team Leader Relationship Specialty Start Date End Date Loi Pandya MD [address] [place] [address] PCP - General Internal Medicine 09/13/19 documented as of this encounter
--- OUTSIDE RECORDS SUMMARY | 2025-04-11 08:07 | XMS_ITS | Clinical Summary ---
Author Organization [facility] Address [address] [place] [address] Care Team Providers Care Boat Mechanic Name Role Phone Unavailable Primary Care Provider [...] this topic Medical Devices Implanted Type Area Welt Maker Device Identifier Shelf Expiration Date Model / Serial / Lot Hemasorb 4 Gm - [id number] - [id number] Implanted:Qty: 1 on 08/11/2019 by Amarjit Alvarado MD Chest [employer] 02/10/2022 OS-401 / [id number] / [id number] At[employer]ure Atriclip Flex-V Implanted:Qty: 1 on 08/11/2019 by Amarjit Alvarado MD Heart [employer] 09/12/2021 [id number] / / [id number] Description:Item # [id number] Advance Directives Documents on File Type Date Recorded Patient Head Batcher Expl anation Health Care Decision (hx) 06/25/2019 AD BAER DIRECTIVE Health Care Decision (hx) 06/25/2019 AD BAER DIRECTIVE Health Care Decision (hx) 06/25/2019 AD BAER DIRECTIVE Health Care Decision (hx) 06/25/2019 AD BAER DIRECTIVE
--- OUTSIDE RECORDS SUMMARY | 2025-04-11 08:07 | XMS_ITS | Encounter Summary ---
Demographics Address [address] [facility] [address] [place] [address] Mobile Phone Home Phone Preferred Language en Marital Status Unknown Sabianist Affiliation Unknown Race Other Race Ethnic Group Unknown Author Organization [employer] Address [address] [facility] [address] [facility] [address] [facility] [address] 7t [place] [address] Care Team Providers Care Rn Access Name Role Phone Loi Pandya MD Primary Care Prov ider Encounter Details Date Type Department Care Team (Late st Contact Info) Description 07/31/2023 Orders Only [facility] MEDICINE [address] [place], [place] [phone] ProviderCalderon MD Social History Tobacco Use Types [...] documented as of this encounter Care Teams Rn Access Relationship Specialty Start Date End Date MelgarLoi Sears MD [address] [place] [phone] PCP - General Internal Medicine 09/13/19 documented as of this encounter
--- OUTSIDE RECORDS SUMMARY | 2025-04-11 08:07 | XMS_ITS | Encounter Summary ---
Demographics Address [address] [place] [address] Mobile Phone Home Phone Preferred Language en Marital Status Unknown Zoroastrianism Affiliation Unknown Race Other Race Ethnic Group Unknown Author Organization [employer] Address [address] [facility] 7t [place] [address] Care Team Providers Care Pond Tender Name Role Phone Loi Pandya MD Primary Care Prov ider Reason for Visit * Reason Comments Med Refill Encounter Details Date Type Department Care Team (Late st Contact Info) Description 07/30/2023 Refill [facility] CHC MED & PEDS [address] [place], [place] [phone] Loi Pandya MD [address] [place] [address] Longstanding persistent atrial fibrillation (CMS/HCC) Social History [...] documented as of this encounter Care Teams Pond Tender Relationship Specialty Start Date End Date Loi Pandya MD [address] [place] [address] PCP - General Internal Medicine 09/13/19 documented as of this encounter
[2025-04-11 08:30] LABS: Prothrombin Time Whole Bld POC 37.9 sec (11.1-13.5); ~PT, ~INR - Anti Coag Clinic 3.2 (0.9-1.1)
--- NOTE | 2025-04-11 08:34 | MHC.OFFVISCO ---
Intake Intake Visit Reasons: Anticoagulation Allergies No Known Allergies Allergy (Verified 04/11/25 08:25) Medication List - Last Reconciled 04/11/25 by No Mena RN amlodipine 10 mg PO DAILY aspirin 81 mg PO DAILY atorvastatin 40 mg PO DAILY cholecalciferol (vitamin D3) PO losartan 100 mg PO DAILY methylcellulose (laxative) (Citrucel) 500 mg PO DAILY metoprolol succinate ER 50 mg PO DAILY multivit with min-folic acid (Adult One Daily Multivitamin) PO omega-3 fatty acids (Fish Oil Concentrate) 1200 PO daily; vitamin E (dl, acetate) PO warfarin 5 mg See Protocol PO DAILY Nursing Note INR: 3.2 out of therapeutic range of 2-3 Medications and supplements reviewed Patient status: feels well Medications or supplements: no changes Diet: usual diet for pt Denies any signs and symptoms of bleeding or clotting or unusual bruising Bleeding, bruising, clotting discussed Nutritional guidance given: to have a serving of greens today Dose: decrease today's dose of 7.5mg to 5mg then resume usual dose of 7.5mg X 5 days and 5mg X 2 days F/U INR Date: 4 weeks?? Patient verbalizing understanding of instructions given. Anti-Coag Initial Assessment Social Hx Patient Tobacco Use Status: Current everyday Tobacco user Tobacco use type: Cigarette alcohol intake: never Coding Level of Care Code Est Patient Level 1 Diagnoses Current use of anticoagulant therapy Z79.01 Results AMB INR Fingerstick AMB INR Fingerstick 3.2 Last Edit by No Mena RN on 04/11/25 08:32 interface delay Assessment & Plan Assessment & Plan (1) Current use of anticoagulant therapy: Code(s): Z79.01 - wildlife protector (current) use of anticoagulants Category: Medical
== END 2025-04-11 08:37 | disposition home or self-care (01) ==
LOC: HO.ACS 08:05
PROVIDERS: PCP Internal Medicine; Visit Provider Internal Medicine Medical Oncology
DX: Z79.01 Long term (current) use of anticoagulants (principal)

== ENCOUNTER → 2025-04-11 08:05 | Outpatient (BNVA) | payer OTHER, SELFPAY | PROVIDERS: PCP Internal Medicine; Visit Provider Internal Medicine Medical Oncology | DX: I48.21 Permanent atrial fibrillation (principal); Z51.81 Encounter for therapeutic drug level monitoring; Z79.01 Long term (current) use of anticoagulants | CPT/HCPCS: 85610; 99211 ==